=== PATIENT | male | born 1965 | race Caucasian/White ===

== ENCOUNTER 2016-12-09 14:26 | Emergency (ER) | payer BC ==
[2016-12-09 14:37] VITALS: RESP 18
[2016-12-09] MEDS ORDERED: SODIUM CHLORIDE 0.9% 500 ML IV STA (14:59)
--- NOTE | 2016-12-09 15:03 | ED ---
General Adult HPI - General Chief complaint: Abdominal Pain Stated complaint: no bowel movement/abdominal pain Time Seen by Provider: 12/09/16 14:35 Source: patient, RN notes reviewed Mode of arrival: ambulatory Limitations: no limitations - History of Present Illness Initial comments: This is a 51-year-old male who presents to the emergency department complaining of abdominal pain which started on the left side radiating to his abdomen but today he states it is diffusely tender. Patient states the pain was worse on Friday and has improved a little but it continues to bother him. Patient states since then he's been afraid to eat because he seems as though it makes the pain worse. Patient states he has not had any follow-up since Friday and is only passing some gas. Patient denies any previous surgeries. Patient denies any medical problems. Patient states he hasn't seen a physician in quite a few years. Patient denies any fever chills. Patient denies any lightheadedness dizziness or near syncopal episode. Patient denies any difficulty breathing or chest pain. Patient denies any dysuria hematuria urinary frequency. Patient denies any back pain. - Related Data Home Medications Medication Instructions Recorded Confirmed No Known Home Medications [No 12/09/16 12/09/16 Known Home Medications] Allergies Allergy/AdvReac Type Severity Reaction Status Date / Time No Known Allergies Allergy Verified 12/09/16 15:14 Review of Systems ROS Statement: Those systems with pertinent positive or pertinent negative responses have been documented in the HPI. ROS Other: All systems not noted in ROS Statement are negative. Past Medical History Past Medical History: No Reported History History of Any Multi-Drug Resistant Organisms: None Reported Past Surgical History: Tubal Ligation Past Psychological History: No Psychological Hx Reported Smoking Status: Current every day smoker Past Alcohol Use History: Rare Past Drug Use History: None Reported General Exam - General Exam Comments Initial Comments: GENERAL: Patient is well-developed and well-nourished. Patient is nontoxic and well- hydrated and is in mild distress. ENT: Neck is soft and supple. No significant lymphadenopathy is noted. Oropharynx is clear. Moist mucous membranes. Neck has full range of motion without eliciting any pain. EYES: The sclera were anicteric and conjunctiva were pink and moist. Extraocular movements were intact and pupils were equal round and reactive to light. Eyelids were unremarkable. PULMONARY: Unlabored respirations. Good breath sounds bilaterally. No audible rales rhonchi or wheezing was noted. CARDIOVASCULAR: There is a regular rate and rhythm without any murmurs gallops or rubs. ABDOMEN: Abdomen is mildly tender diffusely there is no rebound or guarding. SKIN: Skin is clear with no lesions or rashes and otherwise unremarkable. NEUROLOGIC: Patient is alert and oriented x3. Cranial nerves II through XII are grossly intact. Motor and sensory are also intact. Normal speech, volume and content. Symmetrical smile. MUSCULOSKELETAL: Normal extremities with adequate strength and full range of motion. LYMPHATICS: No significant lymphadenopathy is noted PSYCHIATRIC: Normal psychiatric evaluation. Limitations: no limitations Course Vital Signs 12/09/16 14:35 Temperature 99.2 F Pulse Rate 102 H Respiratory 18 Rate Blood Pressure 133/95 O2 Sat by Pulse 96 Oximetry Medical Decision Making - Medical Decision Making I spoke with the patient for about 5 minutes about the risks of smoking and the benefits of sensation. It lasted 3 minutes. Patient's CAT scan shows no acute normalities. I went back into reevaluate the patient he states he was feeling better and now that he knows everything is normal on the CAT scan he'll feel like he can go home and eat. Patient will follow-up with his primary medical care doctor. - Lab Data Result diagrams: 12/09/16 14:50 12/09/16 14:50 Lab Results 12/09/16 12/09/16 12/09/16 Range/Units 14:50 14:50 14:50 WBC 8.1 (3.8-10.6) k/uL RBC 6.19 H (4.30-5.90) m/uL Hgb 20.6 H (13.0-17.5) gm/dL Hct 59.6 H (39.0-53.0) % MCV 96.3 (80.0-100.0) fL MCH 33.3 (25.0-35.0) pg MCHC 34.6 (31.0-37.0) g/dL RDW 14.7 (11.5-15.5) % Plt Count 148 L (150-450) k/uL Neutrophils % 72 % Lymphocytes % 19 % Monocytes % 6 % Eosinophils % 1 % Basophils % 1 % Neutrophils # 5.8 (1.3-7.7) k/uL Lymphocytes # 1.5 (1.0-4.8) k/uL Monocytes # 0.5 (0-1.0) k/uL Eosinophils # 0.1 (0-0.7) k/uL Basophils # 0.0 (0-0.2) k/uL Sodium 139 (137-145) mmol/L Potassium 4.5 (3.5-5.1) mmol/L Chloride 106 (98-107) mmol/L Carbon Dioxide 21 L (22-30) mmol/L Anion Gap 12 mmol/L BUN 9 (9-20) mg/dL Creatinine 0.80 (0.66-1.25) mg/dL Est GFR (MDRD) Af Amer >60 (>60 ml/min/1.73 sqM) Est GFR (MDRD) Non-Af >60 (>60 ml/min/1.73 sqM) Glucose 108 H (74-99) mg/dL Calcium 9.7 (8.4-10.2) mg/dL Total Bilirubin 0.8 (0.2-1.3) mg/dL AST 24 (17-59) U/L ALT 31 (21-72) U/L Alkaline Phosphatase 119 (38-126) U/L Total Protein 7.6 (6.3-8.2) g/dL Albumin 4.5 (3.5-5.0) g/dL Amylase <30 L (30-110) U/L Lipase 72 (23-300) U/L Urine Color Light Yellow Urine Appearance Clear (Clear) Urine pH 5.5 (5.0-8.0) Ur Specific [place] 1.002 (1.001-1.035) Urine Protein Negative (Negative) Urine Glucose (UA) Negative (Negative) Urine Ketones Negative (Negative) Urine Blood Negative (Negative) Urine Nitrite Negative (Negative) Urine Bilirubin Negative (Negative) Urine Urobilinogen <2.0 (<2.0) mg/dL Ur Leukocyte Esterase Negative (Negative) Disposition Clinical Impression: Abdominal pain, Polycythemia Disposition: HOME SELF-CARE Condition: Good Instructions: Abdominal Pain (ED) Referrals: Rowan Coronel MD [Primary Care Provider] - 1-2 days Time of Disposition: 15:59
[2016-12-09 15:23] LABS: Appearance,Urine Clear (Clear); Bilirubin,Urine Negative (Negative); Glucose,Urine (UA) Negative (Negative); Ketones,Urine Negative (Negative); Leukocyte Esterase,Urine Negative (Negative); Nitrite,Urine Negative (Negative); PH, Urine 5.5 (5.0-8.0); Protein,Urine Negative (Negative); Specific Gravity,Urine 1.002 (1.001-1.035); UA Billing (MACRO vs. MICRO) CHEM; Urobilinogen,Urine <2.0 mg/dL (<2.0)
[2016-12-09 15:25] LABS: Basophils % (A) 1 %; CHCM 34.5; Eosinophils # (A) 0.1 k/uL (0-0.7); Eosinophils % (A) 1 %; HCT 59.6 % (39.0-53.0); HDW 2.65; HGB 20.6 gm/dL (13.0-17.5); Luc # (Auto) 0.16; Luc % (Auto) 2; Lymphocytes # (A) 1.5 k/uL (1.0-4.8); Lymphocytes % (A) 19 %; MCH 33.3 pg (25.0-35.0); MCHC 34.6 g/dL (31.0-37.0); MCV 96.3 fL (80.0-100.0); Mean Platelet Volume 8.6; Monocytes # (A) 0.5 k/uL (0-1.0); Monocytes % (A) 6 %; Neutrophils # (A) 5.8 k/uL (1.3-7.7); Neutrophils % (A) 72 %; RBC 6.19 m/uL (4.30-5.90); RDW 14.7 % (11.5-15.5); WBC 8.1 k/uL (3.8-10.6); WBC (Perox) 8.13
[2016-12-09 15:34] LABS: ALT 31 U/L (21-72); AST 24 U/L (17-59); Alkaline Phosphatase 119 U/L (38-126); Amylase <30 U/L (30-110); Anion Gap 12 mmol/L; Blood Urea Nitrogen 9 mg/dL (9-20); Calcium 9.7 mg/dL (8.4-10.2); Carbon Dioxide 21 mmol/L (22-30); Chloride 106 mmol/L (98-107); Glucose 108 mg/dL (74-99); Non-African American GFR(MDRD) >60 (>60 ml/min/1.73 sqM); Potassium 4.5 mmol/L (3.5-5.1); Sodium 139 mmol/L (137-145); Total Bilirubin 0.8 mg/dL (0.2-1.3); Total Protein 7.6 g/dL (6.3-8.2)
--- NOTE | 2016-12-09 15:41 | CT ---
EXAMINATION TYPE: CT abdomen pelvis wo con DATE OF EXAM: 12/09/2016 HISTORY: Pain mid to left sided abdominal pain for 3 days with constipation per patient CT DLP: 933.8 mGycm. Automated Exposure Control for Dose Reduction was Utilized. TECHNIQUE: CT scan of the abdomen and pelvis is performed without oral or IV contrast. COMPARISON: NONE FINDINGS: Within the limitations of a non-contrast study, the following observations are made. LUNG BASES: No significant abnormality is appreciated. LIVER/GB: Liver is diffusely hypodense consistent with fatty infiltration. PANCREAS: No significant abnormality is seen. SPLEEN: No significant abnormality is seen. ADRENALS: No significant abnormality is seen. KIDNEYS: No renal stones or hydronephrosis is evident bilaterally. BOWEL: The evaluation of bowel is slightly suboptimal secondary to lack of enteric contrast. There is no suspicious small or large bowel dilatation. Normal-appearing appendix is seen inferiorly from the cecum. GENITAL ORGANS: No gross abnormality seen. LYMPH NODES: No greater than 1cm abdominal or pelvic lymph nodes are appreciated. OSSEOUS STRUCTURES: Some spurring near thoracolumbar junction is present. There is multilevel facet a rthropathy. There is some spurring at greater trochanter levels bilaterally. OTHER: Calcification right pelvis on axial image 124 favors phlebolith. There is mild calcified plaqu e distal abdominal aorta with mild to moderate calcified plaque seen in pelvic iliac branch vessels. IMPRESSION: No renal stones or hydronephrosis is seen bilaterally. No bowel obstruction is present. N o suspicious acute finding is seen on noncontrast study to account for patient's symptoms.
[2016-12-09 16:11] VITALS: BP 132/79; PULSE 81; TEMP 99.3
== END 2016-12-09 16:17 | disposition home or self-care (01) ==
LOC: EC 14:26
DX: R10.84 Generalized abdominal pain (principal); D75.1 Secondary polycythemia; F17.200 Nicotine dependence, unspecified, uncomplicated
CPT/HCPCS: 36415; 74176; 80053; 81003; 82150; 83690; 85025; 96360; 99284

== ENCOUNTER 2017-03-25 13:58 | Observation (INO) | payer BC ==
--- NOTE | 2017-03-25 13:54 | US ---
EXAMINATION TYPE: US venous doppler duplex LE RT DATE OF EXAM: 03/25/2017 1:40 PM COMPARISON: NONE CLINICAL HISTORY: 52-year-old male with right Leg Pain Lower Extremity M79.604. SIDE PERFORMED: Right TECHNIQUE: The lower extremity deep venous system is examined utilizing real time linear array sonog aric with graded compression, doppler sonography and color-flow sonography. FINDINGS: VESSELS IMAGED: Common Femoral Vein Deep Femoral Vein Greater Saphenous Vein * Femoral Vein Popliteal Vein Small Saphenous Vein * Proximal Calf Veins (* superficial vessels) Right Leg: Positive for DVT at Femoral Vein, right Popliteal Vein, upper Calf Veins and one of two c chcf veins mid level. Tech findings called to Dr Coronel at exam's end. IMPRESSION: Exam positive for acute DVT involving the right femoral vein, popliteal vein, and one of two deep vei ns at the mid calf level.
[2017-03-25] MEDS ORDERED: HEPARIN SODIUM,PORCINE 5,000 UNIT/ML 1 ML VIAL IV STA ×2 (14:40→23:53)
--- NOTE | 2017-03-25 14:42 | ED ---
Extremity Problem HPI - General Chief complaint: Extremity Problem,Nontraumatic Stated complaint: Positive Rt leg DVT-from [facility] Time Seen by Provider: 03/25/17 14:00 Source: patient, family, RN notes reviewed Mode of arrival: wheelchair Limitations: no limitations - History of Present Illness Initial comments: This is a 52-year-old male with a benign history who is a smoker who states he had the onset yesterday of right lower extremity pain and swelling. He states that extends over from his thigh down to his leg. He denies any shortness of breath fevers chills nausea vomiting sweats trauma he works on his feet all day he states no recent trips. No prior history of blood clots. His other complaints at this time he was seen by his doctor today had an outpatient ultrasound that shows an extensive DVT in the right lower extremity. Complete report MD Complaint: extremity pain, extremity swelling - Related Data Home Medications Medication Instructions Recorded Confirmed Ibuprofen [Motrin] 200 - 800 mg PO Q6HR PRN 03/25/17 03/25/17 Allergies Allergy/AdvReac Type Severity Reaction Status Date / Time No Known Allergies Allergy Verified 03/25/17 14:21 Review of Systems ROS Statement: Those systems with pertinent positive or pertinent negative responses have been documented in the HPI. ROS Other: All systems not noted in ROS Statement are negative. Past Medical History Past Medical History: No Reported History History of Any Multi-Drug Resistant Organisms: None Reported Past Surgical History: Tonsillectomy Past Psychological History: No Psychological Hx Reported Smoking Status: Current every day smoker Past Alcohol Use History: Rare Past Drug Use History: None Reported General Exam - General Exam Comments Initial Comments: This is a well-developed well-nourished awake alert oriented 3 male Limitations: no limitations General appearance: alert, in no apparent distress Head exam: Present: atraumatic, normocephalic, normal inspection Eye exam: Present: normal appearance, PERRL, EOMI. Absent: scleral icterus, conjunctival injection, periorbital swelling ENT exam: Present: normal exam, mucous membranes moist Neck exam: Present: normal inspection. Absent: tenderness, meningismus, lymphadenopathy Respiratory exam: Present: normal lung sounds bilaterally. Absent: respiratory distress, wheezes, rales, rhonchi, stridor Cardiovascular Exam: Present: regular rate, normal rhythm, normal heart sounds. Absent: systolic murmur, diastolic murmur, rubs, gallop, clicks GI/Abdominal exam: Present: soft, normal bowel sounds. Absent: distended, tenderness, guarding, rebound, rigid Extremities exam: Present: full ROM, tenderness, normal capillary refill, pedal edema, calf tenderness (Positive Homans sign right lower extremity). Absent: joint swelling Back exam: Present: normal inspection Neurological exam: Present: alert, oriented X3, CN II-XII intact Psychiatric exam: Present: normal affect, normal mood Skin exam: Present: warm, dry, intact, normal color. Absent: rash Course Vital Signs 03/25/17 14:11 Temperature 99.2 F Pulse Rate 80 Respiratory 18 Rate Blood Pressure 138/84 O2 Sat by Pulse 96 Oximetry - Reevaluation(s) Reevaluation #1: 03/25/17 14:43 I did attempt discussing smoking cessation with the patient including discussing risks factors which include blood clots from smoking. The patient did not want to have anything to do with smoking cessation. The attempt lasted 3.1 minutes Medical Decision Making - Medical Decision Making I did discuss findings with the patient and his . Patient be admitted for anticoagulation and treatment/evaluation of the DVT in right lower extremity he does believe he'll require a nicotine patch. - Radiology Data Radiology results: report reviewed (I did review the outpatient imaging and reports patient does have an extensive DVT he will be admitted for inpatient coagulation.), image reviewed Disposition Clinical Impression: Deep vein thrombosis of lower extremity Disposition: ADMITTED IP TO THIS [facility] Condition: Stable Referrals: Rowan Coronel MD [Primary Care Provider] - 1-2 days
[2017-03-25] MEDS ORDERED: NALOXONE 0.4 MG/ML 1 ML VIAL IV PRN (15:03)
[2017-03-25 15:25] LABS: Basophils # (A) 0.1 k/uL (0-0.2); Basophils % (A) 1 %; CH 32.7; Eosinophils # (A) 0.2 k/uL (0-0.7); Eosinophils % (A) 3 %; HCT 58.4 % (39.0-53.0); HGB 18.8 gm/dL (13.0-17.5); Luc # (Auto) 0.13; Luc % (Auto) 2; Lymphocytes # (A) 1.4 k/uL (1.0-4.8); Lymphocytes % (A) 17 %; MCH 32.1 pg (25.0-35.0); MCHC 32.2 g/dL (31.0-37.0); MCV 99.7 fL (80.0-100.0); Macrocytosis Slight; Mean Platelet Volume 8.3; Monocytes # (A) 0.4 k/uL (0-1.0); Monocytes % (A) 5 %; Neutrophils % (A) 73 %; RBC 5.86 m/uL (4.30-5.90); RDW 15.8 % (11.5-15.5); WBC 8.2 k/uL (3.8-10.6); WBC (Perox) 8.54
[2017-03-25 15:34] LABS: ALT 31 U/L (21-72); AST 19 U/L (17-59); Alkaline Phosphatase 106 U/L (38-126); Anion Gap 9 mmol/L; Blood Urea Nitrogen 9 mg/dL (9-20); Calcium 9.5 mg/dL (8.4-10.2); Carbon Dioxide 23 mmol/L (22-30); Chloride 105 mmol/L (98-107); Glucose 103 mg/dL (74-99); Non-African American GFR(MDRD) >60 (>60 ml/min/1.73 sqM); Potassium 4.4 mmol/L (3.5-5.1); Sodium 137 mmol/L (137-145); Total Bilirubin 0.9 mg/dL (0.2-1.3); Total Protein 7.6 g/dL (6.3-8.2)
[2017-03-25 15:57] LABS: Creatine Kinase MB 0.7 ng/mL (0.0-2.4)
--- NOTE | 2017-03-25 16:03 | XR ---
EXAMINATION TYPE: XR chest 2V DATE OF EXAM: 03/25/2017 COMPARISON: None HISTORY: 52-year-old male with cough, DVT TECHNIQUE: AP and lateral views FINDINGS: Heart is upper limits of normal in size. Mild diffuse interstitial prominence and mild peribronchial cuffing. Rounded opacity right mid to lower lung suspected to represent a prominent rib end. Strandy atelectasis at the left base. No olivier consolidation or pleural effusion. IMPRESSION: 1. Peribronchial cuffing and mild interstitial changes. Correlate for possible etiologies including b ronchitis, uncontrolled asthma, or atypical pneumonias. 2. Rounded opacity right mid to lower lung suspected to represent a prominent fifth rib end. Recommen d short interval follow-up in 4-6 weeks.
[2017-03-25] MEDS: SODIUM CHLORIDE 0.9% 1,000 ML IV SCH (16:30)
[2017-03-25] MEDS: HEPARIN SODIUM,PORCINE/D5W PMX 25,000 UNIT in DEXTROSE/WATER 1 500ML.BAG IV SCH (16:35)
[2017-03-25] MEDS ORDERED: NICOTINE 21MG/24HR PATCH TRANSDERM STA (16:40)
[2017-03-25 16:54] LABS: INR 1.1 (<1.2); Partial Thromboplastin Time 26.4 sec (22.0-30.0); Prothrombin Time 10.9 sec (9.0-12.0)
[2017-03-25 17:26] VITALS: BMI 33.6
[2017-03-25] MEDS ORDERED: HYDROcodone/APAP 5-325MG 1 EACH TAB PO PRN (17:40)
--- NOTE | 2017-03-26 00:30 | P.HPIM ---
History of Present Illness H&P Date: 03/25/17 Chief Complaint: Right leg swelling Patient is a 52-year-old male with out significant past medical history except for smoking came to the hospital the complains of right lower reduction to a swelling and pain. Patient says that his pain started about the knee and started going down and worsening ankle and lower leg swelling. He denies any shortness of breath fevers chills nausea vomiting sweats trauma he works on his feet all day he states no recent trips. No prior history of blood clots. His other complaints at this time he was seen by his doctor today had an outpatient ultrasound that shows an extensive DVT in the right lower extremity. Patient denied any recent illnesses. No recent surgeries. Denied any history of cancers. No weight loss or loss of appetite. Review of Systems Constitutional: Patient denies any fever or chills . No generalized weakness or weight loss. Abdomen: Patient denied nausea vomiting and diarrhea and abdominal pain. Cardiovascular: Patient denies any chest pain or short of breath no palpitations. Respiratory: patient denied any cough is from production. No shortness of breath Neurologic: Patient denied any numbness or tingling headache. Musculoskeletal: Right leg swelling and pain. Skin: Negative Psychiatric: Negative Endocrine: No heat or cold intolerance. No recent weight gain. Genitourinary: No dysuria or hematuria. All other 14 point ROS negative except the above Past Medical History Past Medical History: No Reported History History of Any Multi-Drug Resistant Organisms: None Reported Past Surgical History: Tonsillectomy Past Anesthesia/Blood Transfusion Reactions: No Reported Reaction Additional Past Anesthesia/Blood Transfusion Reaction / Comment(s): NO BLOOD TRANSFUSIONS BEFORE Past Psychological History: No Psychological Hx Reported Smoking Status: Current every day smoker Past Alcohol Use History: Rare Past Drug Use History: None Reported - Past Family History Mother Family Medical History: CVA/TIA Additional Family Medical History / Comment(s): MOTHER HAD CANCER, UNSURE WHICH TYPE Father Family Medical History: CVA/TIA Medications and Allergies Home Medications Medication Instructions Recorded Confirmed Type Ibuprofen [Motrin] 200 - 800 mg PO Q6HR PRN 03/25/17 03/25/17 History Allergies Allergy/AdvReac Type Severity Reaction Status Date / Time bee venom protein (honey bee) Allergy Swelling Verified 03/25/17 17:30 Physical Exam Vitals: Vital Signs Temp Pulse Pulse Resp BP BP Pulse Ox 03/25/17 17:00 96.7 F L 81 18 134/88 97 03/25/17 16:52 99.2 F 78 18 135/80 98 03/25/17 14:11 99.2 F 80 18 138/84 96 Intake and Output 03/25/17 03/25/17 03/25/17 06:59 14:59 22:59 Other: Weight 106.141 kg 103.4 kg Patient Weight 03/26/17 06:59 Weight 103.4 kg PHYSICAL EXAMINATION: Patient is lying in the bed comfortably, no acute distress, awake alert and oriented.. HEENT: Normocephalic. Neck is supple. Pupils reactive. Nostrils clear. Oral cavity is moist. Ears reveal no drainage. Neck reveals no JVD, carotid bruits, or thyromegaly. CHEST EXAMINATION: Trachea is central. Symmetrical expansion. Lung givens clear to auscultation and percussion. CARDIAC: Normal S1, S2 with no gallops. No murmurs ABDOMEN: Soft. Bowel sounds normal. No organomegaly. No abdominal bruits. Extremities: Right leg swelling below the knee with redness and warm to touch. Does have calf tenderness. No clubbing or cyanosis Left lower extremity varicose veins Neurologically awake, alert, oriented x3 with well-coordinated movements. No focal deficits noted Skin: No rash or skin lesions. Psychiatric: Operative. Nonsuicidal Musculoskeletal: No joint swelling or deformity. Normal range of motion. Results CBC & Chem 7: 03/25/17 15:16 03/25/17 15:16 Labs: Abnormal Lab Results - Last 24 Hours (Table) 03/25/17 03/25/17 03/25/17 Range/Units 15:16 15:16 15:16 Hgb 18.8 H (13.0-17.5) gm/dL Hct 58.4 H (39.0-53.0) % RDW 15.8 H (11.5-15.5) % Plt Count 124 L (150-450) k/uL D-Dimer (<0.60) mg/L FEU Glucose 103 H (74-99) mg/dL Total Creatine Kinase 49 L (55-170) U/L 03/25/17 Range/Units 15:16 Hgb (13.0-17.5) gm/dL Hct (39.0-53.0) % RDW (11.5-15.5) % Plt Count (150-450) k/uL D-Dimer 6.91 H (<0.60) mg/L FEU Glucose (74-99) mg/dL Total Creatine Kinase (55-170) U/L Thrombosis Risk Factor Assmnt - Choose All That Apply Each Factor Represents 1 point: Age 41-60 years, Obesity (BMI >25) Each Risk Factor Represents 3 Points: Family history of DVT/PE Thrombosis Risk Factor Assessment Total Risk Factor Score: 5 Thrombosis Risk Factor Assessment Level: High Risk Assessment and Plan Assessment: #1 acute right lower activity DVT. Unknown precipitant factor. Possible varicose veins #2 right mid to lower rounded Opacity on chest x-ray possibly prominent fifth rib end. Follow-up recommended #3 cigarette smoking. Counseled for cessation #4 obesity with BMI 33.7 #5 elevated d-dimer 6.9 Plan: Patient will be continued on heparin IV and continue to follow. Possible change to oral antibiotics tomorrow. Patient will need repeat chest x-ray as an outpatient and possibly pulmonary follow-up. Smoking cessation was counseled. We will continue the current management and further recommendations based on the clinical course.
[2017-03-26] MEDS: HEPARIN SODIUM,PORCINE/D5W PMX 25,000 UNIT in DEXTROSE/WATER 1 500ML.BAG IV SCH ×2 (05:11→18:01)
[2017-03-26 06:04] LABS: CH 32.2; CHCM 32.7; HCT 57.1 % (39.0-53.0); HGB 18.6 gm/dL (13.0-17.5); MCH 32.1 pg (25.0-35.0); MCHC 32.5 g/dL (31.0-37.0); MCV 98.9 fL (80.0-100.0); Macrocytosis Slight; Mean Platelet Volume 8.4; RBC 5.78 m/uL (4.30-5.90); RDW 15.7 % (11.5-15.5); WBC 7.5 k/uL (3.8-10.6)
[2017-03-26] MEDS: NICOTINE 21MG/24HR PATCH TRANSDERM SCH (08:20)
--- NOTE | 2017-03-26 16:40 | P.PN ---
Subjective Progress Note Date: 03/26/17 Progress note being dictated for Dr. Roca Interval history:Patient is a 52-year-old male with out significant past medical history except for smoking came to the hospital the complains of right lower reduction to a swelling and pain. Patient says that his pain started about the knee and started going down and worsening ankle and lower leg swelling. He denies any shortness of breath fevers chills nausea vomiting sweats trauma he works on his feet all day he states no recent trips. No prior history of blood clots. His other complaints at this time he was seen by his doctor today had an outpatient ultrasound that shows an extensive DVT in the right lower extremity. Patient denied any recent illnesses. No recent surgeries. Denied any history of cancers. No weight loss or loss of appetite. 03/26/2017. Maintained on heparin drip, Edema,erythema, discomfort improving. Anxious, on nicotine patch. Denies chest pain, palpitations or increasing shortness of breath. Good diet appetite with no nausea or vomiting. Maintaining O2 sats in the 90s on room air. Afebrile. Objective - Vital Signs Vital signs: Vital Signs Temp 98.4 F 03/26/17 15:00 Pulse 83 03/26/17 15:00 Resp 16 03/26/17 15:00 BP 116/71 03/26/17 15:00 Pulse Ox 93 L 03/26/17 15:00 Intake & Output 03/25/17 03/26/17 03/26/17 18:59 06:59 18:59 Intake Total 717.633 6182 Output Total 400 Balance 554.477 800 Weight 103.4 kg Intake: Intake, IV Titration 554.477 Amount Heparin Sodium,Porcine/ 554.477 D5w Pmx 25,000 unit In Dextrose/Water 1 500ml. bag @ 18 UNITS/KG/HR 38. 21 mls/hr IV .Q13H6M ARASH Rx#:[id number] Oral 1200 Output: Urine 400 Other: Voiding Method Toilet Urinal # Voids 1 6 - Exam Patient is lying in the bed comfortably, no acute distress, awake alert and oriented. HEENT: Normocephalic. Neck is supple. Pupils reactive. Nostrils clear. Oral cavity is moist. Ears reveal no drainage. Neck reveals no JVD, carotid bruits, or thyromegaly. CHEST EXAMINATION: Trachea is central. Symmetrical expansion. Lung givens clear to auscultation and percussion. CARDIAC: Normal S1, S2 with no gallops. No murmurs ABDOMEN: Soft. Bowel sounds normal. No organomegaly. No abdominal bruits. Extremities: Improving Right leg swelling below the knee with decreased redness ,warmth. Less calf tenderness. No clubbing or cyanosis Left lower extremity varicose veins Neurologically awake, alert, oriented x3 with well-coordinated movements. No focal deficits noted. Skin: No rash or skin lesions. Psychiatric: Operative. Nonsuicidal Musculoskeletal: No joint swelling or deformity. Normal range of motion. - Labs CBC & Chem 7: 03/26/17 05:43 03/25/17 15:16 Labs: Abnormal Lab Results - Last 24 Hours (Table) 03/25/17 03/26/17 03/26/17 Range/Units 22:25 05:43 05:43 Hgb 18.6 H (13.0-17.5) gm/dL Hct 57.1 H (39.0-53.0) % RDW 15.7 H (11.5-15.5) % Plt Count 120 L (150-450) k/uL APTT 45.6 H 54.2 H (22.0-30.0) sec Assessment and Plan Assessment: #1 acute right lower activity DVT. Unknown precipitant factor. Possible varicose veins #2 right mid to lower rounded Opacity on chest x-ray possibly prominent fifth rib end. Follow-up recommended #3 cigarette smoking. Counseled for cessation #4 obesity with BMI 33.7 #5 elevated d-dimer 6.9 Plan: Continue on heparin drip, Xarelto coverage verification pending , switch over tomorrow. Nicotine cessation readdressed. Discharge planning in progress. Outpatient follow-up with pulmonary including repeat chest x-ray. The impression and plan of care has been dictated as directed. : I performed a history and examination of this patient, discussed the same with the dictator. I agree with the dictator's note ,documented as a scribe. Any additional findings or plans will be noted.
[2017-03-26] MEDS: SODIUM CHLORIDE 0.9% 1,000 ML IV SCH (18:03)
[2017-03-27] MEDS: HEPARIN SODIUM,PORCINE/D5W PMX 25,000 UNIT in DEXTROSE/WATER 1 500ML.BAG IV SCH (05:27)
[2017-03-27 07:47] LABS: CH 32.8; CHCM 33.2; HCT 58.5 % (39.0-53.0); HDW 2.72; HGB 18.6 gm/dL (13.0-17.5); MCH 31.7 pg (25.0-35.0); MCHC 31.8 g/dL (31.0-37.0); MCV 99.6 fL (80.0-100.0); Mean Platelet Volume 7.5; RBC 5.87 m/uL (4.30-5.90); RDW 13.9 % (11.5-15.5); WBC 7.6 k/uL (3.8-10.6)
[2017-03-27 07:53] VITALS: RESP 16
[2017-03-27] MEDS ORDERED: HEPARIN SODIUM,PORCINE 5,000 UNIT/ML 1 ML VIAL IV STA (08:02)
[2017-03-27] MEDS ORDERED: HEPARIN SODIUM,PORCINE 5,000 UNIT/ML 1 ML VIAL IV PRN (08:09)
[2017-03-27] MEDS: NICOTINE 21MG/24HR PATCH TRANSDERM SCH (08:16)
[2017-03-27] MEDS ORDERED: RX INFO: IV CONTRAST WAS GIVEN 1 EACH MISC MISCELLANE PRN (12:03)
[2017-03-27] MEDS ORDERED: RIVAROXABAN 15 MG TAB PO SCH (12:30)
[2017-03-27] MEDS ORDERED: NICOTINE 21MG/24HR PATCH TRANSDERM STA (14:20)
[2017-03-27 14:48] VITALS: BP 113/67; PULSE 72; TEMP 97.2
--- NOTE | 2017-03-27 15:24 | CT ---
EXAMINATION TYPE: CT chest angio for PE DATE OF EXAM: 03/27/2017 COMPARISON: NONE HISTORY: Right leg swelling and deep venous thrombosis CT DLP: 511.4 mGycm Automated exposure control for dose reduction was used. CONTRAST: CT Chest for pulmonary embolism performed with with IV Contrast, patient injected with 100 mL of Omni paque 350. FINDINGS: LUNGS: The lungs are remarkable for some minimal basilar increased density at the right posterior cos tophrenic angle likely representing atelectasis. There is no pleural effusion or pneumothorax seen. The tracheobronchial tree is patent. MEDIASTINUM: There is satisfactory enhancement of the pulmonary artery and its branches, there is no CT evidence for pulmonary embolism. Borderline enlargement superior mediastinal nodes, hilar nodes.. Small prevascular node is present. No pericardial effusion is seen. Pulmonary artery is enlarged. AORTA: Borderline dilation, aortic root is 4.1 cm.. OTHER: Spleen is enlarged. IMPRESSION: No evident pulmonary embolism. Probable atelectasis right lower lobe,, borderline enlarged mediastina l nodes, aortic root follow-up suggested. Correlate for pulmonary artery hypertension. Splenomegaly.
[2017-03-27] MEDS: SODIUM CHLORIDE 0.9% 1,000 ML IV SCH (16:24)
== END 2017-03-27 17:20 | disposition home or self-care (01) ==
LOC: EC 13:58 → INTOOBSV 15:03 → 4MS4W 15:03
PROVIDERS: ADMIT Internal Medicine; ATTEND Internal Medicine
DX: I82.411 Acute embolism and thrombosis of right femoral vein (principal); I82.431 Acute embolism and thrombosis of right popliteal vein; I82.491 Acute embolism and thrombosis of other specified deep vein of right lower extremity; R79.89 Other specified abnormal findings of blood chemistry; I83.92 Asymptomatic varicose veins of left lower extremity; F17.210 Nicotine dependence, cigarettes, uncomplicated; E66.9 Obesity, unspecified; Z68.25 Body mass index [BMI] 25.0-25.9, adult; Z91.030 Bee allergy status
CPT/HCPCS: 71020; 71275; 80053; 82550; 82553; 83735; 85025; 85027; 85379; 85610; 85730; 93005; 96365; 96366; 96376; 99285

== ENCOUNTER → 2017-10-02 | Outpatient (CLI) | payer BC ==
--- NOTE | 2017-10-02 15:18 | US ---
EXAMINATION TYPE: US venous doppler duplex LE DATE OF EXAM: 10/02/2017 3:00 PM COMPARISON: US right lower extremity 03/25/2017 CLINICAL HISTORY: I82.411 Acute embolism and thrombosis of right fem. Patient on zeralto. Known DVT SIDE PERFORMED: Bilateral TECHNIQUE: The lower extremity deep venous system is examined utilizing real time linear array sonog aric with graded compression, doppler sonography and color-flow sonography. VESSELS IMAGED: External Iliac Vein (EIV) Common Femoral Vein Deep Femoral Vein Greater Saphenous Vein * Femoral Vein Popliteal Vein Small Saphenous Vein * Proximal Calf Veins (* superficial vessels) Right Leg: Negative for DVT Left Leg: Negative for DVT Grayscale, color doppler, spectral doppler imaging performed of the deep veins of the bilateral lowe r extremities. There is normal flow, compressibility, vascular waveforms. IMPRESSION: No ultrasound evidence for new or residual DVT in either lower extremity on today's study .
== END ==
LOC: RADUSWWP 14:04
PROVIDERS: ATTEND Internal Medicine Hematology & Oncology
DX: Z09 Encounter for follow-up examination after completed treatment for conditions other than malignant neoplasm (principal); Z86.718 Personal history of other venous thrombosis and embolism
CPT/HCPCS: 93970

== ENCOUNTER 2018-01-16 14:41 | Emergency (ER) | payer BC, OTHER ==
[2018-01-16 15:17] VITALS: RESP 18
[2018-01-16 16:29] LABS: Basophils % (A) 1 %; Eosinophils # (A) 0.2 k/uL (0-0.7); Eosinophils % (A) 4 %; HCT 55.6 % (39.0-53.0); HGB 18.4 gm/dL (13.0-17.5); Lymphocytes % (A) 20 %; MCH 31.3 pg (25.0-35.0); MCHC 33.2 g/dL (31.0-37.0); MCV 94.2 fL (80.0-100.0); Mean Platelet Volume 8.3; Monocytes # (A) 0.2 k/uL (0-1.0); Monocytes % (A) 4 %; Neutrophils # (A) 3.5 k/uL (1.3-7.7); Neutrophils % (A) 69 %; Platelet Count 96 k/uL (150-450); RDW 13.4 % (11.5-15.5); WBC 5.1 k/uL (3.8-10.6)
[2018-01-16] MEDS ORDERED: LIDOCAINE 1% INJ 10MG/ML (20 ML MDV) SQ STA (16:36)
[2018-01-16 16:44] LABS: ALT 32 U/L (21-72); AST 23 U/L (17-59); Albumin 4.2 g/dL (3.5-5.0); Alkaline Phosphatase 98 U/L (38-126); Anion Gap 10 mmol/L; Blood Urea Nitrogen 19 mg/dL (9-20); Calcium 8.9 mg/dL (8.4-10.2); Carbon Dioxide 23 mmol/L (22-30); Chloride 103 mmol/L (98-107); Glucose 163 mg/dL (74-99); Potassium 4.9 mmol/L (3.5-5.1); Sodium 136 mmol/L (137-145); Total Bilirubin 0.7 mg/dL (0.2-1.3); Total Protein 7.1 g/dL (6.3-8.2)
--- NOTE | 2018-01-16 17:32 | ED ---
General Adult HPI - General Chief complaint: Skin/Abscess/Foreign Body Stated complaint: Leg Pain Time Seen by Provider: 01/16/18 16:14 Source: patient, RN notes reviewed Mode of arrival: ambulatory Limitations: no limitations - History of Present Illness Initial comments: Patient's a 52-year-old male presents emergency room today with chief complaint of an abscess to the left thigh. He does admit that is been a cyst since she was a child. He states it got infected a couple weeks ago and went to the family doctor had a course of antibiotics of Bactrim for 10 days. Patient states that he finished antibiotics 2 days ago. Patient states that . Has not improved. States the swelling has decreased but is still having drainage. Patient denies any fevers. Denies any other complaints or symptoms. - Related Data Home Medications Medication Instructions Recorded Confirmed Aspirin [Adult Low Dose Aspirin EC] 81 mg PO DAILY 01/16/18 01/16/18 Atorvastatin Calcium [Lipitor] 40 mg PO DAILY 01/16/18 01/16/18 Ibuprofen [Motrin Ib] 600 mg PO Q8H PRN 01/16/18 01/16/18 Lisinopril [Zestril] 20 mg PO DAILY 01/16/18 01/16/18 Tamsulosin HCl [Flomax] 0.4 mg PO DAILY 01/16/18 01/16/18 metFORMIN HCL [Glucophage] 500 mg PO BID 01/16/18 01/16/18 Previous Rx's Medication Instructions Recorded Clindamycin HCl 300 mg PO Q6H #40 cap 01/16/18 Allergies Allergy/AdvReac Type Severity Reaction Status Date / Time bee venom protein (honey bee) Allergy Swelling Verified 01/16/18 16:53 Review of Systems ROS Statement: Those systems with pertinent positive or pertinent negative responses have been documented in the HPI. ROS Other: All systems not noted in ROS Statement are negative. Past Medical History Past Medical History: Diabetes Mellitus, Hyperlipidemia, Hypertension, Prostate Disorder History of Any Multi-Drug Resistant Organisms: None Reported Past Surgical History: Tonsillectomy Past Anesthesia/Blood Transfusion Reactions: No Reported Reaction Additional Past Anesthesia/Blood Transfusion Reaction / Comment(s): NO BLOOD TRANSFUSIONS BEFORE Past Psychological History: No Psychological Hx Reported Smoking Status: Current every day smoker Past Alcohol Use History: Rare Past Drug Use History: None Reported - Past Family History Mother Family Medical History: CVA/TIA Additional Family Medical History / Comment(s): MOTHER HAD CANCER, UNSURE WHICH TYPE Father Family Medical History: CVA/TIA General Exam - General Exam Comments Initial Comments: General: The patient is awake and alert, in no distress, and does not appear acutely ill. Eye: Pupils are equal, round and reactive to light, extra-ocular movements are intact. No nystagmus. There is normal conjunctiva bilaterally. No signs of icterus. Ears, nose, mouth and throat: There are moist mucous membranes and no oral lesions. Neck: The neck is supple, there is no tenderness or JVD. Musculoskeletal: Normal ROM, no tenderness. Strength 5/5. Sensation intact. Pulses equal bilaterally 2+. Neurological: A&O x 3. CN II-XII intact, There are no obvious motor or sensory deficits. Coordination appears grossly intact. Speech is normal. Skin: Abscess located to the anterior left thigh measuring approximately 2 cm across. Fluctuant area centrally. Psychiatric: Cooperative, appropriate mood & affect, normal judgment. Limitations: no limitations Course Vital Signs 01/16/18 01/16/18 15:13 16:27 Temperature 98.1 F Pulse Rate 91 91 Respiratory 18 18 Rate Blood Pressure 112/72 128/80 O2 Sat by Pulse 98 98 Oximetry Procedures - Procedures Initial comment: Procedure: Incision and drainage The skin overlying the abscess was prepped with Betadine, and anesthetized with 1% lidocaine without epinephrine. A #11 scalpel was then used to incise the abscess. Some purulent material was then extracted from the lesion. Iodoform packing gauze was placed. Gauze dressing placed on top, The patient tolerated the procedure well. Medical Decision Making - Medical Decision Making Abscess drained here in emergency room. Patient will be started on clindamycin. He is advised warm compresses. Advised follow-up surgeon over the next 2 days if symptoms are not improved. - Lab Data Result diagrams: 01/16/18 16:18 01/16/18 16:18 Lab Results 01/16/18 01/16/18 Range/Units 16:18 16:18 WBC 5.1 (3.8-10.6) k/uL RBC 5.90 (4.30-5.90) m/uL Hgb 18.4 H (13.0-17.5) gm/dL Hct 55.6 H (39.0-53.0) % MCV 94.2 (80.0-100.0) fL MCH 31.3 (25.0-35.0) pg MCHC 33.2 (31.0-37.0) g/dL RDW 13.4 (11.5-15.5) % Plt Count 96 L (150-450) k/uL Neutrophils % 69 % Lymphocytes % 20 % Monocytes % 4 % Eosinophils % 4 % Basophils % 1 % Neutrophils # 3.5 (1.3-7.7) k/uL Lymphocytes # 1.0 (1.0-4.8) k/uL Monocytes # 0.2 (0-1.0) k/uL Eosinophils # 0.2 (0-0.7) k/uL Basophils # 0.0 (0-0.2) k/uL Sodium 136 L (137-145) mmol/L Potassium 4.9 (3.5-5.1) mmol/L Chloride 103 (98-107) mmol/L Carbon Dioxide 23 (22-30) mmol/L Anion Gap 10 mmol/L BUN 19 (9-20) mg/dL Creatinine 0.70 (0.66-1.25) mg/dL Est GFR (CKD-EPI)AfAm >90 (>60 ml/min/1.73 sqM) Est GFR (CKD-EPI)NonAf >90 (>60 ml/min/1.73 sqM) Glucose 163 H (74-99) mg/dL Calcium 8.9 (8.4-10.2) mg/dL Total Bilirubin 0.7 (0.2-1.3) mg/dL AST 23 (17-59) U/L ALT 32 (21-72) U/L Alkaline Phosphatase 98 (38-126) U/L Total Protein 7.1 (6.3-8.2) g/dL Albumin 4.2 (3.5-5.0) g/dL Disposition Clinical Impression: Leg abscess Disposition: HOME SELF-CARE Condition: Good Instructions: Abscess (ED) Additional Instructions: Please use medication as discussed. Please follow-up with family doctor in the next 2 days of symptoms have not improved. Please return to emergency room if the symptoms increase or worsen or for any other concerns. Prescriptions: Clindamycin HCl 300 mg PO Q6H #40 cap Is patient prescribed a controlled substance at d/c from ED?: No Referrals: Rowan Coronel MD [Primary Care Provider] - 1-2 days Maci Francisco DO [Doctor of Osteopathic Medicine] - 1-2 days Time of Disposition: 17:30
[2018-01-16 17:47] VITALS: BP 121/57; PULSE 86; TEMP 97.6
== END 2018-01-16 17:47 | disposition home or self-care (01) ==
LOC: EC 14:41
DX: L02.416 Cutaneous abscess of left lower limb (principal); E11.9 Type 2 diabetes mellitus without complications; E78.5 Hyperlipidemia, unspecified; I10 Essential (primary) hypertension; F17.200 Nicotine dependence, unspecified, uncomplicated; Z79.84 Long term (current) use of oral hypoglycemic drugs; Z79.82 Long term (current) use of aspirin; Z79.899 Other long term (current) drug therapy; Z91.030 Bee allergy status
CPT/HCPCS: 36415; 80053; 85025; 99283; 10060; J2001

== ENCOUNTER 2018-04-21 18:45 | Emergency (ER) | payer OTHER ==
[2018-04-21 19:05] VITALS: RESP 18
[2018-04-21] MEDS ORDERED: HYDROmorphone 1 MG/ML 1 ML SYRINGE IVP STA (19:11)
[2018-04-21] MEDS ORDERED: ceFAZolin 2,000 MG in DEXTROSE/WATER 1 50ML.BAG IVPB STA (19:12)
[2018-04-21] MEDS ORDERED: DIPH,PERTUS(ACELL)TETVAC-LF 0.5 ML VIAL IM ONE (19:12)
[2018-04-21] MEDS ORDERED: ceFAZolin IN SWFI 2 GM/20 ML SYRINGE IVP STA (19:13)
--- NOTE | 2018-04-21 19:35 | XR ---
EXAMINATION TYPE: XR hand complete LT DATE OF EXAM: 04/21/2018 COMPARISON: NONE HISTORY: Pain and limited range of motion TECHNIQUE: 4 views. FINDINGS: There is flexion deformity of the third and fourth digits. There is a comminuted fracture of the prox imal shaft of the middle phalanx of the fourth digit. Third digit appears to be intact. Exam is limit ed by the positioning. IMPRESSION: Fracture of the middle phalanx of the ring finger. Limited exam. There is probably lacera tion of the middle finger at the PIP joint.
--- NOTE | 2018-04-21 19:48 | ED ---
Upper Extremity HPI - General Chief Complaint: Extremity Injury, Upper Stated Complaint: [facility] - lt hand crushing injury Time Seen by Provider: 04/21/18 19:10 Source: patient, RN notes reviewed, old records reviewed Mode of arrival: ambulatory Limitations: no limitations - History of Present Illness Initial Comments: 33-year-old male presents emergency department today with traumatic injury to the left hand. Patient reports that his third fourth and second finger crushed in a drill press at work. Patient reports his tetanus is up-to-date. He is a smoker. She reports that he had tissue coming through his glove. He reports he is unable to move the third and fourth digit. Patient states he has a small laceration of her second digit. Patient reports loss of sensation over the third and fourth digit.Patient is a smoker. He has a history of diabetes, and hypertension. - Related Data Home Medications Medication Instructions Recorded Confirmed Aspirin [Adult Low Dose Aspirin EC] 81 mg PO DAILY 01/16/18 01/16/18 Atorvastatin Calcium [Lipitor] 40 mg PO DAILY 01/16/18 01/16/18 Ibuprofen [Motrin Ib] 600 mg PO Q8H PRN 01/16/18 01/16/18 Lisinopril [Zestril] 20 mg PO DAILY 01/16/18 01/16/18 Tamsulosin HCl [Flomax] 0.4 mg PO DAILY 01/16/18 01/16/18 metFORMIN HCL [Glucophage] 500 mg PO BID 01/16/18 01/16/18 Previous Rx's Medication Instructions Recorded Clindamycin HCl 300 mg PO Q6H #40 cap 01/16/18 Allergies Allergy/AdvReac Type Severity Reaction Status Date / Time bee venom protein (honey bee) Allergy Swelling Verified 01/16/18 16:53 Review of Systems ROS Statement: Those systems with pertinent positive or pertinent negative responses have been documented in the HPI. ROS Other: All systems not noted in ROS Statement are negative. Past Medical History Past Medical History: Diabetes Mellitus, Hyperlipidemia, Hypertension, Prostate Disorder History of Any Multi-Drug Resistant Organisms: None Reported Past Surgical History: Tonsillectomy Past Anesthesia/Blood Transfusion Reactions: No Reported Reaction Additional Past Anesthesia/Blood Transfusion Reaction / Comment(s): NO BLOOD TRANSFUSIONS BEFORE Past Psychological History: No Psychological Hx Reported Smoking Status: Current every day smoker Past Alcohol Use History: Rare Past Drug Use History: None Reported - Past Family History Mother Family Medical History: CVA/TIA Additional Family Medical History / Comment(s): MOTHER HAD CANCER, UNSURE WHICH TYPE Father Family Medical History: CVA/TIA General Exam - General Exam Comments Initial Comments: [id number] male. Limitations: no limitations General appearance: alert, in no apparent distress Head exam: Present: atraumatic, normocephalic, normal inspection Eye exam: Present: normal appearance, PERRL, EOMI. Absent: scleral icterus, conjunctival injection, periorbital swelling ENT exam: Present: normal exam, mucous membranes moist Neck exam: Present: normal inspection. Absent: tenderness, meningismus, lymphadenopathy Respiratory exam: Present: normal lung sounds bilaterally. Absent: respiratory distress, wheezes, rales, rhonchi, stridor Cardiovascular Exam: Present: regular rate, normal rhythm, normal heart sounds. Absent: systolic murmur, diastolic murmur, rubs, gallop, clicks GI/Abdominal exam: Present: soft, normal bowel sounds. Absent: distended, tenderness, guarding, rebound, rigid Left Upper Arm exam: Present: normal inspection Elbow exam: Present: normal inspection, full ROM. Absent: abrasion Forearm Wrist exam: Present: normal inspection, full ROM Hand Wrist exam: Present: swelling, laceration (multiple laceration over 3rd 4th , and 2nd digit. Diminished sensation and cap refill in 3 and 4th digit. ). Absent: normal inspection, full ROM Hand L/R Front: 1 - laceration (decreased cap refill in flexed position) 2 - laceration (5cm laceration. No sensation. Decreased sensation) Neuro motor exam: Present: wrist extension intact, thumb opposition intact, thumb IP flexion intact Vascular: Absent: normal capillary refill Back exam: Present: normal inspection Neurological exam: Present: alert, oriented X3, CN II-XII intact Psychiatric exam: Present: normal affect, normal mood Skin exam: Present: warm, dry, intact, normal color. Absent: rash Course Vital Signs 04/21/18 19:02 Temperature 98.3 F Pulse Rate 89 Respiratory 18 Rate Blood Pressure 186/97 O2 Sat by Pulse 95 Oximetry Medical Decision Making - Medical Decision Making 53-year-old male presents emergency department today with extensive injury over the left hand after an accident at work. His fingers were crushed in a press. Patient has extensive lacerations over the dorsum and anterior aspect of the third fourth digit. He has diminished capillary refill and sensation. There is significant and tendon involvement and the fingers are retracted and curled. He has extensive laceration over the second digit. He does have full range of motion of the second digit in the fifth finger. He was updated on tetanus. He was given 2 g of Kefzol IV and 1 mg of Dilaudid for pain. Wound was irrigated, and dressed and a wet-to-dry dressing. Patient's case discussed with Sanchez, who will accept the Patient for microvascular hand surgery. - Radiology Data Radiology results: report reviewed Fracture of the middle phalanx of the ring finger. Limited exam. Probably laceration over the middle finger at the DIP joint joint. Disposition Clinical Impression: Laceration of finger of left hand, Open finger fracture, Tendon laceration Disposition: DC/TRNS INTERMEDIATE CARE FAC Condition: Stable Is patient prescribed a controlled substance at d/c from ED?: No Referrals: Rowan Coronel MD [Primary Care Provider] - 1-2 days Time of Disposition: 19:54 - Out of Hospital Transfer - Req. Specs Out of Hospital Transfer - Requested Specifics: Other Emergency Center ([facility])
[2018-04-21 20:19] VITALS: BP 178/79; PULSE 81; TEMP 99
== END 2018-04-21 20:45 ==
LOC: EC 18:45
DX: S62.623B Displaced fracture of middle phalanx of left middle finger, initial encounter for open fracture (principal); S61.211A Laceration without foreign body of left index finger without damage to nail, initial encounter; S61.215A Laceration without foreign body of left ring finger without damage to nail, initial encounter; E11.9 Type 2 diabetes mellitus without complications; E78.5 Hyperlipidemia, unspecified; I10 Essential (primary) hypertension; N42.9 Disorder of prostate, unspecified; F17.200 Nicotine dependence, unspecified, uncomplicated; Z79.82 Long term (current) use of aspirin; Z79.84 Long term (current) use of oral hypoglycemic drugs; Z79.899 Other long term (current) drug therapy; Z91.030 Bee allergy status; Z53.8 Procedure and treatment not carried out for other reasons; Z23 Encounter for immunization; W31.0XXA Contact with mining and earth-drilling machinery, initial encounter; Y92.69 Other specified industrial and construction area as the place of occurrence of the external cause; Y99.0 Civilian activity done for income or pay
CPT/HCPCS: 73130; 90715; 99285; 96374; 96375; 90471; J1170; J0690

== ENCOUNTER 2018-08-21 21:46 | Emergency (ER) | payer OTHER ==
[2018-08-21 22:36] VITALS: BP 140/80; PULSE 88; RESP 18; TEMP 99.2
[2018-08-21] MEDS ORDERED: DIPH,PERTUS(ACELL)TETVAC-LF 0.5 ML VIAL IM ONE (22:55)
[2018-08-21] MEDS ORDERED: KETOROLAC 30 MG/ML 1 ML VIAL IM STA (23:06)
[2018-08-21] MEDS ORDERED: HYDROcodone/APAP 5-325MG 1 EACH TAB PO STA (23:06)
[2018-08-21] MEDS ORDERED: LIDOCAINE 1% INJ 10MG/ML (20 ML MDV) SQ ONE (23:15)
--- NOTE | 2018-08-21 23:18 | ED ---
Wound/Laceration HPI - General Chief Complaint: Wound/Laceration Stated Complaint: Finger laceration [facility] Time Seen by Provider: 08/21/18 22:40 Source: patient Mode of arrival: ambulatory Limitations: no limitations - History of Present Illness Initial Comments: 53-year-old male patient presents the emergency department today for evaluation of laceration to the left thumb. 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 Patient states injury occurred approximately an hour and a half ago. He denies any numbness or tingling to the finger. States he is having pain. Denies any previous injury to the finger. Denies any other injuries. He is unsure when his last tetanus vaccine was administered. He denies any use of anticoagulant or antiplatelet medications. Patient denies any headache, neck pain, back pain, chest pain, shortness of breath, dizziness, weakness, abdominal pain, nausea, vomiting, or difficulties with bowel movements or urination. - Related Data Home Medications Medication Instructions Recorded Confirmed Aspirin [Adult Low Dose Aspirin EC] 81 mg PO DAILY 01/16/18 01/16/18 Atorvastatin Calcium [Lipitor] 40 mg PO DAILY 01/16/18 01/16/18 Ibuprofen [Motrin Ib] 600 mg PO Q8H PRN 01/16/18 01/16/18 Lisinopril [Zestril] 20 mg PO DAILY 01/16/18 01/16/18 Tamsulosin HCl [Flomax] 0.4 mg PO DAILY 01/16/18 01/16/18 metFORMIN HCL [Glucophage] 500 mg PO BID 01/16/18 01/16/18 Previous Rx's Medication Instructions Recorded Clindamycin HCl 300 mg PO Q6H #40 cap 01/16/18 Cephalexin [Keflex] 500 mg PO Q6H #28 cap 08/22/18 Ibuprofen [Motrin] 600 mg PO Q8HR PRN #30 tab 08/22/18 Allergies Allergy/AdvReac Type Severity Reaction Status Date / Time bee venom protein (honey bee) Allergy Swelling Verified 01/16/18 16:53 Review of Systems ROS Statement: Those systems with pertinent positive or pertinent negative responses have been documented in the HPI. ROS Other: All systems not noted in ROS Statement are negative. Past Medical History Past Medical History: Diabetes Mellitus, Hyperlipidemia, Hypertension, Prostate Disorder History of Any Multi-Drug Resistant Organisms: None Reported Past Surgical History: Tonsillectomy Past Anesthesia/Blood Transfusion Reactions: No Reported Reaction Additional Past Anesthesia/Blood Transfusion Reaction / Comment(s): NO BLOOD TRANSFUSIONS BEFORE Past Psychological History: No Psychological Hx Reported Smoking Status: Current every day smoker Past Alcohol Use History: Rare Past Drug Use History: None Reported - Past Family History Mother Family Medical History: CVA/TIA Additional Family Medical History / Comment(s): MOTHER HAD CANCER, UNSURE WHICH TYPE Father Family Medical History: CVA/TIA General Exam Limitations: no limitations General appearance: alert, in no apparent distress, other (Physical well- developed, well-nourished adult male patient in no acute distress. Vital signs upon presentation are temperature 99.2F, pulse 88, respirations 18, blood pressure 140/80, pulse ox 95% on room air.) Respiratory exam: Present: normal lung sounds bilaterally. Absent: respiratory distress, wheezes, rales, rhonchi, stridor Cardiovascular Exam: Present: regular rate, normal rhythm, normal heart sounds. Absent: systolic murmur, diastolic murmur, rubs, gallop, clicks Extremities exam: Present: full ROM, normal capillary refill, other (4cm laceration noted to the palmar surface of the left thumb. There is active bleeding. Skin is pink, warm, dry. Cap refill less than 3 seconds. Radial pulses 2+ and equal bilaterally.). Absent: normal inspection, tenderness, pedal edema, joint swelling, calf tenderness Neurological exam: Present: alert, oriented X3, CN II-XII intact Psychiatric exam: Present: normal affect, normal mood Skin exam: Present: warm, dry, intact, normal color. Absent: rash Course Vital Signs 08/21/18 22:29 Temperature 99.2 F Pulse Rate 88 Respiratory 18 Rate Blood Pressure 140/80 O2 Sat by Pulse 95 Oximetry Procedures - Laceration Laceration #1 Consent Obtained: verbal consent Indication: laceration Site: other (Left thumb) Size (cm): 4 Description: irregular Depth: involves tendon Anesthetic Used: lidocaine 1% Anesthesia Technique: nerve block Amount (mls): 5 Pre-repair: wound explored, irrigated extensively Type of Sutures: nylon Size of Sutures: 4-0 Number of Sutures: 8 Technique: simple, interrupted Patient Tolerated Procedure: well, no complications Medical Decision Making - Medical Decision Making 53-year-old male patient presented to the emergency department today for evaluation of laceration to the left thumb. Physical examination did reveal a 4 cm irregular laceration to the palmar surface of the left thumb over the proximal phalanx. Patient was unable to flex the thumb raising concern for injury to the flexor tendon. X-ray was obtained and showed no acute bony abnormalities. Patient was updated on his tetanus vaccine. The case was discussed with the orthopedic on-call physician assistant professor of communication Jessica Olsen, she recommends closing the wound and having the patient follow-up with the hand surgeon Friday. Did repair the wound as documented. Patient was started on Keflex. He is given medication for pain control. Patient was placed in a finger splint. He is instructed to follow-up on Friday with Dr. Bah. He is put on work restriction to not use the left hand until cleared by orthopedics. Return parameters were discussed in detail. He verbalizes understanding and agrees with this plan. - Radiology Data Radiology results: report reviewed, image reviewed 3 views of the left thumb were obtained. Report was reviewed in its entirety. Impression by Dr. Jones shows no acute findings. Disposition Clinical Impression: Laceration of left thumb, Injury of flexor tendon of left hand Disposition: HOME SELF-CARE Condition: Good Instructions (If sedation given, give patient instructions): Care For Your Stitches (ED), Laceration (ED) Additional Instructions: Follow-up with orthopedic hand specialist Friday at [facility]. Avoid use of left hand until cleared by technology sales specialist. Take medications as directed. Complete antibiotic prescription and full. Return to the emergency department immediately for any new, worsening, or concerning symptoms. Prescriptions: Cephalexin [Keflex] 500 mg PO Q6H #28 cap Ibuprofen [Motrin] 600 mg PO Q8HR PRN #30 tab PRN Reason: Pain Is patient prescribed a controlled substance at d/c from ED?: No Referrals: Rowan Coronel MD [Primary Care Provider] - 1-2 days Christian Bah DO [Medical Doctor] - 1-2 days Time of Disposition: 00:40
--- NOTE | 2018-08-21 23:57 | XR ---
EXAM: XR Left Hand Complete, 3 or More Views CLINICAL HISTORY: ITS.REASON XR Reason: Left thumb lac TECHNIQUE: Frontal, lateral and oblique views of the left hand. COMPARISON: No relevant prior studies available. FINDINGS: Bones/joints: No acute fracture. No dislocation. Soft tissues: Unremarkable. No radiopaque foreign body. IMPRESSION: No acute findings.
[2018-08-22] MEDS ORDERED: ACET/COD 300 MG/30 MG STARTER PACK 6 TAB BTL PO STA (00:40)
[2018-08-22] MEDS ORDERED: CEPHALEXIN 500MG STARTER PACK 4 CAP BTL PO STA (00:40)
== END 2018-08-22 00:58 | disposition home or self-care (01) ==
LOC: EC 21:46
DX: S66.022A Laceration of long flexor muscle, fascia and tendon of left thumb at wrist and hand level, initial encounter (principal); E11.9 Type 2 diabetes mellitus without complications; E78.5 Hyperlipidemia, unspecified; I10 Essential (primary) hypertension; N42.9 Disorder of prostate, unspecified; F17.200 Nicotine dependence, unspecified, uncomplicated; Z79.82 Long term (current) use of aspirin; Z79.84 Long term (current) use of oral hypoglycemic drugs; Z79.899 Other long term (current) drug therapy; Z91.030 Bee allergy status; Z23 Encounter for immunization; W26.0XXA Contact with knife, initial encounter; Y93.89 Activity, other specified; Y92.69 Other specified industrial and construction area as the place of occurrence of the external cause; Y99.0 Civilian activity done for income or pay
CPT/HCPCS: 73140; 90715; 99283; 12002; 96372; 90471; J2001; J1885

== ENCOUNTER → 2019-01-28 | Outpatient (CLI) | payer OTHER ==
--- NOTE | 2019-01-28 14:04 | US ---
EXAMINATION TYPE: US venous doppler duplex LE RT DATE OF EXAM: 01/28/2019 12:18 PM COMPARISON: 2018 bilateral CLINICAL HISTORY: Rt Lower Ext Pain Swelling M79.604. prior clots , 2017, resolved in 2018 SIDE PERFORMED: rt TECHNIQUE: The lower extremity deep venous system is examined utilizing real time linear array sonog aric with graded compression, doppler sonography and color-flow sonography. VESSELS IMAGED: External Iliac Vein (EIV) Common Femoral Vein Deep Femoral Vein Greater Saphenous Vein * Femoral Vein Popliteal Vein Small Saphenous Vein * Proximal Calf Veins (* superficial vessels) Right Leg: Negative for DVT Grayscale, color doppler, spectral doppler imaging performed of the deep veins of the right lower ext remity. There is normal flow, compressibility, vascular waveforms. IMPRESSION: No ultrasound evidence for acute DVT in the right lower extremity.
== END | disposition home or self-care (01) ==
LOC: RADUSWWP 11:51
PROVIDERS: ATTEND Internal Medicine
DX: M79.604 Pain in right leg (principal)

== ENCOUNTER → 2019-02-04 | Outpatient (CLI) | payer OTHER ==
--- NOTE | 2019-02-04 13:12 | XR ---
EXAMINATION TYPE: XR lumbosacral spine min 4V DATE OF EXAM: 02/04/2019 CLINICAL HISTORY: pain COMPARISON: NONE TECHNIQUE: Frontal, lateral, and oblique images of the lumbar spine are obtained. FINDINGS: There are 5 lumbar type vertebral bodies identified. The lumbar spine shows satisfactory alignment without evidence of acute fracture or dislocation. Vertebral body heights are within normal limits. Moderate degenerative disc space narrowing identified. The overlying soft tissue appears u nremarkable. IMPRESSION: No acute fracture or dislocation is seen in the lumbar spine. ICD 10 NO FRACTURE, INITIAL EVALUATION
== END | disposition home or self-care (01) ==
LOC: RADXRYALE 12:55
PROVIDERS: ATTEND Internal Medicine
DX: M54.41 Lumbago with sciatica, right side (principal)
CPT/HCPCS: 72110

== ENCOUNTER 2019-03-24 19:56 | Emergency (ER) | payer OTHER ==
[2019-03-24 20:47] LABS: Basophils # (A) 0.1 k/uL (0-0.2); Basophils % (A) 1 %; Eosinophils # (A) 0.3 k/uL (0-0.7); Eosinophils % (A) 4 %; HCT 54.1 % (39.0-53.0); HGB 18.4 gm/dL (13.0-17.5); Lymphocytes # (A) 1.9 k/uL (1.0-4.8); Lymphocytes % (A) 25 %; MCH 33.2 pg (25.0-35.0); MCHC 33.9 g/dL (31.0-37.0); MCV 97.8 fL (80.0-100.0); Mean Platelet Volume 6.5; Monocytes # (A) 0.3 k/uL (0-1.0); Monocytes % (A) 4 %; Neutrophils # (A) 4.7 k/uL (1.3-7.7); Neutrophils % (A) 63 %; Platelet Count 181 k/uL (150-450); RBC 5.53 m/uL (4.30-5.90); RDW 13.1 % (11.5-15.5); WBC 7.5 k/uL (3.8-10.6)
[2019-03-24 20:56] LABS: ALT 55 U/L (21-72); AST 33 U/L (17-59); African American GFR (CKD) >90 (>60 ml/min/1.73 sqM); Albumin 4.6 g/dL (3.5-5.0); Alkaline Phosphatase 80 U/L (38-126); Amylase 49 U/L (30-110); Anion Gap 10 mmol/L; Blood Urea Nitrogen 11 mg/dL (9-20); Calcium 9.9 mg/dL (8.4-10.2); Carbon Dioxide 27 mmol/L (22-30); Chloride 102 mmol/L (98-107); Glucose 114 mg/dL (74-99); Potassium 4.1 mmol/L (3.5-5.1); Sodium 139 mmol/L (137-145); Total Bilirubin 0.4 mg/dL (0.2-1.3); Total Protein 7.6 g/dL (6.3-8.2)
[2019-03-24] MEDS ORDERED: SODIUM CHLORIDE 0.9% 1,000 ML IV STA (21:23)
--- NOTE | 2019-03-24 21:51 | CT ---
EXAMINATION TYPE: CT abdomen pelvis w con DATE OF EXAM: 03/24/2019 COMPARISON: 12/09/2016 INDICATION: Hernia, mass upper abdomen DLP: 1525.6 mGycm, Automated exposure control for dose reduction was used. CONTRAST: 100 mL of Isovue 300. Study performed without Oral Contrast TECHNIQUE: Axial images were obtained from above the diaphragm to the pubic rami in the axial plane a t 5 mm thick sections. Reconstructed images are reviewed on the computer in the coronal plane. FINDINGS: Limited CT sections are obtained the lung bases. The lung bases are clear. CT ABDOMEN: Liver: Normal Spleen: Normal. Small splenule is near the tail of the pancreas Pancreas: Normal Adrenal glands: The adrenal glands are normal. Gallbladder: Normal Kidneys: No masses are evident. No hydronephrosis is present. No cysts are present. Delayed images were obtained through the kidneys, which remain unremarkable. Aorta: Vascular calcification is within the aorta. Below the level the renal arteries contrast appea rs to narrow into a small caliber to the bifurcation. The bifurcation does not have significant contr ast and iliac vessels are not well visualized. However, the common femoral arteries appear widely pat ent. Evaluation of the lower aorta and proximal iliac vessels is recommended. Significant narrowing a nd/or stenosis may be present. Inferior vena cava: Normal. CT PELVIS: Loops of bowel within the abdomen and pelvis are normal. Study is performed without contrast limi ting bowel evaluation. There are scattered diverticuli present without evidence of acute diverticulit is. Appendix: Normal as visualized. Urinary bladder: Normal. Genitourinary structures: Prostate is normal Osseous structures: No suspicious lytic or sclerotic lesions. IMPRESSIONS: 1. No upper abdominal hernia identified. 2. Appears to be stenosis through the aorta below the renal arteries into the iliac vessels with rick llateralization of the common femoral arteries. Additional evaluation of the distal aorta and proxima l iliac arterial system is recommended.
[2019-03-24 22:14] VITALS: BP 147/84; PULSE 72; RESP 18; TEMP 97.4
--- NOTE | 2019-03-24 22:34 | ED ---
General Adult HPI - General Chief complaint: Abdominal Pain Stated complaint: abdominal mass Time Seen by Provider: 03/24/19 20:08 Source: patient, RN notes reviewed Mode of arrival: ambulatory Limitations: no limitations - History of Present Illness Initial comments: 54-year-old male with a past medical history of hyperlipidemia, hypertension, diabetes mellitus presents to the emergency department for possible hernia. Patient states that he saw his primary care provider earlier today and she noticed a ventral hernia. States that he is not sure how long he has had this because he did not even realize it was there. Denies pain. However patient was sent to the emergency department for a CAT scan.Patient has no other complaints at this time including shortness of breath, chest pain, nausea or vomiting, headache, or visual changes. - Related Data Home Medications Medication Instructions Recorded Confirmed Aspirin [Adult Low Dose Aspirin EC] 81 mg PO DAILY 01/16/18 01/16/18 Atorvastatin Calcium [Lipitor] 40 mg PO DAILY 01/16/18 01/16/18 Ibuprofen [Motrin Ib] 600 mg PO Q8H PRN 01/16/18 01/16/18 Lisinopril [Zestril] 20 mg PO DAILY 01/16/18 01/16/18 Tamsulosin HCl [Flomax] 0.4 mg PO DAILY 01/16/18 01/16/18 metFORMIN HCL [Glucophage] 500 mg PO BID 01/16/18 01/16/18 Previous Rx's Medication Instructions Recorded Clindamycin HCl 300 mg PO Q6H #40 cap 01/16/18 Cephalexin [Keflex] 500 mg PO Q6H #28 cap 08/22/18 Ibuprofen [Motrin] 600 mg PO Q8HR PRN #30 tab 08/22/18 Allergies Allergy/AdvReac Type Severity Reaction Status Date / Time bee venom protein (honey bee) Allergy Swelling Verified 03/24/19 20:00 Review of Systems ROS Statement: Those systems with pertinent positive or pertinent negative responses have been documented in the HPI. ROS Other: All systems not noted in ROS Statement are negative. Past Medical History Past Medical History: Diabetes Mellitus, Hyperlipidemia, Hypertension, Prostate Disorder History of Any Multi-Drug Resistant Organisms: None Reported Past Surgical History: Tonsillectomy Past Anesthesia/Blood Transfusion Reactions: No Reported Reaction Additional Past Anesthesia/Blood Transfusion Reaction / Comment(s): NO BLOOD TRANSFUSIONS BEFORE Past Psychological History: No Psychological Hx Reported Smoking Status: Current every day smoker Past Alcohol Use History: Rare Past Drug Use History: None Reported - Past Family History Mother Family Medical History: CVA/TIA Additional Family Medical History / Comment(s): MOTHER HAD CANCER, UNSURE WHICH TYPE Father Family Medical History: CVA/TIA General Exam Limitations: no limitations General appearance: alert, in no apparent distress Head exam: Present: atraumatic, normocephalic, normal inspection Eye exam: Present: normal appearance, PERRL, EOMI. Absent: scleral icterus, conjunctival injection, periorbital swelling ENT exam: Present: normal exam, mucous membranes moist Neck exam: Present: normal inspection, full ROM. Absent: tenderness, m eningismus, lymphadenopathy Respiratory exam: Present: normal lung sounds bilaterally. Absent: respiratory distress, wheezes, rales, rhonchi, stridor Cardiovascular Exam: Present: regular rate, normal rhythm, normal heart sounds. Absent: systolic murmur, diastolic murmur, rubs, gallop, clicks GI/Abdominal exam: Present: soft, normal bowel sounds, other (Ventral hernia noted when patient reclines. This is not incarcerated.). Absent: distended, tenderness (No tenderness.), guarding, rebound, rigid Course Vital Signs 03/24/19 03/24/19 19:57 22:10 Temperature 97.9 F 97.4 F L Pulse Rate 75 72 Respiratory 20 18 Rate Blood Pressure 148/81 147/84 O2 Sat by Pulse 98 98 Oximetry Medical Decision Making - Medical Decision Making CBC CMP unremarkable. Possible hemoconcentration, patient was given some fluids. CT abdomen and pelvis with contrast did not identify upper abdominal hernia. However it Does show stenosis through the aorta below the renal arteries into the iliac vessels with recollateralization of the common femoral arteries. Additional evaluation recommended. Patient does have intact PT pulses with good capillary refill. This is likely chronic given recollateraliz ation. Patient will be given both neurosurgery a vascular surgery follow-up. He will return if he has any worsening symptoms.I discussed this case with attending Dr. Patino who agrees with this assessment and treatment plan. - Lab Data Result diagrams: 03/24/19 20:35 03/24/19 20:35 Lab Results 03/24/19 03/24/19 03/24/19 Range/Units 20:35 20:35 20:35 WBC 7.5 (3.8-10.6) k/uL RBC 5.53 (4.30-5.90) m/uL Hgb 18.4 H (13.0-17.5) gm/dL Hct 54.1 H (39.0-53.0) % MCV 97.8 (80.0-100.0) fL MCH 33.2 (25.0-35.0) pg MCHC 33.9 (31.0-37.0) g/dL RDW 13.1 (11.5-15.5) % Plt Count 181 (150-450) k/uL Neutrophils % 63 % Lymphocytes % 25 % Monocytes % 4 % Eosinophils % 4 % Basophils % 1 % Neutrophils # 4.7 (1.3-7.7) k/uL Lymphocytes # 1.9 (1.0-4.8) k/uL Monocytes # 0.3 (0-1.0) k/uL Eosinophils # 0.3 (0-0.7) k/uL Basophils # 0.1 (0-0.2) k/uL Sodium 139 (137-145) mmol/L Potassium 4.1 (3.5-5.1) mmol/L Chloride 102 (98-107) mmol/L Carbon Dioxide 27 (22-30) mmol/L Anion Gap 10 mmol/L BUN 11 (9-20) mg/dL Creatinine 0.79 (0.66-1.25) mg/dL Est GFR (CKD-EPI)AfAm >90 (>60 ml/min/1.73 sqM) Est GFR (CKD-EPI)NonAf >90 (>60 ml/min/1.73 sqM) Glucose 114 H (74-99) mg/dL Plasma Lactic Acid Ashkan 1.0 (0.7-2.0) mmol/L Calcium 9.9 (8.4-10.2) mg/dL Total Bilirubin 0.4 (0.2-1.3) mg/dL AST 33 (17-59) U/L ALT 55 (21-72) U/L Alkaline Phosphatase 80 (38-126) U/L Total Protein 7.6 (6.3-8.2) g/dL Albumin 4.6 (3.5-5.0) g/dL Amylase 49 (30-110) U/L Lipase 72 (23-300) U/L Disposition Clinical Impression: Stenosis of abdominal aorta Disposition: HOME SELF-CARE Condition: Good Instructions (If sedation given, give patient instructions): Ventral Hernia (ED) Additional Instructions: Please follow up with general surgery Dr. Kaye for possible hernia. Follow-up with Dr. Perez for stenosis of abdominal aorta. Return to the emerg ency department if you develop any worsening symptoms. Is patient prescribed a controlled substance at d/c from ED?: No Referrals: Rowan Coronel MD [Primary Care Provider] - 1-2 days Foster Perez MD [STAFF PHYSICIAN] - 1-2 days Linda Kaye MD [STAFF PHYSICIAN] - 1-2 days Time of Disposition: 22:33
== END 2019-03-24 22:44 | disposition home or self-care (01) ==
LOC: EC 19:56
DX: I71.3 Abdominal aortic aneurysm, ruptured (principal); K43.9 Ventral hernia without obstruction or gangrene; I10 Essential (primary) hypertension; E78.5 Hyperlipidemia, unspecified; E11.9 Type 2 diabetes mellitus without complications; N42.9 Disorder of prostate, unspecified; F17.200 Nicotine dependence, unspecified, uncomplicated; Z79.82 Long term (current) use of aspirin; Z79.84 Long term (current) use of oral hypoglycemic drugs; Z79.899 Other long term (current) drug therapy; Z91.030 Bee allergy status
CPT/HCPCS: 36415; 80053; 82150; 83605; 83690; 85025; 74177; 99284; 96360; Q9967

== ENCOUNTER 2019-11-25 13:17 | Emergency (ER) | payer OTHER ==
[2019-11-25] MEDS ORDERED: SODIUM CHLORIDE 0.9% 1,000 ML IV ONE (13:57)
--- NOTE | 2019-11-25 13:57 | ED ---
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 Patient states he drinks fluid with any sweats out immediately and he felt a little lightheaded today so he called his primary medical care doctor and they told to come the emergency department. Patient denies any vomiting occasionally he's been nauseated but has not vomited. Patient denies any diarrhea today but he states occasionally over the last week he's had no episode or 2. Patient denies any fever or chills. Patient denies any chest pain or palpitations. Patient denies any abdominal pain. - Related Data Home Medications Medication Instructions Recorded Confirmed Aspirin [Adult Low Dose Aspirin EC] 81 mg PO DAILY 01/16/18 11/25/19 Atorvastatin Calcium [Lipitor] 40 mg PO HS 01/16/18 11/25/19 Ibuprofen [Motrin Ib] 400 mg PO Q8H PRN 01/16/18 11/25/19 Lisinopril [Zestril] 20 mg PO DAILY 01/16/18 11/25/19 Tamsulosin HCl [Flomax] 0.4 mg PO DAILY 01/16/18 11/25/19 metFORMIN HCL [Glucophage] 500 mg PO BID 01/16/18 11/25/19 Allergies Allergy/AdvReac Type Severity Reaction Status Date / Time bee venom protein (honey bee) Allergy Swelling Verified 03/24/19 20:00 Review of Systems ROS Statement: Those systems with pertinent positive or pertinent negative responses have been documented in the HPI. ROS Other: All systems not noted in ROS Statement are negative. Past Medical History Past Medical History: Diabetes Mellitus, Hyperlipidemia, Hypertension, Prostate Disorder History of Any Multi-Drug Resistant Organisms: None Reported Past Surgical History: Tonsillectomy Past Anesthesia/Blood Transfusion Reactions: No Reported Reaction Additional Past Anesthesia/Blood Transfusion Reaction / Comment(s): NO BLOOD TRANSFUSIONS BEFORE Past Psychological History: No Psychological Hx Reported Smoking Status: Current every day smoker Past Alcohol Use History: Rare Past Drug Use History: None Reported - Past Family History Mother Family Medical History: CVA/TIA Additional Family Medical History / Comment(s): MOTHER HAD CANCER, UNSURE WHICH TYPE Father Family Medical History: CVA/TIA General Exam - General Exam Comments Initial Comments: GENERAL: Patient is well-developed and well-nourished. Patient is nontoxic and well- hydrated and is in no acute distress. ENT: Neck is soft and supple. No significant lymphadenopathy is noted. Oropharynx is clear. Moist mucous membranes. Neck has full range of motion without eliciting any pain. EYES: The sclera were anicteric and conjunctiva were pink and moist. Extraocular movements were intact and pupils were equal round and reactive to light. Ey elids were unremarkable. PULMONARY: Unlabored respirations. Good breath sounds bilaterally. No audible rales rhonchi or wheezing was noted. CARDIOVASCULAR: There is a regular rate and rhythm without any murmurs gallops or rubs. ABDOMEN: Soft and nontender with normal bowel sounds. SKIN: Skin is clear with no lesions or rashes and otherwise unremarkable. NEUROLOGIC: Patient is alert and oriented x3. Cranial nerves II through XII are grossly intact. Motor and sensory are also intact. Normal speech, volume and content. Symmetrical smile. MUSCULOSKELETAL: Normal extremities with adequate strength and full range of motion. LYMPHATICS: No significant lymphadenopathy is noted PSYCHIATRIC: Normal psychiatric evaluation. Limitations: no limitations Course Vital Signs 11/25/19 13:23 Temperature 98.4 F Pulse Rate 89 Respiratory 18 Rate Blood Pressure 114/77 O2 Sat by Pulse 98 Oximetry Medical Decision Making - Medical Decision Making Patient received a liter of fluid while in the emergency department - Lab Data Result diagrams: 11/25/19 13:50 11/25/19 13:50 Lab Results 11/25/19 11/25/19 Range/Units 13:50 13:50 WBC 6.8 (3.8-10.6) k/uL RBC 5.49 (4.30-5.90) m/uL Hgb 17.8 H (13.0-17.5) gm/dL Hct 54.1 H (39.0-53.0) % MCV 98.6 (80.0-100.0) fL MCH 32.5 (25.0-35.0) pg MCHC 33.0 (31.0-37.0) g/dL RDW 13.8 (11.5-15.5) % Plt Count 173 (150-450) k/uL Neutrophils % 66 % Lymphocytes % 23 % Monocytes % 5 % Eosinophils % 3 % Basophils % 1 % Neutrophils # 4.4 (1.3-7.7) k/uL Lymphocytes # 1.6 (1.0-4.8) k/uL Monocytes # 0.4 (0-1.0) k/uL Eosinophils # 0.2 (0-0.7) k/uL Basophils # 0.0 (0-0.2) k/uL Sodium 134 L (137-145) mmol/L Potassium 5.0 (3.5-5.1) mmol/L Chloride 103 (98-107) mmol/L Carbon Dioxide 25 (22-30) mmol/L Anion Gap 6 mmol/L BUN 21 H (9-20) mg/dL Creatinine 0.92 (0.66-1.25) mg/dL Est GFR (CKD-EPI)AfAm >90 (>60 ml/min/1.73 sqM) Est GFR (CKD-EPI)NonAf >90 (>60 ml/min/1.73 sqM) Glucose 102 H (74-99) mg/dL Calcium 9.6 (8.4-10.2) mg/dL Total Bilirubin 0.6 (0.2-1.3) mg/dL AST 43 (17-59) U/L ALT 81 H (4-49) U/L Alkaline Phosphatase 100 (38-126) U/L Total Protein 7.1 (6.3-8.2) g/dL Albumin 4.3 (3.5-5.0) g/dL Disposition Clinical Impression: Dehydration Disposition: HOME SELF-CARE Instructions (If sedation given, give patient instructions): Dehydration (ED) Is patient prescribed a controlled substance at d/c from ED?: No Referrals: Rowan Coronel MD [Primary Care Provider] - 1-2 days Time of Disposition: 14:43
[2019-11-25 14:11] LABS: Basophils % (A) 1 %; Eosinophils # (A) 0.2 k/uL (0-0.7); Eosinophils % (A) 3 %; HCT 54.1 % (39.0-53.0); HGB 17.8 gm/dL (13.0-17.5); Lymphocytes # (A) 1.6 k/uL (1.0-4.8); Lymphocytes % (A) 23 %; MCH 32.5 pg (25.0-35.0); MCV 98.6 fL (80.0-100.0); Mean Platelet Volume 8.2; Monocytes # (A) 0.4 k/uL (0-1.0); Monocytes % (A) 5 %; Neutrophils # (A) 4.4 k/uL (1.3-7.7); Neutrophils % (A) 66 %; Platelet Count 173 k/uL (150-450); RBC 5.49 m/uL (4.30-5.90); RDW 13.8 % (11.5-15.5); WBC 6.8 k/uL (3.8-10.6)
[2019-11-25 14:29] LABS: ALT 81 U/L (4-49); AST 43 U/L (17-59); African American GFR (CKD) >90 (>60 ml/min/1.73 sqM); Albumin 4.3 g/dL (3.5-5.0); Alkaline Phosphatase 100 U/L (38-126); Anion Gap 6 mmol/L; Blood Urea Nitrogen 21 mg/dL (9-20); Calcium 9.6 mg/dL (8.4-10.2); Carbon Dioxide 25 mmol/L (22-30); Chloride 103 mmol/L (98-107); Glucose 102 mg/dL (74-99); Non-African American GFR(CKD) >90 (>60 ml/min/1.73 sqM); Sodium 134 mmol/L (137-145); Total Bilirubin 0.6 mg/dL (0.2-1.3); Total Protein 7.1 g/dL (6.3-8.2)
[2019-11-26 10:12] VITALS: BP 120/73; PULSE 60; RESP 18; TEMP 98.2
== END 2019-11-25 15:31 | disposition home or self-care (01) ==
LOC: EC 13:17
DX: E86.0 Dehydration (principal); R11.0 Nausea; R42 Dizziness and giddiness; E11.9 Type 2 diabetes mellitus without complications; E78.5 Hyperlipidemia, unspecified; I10 Essential (primary) hypertension; N42.9 Disorder of prostate, unspecified; F17.200 Nicotine dependence, unspecified, uncomplicated; Z79.82 Long term (current) use of aspirin; Z79.84 Long term (current) use of oral hypoglycemic drugs; Z79.899 Other long term (current) drug therapy; Z91.030 Bee allergy status
CPT/HCPCS: 36415; 80053; 85025; 96360; 99284

== ENCOUNTER → 2021-07-31 | Outpatient (CLI) | payer OTHER ==
--- NOTE | 2021-07-31 14:05 | XR ---
EXAMINATION TYPE: XR shoulder complete BILAT DATE OF EXAM: 07/31/2021 COMPARISON: NONE HISTORY: 56-year-old male with bilateral shoulder pain, [id number] TECHNIQUE: 3 views each side FINDINGS: Moderate degenerative change right AC joint with joint space narrowing, marginal spurring, capsular h ypertrophy. Greater degree of moderate degenerative change at the left AC joint with more bulky degen erative spurring. On both sides, there is mild sclerosis of the greater tuberosity. No tendinous or bursal calcificatio ns. Subacromial space is preserved. No acute fracture, subluxation, dislocation. IMPRESSION: 1. Moderate bilateral AC joint OA, left greater than right. 2. Some sclerosis of the greater tuberosity may reflect underlying chronic rotator cuff tendinopathy. 3. No acute osseous abnormality seen.
== END | disposition home or self-care (01) ==
LOC: RADXRYALE 10:33
PROVIDERS: ATTEND Internal Medicine
DX: M19.012 Primary osteoarthritis, left shoulder (principal); M19.011 Primary osteoarthritis, right shoulder

== ENCOUNTER 2022-04-29 19:23 | Emergency (ER) | payer OTHER ==
[2022-04-29 20:00] VITALS: TEMP 98
--- NOTE | 2022-04-29 21:10 | ED ---
General Adult HPI - General Chief complaint: Extremity Problem,Nontraumatic Stated complaint: lt calf pain Time Seen by Provider: 04/29/22 20:52 Source: patient, RN notes reviewed Mode of arrival: ambulatory Limitations: no limitations - History of Present Illness Initial comments: 57-year-old male presents to the emergency Department with complaints of left lower extremity pain 1 week. Patient states pain is worsened with weightbearing activity. States he had throbbing discomfort in the left calf tonight while at work therefore came to the emergency department. States he is concerned about a possible torn muscle. Also reports previous history of DVT in the right lower extremity and is no longer taking oral anticoagulant. States right leg is more swollen than the left at baseline. Patient denies any injury or trauma. No chest pain, shortness of breath, or difficulty breathing. - Related Data Home Medications Medication Instructions Recorded Confirmed Aspirin [Adult Low Dose Aspirin EC] 81 mg PO DAILY 01/16/18 11/25/19 Atorvastatin Calcium [Lipitor] 40 mg PO HS 01/16/18 11/25/19 Ibuprofen [Motrin Ib] 400 mg PO Q8H PRN 01/16/18 11/25/19 Tamsulosin HCl [Flomax] 0.4 mg PO DAILY 01/16/18 11/25/19 lisinopriL [Zestril] 20 mg PO DAILY 01/16/18 11/25/19 metFORMIN HCL [Glucophage] 500 mg PO BID 01/16/18 11/25/19 Previous Rx's Medication Instructions Recorded Ibuprofen [Motrin] 600 mg PO Q8HR PRN #30 tab 04/29/22 Allergies Allergy/AdvReac Type Severity Reaction Status Date / Time bee venom protein (honey bee) Allergy Swelling Verified 04/29/22 20:00 Review of Systems ROS Statement: Those systems with pertinent positive or pertinent negative responses have been documented in the HPI. ROS Other: All systems not noted in ROS Statement are negative. Past Medical History Past Medical History: Diabetes Mellitus, Hyperlipidemia, Hypertension, Prostate Disorder History of Any Multi-Drug Resistant Organisms: None Reported Past Surgical History: Tonsillectomy Past Anesthesia/Blood Transfusion Reactions: No Reported Reaction Additional Past Anesthesia/Blood Transfusion Reaction / Comment(s): NO BLOOD TRANSFUSIONS BEFORE Past Psychological History: No Psychological Hx Reported Smoking Status: Current every day smoker Past Alcohol Use History: Rare Past Drug Use History: None Reported - Past Family History Mother Family Medical History: CVA/TIA Additional Family Medical History / Comment(s): MOTHER HAD CANCER, UNSURE WHICH TYPE Father Family Medical History: CVA/TIA General Exam Limitations: no limitations General appearance: alert, in no apparent distress Respiratory exam: Present: normal lung sounds bilaterally. Absent: respiratory distress, wheezes, rales, rhonchi, stridor Cardiovascular Exam: Present: regular rate, normal rhythm, normal heart sounds. Absent: systolic murmur, diastolic murmur, rubs, gallop, clicks Left Upper Leg exam: Present: normal inspection, full ROM. Absent: tenderness, swelling Knee exam: Present: normal inspection. Absent: full ROM, swelling Lower Leg exam: Present: normal inspection, full ROM, tenderness (Tenderness upon palpation of the lateral aspect of the left lower leg along soleus muscle. No erythema, swelling, or deformity noted.). Absent: swelling, ecchymosis, deformity, erythema, palpable cord, Homans' sign Ankle exam: Present: normal inspection, full ROM Foot/Toe exam: Present: normal inspection, full ROM. Absent: tenderness, swelling Neurovascular tendon exam: Present: no vascular compromise Gait: observed and normal Neurological exam: Present: alert, oriented X3, CN II-XII intact Psychiatric exam: Present: normal affect, normal mood Course Vital Signs 04/29/22 19:59 Temperature 98 F Pulse Rate 92 Respiratory 18 Rate Blood Pressure 138/86 O2 Sat by Pulse 97 Oximetry - Reevaluation(s) Reevaluation #1: 04/29/22 21:10 Declines anything for pain at this time. POC discussed; patient agreeable. 04/29/22 23:00 Patient updated on results. Verbalizes readiness for discharge. Medical Decision Making - Medical Decision Making This is a 57-year-old male with a past medical history of DVT in the right lower extremity presents to the emergency Department with complaints of left calf pain 1-2 weeks. Upon exam, patient is well-appearing and in no acute distress. Range of motion is intact; neurovascular status intact. He does not have any chest pain or shortness of breath. No recent long car rides, prolonged immobilization, or surgery. Doppler study of the left lower extremity was negative for DVT. Tib-fib x-ray was also negative. Patient is able to ambulate without difficulty. This is likely muscle strain of the left soleus as patient has tenderness upon palpation of the lateral aspect of the left leg. He is provided with a note for work and instructed on symptomatic management. Motrin prescribed. Return parameters discussed in detail. Patient verbalizes understanding and agrees with this plan. Attending: Veena. - Radiology Data Radiology results: report reviewed, image reviewed Interpreted by me: X-ray of the left tibia and fibula was visualized. There is no evidence of bony deformity or soft tissue swelling. Venous Doppler study of the left lower extremity was obtained. Report was reviewed in its entirety. Impression per Dr. Crane is no evidence of deep vein thrombosis in the left leg. X-ray of the left tibia and fibula was obtained. Report was reviewed in its entirety. Impression per Dr. Gabriel is no evidence of acute fracture. Disposition Clinical Impression: Strain of left soleus muscle Disposition: HOME SELF-CARE Condition: Stable Instructions (If sedation given, give patient instructions): Muscle Strain (ED) Additional Instructions: Rest. Apply ice to sore muscle. Gentle stretching. Take Motrin if needed for discomfort. Follow-up with your PCP for a recheck in 48 hours. Return to the emergency department with any new, worsening or concerning symptoms. Prescriptions: Ibuprofen [Motrin] 600 mg PO Q8HR PRN #30 tab PRN Reason: Pain Is patient prescribed a controlled substance at d/c from ED?: No Referrals: Rowan Coronel MD [Primary Care Provider] - 1-2 days Time of Disposition: 22:56
--- NOTE | 2022-04-29 21:34 | XR ---
EXAMINATION TYPE: XR tibia fibula LT DATE OF EXAM: 04/29/2022 9:14 PM INDICATION: Patient age:Male; 57 years old; Reason for study: Left lower leg pain; . COMPARISON: None TECHNIQUE: The left tibia/fibula was examined in AP and lateral projections. FINDINGS: No evidence of any acute osseous pathology, joint dislocation, or soft tissue swelling is n oted. Remote injury to the distal posterior tibia with well corticated body present. IMPRESSION: No evidence of acute fracture.
--- NOTE | 2022-04-29 22:10 | US ---
EXAMINATION TYPE: US venous doppler duplex LE LT DATE OF EXAM: 04/29/2022 9:04 PM COMPARISON: NONE CLINICAL HISTORY: left calf pain. left calf pain x 2 weeks. Hx of DVT in right leg. Not on blood thin ners SIDE PERFORMED: Left TECHNIQUE: The lower extremity deep venous system is examined utilizing real time linear array sonog aric with graded compression, doppler sonography and color-flow sonography. VESSELS IMAGED: Common Femoral Vein Deep Femoral Vein Greater Saphenous Vein * Femoral Vein Popliteal Vein Small Saphenous Vein * Proximal Calf Veins (* superficial vessels) Left Leg: Negative for DVT IMPRESSION: No evidence of deep vein thrombosis in the left leg.
[2022-04-29 23:12] VITALS: BP 134/74; PULSE 74; RESP 15
== END 2022-04-29 23:15 | disposition home or self-care (01) ==
LOC: EC 19:23
DX: S86.812A Strain of other muscle(s) and tendon(s) at lower leg level, left leg, initial encounter (principal); I10 Essential (primary) hypertension; F17.200 Nicotine dependence, unspecified, uncomplicated; E11.9 Type 2 diabetes mellitus without complications; E78.5 Hyperlipidemia, unspecified; Z91.030 Bee allergy status; Z79.899 Other long term (current) drug therapy; Z79.84 Long term (current) use of oral hypoglycemic drugs; Z79.01 Long term (current) use of anticoagulants; Z79.82 Long term (current) use of aspirin; Z86.718 Personal history of other venous thrombosis and embolism; X50.9XXA Other and unspecified overexertion or strenuous movements or postures, initial encounter
CPT/HCPCS: 99283

== ENCOUNTER → 2022-12-17 | Outpatient (CLI) | payer OTHER ==
--- NOTE | 2022-12-17 18:13 | XR ---
EXAMINATION TYPE: XR chest 2V DATE OF EXAM: 12/17/2022 COMPARISON: None HISTORY: 57-year-old male with hemoptysis TECHNIQUE: Frontal and lateral views FINDINGS: Heart normal size. Aorta and pulmonary vasculature within normal limits. There seems to be some incre ased interstitial density throughout the right mid and lower lung and also at the left base. IMPRESSION: Possible subtle underlying interstitial changes right mid and lower lung and left base. Consider CT f or more detailed parenchymal assessment.
--- NOTE | 2022-12-17 19:45 | XR ---
EXAMINATION TYPE: XR Hip Complete 2 views RT DATE OF EXAM: 12/17/2022 Comparison: None Clinical History: 57-year-old male [id number], [id number] RT HIP PAIN, HEMOPTYSIS Findings: There is mild degenerative spurring at the right hip with relative preservation of hip joint space. N o acute fracture, subluxation, dislocation. Probable 1.2 cm phlebolith in the right side of the pelvi s. Impression: Mild right hip OA. No acute osseous abnormality seen.
== END | disposition home or self-care (01) ==
LOC: RADXRYALE 11:32
PROVIDERS: ATTEND Internal Medicine
DX: M16.11 Unilateral primary osteoarthritis, right hip (principal); R04.2 Hemoptysis
CPT/HCPCS: 71046; 73502

== ENCOUNTER 2022-12-30 17:29 | Emergency (ER) | payer OTHER ==
[2022-12-30 17:42] VITALS: RESP 18; TEMP 99
[2022-12-30] MEDS ORDERED: LIDOCAINE 1% INJ 10MG/ML (20 ML MDV) SQ STA (18:22)
--- NOTE | 2022-12-30 18:30 | ED ---
Wound/Laceration HPI - General Chief Complaint: Wound/Laceration Stated Complaint: [facility] CLAIM, R Forearm Lac Time Seen by Provider: 12/30/22 18:18 Source: patient, RN notes reviewed Mode of arrival: ambulatory Limitations: no limitations - History of Present Illness Initial Comments: This is a pleasant, [id number] 57-year-old male who inadvertently cut his arm on a metallic band that was holding the equipment together at work. Patient states he was attempting to cut it happened. Patient sustained a laceration to the medial aspect of his right forearm. No functional parent. No distal paresthesias. Distal proximal injuries. No headache, no fever or chills, no changes in vision or hearing, no sore throat or difficulty with speech, no neck pain, no chest pain or shortness of breath, no abdominal pain, no nausea or vomiting, no changes in urination or bowel movements, no numbness or tingling, no skin rashes or lesions. Past medical, surgical, social, and family history reviewed. - Related Data Home Medications Medication Instructions Recorded Confirmed Aspirin [Adult Low Dose Aspirin EC] 81 mg PO DAILY 01/16/18 11/25/19 Atorvastatin Calcium [Lipitor] 40 mg PO HS 01/16/18 11/25/19 Ibuprofen [Motrin Ib] 400 mg PO Q8H PRN 01/16/18 11/25/19 Tamsulosin HCl [Flomax] 0.4 mg PO DAILY 01/16/18 11/25/19 lisinopriL [Zestril] 20 mg PO DAILY 01/16/18 11/25/19 metFORMIN HCL [Glucophage] 500 mg PO BID 01/16/18 11/25/19 Previous Rx's Medication Instructions Recorded Ibuprofen [Motrin] 600 mg PO Q8HR PRN #30 tab 04/29/22 Allergies Allergy/AdvReac Type Severity Reaction Status Date / Time bee venom protein (honey bee) Allergy Swelling Verified 12/30/22 17:42 Review of Systems ROS Statement: Those systems with pertinent positive or pertinent negative responses have been documented in the HPI. ROS Other: All systems not noted in ROS Statement are negative. Past Medical History Past Medical History: Diabetes Mellitus, Hyperlipidemia, Hypertension, Prostate Disorder History of Any Multi-Drug Resistant Organisms: None Reported Past Surgical History: Tonsillectomy Past Anesthesia/Blood Transfusion Reactions: No Reported Reaction Additional Past Anesthesia/Blood Transfusion Reaction / Comment(s): NO BLOOD TRANSFUSIONS BEFORE Past Psychological History: No Psychological Hx Reported Smoking Status: Current every day smoker Past Alcohol Use History: Rare Past Drug Use History: None Reported - Past Family History Mother Family Medical History: CVA/TIA Additional Family Medical History / Comment(s): MOTHER HAD CANCER, UNSURE WHICH TYPE Father Family Medical History: CVA/TIA General Exam Limitations: no limitations General appearance: alert, in no apparent distress Head exam: Present: atraumatic, normocephalic, normal inspection Eye exam: Present: normal appearance, PERRL, EOMI. Absent: scleral icterus, conjunctival injection, periorbital swelling ENT exam: Present: normal exam, mucous membranes moist Neck exam: Present: normal inspection. Absent: tenderness, meningismus, lymphadenopathy Respiratory exam: Present: normal lung sounds bilaterally. Absent: respiratory distress, wheezes, rales, rhonchi, stridor Cardiovascular Exam: Present: regular rate, normal rhythm, normal heart sounds. Absent: systolic murmur, diastolic murmur, rubs, gallop, clicks GI/Abdominal exam: Absent: distended Extremities exam: Present: full ROM, normal capillary refill, other (Superficial laceration noted to the medial aspect of left forearm. Into the subcutaneous tissue. No foreign body. No active bleeding. No tendon dysfunction. No damage to underlying structures. No foreign body.). Absent: tenderness, pedal edema, joint swelling, calf tenderness Right Elbow exam: Present: normal inspection, full ROM. Absent: tenderness Forearm Wrist exam: Present: full ROM, laceration. Absent: tenderness, swelling, abrasion, ecchymosis, deformity, crepitus, dislocation, erythema, tenderness over anatomical snuff box, pain with axial thumb loading Hand Wrist exam: Present: normal inspection, full ROM. Absent: tenderness, swelling Neuro motor exam: Present: wrist extension intact, thumb opposition intact, thumb IP flexion intact, thumb adduction intact, fingers 2-5 abduction intact Neurosensory exam: Present: radial nerve intact, ulnar nerve intact, median nerve intact Vascular: Present: normal capillary refill. Absent: vascular compromise, Pallo, pulse deficit radial art, pulse deficit ulnar art, pulse deficit brachial art Back exam: Present: normal inspection Neurological exam: Present: alert, oriented X3, CN II-XII intact. Absent: motor sensory deficit Psychiatric exam: Present: normal affect, normal mood Skin exam: Present: warm, dry, normal color. Absent: rash Course Vital Signs 12/30/22 17:41 Temperature 99.0 F Pulse Rate 90 Respiratory 18 Rate Blood Pressure 116/71 O2 Sat by Pulse 100 Oximetry Procedures - Laceration Laceration #1 Consent Obtained: verbal consent Indication: laceration Site: upper extremity Size (cm): 4 Description: linear, irregular, clean Depth: simple, single layer Anesthetic Used: lidocaine 1%, without epi Anesthesia Technique: local infiltration Amount (mls): 3 Pre-repair: wound explored, irrigated extensively, deep structures intact Type of Sutures: nylon Size of Sutures: 4-0, 5-0 Number of Sutures: 5 Technique: simple, interrupted Patient Tolerated Procedure: well, no complications Medical Decision Making - Medical Decision Making Was pt. sent in by a medical professional or institution? @ -Sent in by employer, [facility] evaluation Did you speak to anyone other than the patient for history? @ -Patient Did you review nursing and triage notes? @ -Agree Were old charts reviewed? @ -no Differential Diagnosis? @ -Patient has a straightforward laceration to the forearm. No evidence of underlying structure damage. No evidence of neurovascular damage or compromise. Superficial. EKG interpreted by me (3pts min.)? @ -[none] X-rays interpreted by me (1pt min.)? @ -[none] CT interpreted by me (1pt min.)? @ -[none] U/S interpreted by me (1pt. min.)? @ -[none] What testing was considered but not performed? (CT, X-rays, U/S, labs)? Why? @Consider plain film x-rays. However patient had no evidence of underlying structure damage. No evidence of foreign body. Wound was entirely superficial and could be inspected to the base without difficulty. X-ray deferred for shared decision-making What meds were considered but not given? Why? @ -[none] Did you discuss the management of the patient with other professionals? @ -The case was discussed in detail with ED attending physician. Presentation, findings, treatment plan discussed in detail. Did you reconcile home meds? @ -[none] Was smoking cessation discussed for >3mins.? @ -[none] Was critical care preformed (if so, how long)? @ -[none] Were there social determinants of health that impacted care today? How? (Homelessness, low income, unemployed, alcoholism, drug addiction, tr ansportation, low edu. Level, literacy, decrease access to med. care, fdc, rehab)? @ -None Was there de-escalation of care discussed even if they declined? (Discuss DNR or withdrawal of care, Hospice)? @ -[Discuss DNR or withdrawal of care, Hospice?] What co-morbidities impacted this encounter? (DM, HTN, Smoking, COPD, CAD, Cancer, CVA, Hep., AIDS, mental health diagnosis, sleep apnea, morbid obesity)? @ -none Was patient admitted / discharged? @ -Discharged Undiagnosed new problem with uncertain prognosis? @ -Superficial laceration, right forearm Drug Therapy requiring intensive monitoring for toxicity (Heparin, Nitro, Insulin, Cardizem)? @ -[none] Were any procedures done? @ -[none] Diagnosis/symptom? @ -Superficial laceration without complication, right forearm Acute, or Chronic, or Acute on Chronic? @ -Acute Uncomplicated (without systemic symptoms) or Complicated (systemic symptoms)? @ -Uncomplicated Side effects of treatment? @ -[none] Exacerbation, Progression, or Severe Exacerbation] @ -[no] Poses a threat to life or bodily function? @ -[no] Patient counseling and care. Counseled on signs and symptoms of infection. Counseled on follow-up. Patient was told to return to the ER for any signs or symptoms worsen. Told to return immediately if any other problems arise. All questions answered. Treatment plan discussed. Patient in agreement Every effort has been made to ensure accuracy of this dictation. However, due to the limitations of electronic medical records and dictation devices, errors in charting still occur. Will need to follow-up with [facility]. Suture removal in 10-12 days. Disposition Clinical Impression: Laceration of right forearm, Nicotine addiction Disposition: HOME SELF-CARE Condition: Good Instructions (If sedation given, give patient instructions): Laceration (ED), How to Stop Smoking (ED) Additional Instructions: Wash the wound daily with warm soap and water. Apply thin layer of Neosporin or triple antibiotic ointment. Follow-up [facility] within the next 1-2 days for reevaluation and wound check. Keep the wound covered for the entire time the stitches are in place. Suture removal in 10-12 days. Return to the ER immediately if any symptoms worsen, new symptoms arise, or any other problems develop. [facility] [address] [id number] Get Directions Hours FRIDAY: 8 a.m. - 5 p.m. FRIDAY: 8 a.m. - 5 p.m. FRIDAY: 8 a.m. - 5 p.m. FRIDAY: 8 a.m. - 5 p.m. FRIDAY: 8 a.m. - 5 p.m. Is patient prescribed a controlled substance at d/c from ED?: No When asked, does pt state using other controlled substances?: No Referrals: Rowan Coronel MD [Primary Care Provider] - 1-2 days (Follow-up as needed.) Time of Disposition: 19:10
[2022-12-30] MEDS ORDERED: BACITRACIN OINT 1 EACH PACKET TOPICAL STA (19:08)
[2022-12-30 19:32] VITALS: BP 124/73; PULSE 74
== END 2022-12-30 19:31 | disposition home or self-care (01) ==
LOC: EC 17:29
DX: S51.811A Laceration without foreign body of right forearm, initial encounter (principal); E11.9 Type 2 diabetes mellitus without complications; I10 Essential (primary) hypertension; E78.5 Hyperlipidemia, unspecified; F17.200 Nicotine dependence, unspecified, uncomplicated; Z79.82 Long term (current) use of aspirin; Z79.84 Long term (current) use of oral hypoglycemic drugs; Z79.899 Other long term (current) drug therapy; Z91.030 Bee allergy status; W26.8XXA Contact with other sharp object(s), not elsewhere classified, initial encounter; Y99.0 Civilian activity done for income or pay
CPT/HCPCS: 99282; 12002; J2001

== ENCOUNTER 2023-01-09 15:46 | Inpatient (IN) | payer OTHER ==
--- NOTE | 2023-01-09 16:06 | ED ---
Recheck HPI - General Source: patient, RN notes reviewed Mode of arrival: ambulatory Limitations: no limitations <Dinorah Macias - Last Filed: 01/09/23 16:04> <Michael Shaikh - Last Filed: 01/09/23 18:27> - General Chief Complaint: Recheck/Abnormal Lab/Rx Stated Complaint: abn CT blood clot bilat lungs Time Seen by Provider: 01/09/23 16:00 - History of Present Illness Initial Comments: This is a 57 year old male who presents to the emergency department for an abnormal outpatient CT scan of the chest. Reports 2 episodes of hemoptysis, prompting his PCP to order a CT scan of the chest. This was positive for b ilateral PEs. Patient denies any chest pain or shortness of breath. Aside from the hemoptysis, he is asymptomatic. (Dinorah Macias) This is a 57-year-old male presents emergency department with past medical history significant for smoking and DVT. Patient states is no longer any blood thinners. Patient states the other day he was having some right-sided chest pain thought it was something he must of done at work. Patient states he then coughed up a bunch of blood she went to his primary medical care doctor primary medical care doctor sent the patient to get a CAT scan a CAT scan showed bilateral pulmonary embolisms and the patient was sent to the emergency departm ent that time. Patient denies any difficulty breathing shortness of breath. Patient states he still has a little bit of right-sided chest pain. Patient denies abdominal pain patient denies nausea vomiting diarrhea. Patient denies any other symptoms at this time. Patient denies any swelling to his legs or calf tenderness. (Michael Shaikh) - Related Data Home Medications Medication Instructions Recorded Confirmed Atorvastatin Calcium [Lipitor] 40 mg PO Q2D@2100 01/16/18 01/09/23 Tamsulosin HCl [Flomax] 0.4 mg PO DAILY 01/16/18 01/09/23 lisinopriL [Zestril] 20 mg PO DAILY 01/16/18 01/09/23 metFORMIN HCL [Glucophage] 500 mg PO W/BRKFST 01/16/18 01/09/23 Allergies Allergy/AdvReac Type Severity Reaction Status Date / Time bee venom protein (honey bee) Allergy Swelling Verified 01/09/23 17:52 Review of Systems ROS Other: All systems not noted in ROS Statement are negative. <Dinorah Macias - Last Filed: 01/09/23 16:04> ROS Other: All systems not noted in ROS Statement are negative. <Michael Shaikh - Last Filed: 01/09/23 18:27> ROS Statement: Those systems with pertinent positive or pertinent negative responses have been documented in the HPI. Past Medical History Past Medical History: Diabetes Mellitus, Hyperlipidemia, Hypertension, Prostate Disorder History of Any Multi-Drug Resistant Organisms: None Reported Past Surgical History: Tonsillectomy Past Anesthesia/Blood Transfusion Reactions: No Reported Reaction Additional Past Anesthesia/Blood Transfusion Reaction / Comment(s): NO BLOOD TRANSFUSIONS BEFORE Past Psychological History: No Psychological Hx Reported Smoking Status: Current every day smoker Past Alcohol Use History: Rare Past Drug Use History: None Reported - Past Family History Mother Family Medical History: CVA/TIA Additional Family Medical History / Comment(s): MOTHER HAD CANCER, UNSURE WHICH TYPE Father Family Medical History: CVA/TIA <Dinorah Macias - Last Filed: 01/09/23 16:04> General Exam <Dinroah Macias - Last Filed: 01/09/23 16:04> <Michael Shaikh - Last Filed: 01/09/23 18:27> - General Exam Comments Initial Comments: Visual Physical Exam Vital signs reviewed General: Well-appearing, nontoxic, no acute distress. Head: Normocephalic, atraumatic Eyes: PERRLA, EOMI ENT: Airway patent Chest: Nonlabored breathing Skin: No visual rash, normal skin tone Neuro: Alert and oriented 3 Musculoskeletal: No gross abnormalities I performed the QuickNote portion of this chart. Signed Dinorah Macias PA-C. (Dinorah Macias) GENERAL: Patient is well-developed and well-nourished. Patient is nontoxic and well- hydrated and is in mild distress. ENT: Neck is soft and supple. No significant lymphadenopathy is noted. Oropharynx is clear. Moist mucous membranes. Neck has full range of motion without eliciting any pain. EYES: The sclera were anicteric and conjunctiva were pink and moist. Extraocular movements were intact and pupils were equal round and reactive to light. Eyelids were unremarkable. PULMONARY: Unlabored respirations. Good breath sounds bilaterally. No audible rales rhonchi or wheezing was noted. CARDIOVASCULAR: There is a regular rate and rhythm without any murmurs gallops or rubs. ABDOMEN: Soft and nontender with normal bowel sounds. SKIN: Skin is clear with no lesions or rashes and otherwise unremarkable. NEUROLOGIC: Patient is alert and oriented x3. Cranial nerves II through XII are grossly intact. Motor and sensory are also intact. Normal speech, volume and content. Symmetrical smile. MUSCULOSKELETAL: Normal extremities with adequate strength and full range of motion. LYMPHATICS: No significant lymphadenopathy is noted PSYCHIATRIC: Normal psychiatric evaluation. (Michael Shaikh) Course Vital Signs 01/09/23 16:02 Temperature 98.7 F Pulse Rate 85 Respiratory 20 Rate Blood Pressure 106/66 O2 Sat by Pulse 97 Oximetry Medical Decision Making - Lab Data Result diagrams: 01/09/23 16:41 01/09/23 16:41 <Michael Shaikh - Last Filed: 01/09/23 18:27> - Medical Decision Making EKG is interpreted by myself. EKG shows a sinus rhythm at 78 bpm MO interval 250 QRS is a 70 Q-T intervals 370 QTC is 420. Patient shows no ST segment elevation or depression's EKG Was pt. sent in by a medical professional or institution (STEPHEN Lyon, VEHICLE CHECK IN CLERK, urgent ca re, hospital, or [facility]...) When possible be specific @ -Dr. Coronel sent the patient in Did you speak to anyone other than the patient for history (EMS, parent, family, police, friend...)? What history was obtained from this source @ -No Did you review nursing and triage notes (agree or disagree)? Why? @ -I reviewed and agree with nursing and triage notes Were old charts reviewed (outside hosp., previous admission, EMS record, old EKG, old radiological studies, urgent care reports/EKG's, [facility] records)? Report findings @ -Reviewed prior CAT scans on this patient Differential Diagnosis (chest pain, altered mental status, abdominal pain women, abdominal pain men, vaginal bleeding, weakness, fever, dyspnea, syncope, headache, dizziness, GI bleed, back pain, seizure, CVA, palpatations, mental health, musculoskeletal)? @ -Differential Chest Pain: Stable Angina, Unstable Angina, STEMI, NSTEMI Aortic Dissection, Pneumothorax, Musculoskeletal, Esophageal Spasm GERD, Cholecystitis, Pancreatitis, Zoster, t his is not meant to be an all-inclusive list. EKG interpreted by me (3pts min.). @ -As above X-rays interpreted by me (1pt min.). @ -None done CT interpreted by me (1pt min.). @ -None done U/S interpreted by me (1pt. min.). @ -Ultrasound showed bilateral DVTs What testing was considered but not performed or refused? (CT, X-rays, U/S, labs)? Why? @ -None What meds were considered but not given or refused? Why? @ -None Did you discuss the management of the patient with other professionals (professionals i.e. , PA, VEHICLE CHECK IN CLERK, lab, RT, psych nurse, social media designer, welding machine operator helper arc, teacher, aoc plans intelligence officer chief, geriatric case manager)? Give summary @ -I spoke to [facility] and they agreed to admit the patient admitted the patient wrote admitting orders Was smoking cessation discussed for >3mins.? @ -No Was critical care preformed (if so, how long)? @ -35 minutes Were there social determinants of health that impacted care today? How? (Homelessness, low income, unemployed, alcoholism, drug addiction, transportation, low edu. Level, literacy, decrease access to med. care, nursing home, rehab)? @ -No Was there de-escalation of care discussed even if they declined (Discuss DNR or withdrawal of care, Hospice)? DNR status @ -No What co-morbidities impacted this encounter? (DM, HTN, Smoking, COPD, CAD, Cancer, CVA, ARF, Chemo, Hep., AIDS, mental health diagnosis, sleep apnea, morbid obesity)? @ -None Was patient admitted / discharged? Hospital course, mention meds given and route, prescriptions, significant lab abnormalities, going to OR and other pertinent info. @ -Patient had a little right-sided chest pain other that he was asymptomatic patient's ultrasound showed bilateral DVTs I read the CAT scan showed bilateral PEs patient will be admitted to [facility] I will consult cardiology Undiagnosed new problem with uncertain prognosis? @ -No Drug Therapy requiring intensive monitoring for toxicity (Heparin, Nitro, Insulin, Cardizem)? @ -No Were any procedures done? @ -No Diagnosis/symptom? @ -pulmonary embolisms Acute, or Chronic, or Acute on Chronic? @ -Acute Uncomplicated (without systemic symptoms) or Complicated (systemic symptoms)? @ -Complicated Side effects of treatment? @ -No Exacerbation, Progression, or Severe Exacerbation? @ -No Poses a threat to life or bodily function? How? (Chest pain, [place], [place], pneumonia, PE, COPD, DKA, ARF, appy, cholecystitis, CVA, Diverticulitis, Homicidal, Suicidal, threat to staff... and all critical care pts) @ -Yes this could lead to severe hypoxia and Diagnosis/symptom? @ -Bilateral DVTs Acute, or Chronic, or Acute on Chronic? @ -Acute Uncomplicated (without systemic symptoms) or Complicated (systemic symptoms)? @ -Complicated Side effects of treatment? @ -none Exacerbation, Progression, or Severe Exacerbation] @ -no Poses a threat to life or bodily function? @ -Yes this could lead to massive pulmonary embolism and (Rosibel Waldemar puckettophe) - Lab Data Lab Results 01/09/23 01/09/23 01/09/23 Range/Units 16:41 16:41 16:41 WBC 7.5 (3.8-10.6) k/uL RBC 4.72 (4.30-5.90) m/uL Hgb 15.8 (13.0-17.5) gm/dL Hct 46.8 (39.0-53.0) % MCV 99.0 (80.0-100.0) fL MCH 33.4 (25.0-35.0) pg MCHC 33.8 (31.0-37.0) g/dL RDW 14.6 (11.5-15.5) % Plt Count 178 (150-450) k/uL MPV 8.4 Neutrophils % 71 % Lymphocytes % 17 % Monocytes % 5 % Eosinophils % 5 % Basophils % 1 % Neutrophils # 5.4 (1.3-7.7) k/uL Lymphocytes # 1.3 (1.0-4.8) k/uL Monocytes # 0.4 (0-1.0) k/uL Eosinophils # 0.4 (0-0.7) k/uL Basophils # 0.0 (0-0.2) k/uL Macrocytosis Slight PT 9.7 (9.0-12.0) sec INR 0.9 (<1.2) APTT 25.3 (22.0-30.0) sec Sodium 136 L (137-145) mmol/L Potassium 4.4 (3.5-5.1) mmol/L Chloride 104 (98-107) mmol/L Carbon Dioxide 24 (22-30) mmol/L Anion Gap 8 mmol/L BUN 14 (9-20) mg/dL Creatinine 0.68 (0.66-1.25) mg/dL Est GFR (CKD-EPI)AfAm >90 (>60 ml/min/1.73 sqM) Est GFR (CKD-EPI)NonAf >90 (>60 ml/min/1.73 sqM) Glucose 106 H (74-99) mg/dL Plasma Lactic Acid Ashkan (0.7-2.0) mmol/L Calcium 9.2 (8.4-10.2) mg/dL Total Bilirubin 0.5 (0.2-1.3) mg/dL AST 26 (17-59) U/L ALT 25 (4-49) U/L Alkaline Phosphatase 80 (38-126) U/L Troponin I (0.000-0.034) ng/mL Total Protein 7.2 (6.3-8.2) g/dL Albumin 4.2 (3.5-5.0) g/dL 01/09/23 01/09/23 Range/Units 16:41 16:41 WBC (3.8-10.6) k/uL RBC (4.30-5.90) m/uL Hgb (13.0-17.5) gm/dL Hct (39.0-53.0) % MCV (80.0-100.0) fL MCH (25.0-35.0) pg MCHC (31.0-37.0) g/dL RDW (11.5-15.5) % Plt Count (150-450) k/uL MPV Neutrophils % % Lymphocytes % % Monocytes % % Eosinophils % % Basophils % % Neutrophils # (1.3-7.7) k/uL Lymphocytes # (1.0-4.8) k/uL Monocytes # (0-1.0) k/uL Eosinophils # (0-0.7) k/uL Basophils # (0-0.2) k/uL Macrocytosis PT (9.0-12.0) sec INR (<1.2) APTT (22.0-30.0) sec Sodium (137-145) mmol/L Potassium (3.5-5.1) mmol/L Chloride (98-107) mmol/L Carbon Dioxide (22-30) mmol/L Anion Gap mmol/L BUN (9-20) mg/dL Creatinine (0.66-1.25) mg/dL Est GFR (CKD-EPI)AfAm (>60 ml/min/1.73 sqM) Est GFR (CKD-EPI)NonAf (>60 ml/min/1.73 sqM) Glucose (74-99) mg/dL Plasma Lactic Acid Ashkan 1.2 (0.7-2.0) mmol/L Calcium (8.4-10.2) mg/dL Total Bilirubin (0.2-1.3) mg/dL AST (17-59) U/L ALT (4-49) U/L Alkaline Phosphatase (38-126) U/L Troponin I <0.012 (0.000-0.034) ng/mL Total Protein (6.3-8.2) g/dL Albumin (3.5-5.0) g/dL Critical Care Time Critical Care Time: Yes Total Critical Care Time: 35 <Michael Shaikh - Last Filed: 01/09/23 18:27> Disposition <Dinorah Macias - Last Filed: 01/09/23 16:04> Time of Disposition: 18:27 <Michael Shaikh - Last Filed: 01/09/23 18:27> Clinical Impression: Pulmonary embolism, Bilateral deep vein thromboses Disposition: ADMITTED IP TO THIS [facility] Referrals: Rowan Coronel MD [Primary Care Provider] - 1-2 days
[2023-01-09] MEDS ORDERED: HEPARIN SODIUM 1,000 UN/ML (10ML VL) IV ONE (16:22)
[2023-01-09] MEDS: HEPARIN SOD,PORK IN 0.45% NACL 25,000 UNIT in 0.45% NACL 1 250ML.BAG IV SCH (16:39)
[2023-01-09 16:54] LABS: Basophils % (A) 1 %; Eosinophils # (A) 0.4 k/uL (0-0.7); Eosinophils % (A) 5 %; HCT 46.8 % (39.0-53.0); HGB 15.8 gm/dL (13.0-17.5); Lymphocytes # (A) 1.3 k/uL (1.0-4.8); Lymphocytes % (A) 17 %; MCH 33.4 pg (25.0-35.0); MCHC 33.8 g/dL (31.0-37.0); Macrocytosis Slight; Mean Platelet Volume 8.4; Monocytes # (A) 0.4 k/uL (0-1.0); Monocytes % (A) 5 %; Neutrophils # (A) 5.4 k/uL (1.3-7.7); Neutrophils % (A) 71 %; Platelet Count 178 k/uL (150-450); RBC 4.72 m/uL (4.30-5.90); RDW 14.6 % (11.5-15.5); WBC 7.5 k/uL (3.8-10.6)
[2023-01-09 17:05] LABS: ALT 25 U/L (4-49); AST 26 U/L (17-59); African American GFR (CKD) >90 (>60 ml/min/1.73 sqM); Albumin 4.2 g/dL (3.5-5.0); Alkaline Phosphatase 80 U/L (38-126); Anion Gap 8 mmol/L; Blood Urea Nitrogen 14 mg/dL (9-20); Calcium 9.2 mg/dL (8.4-10.2); Carbon Dioxide 24 mmol/L (22-30); Chloride 104 mmol/L (98-107); Glucose 106 mg/dL (74-99); Non-African American GFR(CKD) >90 (>60 ml/min/1.73 sqM); Potassium 4.4 mmol/L (3.5-5.1); Sodium 136 mmol/L (137-145); Total Bilirubin 0.5 mg/dL (0.2-1.3); Total Protein 7.2 g/dL (6.3-8.2)
[2023-01-09 17:07] LABS: INR 0.9 (<1.2); Partial Thromboplastin Time 25.3 sec (22.0-30.0); Prothrombin Time 9.7 sec (9.0-12.0)
--- NOTE | 2023-01-09 17:51 | US ---
EXAMINATION TYPE: US venous doppler duplex LE DATE OF EXAM: 01/09/2023 5:14 PM COMPARISON: NONE CLINICAL INDICATION: Male, 57 years old with history of PEs; Bilateral PE. ED patient. SIDE PERFORMED: Bilateral TECHNIQUE: The lower extremity deep venous system is examined utilizing real time linear array sonog aric with graded compression, doppler sonography and color-flow sonography. VESSELS IMAGED: Common Femoral Vein Deep Femoral Vein Greater Saphenous Vein * Femoral Vein Popliteal Vein Small Saphenous Vein * Proximal Calf Veins (* superficial vessels) Description: Grayscale, color doppler, spectral doppler imaging performed of the deep veins of the lo wer extremities. IMPRESSION: Right lower extremity: Positive for DVT within common femoral vein, deep femoral vein, proximal, mid, and distal femoral vein, popliteal vein, and proximal calf veins. Left lower extremity: Positive for DVT within common femoral vein, deep femoral vein, proximal, mid, and distal femoral vein, popliteal vein, and proximal calf veins.
[2023-01-09] MEDS ORDERED: NICOTINE 21MG/24HR PATCH TRANSDERM STA (18:21)
[2023-01-09] MEDS ORDERED: SODIUM CHLORIDE 0.9% 1,000 ML IV ONE (18:27)
[2023-01-10] MEDS: HEPARIN SOD,PORK IN 0.45% NACL 25,000 UNIT in 0.45% NACL 1 250ML.BAG IV SCH (05:30)
[2023-01-10 05:51] LABS: Glucose,Whole Blood 109 mg/dL (70-110)
--- NOTE | 2023-01-10 08:21 | P.CRDCN ---
History of Present Illness History of present illness: HISTORY OF PRESENT ILLNESS: This is a 57-year-old male with a past medical history significant for hypertension, hyperlipidemia, and diabetes. Patient does not follow with a core winder. We have been asked to see the patient in consultation for PE. Patient examined at the bedside. Patient states he originally saw his PCP for hemoptysis. A CT of the chest was ordered receiving bilateral PE. He was directed to come to the ER. The patient reports he has a history of a DVT proximally 5 or 6 years ago. He was previously on Xarelto but was told by his primary care physician that he no longer has to take it. he states that he underwent hypercoagulable workup in the past and workup was negative. He reports a history of smoking. He also reports a family history of CVA. He denies any previous history of CAD. * EKG reveals sinus mechanism with no signs of acute ischemia * venous Doppler: Positive for DVT bilaterally * chest CT: Bilateral pulmonary emboli with right upper lobe small peripheral pulmonary infarct. No evidence for right heart strain. * Laboratory data: WBC 7.5. Hemoglobin 15.8. Platelet count 178. Sodium 136. Potassium 4.4. BUN 14. Creatinine 0.68. Troponin negative 1 * Current home cardiac medications include atorvastatin 40 mg every 48 hours and lisinopril 20 mg daily. REVIEW OF SYSTEMS: At the time of my exam: CONSTITUTIONAL: Denies fever or chills. HEENT: Denies blurred vision, vision changes, or eye pain. Denies hemoptysis CARDIOVASCULAR: Denies chest pain. Denies orthopnea. Denies PND. Denies palpitations RESPIRATORY: Denies shortness of breath. GASTROINTESTINAL: Denies abdominal pain. Denies nausea or vomiting. HEMATOLOGIC: Denies bleeding disorders. GENITOURINARY: Denies any blood in urine. SKIN: Denies pruitis. Denies rash. PHYSICAL EXAM: VITAL SIGNS: Reviewed. GENERAL: Well-developed in no acute distress. HEENT: Head is normocephalic. Pupils are equal, round. Sclerae anicteric. Mucous membranes of the mouth are moist. Neck supple. No JVD or thyromegaly LUNGS: Respirations even and unlabored. Lungs essentially clear to auscultation bilaterally. HEART: Regular rate and rhythm. S1 and S2 heard. ABDOMEN: Soft. Nondistended. Nontender. EXTREMITIES: Normal range of motion. No clubbing or cyanosis. Peripheral pulses intact. No lower extremity edema NEUROLOGIC: Awake and alert. Oriented x 3. ASSESSMENT: Bilateral pulmonary emboli Bilateral DVT History of DVT, 5-6 years ago, previously on anticoagulation Hypertension Hyperlipidemia Diabetes Nicotine dependence PLAN: Obtain 2-D echo to assess cardiac medications Discontinue IV heparin Begin Xarelto 15 mg twice a day for 21 days then decrease to 20 mg daily Patient may be discharged home this evening pending echo results Patient to follow-up post discharge with Dr. Zhao Nurse practitioner note has been reviewed by physician. Signing provider agrees with the documented findings, assessment, and plan of care. Past Medical History Past Medical History: Diabetes Mellitus, Hyperlipidemia, Hypertension, Prostate Disorder History of Any Multi-Drug Resistant Organisms: None Reported Past Surgical History: Tonsillectomy Past Anesthesia/Blood Transfusion Reactions: No Reported Reaction Additional Past Anesthesia/Blood Transfusion Reaction / Comment(s): NO BLOOD TRANSFUSIONS BEFORE Past Psychological History: No Psychological Hx Reported Smoking Status: Current every day smoker Past Alcohol Use History: Rare Past Drug Use History: None Reported - Past Family History Mother Family Medical History: CVA/TIA Additional Family Medical History / Comment(s): MOTHER HAD CANCER, UNSURE WHICH TYPE Father Family Medical History: CVA/TIA Medications and Allergies Home Medications Medication Instructions Recorded Confirmed Type Atorvastatin Calcium [Lipitor] 40 mg PO Q2D@2100 01/16/18 01/09/23 History Tamsulosin HCl [Flomax] 0.4 mg PO DAILY 01/16/18 01/09/23 History lisinopriL [Zestril] 20 mg PO DAILY 01/16/18 01/09/23 History metFORMIN HCL [Glucophage] 500 mg PO W/BRKFST 01/16/18 01/09/23 History Allergies Allergy/AdvReac Type Severity Reaction Status Date / Time bee venom protein (honey bee) Allergy Swelling Verified 01/09/23 17:52 Physical Exam Vitals: Vital Signs Temp Pulse Pulse Resp BP BP Pulse Ox 01/10/23 04:00 98.2 F 70 16 129/80 96 01/09/23 23:00 98.3 F 68 16 111/67 99 01/09/23 21:51 69 16 132/69 98 01/09/23 18:38 72 16 122/69 98 01/09/23 16:02 98.7 F 85 20 106/66 97 Intake and Output 01/09/23 01/09/23 01/10/23 14:59 22:59 06:59 Intake Total 226.066 Balance 226.066 Intake: Intake, IV Titration 226.066 Amount Heparin Sod,Pork in 0.45% 226.066 NaCl 25,000 unit In 0.45 % NaCl 1 250ml.bag @ 18 UNITS/KG/HR 17.064 mls/hr IV .[id number] [facility] Rx#: [id number] Other: Voiding Method Toilet # Voids 1 Weight 94.801 kg Results 01/09/23 16:41 01/09/23 16:41 Cardiac Enzymes 01/09/23 01/09/23 Range/Units 16:41 16:41 AST 26 (17-59) U/L Troponin I <0.012 (0.000-0.034) ng/mL Coagulation 01/09/23 01/10/23 Range/Units 16:41 00:17 PT 9.7 (9.0-12.0) sec APTT 25.3 41.7 H (22.0-30.0) sec CBC 01/09/23 Range/Units 16:41 WBC 7.5 (3.8-10.6) k/uL RBC 4.72 (4.30-5.90) m/uL Hgb 15.8 (13.0-17.5) gm/dL Hct 46.8 (39.0-53.0) % Plt Count 178 (150-450) k/uL Comprehensive Metabolic Panel 01/09/23 Range/Units 16:41 Sodium 136 L (137-145) mmol/L Potassium 4.4 (3.5-5.1) mmol/L Chloride 104 (98-107) mmol/L Carbon Dioxide 24 (22-30) mmol/L BUN 14 (9-20) mg/dL Creatinine 0.68 (0.66-1.25) mg/dL Glucose 106 H (74-99) mg/dL Calcium 9.2 (8.4-10.2) mg/dL AST 26 (17-59) U/L ALT 25 (4-49) U/L Alkaline Phosphatase 80 (38-126) U/L Total Protein 7.2 (6.3-8.2) g/dL Albumin 4.2 (3.5-5.0) g/dL Current Medications Generic Name Dose Route Start Last Admin Trade Name Madeline PRN Reason Stop Dose Admin Heparin Sodium/Sodium Chloride 250 mls @ 17.064 mls/hr 01/09/23 16:30 01/10/23 05:30 25,000 unit/ Sodium Chloride IV 20 units/kg/hr .[id number] ARASH 18.96 mls/hr Administration Protocol 18 UNITS/KG/HR Sodium Chloride 1,000 mls @ 75 mls/hr 01/09/23 18:27 01/09/23 21:52 Saline 0.9% IV 01/10/23 07:46 75 mls/hr .[id number] ONE Administration Intake and Output 01/09/23 01/09/23 01/10/23 14:59 22:59 06:59 Intake Total 226.066 Balance 226.066 Intake: Intake, IV Titration 226.066 Amount Heparin Sod,Pork in 0.45% 226.066 NaCl 25,000 unit In 0.45 % NaCl 1 250ml.bag @ 18 UNITS/KG/HR 17.064 mls/hr IV .[id number] [facility] Rx#: [id number] Other: Voiding Method Toilet # Voids 1 Weight 94.801 kg Patient Weight 01/10/23 06:59 Weight 94.801 kg 01/09/23 16:41 01/09/23 16:41
[2023-01-10] MEDS ORDERED: Rivaroxaban Initiation Dose--VTE 15 MG TAB PO SCH (09:00)
[2023-01-10] MEDS: lisinopriL 20 MG TAB PO SCH (09:06)
[2023-01-10] MEDS: RIVAROXABAN 15 MG TAB PO SCH ×2 (09:09→20:52)
--- NOTE | 2023-01-10 10:48 | P.HPIM ---
History of Present Illness Physical malignancies old male with past medical history of diabetes mellitus, hypertension, hyperlipidemia, benign prostatic hypertrophy Presents because of hemoptysis once or twice over a period of 4 weeks He went to see his PCP Dr. Coronel referred him for CT of the chest as there was suspicion of cancer as patient has cancer in both sides of his family, yesterday he received a call from Dr. Coronel office to complete our for clots and both lungs. Patient denies chest pain or dyspnea. No dizziness. Patient denies any other new symptoms. He looks comfortable He denies alcohol or drugs but he smokes 1 pack per day and he was counseled to quit and he agrees but he declines nicotine patch. he used to smoke 2.5 packs per day He is 97% on room air, afebrile and vital signs stable Labs are unremarkable including CBC, BMP, LFTs, INR. Venous Doppler showing bilateral DVT Review of Systems Review of systems CONSTITUTIONAL: No fever, no malaise, no fatigue. HEENT: No recent visual problems or hearing problems. Denied any sore throat. CARDIOVASCULAR: No orthopnea, PND, no palpitations, no syncope. PULMONARY: No shortness of breath, no cough, no hemoptysis. GASTROINTESTINAL: No diarrhea, no nausea, no vomiting, no abdominal pain. Normoactive bowel sounds. NEUROLOGICAL: No headaches, no weakness, no numbness. HEMATOLOGICAL: Denies any bleeding or petechiae. GENITOURINARY: Denies any burning micturition, frequency, or urgency. MUSCULOSKELETAL/RHEUMATOLOGICAL: Denies any joint pain, swelling, or any muscle pain. ENDOCRINE: Denies any polyuria or polydipsia. Past Medical History Past Medical History: Diabetes Mellitus, Hyperlipidemia, Hypertension, Prostate Disorder History of Any Multi-Drug Resistant Organisms: None Reported Past Surgical History: Tonsillectomy Past Anesthesia/Blood Transfusion Reactions: No Reported Reaction Additional Past Anesthesia/Blood Transfusion Reaction / Comment(s): NO BLOOD TR ANSFUSIONS BEFORE Past Psychological History: No Psychological Hx Reported Smoking Status: Current every day smoker Past Alcohol Use History: Rare Past Drug Use History: None Reported - Past Family History Mother Family Medical History: CVA/TIA Additional Family Medical History / Comment(s): MOTHER HAD CANCER, UNSURE WHICH TYPE Father Family Medical History: CVA/TIA Medications and Allergies Home Medications Medication Instructions Recorded Confirmed Type Atorvastatin Calcium [Lipitor] 40 mg PO Q2D@2100 01/16/18 01/09/23 History Tamsulosin HCl [Flomax] 0.4 mg PO DAILY 01/16/18 01/09/23 History lisinopriL [Zestril] 20 mg PO DAILY 01/16/18 01/09/23 History metFORMIN HCL [Glucophage] 500 mg PO W/BRKFST 01/16/18 01/09/23 History Allergies Allergy/AdvReac Type Severity Reaction Status Date / Time bee venom protein (honey bee) Allergy Swelling Verified 01/09/23 17:52 Physical Exam Vitals: Vital Signs Temp Pulse Pulse Resp BP BP Pulse Ox 01/10/23 08:36 98.1 F 69 18 124/58 97 01/10/23 04:00 98.2 F 70 16 129/80 96 01/09/23 23:00 98.3 F 68 16 111/67 99 01/09/23 21:51 69 16 132/69 98 01/09/23 18:38 72 16 122/69 98 01/09/23 16:02 98.7 F 85 20 106/66 97 Intake and Output 01/09/23 01/10/23 01/10/23 22:59 06:59 14:59 Intake Total 226.066 660 Balance 226.066 660 Intake: Intake, IV Titration 226.066 Amount Heparin Sod,Pork in 0.45% 226.066 NaCl 25,000 unit In 0.45 % NaCl 1 250ml.bag @ 18 UNITS/KG/HR 17.064 mls/hr IV .[id number] [facility] Rx#: [id number] Oral 660 Other: Voiding Method Toilet # Voids 1 Weight 94.801 kg GENERAL: The patient is alert and oriented x3, not in any acute distress. Well developed, well nourished. HEENT: Pupils are round and equally reacting to light. EOMI. No scleral icterus. No conjunctival pallor. Normocephalic, atraumatic. No pharyngeal erythema. No thyromegaly. CARDIOVASCULAR: S1 and S2 present. No murmurs, rubs, or gallops. PULMONARY: Chest is clear to auscultation, no wheezing , no crackles. ABDOMEN: Soft, nontender, nondistended, normoactive bowel sounds. No palpable organomegaly. MUSCULOSKELETAL: No joint swelling or deformity. EXTREMITIES: No cyanosis, clubbing, or pedal edema. NEUROLOGICAL: Gross neurological examination did not reveal any focal deficits. SKIN: No rashes. no petechiae. Results CBC & Chem 7: 01/09/23 16:41 01/09/23 16:41 Labs: Abnormal Lab Results - Last 24 Hours (Table) 01/09/23 01/10/23 Range/Units 16:41 00:17 APTT 41.7 H (22.0-30.0) sec Sodium 136 L (137-145) mmol/L Glucose 106 H (74-99) mg/dL Thrombosis Risk Factor Assmnt - Choose All That Apply Any of the Below Risk Factors Present?: Yes Each Factor Represents 1 point: Age 41-60 years, Obesity (BMI >25) Other Risk Factors: Yes Each Risk Factor Represents 3 Points: History of DVT/PE Other congenital or acquired thrombophilia - If yes, enter type in comment: No Thrombosis Risk Factor Assessment Total Risk Factor Score: 5 Thrombosis Risk Factor Assessment Level: High Risk Assessment and Plan Assessment: Acute bilateral pulmonary embolism with hematemesis Acute bilateral deep venous thrombosis of the lower extremities Nicotine dependence Diabetes mellitus Hypertension Hyperlipidemia History of osteoarthritis Hypothyroidism Plan: Continue with heparin drip Check echocardiogram pulmonary consult Patient will benefit from hematology referral as an outpatient Labs and medication were reviewed.. Continue same treatment. Continue with symptomatic treatment. Resume home medication. Monitor lytes and vitals. DVT and GI prophylaxis. Further recommendations depends on the clinical course of the patient DVT prophylaxis: heparin GI Prophylaxis: Pepcid PT/OT: Pending Prognosis is guarded
[2023-01-10 11:39] LABS: Glucose,Whole Blood 116 mg/dL (70-110)
[2023-01-10 12:22] VITALS: RESP 16
--- NOTE | 2023-01-10 12:35 | CA ---
Transthoracic Echo Report Name: Igor Almanza Age: 57 Gender: M : 1965 Exam Date: 01/10/2023 10:24 Exam Location: [place] [facility] Ht (in): 69 Wt (lb): 209 Ordering Physician: Michael Shaikh MD Attending/Referring Phys: Imaging Tech Samantha Aguilar RDCS Procedure CPT: Indications: Pulmonary embolisms Cardiac Hx: Technical Quality: Good Contrast 1: Total Dose (mL): Contrast 2: Total Dose (mL): MEASUREMENTS (Male / Female) Normal Values 2D ECHO LV Diastolic Diameter PLAX 4.9 cm 4.2 - 5.9 / 3.9 - 5.3 cm LV Systolic Diameter PLAX 2.8 cm IVS Diastolic Thickness 1.0 cm 0.6 - 1.0 / 0.6 - 0.9 cm LVPW Diastolic Thickness 1.2 cm 0.6 - 1.0 / 0.6 - 0.9 cm LV Relative Wall Thickness 0.5 RV Internal Dim ED PLAX 3.1 cm LA Systolic Diameter LX 3.4 cm 3.0 - 4.0 / 2.7 - 3.8 cm LV Diastolic Volume MOD 4C 128.5 cm??? LV Systolic Volume MOD 4C 56.8 cm??? LV Ejection Fraction MOD 4C 55.8 % LV Cardiac Index MOD 4C 2143.5 cm???/min???m??? LV Diastolic Length 4C 8.6 cm LV Systolic Length 4C 6.7 cm LV Diastolic Volume MOD 2C 152.3 cm??? LV Systolic Volume MOD 2C 62.3 cm??? LV Ejection Fraction MOD 2C 59.1 % LV Cardiac Index MOD 2C 2690.4 cm???/min???m??? LV Diastolic Length 2C 9.3 cm LV Systolic Length 2C 7.2 cm LA Volume 59.1 cm??? 18 - 58 / 22 - 52 cm??? M-MODE Aortic Root Diameter MM 3.6 cm MV E Point Septal Separation 0.7 cm AV Cusp Separation MM 2.5 cm DOPPLER AV Peak Velocity 174.9 cm/s AV Peak Gradient 12.2 mmHg AI Peak Velocity 412.5 cm/s AI Peak Gradient 68.1 mmHg AI Pressure Half Time 461.0 ms MV Area PHT 2.9 cm??? Mitral E Point Velocity 82.0 cm/s Mitral A Point Velocity 106.8 cm/s Mitral E to A Ratio 0.8 MV Deceleration Time 258.7 ms MV E' Velocity 6.4 cm/s Mitral E to MV E' Ratio 12.9 TR Peak Velocity 15.2 cm/s TR Peak Gradient 0.1 mmHg FINDINGS Left Ventricle Left ventricular ejection fraction is estimated at 60-65 %. Left ventricular cavity size normal. Left ventricular wall thickness normal. Right Ventricle Normal right ventricular size. Unable to estimate the right ventricular systolic pressure. Normal RV systolic function Right Atrium Normal right atrial size. Left Atrium Mildly increased left atrial volume. Mildly increased left atrial area. Mitral Valve Structurally normal mitral valve. No mitral stenosis, regurgitation or prolapse. Aortic Valve Trileaflet aortic valve. Mild aortic regurgitation. Tricuspid Valve Structurally normal tricuspid valve. No tricuspid regurgitation. Pulmonic Valve Pulmonic valve not well visualized. No pulmonic regurgitation. Pericardium No pericardial effusion. Aorta Normal size aortic root and proximal ascending aorta. CONCLUSIONS normal lv Previewed by: Dr. Bam Hsieh MD (Electronically Signed) Final Date: 10 January 2023 12:34
[2023-01-10 16:32] LABS: Glucose,Whole Blood 106 mg/dL (70-110)
[2023-01-10 19:57] LABS: Glucose,Whole Blood 131 mg/dL (70-110)
[2023-01-10] MEDS ORDERED: ATORVASTATIN 40 MG TAB PO SCH (21:00)
[2023-01-11 05:56] LABS: Glucose,Whole Blood 105 mg/dL (70-110)
[2023-01-11 07:42] VITALS: TEMP 97.8
[2023-01-11] MEDS: lisinopriL 20 MG TAB PO SCH (07:45)
[2023-01-11] MEDS: RIVAROXABAN 15 MG TAB PO SCH (09:00)
[2023-01-11] MEDS ORDERED: APIXABAN 5 MG TAB PO SCH (09:15)
[2023-01-11 11:03] VITALS: BP 118/69; PULSE 69
[2023-01-11 11:48] LABS: Glucose,Whole Blood 87 mg/dL (70-110)
[2023-01-11] MEDS ORDERED: NICOTINE 21MG/24HR PATCH TRANSDERM SCH (12:30)
--- NOTE | 2023-01-11 13:42 | P.CNPUL ---
History of Present Illness Consult date: 01/11/23 Chief complaint: Hemoptysis History of present illness: I was asked to evaluate this is a 7-year-old mentation for pulmonary embolism. The patient is known to have diabetes, hypertension, hyperlipidemia and BPH. He presented to the hospital because of hemoptysis episodically over the past 4 weeks. He was referred for a computed tomography scan of the chest and this was completed on 01/09/2023. The patient was found to have bilateral pulmonary emboli with right upper lobe small peripheral infarcts. There was a small wedge-shaped consolidation opacity in the posterior aspect of the right upper lobe. Emboli were also identified in the right upper lobe, right lower lobe segmental branches with extension to the right lower lobe and emboli were also demonstrated in the left lingular and lower lobe branches. Mild prominence of the pulmonary artery measuring 3.3 cm in size. Doppler of the lower extremity showed bilateral DVT involving the common femoral, deep femoral, proximal mid and distal femoral vein popliteal vein and proximal calf pain. The patient is currently on room air oxygen. No sinus tachycardia. His heart rate is 69. BP is 118/69. He is currently on anti-cognition with Eliquis 10 mg by mouth twice a day. Echocardiogram was also done that showed preserved LV function with an ejection fraction of 6065%. RV size was normal. Unable to obtain RV pressure. The patient had a normal RV function. Lab work was essentially within normal limits. Troponins are negative. Note that the patient has a previous history of a right lower extremity DVT. This was diagnosed more than 3 years ago. The patient has been treated with anticoagulation back then he was taken is Xarelto. He has undergone a full hypercoagulable workup and the workup was negative and subsequently the patient was seen by hematology and was taken off the anticoagulants.. The patient doesn't have any positive family history. No surgeries recently. He is active. He is on room air oxygen. Review of Systems CONSTITUTIONAL: No fever, no malaise, no fatigue. HEENT: No recent visual problems or hearing problems. Denied any sore throat. CARDIOVASCULAR: No orthopnea, PND, no palpitations, no syncope. PULMONARY: No shortness of breath, no cough, hemoptysis GASTROINTESTINAL: No diarrhea, no nausea, no vomiting, no abdominal pain. Normoactive bowel sounds. NEUROLOGICAL: No headaches, no weakness, no numbness. HEMATOLOGICAL: Denies any bleeding or petechiae. GENITOURINARY: Denies any burning micturition, frequency, or urgency. MUSCULOSKELETAL/RHEUMATOLOGICAL: Denies any joint pain, swelling, or any muscle pain. ENDOCRINE: Denies any polyuria or polydipsia. Past Medical History Past Medical History: Diabetes Mellitus, Hyperlipidemia, Hypertension, Prostate Disorder History of Any Multi-Drug Resistant Organisms: None Reported Past Surgical History: Tonsillectomy Past Anesthesia/Blood Transfusion Reactions: No Reported Reaction Additional Past Anesthesia/Blood Transfusion Reaction / Comment(s): NO BLOOD TRANSFUSIONS BEFORE Past Psychological History: No Psychological Hx Reported Smoking Status: Current every day smoker Past Alcohol Use History: Rare Past Drug Use History: None Reported - Past Family History Mother Family Medical History: CVA/TIA Additional Family Medical History / Comment(s): MOTHER HAD CANCER, UNSURE WHICH TYPE Father Family Medical History: CVA/TIA Medications and Allergies Home Medications Medication Instructions Recorded Confirmed Type Atorvastatin Calcium [Lipitor] 40 mg PO Q2D@2100 01/16/18 01/09/23 History Tamsulosin HCl [Flomax] 0.4 mg PO DAILY 01/16/18 01/09/23 History lisinopriL [Zestril] 20 mg PO DAILY 01/16/18 01/09/23 History Apixaban [Eliquis Starter Pack 5 - 10 mg PO DIRECTED 30 Days 01/11/23 Rx (for VTE)] #1 each Allergies Allergy/AdvReac Type Severity Reaction Status Date / Time bee venom protein (honey bee) Allergy Swelling Verified 01/09/23 17:52 Physical Exam Vitals: Vital Signs Temp Pulse Resp BP BP Pulse Ox 01/11/23 11:02 97.8 F 69 16 118/69 97 01/11/23 07:42 97.8 F 73 16 133/68 96 01/11/23 04:07 97.4 F L 74 16 125/65 95 01/10/23 23:48 72 16 128/73 99 01/10/23 20:51 98.8 F 61 16 126/77 96 01/10/23 15:33 97.3 F L 73 16 132/76 96 Intake and Output 01/10/23 01/11/23 01/11/23 22:59 06:59 14:59 Intake Total 180 430 Output Total 950 Balance 180 -950 430 Intake: IV 10 Invasive Line 1 10 Oral 180 420 Output: Urine 950 Other: Voiding Method Toilet Toilet Toilet # Voids 4 # Bowel Movements 1 GENERAL: The patient is alert and oriented x3, not in any acute distress. Well developed, well nourished. The patient is currently on room air oxygen HEENT: Pupils are round and equally reacting to light. EOMI. No scleral icterus. No conjunctival pallor. Normocephalic, atraumatic. No pharyngeal erythema. No thyromegaly. CARDIOVASCULAR: S1 and S2 present. No murmurs, rubs, or gallops. PULMONARY: Chest is clear to auscultation, no wheezing , no crackles. ABDOMEN: Soft, nontender, nondistended, normoactive bowel sounds. No palpable organomegaly. MUSCULOSKELETAL: No joint swelling or deformity. EXTREMITIES: No cyanosis, clubbing, or pedal edema. NEUROLOGICAL: Gross neurological examination did not reveal any focal deficits. SKIN: No rashes. no petechiae. Results - Laboratory Findings CBC and BMP: 01/09/23 16:41 01/09/23 16:41 PT/INR, D-dimer PT 9.7 sec (9.0-12.0) 01/09/23 16:41 INR 0.9 (<1.2) 01/09/23 16:41 Abnormal lab findings: Abnormal Labs 01/09/23 01/10/23 01/10/23 16:41 00:17 09:35 APTT 41.7 H 41.7 H Sodium 136 L Glucose 106 H POC Glucose (mg/dL) 01/10/23 01/10/23 11:37 19:57 APTT Sodium Glucose POC Glucose (mg/dL) 116 H 131 H - Diagnostic Findings Chest x-ray: image reviewed CT scan - chest: image reviewed Assessment and Plan Plan: Acute/subacute bilateral pulmonary emboli with secondary hemoptysis. The patient left the pulmonary emboli with bilateral lower extremity DVTs, unprovoked and the patient is currently on anti-cognition with Eliquis. Hemodynamically stable. No sinus tachycardia. No RV strain pattern based on CAT scan findings or echocardiogram. Troponins are within normal limits. This is a recurrent event. The patient's hypercoagulable workup according to him was negative and the patient was taken off anticoagulation postoperatively previous DVT that occurred approximately 3-4 years ago. Suspect right upper lobe pulmonary infarct, causing hemoptysis Bilateral lower extremity DVT Diabetes mellitus type 2 Hypertension Hyperlipidemia Hypothyroidism Osteoarthritis Plan Continue anti-coagulation with Eliquis, this will be lifelong anticoagulation Echo was noted CAT scan of chest was reviewed Hemodynamically stable We'll continue to follow, Possible discharge today
--- NOTE | 2023-01-12 06:03 | P.DS ---
Providers Date of admission: 01/09/23 18:29 Attending physician: Ester Rivera Consults: 01/09/23 18:27 Consult Physician Urgent Consulting Provider: [facility] Consult Reason/Comments: Pulmonary embolisms Do you want consulting provider notified?: Yes 01/10/23 15:09 Consult Physician Routine Consulting Provider: Maureen Collins Consult Reason/Comments: hemoptysis with acute pe Do you want consulting provider notified?: Yes Primary care physician: Rowan Coronel Hospital Course: Diagnoses: Acute bilateral pulmonary embolism with hematemesis Acute bilateral deep venous thrombosis of the lower extremities Nicotine dependence Diabetes mellitus Hypertension Hyperlipidemia History of osteoarthritis Hypothyroidism Hospital course: This is a pleasant 57 years old with past medical history of diabetes mellitus, hypertension, hyperlipidemia, benign prostatic hypertrophy Presents because of hemoptysis once or twice over a period of 4 weeks He went to see his PCP Dr. Coronel referred him for CT of the chest: Showing bilateral pulmonary emboli He is 97% on room air, afebrile and vital signs stable Labs are unremarkable including CBC, BMP, LFTs, INR. Venous Doppler showing bilateral DVT patient able to get by cardiology and pulmonary service and cleared for discharge Today patient since morning was ready to go home and he wanted to be discharged as he currently feels fine and asymptomatic. Patient was started on anticoagulation with eliquis and his co-pay is $40 a month. Patient agreeable but also he was provided with a 1-month free Eiquis copoun (Xarelto would require prior authorization ) risks and benefits of anticoagulation explained for him and he is agreeable. Problems and management plan were discussed with the patient and he verbalized understanding and acceptance Patient was found stable and can be discharged home in guarded prognosis however he needs follow-up as an outpatient. Patient was instructed to follow up with PCP Dr. Coronel within one week and patient agrees Patient was instructed to follow up with hematology service Dr. Alicea in 7-10 days and he is agreeable Also he was instructed to follow up with skein dyer Dr. Mann and combatant diver officer Dr. Collins in 1-2 weeks and he is agreeable (Note: I discussed with the bedside nurse kris to provide Eliquis at bedside prior to discharge and she agreed) Physical exam Gen: patient is a AAOx3, no distress CVS: S1-S2, RRR, no murmur Lungs: B/L CTA, no wheezing Abdomen: soft, no distention, no tenderness, positive bowel sounds Extremity: no leg edema or induration Time spent more than 35 minutes Plan - Discharge Summary Discharge Rx Participant: No New Discharge Prescriptions: New Apixaban [Eliquis Starter Pack (for VTE)] 5 - 10 mg PO DIRECTED 30 Days #1 each Continue Atorvastatin Calcium [Lipitor] 40 mg PO Q2D@2100 lisinopriL [Zestril] 20 mg PO DAILY Tamsulosin HCl [Flomax] 0.4 mg PO DAILY Discontinued metFORMIN HCL [Glucophage] 500 mg PO W/[id number] Discharge Medication List Atorvastatin Calcium [Lipitor] 40 mg PO Q2D@2100 01/16/18 [History] Tamsulosin HCl [Flomax] 0.4 mg PO DAILY 01/16/18 [History] lisinopriL [Zestril] 20 mg PO DAILY 01/16/18 [History] Apixaban [Eliquis Starter Pack (for VTE)] 5 - 10 mg PO DIRECTED 30 Days #1 each 01/11/23 [Rx] Follow up Appointment(s)/Referral(s): Bolivar Zhao MD [Medical Doctor] - 2 Weeks (HEART DOCTOR. Please call and make appointment, office is closed ) Declan Chase [STAFF PHYSICIAN] - 10 Days (blood disease doctor. Please call and make appointment, office is closed ) Rowan Coronel MD [Primary Care Provider] - 1-2 days (office closed, please call and mkae appointment ) Maureen Collins MD [STAFF PHYSICIAN] - 1 Week (LUNG DOCTOR. Office closed please call and make appointment ) Patient Instructions/Handouts: Pulmonary Embolism (DC), How to Stop Smoking (DC), Deep Vein Thrombosis (DC) Activity/Diet/Wound Care/Special Instructions: heart healthy diet activity is restricted till you see your doctor you copay for eliquis is $40.00 , we will provide you with a coupon for 1-month free eliquis , please follow up with your doctor for further recommendations regarding anti-coagulation management hold your metformin till you check your kidney function blood test with your doctor Discharge Disposition: HOME SELF-CARE
== END 2023-01-11 14:20 | disposition home or self-care (01) | DRG 176 ==
LOC: EC 15:46 → 3SCARD 18:29
PROVIDERS: ADMIT Hospitalist; ATTEND Hospitalist
DX: I26.99 Other pulmonary embolism without acute cor pulmonale (principal); K92.0 Hematemesis; I82.413 Acute embolism and thrombosis of femoral vein, bilateral; I82.433 Acute embolism and thrombosis of popliteal vein, bilateral; I82.4Y3 Acute embolism and thrombosis of unspecified deep veins of proximal lower extremity, bilateral; R04.2 Hemoptysis; I10 Essential (primary) hypertension; E03.9 Hypothyroidism, unspecified; E11.9 Type 2 diabetes mellitus without complications; F17.210 Nicotine dependence, cigarettes, uncomplicated; E78.5 Hyperlipidemia, unspecified; N40.0 Benign prostatic hyperplasia without lower urinary tract symptoms; M19.90 Unspecified osteoarthritis, unspecified site; Z86.718 Personal history of other venous thrombosis and embolism; Z82.3 Family history of stroke; Z79.899 Other long term (current) drug therapy; Z79.84 Long term (current) use of oral hypoglycemic drugs; Z91.030 Bee allergy status
CPT/HCPCS: 36415; 80053; 83605; 84484; 85025; 85610; 85730; 93005; 93306; 93970; 96365; 96366; 99291

== ENCOUNTER → 2023-01-09 | Outpatient (CLI) | payer OTHER ==
[2023-01-09 12:39] LABS: African American GFR (CKD) >90 (>60 ml/min/1.73 sqM); Blood Urea Nitrogen 16 mg/dL (9-20); Non-African American GFR(CKD) >90 (>60 ml/min/1.73 sqM)
--- NOTE | 2023-01-09 14:39 | CT ---
EXAMINATION TYPE: CT chest w con CT DLP: 453.4 mGycm, Automated exposure control for dose reduction was used. DATE OF EXAM: 01/09/2023 1:06 PM COMPARISON: Chest radiograph from 12/17/2022 CLINICAL INDICATION:Male, 57 years old with history of R04.2 HEMOPTYSIS; [facility], HEMOPTYSIS TECHNIQUE: Multiple axial images were obtained through the chest following the administration of 100 cc of Isovue 300. . Coronal and sagittal reformats reviewed. FINDINGS: LUNGS/ PLEURA: No pleural effusion or pneumothorax. Small wedge shaped consolidative opacity within t he posterior right upper lobe. No suspicious pulmonary nodules. AIRWAY: Patent and unremarkable.. HEART: Size within normal limits. No pericardial effusion. No intraventricular septal bowing. MEDIASTINUM: Few mildly prominent mediastinal and right hilar lymph nodes with largest in the right h ilum measuring 1.3 cm short axis. VASCULATURE: No aortic aneurysm. There is pulmonary emboli identified within the right upper lobe an d right lower lobe segmental branches with extension into the right lower lobe subsegmental branch. A dditional emboli demonstrated within the left lingular and lower lobe assessment of branches Mildly p rominent main pulmonary artery measuring up to 3.3 cm. MUSCULOSKELETAL: Mild disc degeneration changes are present throughout the thoracolumbar spine. No ac anton osseous abnormality. Multilevel anterior lateral osteophytosis. SOFT TISSUES/LYMPH NODES: Bilateral gynecomastia. LOWER NECK: No significant findings. UPPER ABDOMEN: No significant findings. IMPRESSION: Bilateral pulmonary emboli with right upper lobe small peripheral pulmonary infarcts. No evidence for right heart strain at this time. Findings called to Dr. Coronel at 2:34 PM on 01/09/2023.
== END | disposition home or self-care (01) ==
LOC: RADCTMAIN 11:53
PROVIDERS: ATTEND Internal Medicine
DX: R04.2 Hemoptysis (principal); I26.99 Other pulmonary embolism without acute cor pulmonale
CPT/HCPCS: 82565; 84520; 71260; 36415; Q9967

== ENCOUNTER 2023-03-07 08:31 | Emergency (ER) | payer OTHER ==
--- NOTE | 2023-03-07 09:41 | US ---
EXAMINATION TYPE: US venous doppler duplex LE LT DATE OF EXAM: 03/07/2023 9:32 AM COMPARISON: NONE CLINICAL INDICATION: Male, 58 years old with history of swelling; Pt states left leg swelling, has kn own DVT, currently on blood thinners SIDE PERFORMED: Left TECHNIQUE: The lower extremity deep venous system is examined utilizing real time linear array sonog aric with graded compression, doppler sonography and color-flow sonography. VESSELS IMAGED: Common Femoral Vein Deep Femoral Vein Greater Saphenous Vein * Femoral Vein Popliteal Vein Small Saphenous Vein * Proximal Calf Veins (* superficial vessels) Left Leg: Positive for DVT, proximal femoral vein to proximal calf veins IMPRESSION: DVT as noted above.
--- NOTE | 2023-03-07 10:31 | ED ---
General Adult HPI - General Chief complaint: Extremity Injury, Lower Stated complaint: L leg swelling Time Seen by Provider: 03/07/23 08:54 Source: patient Mode of arrival: ambulatory Limitations: no limitations - History of Present Illness Initial comments: Patient is a 58 -year-old male who presents to the emergency department for left leg swelling. Patient has known bilateral DVTs and PEs he is on Eliquis. He has not missed any doses. Patient states his left lower leg looked more swollen today. No injury. He denies any leg pain, chest pain, shortness of breath. Denies fever, nausea, vomiting. - Related Data Home Medications Medication Instructions Recorded Confirmed Atorvastatin Calcium [Lipitor] 40 mg PO Q2D@2100 01/16/18 01/09/23 Tamsulosin HCl [Flomax] 0.4 mg PO DAILY 01/16/18 01/09/23 lisinopriL [Zestril] 20 mg PO DAILY 01/16/18 01/09/23 Previous Rx's Medication Instructions Recorded Apixaban [Eliquis Starter Pack 5 - 10 mg PO DIRECTED 30 Days 01/11/23 (for VTE)] #1 each Allergies Allergy/AdvReac Type Severity Reaction Status Date / Time bee venom protein (honey bee) Allergy Swelling Verified 03/07/23 08:37 Review of Systems ROS Statement: Those systems with pertinent positive or pertinent negative responses have been documented in the HPI. ROS Other: All systems not noted in ROS Statement are negative. Past Medical History Past Medical History: Diabetes Mellitus, Hyperlipidemia, Hypertension, Prostate Disorder Additional Past Medical History / Comment(s): DVT History of Any Multi-Drug Resistant Organisms: None Reported Past Surgical History: Tonsillectomy Past Anesthesia/Blood Transfusion Reactions: No Reported Reaction Additional Past Anesthesia/Blood Transfusion Reaction / Comment(s): NO BLOOD TRANSFUSIONS BEFORE Past Psychological History: No Psychological Hx Reported Smoking Status: Current every day smoker Past Alcohol Use History: Rare Past Drug Use History: None Reported - Past Family History Mother Family Medical History: CVA/TIA Additional Family Medical History / Comment(s): MOTHER HAD CANCER, UNSURE WHICH TYPE Father Family Medical History: CVA/TIA General Exam Limitations: no limitations General appearance: alert Eye exam: Present: normal appearance, PERRL, EOMI. Absent: scleral icterus, conjunctival injection, periorbital swelling Respiratory exam: Present: normal lung sounds bilaterally. Absent: respiratory distress, wheezes, rales, rhonchi, stridor Cardiovascular Exam: Present: regular rate, normal rhythm, normal heart sounds. Absent: systolic murmur, diastolic murmur, rubs, gallop, clicks Extremities exam: Present: full ROM, normal capillary refill. Absent: normal inspection (minimal swelling right calf when compared to left ), calf tenderness Neurological exam: Present: alert Psychiatric exam: Present: normal affect, normal mood Skin exam: Present: warm, dry, intact, normal color. Absent: rash Course Vital Signs 03/07/23 03/07/23 08:35 10:58 Temperature 98.1 F 98.2 F Pulse Rate 68 67 Respiratory 18 16 Rate Blood Pressure 153/82 136/80 O2 Sat by Pulse 98 97 Oximetry Medical Decision Making - Medical Decision Making Was pt. sent in by a medical professional or institution ([facility], TRACK REPAIR PERSON, urgent care, hospital, or usp...) When possible be specific @ -No Did you speak to anyone other than the patient for history (EMS, parent, family, police, friend...)? What history was obtained from this source @ -No Did you review nursing and triage notes (agree or disagree)? Why? @ -I reviewed and agree with nursing and triage notes Were old charts reviewed (outside hosp., previous admission, EMS record, old EKG, old radiological studies, urgent care reports/EKG's, usp records)? Report findings @ -reviewed previous US Differential Diagnosis (chest pain, altered mental status, abdominal pain women, abdominal pain men, vaginal bleeding, weakness, fever, dyspnea, syncope, headache, dizziness, GI bleed, back pain, seizure, CVA, palpatations, mental health)? @ -DVT, cellulitis, abscess EKG interpreted by me (3pts min.). @ -As above X-rays interpreted by me (1pt min.). @ -None done CT interpreted by me (1pt min.). @ -None done U/S interpreted by me (1pt. min.). @ -DVT proximal femoral vein and proximal calf veins, similar to previous in december What testing was considered but not performed or refused? (CT, X-rays, U/S, labs)? Why? @ -None What meds were considered but not given or refused? Why? @ -None Did you discuss the management of the patient with other professionals (professionals i.e. , PA, TRACK REPAIR PERSON, lab, RT, psych nurse, social service technician, tankerman, teacher, chief media officer, corrections caseworker)? Give summary @ -No Was smoking cessation discussed for >3mins.? @ -No Was critical care preformed (if so, how long)? @ -No Were there social determinants of health that impacted care today? How? (Homelessness, low income, unemployed, alcoholism, drug addiction, transportation, low edu. Level, literacy, decrease access to med. care, [facility], rehab)? @ -No Was there de-escalation of care discussed even if they declined (Discuss DNR or withdrawal of care, Hospice)? DNR status @ -No What co-morbidities impacted this encounter? (DM, HTN, Smoking, COPD, CAD, Cancer, CVA, ARF, Chemo, Hep., AIDS, mental health diagnosis, sleep apnea, morbid obesity)? @ -None Was patient admitted / discharged? Hospital course, mention meds given and route, prescriptions, significant lab abnormalities, going to OR and other pertinent info. @ -58-year-old presenting for left calf swelling. There is minimal swelling no erythema no calf tenderness. Neurovascularly intact. Ultrasound interpreted by myself showing DVT from femoral to proximal calf veins similar to previous US in december. Patient is already on thinners no chest pain or SOB he will be discharged with vascular referral Undiagnosed new problem with uncertain prognosis? @ -No Drug Therapy requiring intensive monitoring for toxicity (Heparin, Nitro, Insulin, Cardizem)? @ -No Were any procedures done? @ -No Diagnosis/symptom? @ -DVT left leg Acute, or Chronic, or Acute on Chronic? @ -chronic Uncomplicated (without systemic symptoms) or Complicated (systemic symptoms)? @ uncomplicated Side effects of treatment? @ -No Exacerbation, Progression, or Severe Exacerbation? @ -No Poses a threat to life or bodily function? How? (Chest pain, [place], [place], pneumonia, PE, COPD, DKA, ARF, appy, cholecystitis, CVA, Diverticulitis, Homicidal, Suicidal, threat to staff... and all critical care pts) @ -No Dr. Shaikh is my attending Disposition Clinical Impression: Left leg DVT Disposition: HOME SELF-CARE Condition: Good Instructions (If sedation given, give patient instructions): Deep Vein Thrombosis (ED) Additional Instructions: Continue Eliquis. Follow up with vascular surgery in 1-2 days. Return to the emergency department if you experience new, concerning, or worsening symptoms. Is patient prescribed a controlled substance at d/c from ED?: No Referrals: Rowan Coronel MD [Primary Care Provider] - 1-2 days Leah Castillo DO [STAFF PHYSICIAN] - 1-2 days
[2023-03-07 11:05] VITALS: BP 136/80; PULSE 67; RESP 16; TEMP 98.2
== END 2023-03-07 10:59 | disposition home or self-care (01) ==
LOC: EC 08:31
DX: I82.412 Acute embolism and thrombosis of left femoral vein (principal); I82.4Y2 Acute embolism and thrombosis of unspecified deep veins of left proximal lower extremity; E11.9 Type 2 diabetes mellitus without complications; I10 Essential (primary) hypertension; E78.5 Hyperlipidemia, unspecified; Z79.899 Other long term (current) drug therapy; Z91.030 Bee allergy status
CPT/HCPCS: 99284

== ENCOUNTER 2023-11-04 09:03 | Emergency (ER) | payer BC, OTHER ==
[2023-11-04 10:25] LABS: Basophils # (A) 0.1 k/uL (0-0.2); Basophils % (A) 1 %; Eosinophils # (A) 0.2 k/uL (0-0.7); Eosinophils % (A) 3 %; Lymphocytes # (A) 1.1 k/uL (1.0-4.8); Lymphocytes % (A) 15 %; MCH 31.9 pg (25.0-35.0); MCHC 32.9 g/dL (31.0-37.0); Mean Platelet Volume 8.8; Monocytes # (A) 0.5 k/uL (0-1.0); Monocytes % (A) 6 %; Neutrophils # (A) 5.2 k/uL (1.3-7.7); Neutrophils % (A) 73 %; Platelet Count 182 k/uL (150-450); RBC 6.21 m/uL (4.30-5.90); RDW 13.7 % (11.5-15.5); WBC 7.2 k/uL (3.8-10.6)
[2023-11-04 10:29] LABS: HGB 19.8 gm/dL (13.0-17.5)
[2023-11-04 10:30] LABS: HCT 60.2 % (39.0-53.0)
[2023-11-04 10:40] LABS: ALT 21 U/L (4-49); AST 23 U/L (17-59); African American GFR (CKD) >90 (>60 ml/min/1.73 sqM); Albumin 4.4 g/dL (3.5-5.0); Alkaline Phosphatase 97 U/L (38-126); Anion Gap 7 mmol/L; Blood Urea Nitrogen 14 mg/dL (9-20); Carbon Dioxide 25 mmol/L (22-30); Chloride 107 mmol/L (98-107); Glucose 104 mg/dL (74-99); Non-African American GFR(CKD) >90 (>60 ml/min/1.73 sqM); Potassium 4.5 mmol/L (3.5-5.1); Sodium 139 mmol/L (137-145); Total Bilirubin 0.5 mg/dL (0.2-1.3); Total Protein 7.2 g/dL (6.3-8.2)
[2023-11-04 11:04] LABS: INR 1.1 (<1.2); Prothrombin Time 12.2 sec (10.0-12.5)
[2023-11-04] MEDS: SODIUM CHLORIDE 0.9% 1,000 ML IV ONE (11:04)
[2023-11-04 11:09] LABS: Partial Thromboplastin Time 29.2 sec (22.0-30.0)
[2023-11-04 11:11] LABS: C Reactive Protein 1.6 mg/dL (<1.0)
--- NOTE | 2023-11-04 11:26 | XR ---
EXAMINATION TYPE: XR tibia fibula RT DATE OF EXAM: 11/04/2023 COMPARISON: None HISTORY: Infection TECHNIQUE: 2 view right tibia and fibula FINDINGS: There is some lucency along the lateral distal tibia. Cortical erosion however is not ident ified. The ankle mortise is intact. Diffuse soft tissue swelling is over the ankle. Knee joint space appears intact. No acute fractures or dislocations are evident. IMPRESSION: 1. Diffuse soft tissue swelling at the ankle. 2. There is a sclerotic border adjacent to lucency of the distal lateral tibia. Consider 3 phase bone scan for additional workup
--- NOTE | 2023-11-04 11:43 | ED ---
Skin/Abscess/FB HPI - General Chief complaint: Skin/Abscess/Foreign Body Stated complaint: foot/leg swelling Time Seen by Provider: 11/04/23 09:46 Source: patient, RN notes reviewed Mode of arrival: ambulatory Limitations: no limitations - History of Present Illness Initial comments: 58-year-old male presents emergency department with chief complaint of leg infection. Patient states he had this issue on and off he states he is on blood thinners as he had a clot in the past but no recurrent clots. Denies any chest pain or shortness of breath states there is an open wound. There is some drainage noted. - Related Data Home Medications Medication Instructions Recorded Confirmed Atorvastatin Calcium [Lipitor] 40 mg PO HS 01/16/18 11/04/23 Tamsulosin HCl [Flomax] 0.4 mg PO DAILY 01/16/18 11/04/23 lisinopriL [Zestril] 20 mg PO DAILY 01/16/18 11/04/23 Aspirin EC [Ecotrin Low Dose] 81 mg PO DAILY 11/04/23 11/04/23 Ibuprofen [Motrin Ib] 400 mg PO TID 11/04/23 11/04/23 Warfarin [Coumadin] 10 mg PO DAILY 11/04/23 11/04/23 metFORMIN HCL 500 mg PO DAILY 11/04/23 11/04/23 tiZANidine [Zanaflex] 4 mg PO Q8HR PRN 11/04/23 11/04/23 Previous Rx's Medication Instructions Recorded Cephalexin [Keflex] 500 mg PO Q6HR #40 cap 11/04/23 Sulfamethox-Tmp 800-160Mg [Bactrim 1 each PO Q12HR #20 tab 11/04/23 Ds] Allergies Allergy/AdvReac Type Severity Reaction Status Date / Time bee venom protein (honey bee) Allergy Swelling Verified 11/04/23 10:34 Review of Systems ROS Statement: Those systems with pertinent positive or pertinent negative responses have been documented in the HPI. ROS Other: All systems not noted in ROS Statement are negative. Past Medical History Past Medical History: Diabetes Mellitus, Hyperlipidemia, Hypertension, Prostate Disorder Additional Past Medical History / Comment(s): DVT History of Any Multi-Drug Resistant Organisms: None Reported Past Surgical History: Tonsillectomy Past Anesthesia/Blood Transfusion Reactions: No Reported Reaction Additional Past Anesthesia/Blood Transfusion Reaction / Comment(s): NO BLOOD TRANSFUSIONS BEFORE Past Psychological History: No Psychological Hx Reported Smoking Status: Current every day smoker Past Alcohol Use History: Rare Past Drug Use History: None Reported - Past Family History Mother Family Medical History: CVA/TIA Additional Family Medical History / Comment(s): MOTHER HAD CANCER, UNSURE WHICH TYPE Father Family Medical History: CVA/TIA General Exam Limitations: no limitations General appearance: alert, in no apparent distress Head exam: Present: atraumatic, normocephalic, normal inspection Neck exam: Present: normal inspection. Absent: tenderness, meningismus, lymphadenopathy Respiratory exam: Present: normal lung sounds bilaterally. Absent: respiratory distress, wheezes, rales, rhonchi, stridor Cardiovascular Exam: Present: regular rate, normal rhythm, normal heart sounds. Absent: systolic murmur, diastolic murmur, rubs, gallop, clicks Extremities exam: Present: other (Right lower extremity there is erythematous changes there is an partial-thickness open wound) Neurological exam: Present: alert Skin exam: Present: warm, dry, intact, normal color. Absent: rash Course Vital Signs 11/04/23 11/04/23 11/04/23 09:30 12:21 12:34 Temperature 98.6 F 97.8 F Pulse Rate 57 L 63 68 Respiratory 18 16 16 Rate Blood Pressure 129/69 146/81 148/86 O2 Sat by Pulse 98 97 98 Oximetry Procedures - [place] Protocol (Time Out) Nurse: Delores Soto Medical Decision Making - Medical Decision Making Was pt. sent in by a medical professional or institution (, [facility], BUCKET CHUCKER, urgent care, hospital, or assisted...) When possible be specific @ -No Did you speak to anyone other than the patient for history (EMS, parent, family, police, friend...)? What history was obtained from this source @ -No Did you review nursing and triage notes (agree or disagree)? Why? @ -I reviewed and agree with nursing and triage notes Were old charts reviewed (outside hosp., previous admission, EMS record, old EKG, old radiological studies, urgent care reports/EKG's, assisted records)? Report findings @ -No old charts were reviewed Differential Diagnosis (chest pain, altered mental status, abdominal pain women, abdominal pain men, vaginal bleeding, weakness, fever, dyspnea, syncope, headache, dizziness, GI bleed, back pain, seizure, CVA, palpatations, mental health, musculoskeletal)? @ -Cellulitis, vasculitis, ulceration osteomyelitis EKG interpreted by me (3pts min.). @ -None X-rays interpreted by me (1pt min.). @ -@Soft tissue swelling, no evidence of osteomyelitis, there is a lucency noted no cortical disruption CT interpreted by me (1pt min.). @ -None done U/S interpreted by me (1pt. min.). @ -None done What testing was considered but not performed or refused? (CT, X-rays, U/S, labs)? Why? @ -None What meds were considered but not given or refused? Why? @ -None Did you discuss the management of the patient with other professionals (professionals i.e. , PA, BUCKET CHUCKER, lab, RT, psych nurse, social director, filter press operator, teacher, mail officer, rn field case manager)? Give summary @ -No Was smoking cessation discussed for >3mins.? @ -No Was critical care preformed (if so, how long)? @ -No Were there social determinants of health that impacted care today? How? (Homelessness, low income, unemployed, alcoholism, drug addiction, transportation, low edu. Level, literacy, decrease access to med. care, [facility], rehab)? @ -No Was there de-escalation of care discussed even if they declined (Discuss DNR or withdrawal of care, Hospice)? DNR status @ -No What co-morbidities impacted this encounter? (DM, HTN, Smoking, COPD, CAD, Cancer, CVA, ARF, Chemo, Hep., AIDS, mental health diagnosis, sleep apnea, morbid obesity)? @ -None Was patient admitted / discharged? Hospital course, mention meds given and route, prescriptions, significant lab abnormalities, going to OR and other pert inent info. @ -Patient has recurrent infections, sores patient has evidence of acute cellulitis patient was given IV antibiotics, started oral antibiotics. Patient does have elevated hemoglobin and hematocrit which is chronic for patient. Undiagnosed new problem with uncertain prognosis? @ -No Drug Therapy requiring intensive monitoring for toxicity (Heparin, Nitro, Insulin, Cardizem)? @ -No Were any procedures done? @ -No Diagnosis/symptom? @ -Leg cellulitis, ulceration Acute, or Chronic, or Acute on Chronic? @ -acute Uncomplicated (without systemic symptoms) or Complicated (systemic symptoms)? @ -uncomplicated Side effects of treatment? @ -No Exacerbation, Progression, or Severe Exacerbation? @ -No Poses a threat to life or bodily function? How? (Chest pain, [place], [place], pneumonia, PE, COPD, DKA, ARF, appy, cholecystitis, CVA, Diverticulitis, Homicidal, Suicidal, threat to staff... and all critical care pts) @ -No - Lab Data Result diagrams: 11/04/23 09:47 11/04/23 09:47 Lab Results 11/04/23 11/04/23 11/04/23 Range/Units 09:47 09:47 10:40 WBC 7.2 (3.8-10.6) k/uL RBC 6.21 H (4.30-5.90) m/uL Hgb 19.8 H* (13.0-17.5) gm/dL Hct 60.2 H* (39.0-53.0) % MCV 97.0 (80.0-100.0) fL MCH 31.9 (25.0-35.0) pg MCHC 32.9 (31.0-37.0) g/dL RDW 13.7 (11.5-15.5) % Plt Count 182 (150-450) k/uL MPV 8.8 Neutrophils % 73 % Lymphocytes % 15 % Monocytes % 6 % Eosinophils % 3 % Basophils % 1 % Neutrophils # 5.2 (1.3-7.7) k/uL Lymphocytes # 1.1 (1.0-4.8) k/uL Monocytes # 0.5 (0-1.0) k/uL Eosinophils # 0.2 (0-0.7) k/uL Basophils # 0.1 (0-0.2) k/uL PT 12.2 (10.0-12.5) sec INR 1.1 (<1.2) APTT 29.2 (22.0-30.0) sec Sodium 139 (137-145) mmol/L Potassium 4.5 (3.5-5.1) mmol/L Chloride 107 (98-107) mmol/L Carbon Dioxide 25 (22-30) mmol/L Anion Gap 7 mmol/L BUN 14 (9-20) mg/dL Creatinine 0.77 (0.66-1.25) mg/dL Est GFR (CKD-EPI)AfAm >90 (>60 ml/min/1.73 sqM) Est GFR (CKD-EPI)NonAf >90 (>60 ml/min/1.73 sqM) Glucose 104 H (74-99) mg/dL Calcium 10.0 (8.4-10.2) mg/dL Total Bilirubin 0.5 (0.2-1.3) mg/dL AST 23 (17-59) U/L ALT 21 (4-49) U/L Alkaline Phosphatase 97 (38-126) U/L C-Reactive Protein 1.6 H (<1.0) mg/dL Total Protein 7.2 (6.3-8.2) g/dL Albumin 4.4 (3.5-5.0) g/dL Disposition Clinical Impression: Cellulitis of right leg, Leg ulcer Disposition: HOME SELF-CARE Condition: Stable Instructions (If sedation given, give patient instructions): Cellulitis (ED) Additional Instructions: Please return to the Emergency Department if symptoms worsen or any other concerns. Prescriptions: Sulfamethox-Tmp 800-160Mg [Bactrim Ds] 1 each PO Q12HR #20 tab Cephalexin [Keflex] 500 mg PO Q6HR #40 cap Is patient prescribed a controlled substance at d/c from ED?: No Referrals: Rowan Coronel MD [Primary Care Provider] - 1-2 days Time of Disposition: 11:39
[2023-11-04 12:24] VITALS: RESP 16; TEMP 97.8
[2023-11-04 12:35] VITALS: BP 148/86; PULSE 68
== END 2023-11-04 12:34 | disposition home or self-care (01) ==
LOC: EC 09:03
DX: L03.115 Cellulitis of right lower limb (principal); F17.200 Nicotine dependence, unspecified, uncomplicated; Z91.030 Bee allergy status
CPT/HCPCS: 36415; 80053; 85025; 85610; 85730; 86140; 73590; 99283; 96374; 96361; J0690

== ENCOUNTER 2023-11-21 09:10 | Emergency (ER) | payer BC ==
[2023-11-21 09:15] VITALS: RESP 18
[2023-11-21] MEDS: NYSTATIN 100,000 UNIT/ML SUSP 500,000 UNIT/5 ML CUP PO STA (10:04)
--- NOTE | 2023-11-21 10:20 | ED ---
ENT HPI - General Chief complaint: ENT Stated complaint: Throat Pain Time Seen by Provider: 11/21/23 09:16 Source: patient, RN notes reviewed Mode of arrival: ambulatory Limitations: no limitations - History of Present Illness Initial comments: This is a 58-year-old male who presents to the emergency department for a sore throat. States that it started about 6 days ago. It is becoming painful to swallow. Denies any difficulty speaking. Patient is diabetic and has been taking antibiotics for an abscess on his leg for the last couple of weeks. Den ies any fevers or chills. complaint: sore throat - Related Data Home Medications Medication Instructions Recorded Confirmed Atorvastatin Calcium [Lipitor] 40 mg PO HS 01/16/18 11/04/23 Tamsulosin HCl [Flomax] 0.4 mg PO DAILY 01/16/18 11/04/23 lisinopriL [Zestril] 20 mg PO DAILY 01/16/18 11/04/23 Aspirin EC [Ecotrin Low Dose] 81 mg PO DAILY 11/04/23 11/04/23 Ibuprofen [Motrin Ib] 400 mg PO TID 11/04/23 11/04/23 Warfarin [Coumadin] 10 mg PO DAILY 11/04/23 11/04/23 metFORMIN HCL 500 mg PO DAILY 11/04/23 11/04/23 tiZANidine [Zanaflex] 4 mg PO Q8HR PRN 11/04/23 11/04/23 Previous Rx's Medication Instructions Recorded Cephalexin [Keflex] 500 mg PO Q6HR #40 cap 11/04/23 Sulfamethox-Tmp 800-160Mg [Bactrim 1 each PO Q12HR #20 tab 11/04/23 Ds] Acet/Diph/Lido/Vexn-Gtq-Orp-Si 5 ml PO Q4-6H PRN #240 ml 11/21/23 [Tyl/Benadryl/Lido/Maalox] Nystatin 100,000 Unit/ml Susp 5 ml PO QID #473 ml 11/21/23 [Mycostatin Oral Susp] Allergies Allergy/AdvReac Type Severity Reaction Status Date / Time bee venom protein (honey bee) Allergy Swelling Verified 11/21/23 09:15 Review of Systems ROS Statement: Those systems with pertinent positive or pertinent negative responses have been documented in the HPI. ROS Other: All systems not noted in ROS Statement are negative. Past Medical History Past Medical History: Diabetes Mellitus, Hyperlipidemia, Hypertension, Prostate Disorder Additional Past Medical History / Comment(s): DVT History of Any Multi-Drug Resistant Organisms: None Reported Past Surgical History: Tonsillectomy Past Anesthesia/Blood Transfusion Reactions: No Reported Reaction Additional Past Anesthesia/Blood Transfusion Reaction / Comment(s): NO BLOOD TRANSFUSIONS BEFORE Past Psychological History: No Psychological Hx Reported Smoking Status: Current every day smoker Past Alcohol Use History: Rare Past Drug Use History: None Reported - Past Family History Mother Family Medical History: CVA/TIA Additional Family Medical History / Comment(s): MOTHER HAD CANCER, UNSURE WHICH TYPE Father Family Medical History: CVA/TIA General Exam Limitations: no limitations General appearance: alert, in no apparent distress Head exam: Present: atraumatic, normocephalic, normal inspection ENT exam: Present: other (White curd-like plaques on the tongue and throat) Respiratory exam: Present: normal lung sounds bilaterally. Absent: respiratory distress, wheezes, rales, rhonchi, stridor Cardiovascular Exam: Present: regular rate, normal rhythm, normal heart sounds. Absent: systolic murmur, diastolic murmur, rubs, gallop, clicks Neurological exam: Present: alert, oriented X3, CN II-XII intact Psychiatric exam: Present: normal affect, normal mood Course Vital Signs 11/21/23 11/21/23 09:14 10:43 Temperature 97.9 F 98.1 F Pulse Rate 81 92 Respiratory 18 18 Rate Blood Pressure 101/65 91/64 O2 Sat by Pulse 98 97 Oximetry Medical Decision Making - Medical Decision Making This is a 58-year-old male who presents to the emergency department for a sore throat. Was pt. sent in by a medical professional or institution? @ -No Did you speak to anyone other than the patient for history? @ -No Did you review nursing and triage notes? @ -Yes, and I agree, it is accurate with regards to the patient's symptoms. Were old charts reviewed? @ -No Differential Diagnosis? @ -Differential Sore Throat: Strep pharyngitis, herpes zoster, COVID, influenza, GERD, allergic rhinitis, mononucleosis, this is not meant to be an all-inclusive list. EKG interpreted by me (3pts min.)? @ -Not obtained X-rays interpreted by me (1pt min.)? @ -Not obtained CT interpreted by me (1pt min.)? @ -Not obtained U/S interpreted by me (1pt. min.)? @ -Not obtained What testing was considered but not performed? (CT, X-rays, U/S, labs)? Why? @ -None What meds were considered but not given? Why? @ -None Did you discuss the management of the patient with other professionals? @ -No Did you reconcile home meds? @ -No Was smoking cessation discussed for >3mins.? @ -I discussed smoking cessation for greater than 3 minutes. The risk of smoking were discussed with the patient including but not limited to risks of cancer, stroke, coronary artery disease and COPD. Also discussed with patient were multiple methods of quitting smoking. Lastly we discussed the financial cost of smoking. Was critical care preformed (if so, how long)? @ -No Were there social determinants of health that impacted care today? How? (Homelessness, low income, unemployed, alcoholism, drug addiction, transportation, low edu. Level, literacy, decrease access to med. care, shelter, rehab)? @ -No Was there de-escalation of care discussed even if they declined? (Discuss DNR or withdrawal of care, Hospice)? @ -No What co-morbidities impacted this encounter? (DM, HTN, Smoking, COPD, CAD, Cancer, CVA, Hep., AIDS, mental health diagnosis, sleep apnea, morbid obesity)? @ -DM, smoking Was patient admitted / discharged? @ -Discharged. Physical examination consistent with oral thrush. Patient is diabetic and on antibiotics making this more likely. Rapid strep test negative. COVID, influenza, and RSV testing negative. Diflucan and Nystatin administered in the emergency department. Rx for nystatin and magic mouthwash provided for further management. Patient discharged home in stable condition and advised to have close follow-up with his primary care provider. Undiagnosed new problem with uncertain prognosis? @ -None Drug Therapy requiring intensive monitoring for toxicity (Heparin, Nitro, Insulin, Cardizem)? @ -None Were any procedures done? @ -None Diagnosis/symptom? @ -Oral thrush Acute, or Chronic, or Acute on Chronic? @ -Acute Uncomplicated (without systemic symptoms) or Complicated (systemic symptoms)? @ -Uncomplicated Side effects of treatment? @ -None Exacerbation, Progression, or Severe Exacerbation] @ -Not applicable Poses a threat to life or bodily function? @ -No Return precautions reviewed in depth, the patient is instructed to return to the emergency department with any new, worsening, or concerning symptoms. Patient verbalized understanding. This case was discussed in detail with the attending ED physician, Dr. Shaikh. Presentation, findings, and treatment plan discussed in detail as well. - Lab Data Lab Results 11/21/23 11/21/23 Range/Units 09:20 09:20 Influenza Type A (PCR) Not Detected (Not Detectd) Influenza Type B (PCR) Not Detected (Not Detectd) RSV (PCR) Not Detected (Not Detectd) SARS-CoV-2 (PCR) Not Detected (Not Detectd) Group A Strep (PCR) NOT DETECTED (Not Detectd) Disposition Clinical Impression: Thrush, oral, Nicotine dependence Disposition: HOME SELF-CARE Instructions (If sedation given, give patient instructions): Oral Candidiasis (ED) Additional Instructions: Return to the emergency department with any new, worsening, or concerning symptoms. Use the nystatin every 6 hours until 48 hours after symptoms resolve. You can use the other medication every 4-6 hours to help with discomfort. Continue to alternate with ibuprofen and Tylenol as needed as well. Follow up with your primary care provider in 1-2 days. Prescriptions: Nystatin 100,000 Unit/ml Susp [Mycostatin Oral Susp] 5 ml PO QID #473 ml Acet/Diph/Lido/Wdkt-Cjr-Bir-Si [Tyl/Benadryl/Lido/Maalox] 5 ml PO Q4-6H PRN #240 ml PRN Reason: Sore Throat Is patient prescribed a controlled substance at d/c from ED?: No Referrals: Rowan Coronel MD [Primary Care Provider] - 1-2 days Time of Disposition: 10:19
[2023-11-21] MEDS: FLUCONAZOLE 150 MG TAB PO STA (10:41)
[2023-11-21] MEDS: ACET/COD 300 MG/30 MG STARTER PACK 6 TAB BTL PO STA (10:41)
[2023-11-21] MEDS: MORPHINE SULFATE 2 MG/ML SYRINGE IM STA (10:42)
[2023-11-21 10:45] VITALS: BP 91/64; PULSE 92; TEMP 98.1
== END 2023-11-21 10:44 | disposition home or self-care (01) ==
LOC: EC 09:10
DX: B37.9 Candidiasis, unspecified (principal); E11.9 Type 2 diabetes mellitus without complications; F17.200 Nicotine dependence, unspecified, uncomplicated; Z91.030 Bee allergy status; Z79.84 Long term (current) use of oral hypoglycemic drugs
CPT/HCPCS: 87636; 87651; 99283; 99285; 99406

== ENCOUNTER 2024-02-25 08:45 | Emergency (ER) | payer BC, OTHER ==
[2024-02-25 10:02] LABS: Basophils % (A) 0 %; Eosinophils # (A) 0.2 k/uL (0-0.7); Eosinophils % (A) 2 %; HCT 53.8 % (39.0-53.0); HGB 18.6 gm/dL (13.0-17.5); Lymphocytes % (A) 11 %; MCHC 34.6 g/dL (31.0-37.0); MCV 98.3 fL (80.0-100.0); Mean Platelet Volume 10.1; Monocytes # (A) 0.3 k/uL (0-1.0); Monocytes % (A) 4 %; Neutrophils # (A) 7.2 k/uL (1.3-7.7); Neutrophils % (A) 82 %; Platelet Count 243 k/uL (150-450); RBC 5.48 m/uL (4.30-5.90); RDW 13.6 % (11.5-15.5); WBC 8.8 k/uL (3.8-10.6)
--- NOTE | 2024-02-25 10:06 | ED ---
Lower Extremity Injury HPI - General Chief Complaint: Extremity Injury, Lower Stated Complaint: R leg pain/swelling/draining Time Seen by Provider: 02/25/24 08:56 Source: patient, RN notes reviewed Mode of arrival: ambulatory Limitations: no limitations - History of Present Illness Initial Comments: This is a 59-year-old male presenting for right calf injury with redness and discharge x 5 days. Patient endorses striking the back of his right calf on an unknown object this weekend with subsequent clear discharge and blackened appearance of wound since that time. Patient states current pain is 8 out of 10. Patient endorses chronic history of swelling of affected lower extremity. Also endorses wound to right medial ankle that has been healing slowly for the past 6 months, patient states he has been performing his own dressing changes during that time. States erythema of leg has been worsening for the past 1 to 2 weeks with associated weeping for the past week as well. 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 Patient endorses use of warfarin but has not been monitoring PT/INR, stating he ran out of his warfarin yesterday. Patient endorses use of ibuprofen and Neosporin for current symptoms with minimal relief. Patient denies purulent discharge, sensory changes, motor changes, pallor. Patient endorses other prior injury to right ventral ankle that is continuing to heal slowly. MD Complaint: leg injury - Related Data Home Medications Medication Instructions Recorded Confirmed Atorvastatin Calcium [Lipitor] 40 mg PO HS 01/16/18 02/25/24 Tamsulosin HCl [Flomax] 0.4 mg PO DAILY 01/16/18 02/25/24 lisinopriL [Zestril] 20 mg PO DAILY 01/16/18 02/25/24 Aspirin EC [Ecotrin Low Dose] 81 mg PO DAILY 11/04/23 02/25/24 Ibuprofen [Motrin Ib] 400 mg PO Q6H 11/04/23 02/25/24 Warfarin [Coumadin] 5 mg PO BID 11/04/23 02/25/24 metFORMIN HCL 500 mg PO W/BRKFST 11/04/23 02/25/24 Previous Rx's Medication Instructions Recorded Levofloxacin [Levaquin] 750 mg PO DAILY 7 Days #7 tab 02/25/24 Allergies Allergy/AdvReac Type Severity Reaction Status Date / Time bee venom protein (honey bee) Allergy Swelling Verified 02/25/24 12:05 Penicillins Allergy Unknown Verified 02/25/24 12:05 Review of Systems ROS Statement: Those systems with pertinent positive or pertinent negative responses have been documented in the HPI. ROS Other: All systems not noted in ROS Statement are negative. Past Medical History Past Medical History: Diabetes Mellitus, Deep Vein Thrombosis (DVT), Hyperlipidemia, Hypertension, Prostate Disorder, Pulmonary Embolus (PE) Additional Past Medical History / Comment(s): DVT History of Any Multi-Drug Resistant Organisms: None Reported Past Surgical History: Tonsillectomy Past Anesthesia/Blood Transfusion Reactions: No Reported Reaction Additional Past Anesthesia/Blood Transfusion Reaction / Comment(s): NO BLOOD TRANSFUSIONS BEFORE Past Psychological History: No Psychological Hx Reported Smoking Status: Current every day smoker Past Alcohol Use History: Rare Past Drug Use History: None Reported - Past Family History Mother Family Medical History: CVA/TIA Additional Family Medical History / Comment(s): MOTHER HAD CANCER, UNSURE WHICH TYPE Father Family Medical History: CVA/TIA General Exam Limitations: no limitations General appearance: alert, in no apparent distress Head exam: Present: atraumatic, normocephalic, normal inspection Eye exam: Present: normal appearance, PERRL, EOMI. Absent: scleral icterus, conjunctival injection, periorbital swelling ENT exam: Present: normal exam, mucous membranes moist Neck exam: Present: normal inspection. Absent: tenderness, meningismus, lymphadenopathy Respiratory exam: Present: normal lung sounds bilaterally. Absent: respiratory distress, wheezes, rales, rhonchi, stridor Cardiovascular Exam: Present: regular rate, normal rhythm, normal heart sounds. Absent: systolic murmur, diastolic murmur, rubs, gallop, clicks GI/Abdominal exam: Present: soft, normal bowel sounds. Absent: distended, ten derness, guarding, rebound, rigid Extremities exam: Present: tenderness, pedal edema (Positive weeping of right calf. Left calf size and color appear normal in comparison.), joint swelling, other (Positive right lower extremity pitting edema extending to knee. Positive erythema/stasis dermatitis. +20 x 20 cm diabetic ulceration and is poorly healing noted on right medial ankle. Positive asymmetric ecchymotic/darkened contusion noted on right dorsal mid calf. Positive Homans' sign). Absent: calf tenderness Back exam: Present: normal inspection Neurological exam: Present: alert, oriented X3, CN II-XII intact Psychiatric exam: Present: normal affect, normal mood Skin exam: Present: warm, intact, normal color. Absent: rash Course Vital Signs 02/25/24 02/25/24 02/25/24 08:49 10:53 14:35 Temperature 97.8 F 97.7 F 97.6 F Pulse Rate 90 89 83 Respiratory 18 19 19 Rate Blood Pressure 120/65 118/67 104/66 O2 Sat by Pulse 100 99 98 Oximetry Medical Decision Making - Medical Decision Making Was pt. sent in by a medical professional or institution (STEPHEN Lyon, ROOFING TECHNICIAN, urgent care, hospital, or long-term...) When possible be specific @ -No Did you speak to anyone other than the patient for history (EMS, parent, family, police, friend...)? What history was obtained from this source @ -No Did you review nursing and triage notes (agree or disagree)? Why? @ -I reviewed and agree with nursing and triage notes Were old charts reviewed (outside hosp., previous admission, EMS record, old EKG, old radiological studies, urgent care reports/EKG's, long-term records)? Report findings @ -No old charts were reviewed Differential Diagnosis (chest pain, altered mental status, abdominal pain women, abdominal pain men, vaginal bleeding, weakness, fever, dyspnea, syncope, headache, dizziness, GI bleed, back pain, seizure, CVA, palpatations, mental health, musculoskeletal)? @ -Diabetic ulceration, DVT, compression syndrome, peripheral arterial disease, PVD, stasis dermatitis, lymphedema, PE EKG interpreted by me (3pts min.). @ -None done X-rays interpreted by me (1pt min.). @ -None done CT interpreted by me (1pt min.). @ -Chest CT reveals no PE. U/S interpreted by me (1pt. min.). @ -None done What testing was considered but not performed or refused? (CT, X-rays, U/S, labs)? Why? @ -None What meds were considered but not given or refused? Why? @ -None Did you discuss the management of the patient with other professionals (professionals i.e. STEPHEN Lyon, ROOFING TECHNICIAN, lab, RT, psych nurse, child welfare social worker, criminal justice lawyer, teacher, chief supply chain officer, caseworker protective services)? Give summary @ -No Was smoking cessation discussed for >3mins.? @ -No Was critical care preformed (if so, how long)? @ -No Were there social determinants of health that impacted care today? How? (Homelessness, low income, unemployed, alcoholism, drug addiction, transportation, low edu. Level, literacy, decrease access to med. care, group home, rehab)? @ -No Was there de-escalation of care discussed even if they declined (Discuss DNR or withdrawal of care, Hospice)? DNR status @ -No What co-morbidities impacted this encounter? (DM, HTN, Smoking, COPD, CAD, Cancer, CVA, ARF, Chemo, Hep., AIDS, mental health diagnosis, sleep apnea, morbid obesity)? @ -None Was patient admitted / discharged? Hospital course, mention meds given and route, prescriptions, significant lab abnormalities, going to OR and other pertinent info. @ -Discharged. Patient wounds were cleaned and attempted culture obtained. Blood work shows elevated D-dimer chest CT performed to rule out asymptomatic PE with no findings. Right lower extremity ultrasound revealed chronic DVTs with no acute changes seen. Patient is questing antibiotics for suspected right lower extremity infection. Patient advised to seek outpatient wound care for daily management of right lower extremity wounds. Undiagnosed new problem with uncertain prognosis? @ -No Drug Therapy requiring intensive monitoring for toxicity (Heparin, Nitro, I nsulin, Cardizem)? @ -No Were any procedures done? @ -No Diagnosis/symptom? @ -Chronic DVT, diabetic ulcerations, cellulitis Acute, or Chronic, or Acute on Chronic? @ -Acute on chronic Uncomplicated (without systemic symptoms) or Complicated (systemic symptoms)? @ -Complicated Side effects of treatment? @ -No Exacerbation, Progression, or Severe Exacerbation? @ -No Poses a threat to life or bodily function? How? (Chest pain, [place], CA, pneumonia, PE, COPD, DKA, ARF, appy, cholecystitis, CVA, Diverticulitis, Homicidal, Suicidal, threat to staff... and all critical care pts) @ -Yes. Diabetic ulcerations may not heal properly or improperly increasing risk of necrosis and gangrene, possibly threatening loss of limb and/or induction of sepsis causing loss of life. - Lab Data Result diagrams: 02/25/24 09:37 02/25/24 10:35 Lab Results 02/25/24 02/25/24 02/25/24 Range/Units 09:37 10:10 10:35 WBC 8.8 (3.8-10.6) k/uL RBC 5.48 (4.30-5.90) m/uL Hgb 18.6 H (13.0-17.5) gm/dL Hct 53.8 H (39.0-53.0) % MCV 98.3 (80.0-100.0) fL MCH 34.0 (25.0-35.0) pg MCHC 34.6 (31.0-37.0) g/dL RDW 13.6 (11.5-15.5) % Plt Count 243 (150-450) k/uL MPV 10.1 Neutrophils % 82 % Lymphocytes % 11 % Monocytes % 4 % Eosinophils % 2 % Basophils % 0 % Neutrophils # 7.2 (1.3-7.7) k/uL Lymphocytes # 1.0 (1.0-4.8) k/uL Monocytes # 0.3 (0-1.0) k/uL Eosinophils # 0.2 (0-0.7) k/uL Basophils # 0.0 (0-0.2) k/uL PT 10.4 (10.0-12.5) sec INR 0.9 (<1.2) APTT 27.4 (22.0-30.0) sec D-Dimer 0.79 H (<0.60) mg/L FEU Sodium 135 L (137-145) mmol/L Potassium 5.0 (3.5-5.1) mmol/L Chloride 104 (98-107) mmol/L Carbon Dioxide 26 (22-30) mmol/L Anion Gap 5 mmol/L BUN 14 (9-20) mg/dL Creatinine 0.73 (0.66-1.25) mg/dL Est GFR (CKD-EPI)AfAm >90 (>60 ml/min/1.73 sqM) Est GFR (CKD-EPI)NonAf >90 (>60 ml/min/1.73 sqM) Glucose 102 H (74-99) mg/dL Calcium 10.6 H (8.4-10.2) mg/dL Total Bilirubin 0.9 (0.2-1.3) mg/dL AST 25 (17-59) U/L ALT 25 (4-49) U/L Alkaline Phosphatase 90 (38-126) U/L Total Protein 8.0 (6.3-8.2) g/dL Albumin 4.7 (3.5-5.0) g/dL Disposition Clinical Impression: Diabetic ulcer of ankle, Chronic deep vein thrombosis (DVT) Disposition: HOME SELF-CARE Condition: Fair Instructions (If sedation given, give patient instructions): Foot Care for Peop le with Diabetes (ED), Leg Edema (ED) Prescriptions: Levofloxacin [Levaquin] 750 mg PO DAILY 7 Days #7 tab Is patient prescribed a controlled substance at d/c from ED?: No Referrals: Rowan Coronel MD [Primary Care Provider] - 1-2 days Time of Disposition: 13:19
[2024-02-25 10:47] LABS: INR 0.9 (<1.2); Partial Thromboplastin Time 27.4 sec (22.0-30.0); Prothrombin Time 10.4 sec (10.0-12.5)
[2024-02-25 10:58] VITALS: RESP 19
[2024-02-25] MEDS: KETOROLAC 15 MG/ML 1 ML VIAL IVP STA ×2 (10:59→12:21)
[2024-02-25 11:01] LABS: ALT 25 U/L (4-49); AST 25 U/L (17-59); African American GFR (CKD) >90 (>60 ml/min/1.73 sqM); Albumin 4.7 g/dL (3.5-5.0); Alkaline Phosphatase 90 U/L (38-126); Anion Gap 5 mmol/L; Blood Urea Nitrogen 14 mg/dL (9-20); Calcium 10.6 mg/dL (8.4-10.2); Carbon Dioxide 26 mmol/L (22-30); Chloride 104 mmol/L (98-107); Glucose 102 mg/dL (74-99); Non-African American GFR(CKD) >90 (>60 ml/min/1.73 sqM); Sodium 135 mmol/L (137-145); Total Bilirubin 0.9 mg/dL (0.2-1.3)
--- NOTE | 2024-02-25 11:27 | US ---
EXAMINATION TYPE: US venous doppler duplex LE RT DATE OF EXAM: 02/25/2024 10:58 AM COMPARISON: NONE CLINICAL INDICATION: Male, 59 years old with history of pain; Hx of DVT and PE on blood thinners. Jeremias leone TECHNIQUE: The lower extremity deep venous system is examined utilizing real time linear array sonog aric with graded compression, color doppler sonography, and spectral doppler. SIDE PERFORMED: Right FINDINGS: VESSELS IMAGED: Common Femoral Vein Deep Femoral Vein Greater Saphenous Vein * Femoral Vein Popliteal Vein Small Saphenous Vein * Proximal Calf Veins (* superficial vessels) Right Leg: Chronic DVT still visualized distal Femoral Vein and Popliteal Vein. Grayscale, color doppler, spectral doppler imaging performed of the deep veins of the lower extremiti es. IMPRESSION: No evidence for acute DVT at this time. Chronic changes as noted. [facility], , 02/25/2024 11:24 AM
--- NOTE | 2024-02-25 11:31 | XR ---
EXAMINATION TYPE: XR ankle complete RT DATE OF EXAM: 02/25/2024 COMPARISON: NONE HISTORY: Pain TECHNIQUE: Frontal, lateral and oblique images of the right ankle are obtained. COMPARISON: None. FINDINGS: There is no acute fracture/dislocation evident. The joint spaces appear within normal cunningham its. The overlying soft tissue appears unremarkable. IMPRESSION: There is no acute fracture or dislocation seen. [facility], , 02/25/2024 11:29 AM
--- NOTE | 2024-02-25 11:32 | XR ---
EXAMINATION TYPE: XR tibia fibula RT DATE OF EXAM: 02/25/2024 CLINICAL HISTORY: pain TECHNIQUE: AP and lateral images of the right tibia and fibula are obtained. COMPARISON: None. FINDINGS: There is no acute fracture/dislocation evident. The joint spaces appear within normal cunningham its. The overlying soft tissue appears unremarkable. IMPRESSION: There is no acute fracture or dislocation seen. ICD 10 NO FRACTURE, INITIAL EVALUATION [facility], , 02/25/2024 11:30 AM
--- NOTE | 2024-02-25 13:36 | CT ---
EXAMINATION TYPE: CT chest angio for PE CT DLP: 427.3 mGycm, Automated exposure control for dose reduction was used. DATE OF EXAM: 02/25/2024 1:23 PM COMPARISON: CT chest 01/09/2023, CTA chest 03/27/2017 CLINICAL INDICATION:Male, 59 years old with history of Elevated D-dimer, history of asymptomatic PE; Hypoxia TECHNIQUE/CONTRAST: CTA scan of the thorax is performed with IV Contrast, patient injected with 100 mL of Isovue 370, pul monary embolism protocol. MIP images are created and reviewed. FINDINGS: Pulmonary Artery: There is no evidence for a filling defect within the pulmonary vasculature to sugge st acute pulmonary embolism. Resolution of previously seen pulmonary emboli. The pulmonary artery is of normal size. Lungs/Pleura: No evidence of focal consolidation, pleural effusion or pneumothorax. Peripheral right upper lobe subpleural linear scarring. Posterior right upper lobe spiculated 1.5 cm nodule abutting t he major fissure (series 406, image 105). Previously 8 mm. Right apical 5 mm pulmonary nodular densit y (series 406, image 45). Minimal centrilobular emphysematous changes. Airway: Large airways are patent. Heart: Heart is within normal limits for size. No pericardial effusion. Vasculature: No evidence of aortic aneurysm. Mediastinum: Enlarged mediastinal lymph nodes with example including a subcarinal lymph node measurin g 1 cm short axis. Enlarged bilateral hilar lymph nodes example including a left hilar lymph node waldemar suring 1.2 cm short axis and a right hilar lymph nodes measuring 1.4 cm short axis. Overall similar t o prior exam. Musculoskeletal: No acute osseous abnormalities. DISH of the mid and lower thoracic spine. No aggress emmanuelle osseous lesion. Soft Tissues: Bilateral gynecomastia. Lower neck: No significant findings. Upper Abdomen: No significant findings. IMPRESSION: 1. No evidence of pulmonary embolism. Resolution of previously seen pulmonary emboli. 2. Right upper lobe 1.5 cm spiculated nodule. Concerning for primary lung neoplasm. Further evaluatio n with PET CT recommended. 3. Nonspecific mediastinal and hilar adenopathy is similar and may be related #2. 4. Minimal COPD changes. [facility], , 02/25/2024 1:34 PM
[2024-02-25 14:35] VITALS: BP 104/66; PULSE 83; TEMP 97.6
== END 2024-02-25 14:35 | disposition home or self-care (01) ==
LOC: EC 08:45
CPT/HCPCS: 36415; 71275; 80053; 85025; 85379; 85610; 85730; 87070; 87077; 87186; 87205; 96374; 96376; 99284

== ENCOUNTER 2024-06-05 11:03 | Inpatient (IN) | payer OTHER ==
[2024-06-05] MEDS ORDERED: DEXTROSE 50% SYRINGE 50 ML IVP PRN ×2 (15:18)
[2024-06-05] MEDS ORDERED: ALBUTEROL NEBULIZED 2.5 MG/3 ML INHALATION PRN (15:20)
[2024-06-05] MEDS ORDERED: BENZOCAINE/MENTHOL LOZENG 1 EACH LOZENGE MUCOUS MEM PRN (15:24)
[2024-06-05] MEDS: IPRATROPIUM-ALBUTEROL 3 ML NEB INHALATION SCH (15:45)
--- NOTE | 2024-06-05 16:02 | P.HPIM ---
History of Present Illness H&P Date: 06/05/24 This is a 59 [place] old male medical history of hypertension, hyperlipidemia, DVT, peripheral vascular disease, type 2 diabetes mellitus, complex large right sided pleural effusion possible malignant. Patient is current smoker, reports marijuana use. Patient initially presents to [facility] on 06/03/2024 with shortness of breath after being discharged back on 05/24/24. Patient had chest CT done prior admission that revealed a complex right sided pleural effusion concern for malignancy and it was recommended at that time to transfer to [facility] for CT surgery consultation and possible VATs procedure. He had an initial thoracentesis about 1 week ago with 1.8 L of blood fluid removed. Patient was ultimately discharged home and given information to follow up with CT surgery in the office however had not followed up on discharge. The cytology from his first thoracentesis did not reveal malignancy. He came back in for increasing shortness of breath with repeat chest xray showing cardiomegaly with pulmonary vascular congestion worsening and with complete opacification of the right hemithorax with leftward mediastinal shift likely related to the enlarging pleural effusion and compressive atelectasis. Patient underwent right sided thoracentesis with pulmonary services on 06/03/2024 had 7L of bloody fluid removed. Cytology is currently pending from the second thoracentesis. His repeat chest xray from 06/04/2024 reveals vascular congestion in the right upper lobe moderate to large layering pleural effusion. He has required increased oxygen demands requiring high flow cannula. Patient has not been febrile since admission to [facility]. He does take warfarin outpatient for the history of DVT and most recent blood work reveals an INR of 1.38. Viral panel negative. Recommended for transfer to [facility] from [facility] for CT surgery consultation and possible VATS procedure. Patient was evaluated in person only at [facility] today 06/05/2024. He is now admitted to the cardic unit at [facility] and pending follow up evaluations. REVIEW OF SYSTEMS: CONSTITUTIONAL: No fever, no malaise, no fatigue. HEENT: No recent visual problems or hearing problems. Denied any sore throat. CARDIOVASCULAR: No chest pain, orthopnea, PND, no palpitations, no syncope. PULMONARY: Reports shortness of breath, no cough, no hemoptysis. Diminished lung sounds on the right. GASTROINTESTINAL: No diarrhea, no nausea, no vomiting, no abdominal pain. NEUROLOGICAL: No headaches, no weakness, no numbness. HEMATOLOGICAL: Denies any bleeding or petechiae. GENITOURINARY: Denies any burning micturition, frequency, or urgency. MUSCULOSKELETAL/RHEUMATOLOGICAL: Denies any joint pain, swelling, or any muscle pain. ENDOCRINE: Denies any polyuria or polydipsia. The rest of the 14-point review of systems is negative. PHYSICAL EXAMINATION: GENERAL: The patient is alert and oriented x3, not in any acute distress. Well developed, well nourished. HEENT: Pupils are round and equally reacting to light. EOMI. No scleral icterus. No conjunctival pallor. Normocephalic, atraumatic. No pharyngeal erythema. No thyromegaly. CARDIOVASCULAR: S1 and S2 present. No murmurs, rubs, or gallops. PULMONARY: Chest is clear to auscultation, no wheezing or crackles. ABDOMEN: Soft, nontender, nondistended, normoactive bowel sounds. No palpable organomegaly. MUSCULOSKELETAL: No joint swelling or deformity. EXTREMITIES: No cyanosis, clubbing, or pedal edema. NEUROLOGICAL: Gross neurological examination did not reveal any focal deficits. SKIN: No rashes. Assessment Recurrent Right pleural effusion with mediastinal shift status post thoracentesis with 7L of blood fluid removed at [facility], cytology pending Acute hypoxemic respiratory failure secondary to above Right ankle diabetic ulcer under the care of Dr Perez, present on admission Hypertension Hyperlipidemia Diabetes Mellitus type 2 Hx of DVT on warfarin on outpatient basis Subtherapeutic INR Chronic nicotine use Marijuana use Hx of aortobifem bypass with Dr Perez in the past GI prophylaxis: Pepcid DVT prophylaxis: Subcutaneous heparin Plan Consult CT surgery Repeat chest xray Cytology pending from most recent thoracentesis on 06/03/2024 Continue [facility] Hold warfarin at this time Consult pulmonology Wound care with medihoney gel and gauze to the right ankle and change daily per Dr Barlow orders from [facility] follow up wound care on discharge Repeat BMP, CBC in the AM The impression and plan of care has been dictated acting only as scribe by Alexus Knutson, Nurse Practitioner as directed. Dr. Marsha MD I have performed a history and physical examination and medical decision making of this patient, discussed the same with the dictator, and agree with the dictators assessment and plan as written, documented as a scribe. Based on total visit time, I have performed more than 50% of this visit. Past Medical History Past Medical History: Diabetes Mellitus, Deep Vein Thrombosis (DVT), Hyperlipidemia, Hypertension, Prostate Disorder, Pulmonary Embolus (PE) Additional Past Medical History / Comment(s): DVT History of Any Multi-Drug Resistant Organisms: None Reported Past Surgical History: Tonsillectomy Additional Past Surgical History / Comment(s): vascular Bx 2023 Past Anesthesia/Blood Transfusion Reactions: No Reported Reaction Additional Past Anesthesia/Blood Transfusion Reaction / Comment(s): NO BLOOD TRANSFUSIONS BEFORE Past Psychological History: No Psychological Hx Reported Smoking Status: Former smoker Past Alcohol Use History: Rare Past Drug Use History: None Reported - Past Family History Mother Family Medical History: CVA/TIA Additional Family Medical History / Comment(s): MOTHER HAD CANCER, UNSURE WHICH TYPE Father Family Medical History: CVA/TIA Medications and Allergies Home Medications Medication Instructions Recorded Confirmed Type Acetaminophen Tab [Tylenol Tab] 500 mg PO Q6H PRN 06/05/24 06/05/24 History Atorvastatin [Lipitor] 40 mg PO Q48H 06/05/24 06/05/24 History Ergocalciferol (Vitamin D2) 1,250 mcg PO QMONTHLY 06/05/24 06/05/24 History [Drisdol (50,000 Iu)] Tamsulosin HCl [Flomax] 0.4 mg PO DAILY 06/05/24 06/05/24 History Warfarin [Coumadin] 5 mg PO BID 06/05/24 06/05/24 History lisinopriL [Prinivil] 20 mg PO DAILY 06/05/24 06/05/24 History metFORMIN HCL [Glucophage] 500 mg PO W/BRKFST 06/05/24 06/05/24 History tiZANidine HCL 4 mg PO TID PRN 06/05/24 06/05/24 History Allergies Allergy/AdvReac Type Severity Reaction Status Date / Time bee venom protein (honey bee) Allergy Swelling Verified 06/05/24 14:34 Penicillins Allergy Unknown Verified 06/05/24 14:34 Physical Exam Vitals: Vital Signs Temp Pulse Resp BP Pulse Ox 06/05/24 14:43 97.4 F L 88 16 118/66 96 Intake and Output 06/05/24 06/05/24 06/05/24 06:59 14:59 22:59 Other: Weight 78.7 kg Thrombosis Risk Factor Assmnt - Choose All That Apply Each Factor Represents 1 point: Age 41-60 years Thrombosis Risk Factor Assessment Total Risk Factor Score: 1 Thrombosis Risk Factor Assessment Level: Low Risk Assessment and Plan Time with Patient: Less than 30
--- NOTE | 2024-06-05 16:13 | XR ---
EXAMINATION TYPE: XR chest 2V DATE OF EXAM: 06/05/2024 3:52 PM COMPARISON: Chest radiographs from 12/17/2022 CLINICAL INDICATION: Male, 59 years old with history of pleural effusion; [facility] TECHNIQUE: XR chest 2V Frontal and lateral views of the chest. FINDINGS: Lungs/Pleura: Moderate pleural effusion with airspace opacities in the left lung base and the right u pper lung. No left-sided pneumothorax or pleural effusion. Pulmonary vascularity: Unremarkable. Heart/mediastinum: Cardiomediastinal silhouette is unremarkable. Musculoskeletal: No acute osseous pathology. Other findings: None Lines/Tubes: IMPRESSION: Moderate right pleural effusion with associated atelectasis. There remains airspace opacities in the left lung base and right upper lung [facility] Everton Aleman, , 06/05/2024 4:10 PM
[2024-06-05 16:23] LABS: Glucose,Whole Blood 75 mg/dL (70-110)
[2024-06-05] MEDS: INSULIN ASPART (NovoLOG) 100 UNIT/ML VIAL SQ SCH (16:32)
[2024-06-05] MEDS: BUDESONIDE 0.5 MG/2 ML NEBU INHALATION SCH (19:50)
[2024-06-05 20:26] LABS: Glucose,Whole Blood 120 mg/dL (70-110)
[2024-06-05] MEDS: HEPARIN SODIUM,PORCINE 5,000 UNIT/ML 1 ML VIAL SQ SCH (20:39)
[2024-06-05] MEDS: ACETAMINOPHEN TAB 325 MG TAB PO PRN (20:42)
[2024-06-06 05:59] LABS: Glucose,Whole Blood 129 mg/dL (70-110)
[2024-06-06 07:53] LABS: Basophils % (A) 0 %; Eosinophils # (A) 0.2 k/uL (0-0.7); Eosinophils % (A) 3 %; HCT 45.4 % (39.0-53.0); HGB 14.5 gm/dL (13.0-17.5); Lymphocytes % (A) 13 %; MCH 29.5 pg (25.0-35.0); MCHC 31.9 g/dL (31.0-37.0); MCV 92.5 fL (80.0-100.0); Mean Platelet Volume 8.3; Monocytes # (A) 0.5 k/uL (0-1.0); Monocytes % (A) 6 %; Neutrophils # (A) 5.9 k/uL (1.3-7.7); Neutrophils % (A) 77 %; Platelet Count 308 k/uL (150-450); RBC 4.92 m/uL (4.30-5.90); RDW 14.3 % (11.5-15.5); WBC 7.6 k/uL (3.8-10.6)
[2024-06-06 08:02] LABS: Prothrombin Time 11.5 sec (10.0-12.5)
[2024-06-06 08:13] LABS: African American GFR (CKD) >90 (>60 ml/min/1.73 sqM); Anion Gap 4 mmol/L; Blood Urea Nitrogen 18 mg/dL (9-20); Calcium 9.2 mg/dL (8.4-10.2); Carbon Dioxide 28 mmol/L (22-30); Chloride 96 mmol/L (98-107); Glucose 103 mg/dL (74-99); Non-African American GFR(CKD) >90 (>60 ml/min/1.73 sqM); Potassium 5.2 mmol/L (3.5-5.1); Sodium 128 mmol/L (137-145)
[2024-06-06] MEDS: TAMSULOSIN 0.4 MG CAP.ER.24H PO SCH (08:43)
[2024-06-06] MEDS: lisinopriL 20 MG TAB PO SCH (08:43)
[2024-06-06] MEDS: NICOTINE 14MG/24HR PATCH TRANSDERM SCH (08:44)
[2024-06-06] MEDS: ATORVASTATIN 40 MG TAB PO SCH (08:44)
[2024-06-06] MEDS: FAMOTIDINE 20 MG TAB PO SCH (08:44)
--- NOTE | 2024-06-06 09:22 | P.CNPUL ---
History of Present Illness Reason for consult: dyspnea, hypoxemia, pleural effusion Chief complaint: Shortness of breath History of present illness: 59-year-old male seen evaluate examined patient transferred from [facility] for more definitive intervention for right pleural effusion. Patient has a longstanding history of smoking and nicotine use as well as COPD. Patient was hospitalized on June 03 and May 24 for shortness of breath and massive large size of pleural effusion. Patient has right-sided thoracentesis and 1.8 L of pleural fluid removed cytology and cultures were negative biochemistry consistent with exudative effusion. Patient was discharged with recommended to follow-up with thoracic surgery. Patient came back again on June 03 with increasing shortness of breath at this time he had about 7 L removed with similar finding a result has still have residual pleural effusion on the right side. Patient transferred from [facility] to [facility] for advanced level of care with consultation with thoracic surgery for possible right VATS and diagnostic pleural biopsy. Patient takes Coumadin for deep venous thrombosis history and peripheral arterial disease. Patient has extensive history of smoking and nicotine use, smoked about [id number]. Patient has been on 15 L high flow oxygen at [facility] now has been tapered down to 8 L now subsequently 6 L saturation 97%. Labs include white cell count 7.6, hemoglobin hematocrit is 14/45 platelet count of 308 sodium 128 potassium 5.2 BUN/creatinine is 18/0.65. Chest x-ray moderate right-sided left lobe pleural effusion with basilar atelectasis Past medical history significant for hypertension hypertensive cardiovascular disease dyslipidemia, distal deep venous thrombosis, peripheral vascular disease, type 2 diabetes mellitus hyperglycemia recurrent right-sided pleural effusion exudative with negative cytology and culture, recent femoropopliteal bilateral bypass surgery at [facility] Review of Systems All systems: negative Past Medical History Past Medical History: Diabetes Mellitus, Deep Vein Thrombosis (DVT), Hyperlipidemia, Hypertension, Prostate Disorder, Pulmonary Embolus (PE) Additional Past Medical History / Comment(s): DVT History of Any Multi-Drug Resistant Organisms: None Reported Past Surgical History: Tonsillectomy Additional Past Surgical History / Comment(s): vascular Bx 2023 Past Anesthesia/Blood Transfusion Reactions: No Reported Reaction Additional Past Anesthesia/Blood Transfusion Reaction / Comment(s): NO BLOOD TRANSFUSIONS BEFORE Past Psychological History: No Psychological Hx Reported Smoking Status: Former smoker Past Alcohol Use History: Rare Past Drug Use History: None Reported - Past Family History Mother Family Medical History: CVA/TIA Additional Family Medical History / Comment(s): MOTHER HAD CANCER, UNSURE WHICH TYPE Father Family Medical History: CVA/TIA Medications and Allergies Home Medications Medication Instructions Recorded Confirmed Type Acetaminophen Tab [Tylenol Tab] 500 mg PO Q6H PRN 06/05/24 06/05/24 History Atorvastatin [Lipitor] 40 mg PO Q48H 06/05/24 06/05/24 History Ergocalciferol (Vitamin D2) 1,250 mcg PO QMONTHLY 06/05/24 06/05/24 History [Drisdol (50,000 Iu)] Tamsulosin HCl [Flomax] 0.4 mg PO DAILY 06/05/24 06/05/24 History Warfarin [Coumadin] 5 mg PO BID 06/05/24 06/05/24 History lisinopriL [Prinivil] 20 mg PO DAILY 06/05/24 06/05/24 History metFORMIN HCL [Glucophage] 500 mg PO W/BRKFST 06/05/24 06/05/24 History tiZANidine HCL 4 mg PO TID PRN 06/05/24 06/05/24 History Allergies Allergy/AdvReac Type Severity Reaction Status Date / Time bee venom protein (honey bee) Allergy Swelling Verified 06/05/24 14:34 Penicillins Allergy Unknown Verified 06/05/24 14:34 Physical Exam Vitals: Vital Signs Temp Pulse Pulse Resp BP Pulse Ox 06/06/24 08:00 82 16 122/78 97 06/06/24 07:49 92 L 06/06/24 04:00 87 16 104/67 94 L 06/05/24 23:56 86 16 96/55 94 L 06/05/24 20:00 98.3 F 79 16 112/72 90 L 06/05/24 19:59 89 20 91 L 06/05/24 19:51 88 20 06/05/24 16:00 71 16 112/76 92 L 06/05/24 14:43 97.4 F L 88 16 118/66 96 Intake and Output 06/05/24 06/06/24 06/06/24 22:59 06:59 14:59 Intake Total 540 Balance 540 Intake: Oral 540 Other: Voiding Method Toilet Toilet # Voids 1 1 Weight 79 kg - Constitutional General appearance: average body habitus, cooperative, disheveled, mild distress, thin - EENT Eyes: EOMI, PERRLA ENT: normal oropharynx Ears: bilateral: normal - Neck Neck: normal ROM Carotids: bilateral: upstroke normal Thyroid: bilateral: normal size - Respiratory Respiratory: right: diminished, left: CTA - Cardiovascular Rhythm: regular Heart sounds: normal: S1, S2 - Gastrointestinal General gastrointestinal: normal bowel sounds, soft - Integumentary Integumentary: normal turgor - Neurologic Neurologic: CNII-XII intact - Musculoskeletal Musculoskeletal: gait normal, generalized weakness, strength equal bilaterally, left sided weakness Results - Laboratory Findings CBC and BMP: 06/06/24 07:14 06/06/24 07:14 PT/INR, D-dimer PT 11.5 sec (10.0-12.5) 06/06/24 07:14 INR 1.0 (<1.2) 06/06/24 07:14 Abnormal lab findings: Abnormal Labs 06/05/24 06/06/24 06/06/24 20:23 05:56 07:14 Sodium 128 L Potassium 5.2 H Chloride 96 L Creatinine 0.65 L Glucose 103 H POC Glucose (mg/dL) 120 H 129 H Assessment and Plan Assessment: Large right-sided pleural effusion recurrent of unknown etiology Acute hypoxic respiratory failure Peripheral arterial disease Advanced COPD and emphysema Extensive history of smoking and nicotine use Severe degree of peripheral arterial disease History of deep venous thrombosis Plan: Consult cardiothoracic surgery for right-sided VATS procedure pleural biopsy
--- NOTE | 2024-06-06 10:55 | P.GSCN ---
History of Present Illness Consult date: 06/06/24 Reason for Consult: Recurrent right pleural effusion Requesting physician: Alexus Knutson History of present illness: This is a 59-year-old gentleman who follows on an outpatient basis with Dr. Rowan Coronel for his primary care, and follows with Dr. DARNELL Bird for his pulmonary care. He has a past medical history significant for pulmonary embolus in December 2022, currently on Coumadin for anticoagulation, a recent right pleural effusion on May 20, 2024 status post thoracentesis with 1.8 L of fluid drained, cytology from the first thoracentesis was negative for malignancy, chronic obstructive pulmonary disease, hypertension, hyperlipidemia, benign prostatic hypertrophy, history of hemoptysis in December 2022, deep vein thrombosis, diabetes mellitus type 2, peripheral vascular disease with history of aortobifem bypass in March 2024 at [facility], chronic nonhealing wound to his right lower leg, chronic tobacco dependence, quit smoking in March 2024, and history of marijuana use. The patient also has a history of undergoing a CTA of the chest in December 2022 which did reveal peripheral right upper lobe subpleural linear scarring, posterior right upper lobe spiculated 1.5 cm nodule abutting the major fissure, right apical 5 mm pulmonary nodular density, nonspecific mediastinal and hilar adenopathy and minimal COPD changes. The patient reports that he was recently at [facility] admitted on May 20, 2024 with complaints of pain and shortness of breath with activity. The patient subsequently underwent a right thoracentesis during that stay and was subsequently discharged home with recommendations to follow-up with thoracic surgery as an outpatient, according to the patient's records. The patient reports on June 02, 2024 he developed progressive shortness of breath and pain to his right chest and presented to the emergency department via EMS at [facility] on June 02, 2024. The patient denies any recent fever, chills, nausea, vomiting, diarrhea, constipation, hematemesis, palpitations, visual disturbances, presyncope or syncope. The patient was found to have a large right pleural effusion and subsequently underwent a CT-guided thoracentesis on June 03, 2024 with 7 L of bloody pleural fluid drained. Cytology for the fluid remains pending. Subsequently, due to the patient's recurrent right pleural effusion the patient was transferred to [facility] for further evaluation and treatment recommendations by car diothoracic surgery. The patient is currently on 6 L nasal cannula oxygen with oxygen saturations 97% and he is achieving 1000 mL on his incentive spirometry with encouragement. The patient reports he has not smoked since his aortobifem surgery in March 2024. Laboratory results today show a WBC count of 7.6, hemoglobin 14.5, hematocrit 45.4, platelets 308, sodium 128, potassium 5.2, chloride 96, BUN 18, creatinine 0.65, glucose 103, PT 11.5 and INR 1.0. Chest x-ray from yesterday impression shows moderate right pleural effusion with associated atelectasis, remains airspace opacities in the left lung base and right upper lung. Review of Systems A review of systems was completed and was negative except as mentioned in the HPI. Past Medical History Past Medical History: COPD, Diabetes Mellitus, Deep Vein Thrombosis (DVT), GERD/Reflux, Hyperlipidemia, Hypertension, Prostate Disorder, Pulmonary Embolus (PE) (December 2022), Vascular Disorder Additional Past Medical History / Comment(s): DVT December 2022, on Coumadin as an outpatient for anticoagulation, 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 History of Any Multi-Drug Resistant Organisms: None Reported Past Surgical History: Tonsillectomy Additional Past Surgical History / Comment(s): vascular Bx 2023 Past Anesthesia/Blood Transfusion Reactions: No Reported Reaction Additional Past Anesthesia/Blood Transfusion Reaction / Comm: NO BLOOD TRANSFUSIONS BEFORE Past Psychological History: No Psychological Hx Reported Smoking Status: Former smoker (Quit smoking in March 2024) Past Alcohol Use History: Rare Past Drug Use History: Marijuana (Quit smoking in March 2024) - Past Family History Mother Family Medical History: Cancer Additional Family Medical History / Comment(s): MOTHER HAD CANCER, uterine cancer Father Family Medical History: COPD, CVA/TIA Medications and Allergies Home Medications Medication Instructions Recorded Confirmed Type Acetaminophen Tab [Tylenol Tab] 500 mg PO Q6H PRN 06/05/24 06/05/24 History Atorvastatin [Lipitor] 40 mg PO Q48H 06/05/24 06/05/24 History Ergocalciferol (Vitamin D2) 1,250 mcg PO QMONTHLY 06/05/24 06/05/24 History [Drisdol (50,000 Iu)] Tamsulosin HCl [Flomax] 0.4 mg PO DAILY 06/05/24 06/05/24 History Warfarin [Coumadin] 5 mg PO BID 06/05/24 06/05/24 History lisinopriL [Prinivil] 20 mg PO DAILY 06/05/24 06/05/24 History metFORMIN HCL [Glucophage] 500 mg PO W/BRKFST 06/05/24 06/05/24 History tiZANidine HCL 4 mg PO TID PRN 06/05/24 06/05/24 History Allergies Allergy/AdvReac Type Severity Reaction Status Date / Time bee venom protein (honey bee) Allergy Swelling Verified 06/05/24 14:34 Penicillins Allergy Unknown Verified 06/05/24 14:34 Surgical - Exam Vital Signs Temp Pulse Resp BP Pulse Ox 97.4 F L 88 16 118/66 96 06/05/24 14:43 06/05/24 14:43 06/05/24 14:43 06/05/24 14:43 06/05/24 14:43 - General well developed, well nourished, no distress, no pain, chronically ill - Eyes PERRL, normal ocular movement, no pale, no icteric - ENT normal pinna, normal nares, normal mucosa, no hearing loss, no congestion, dentures (Upper plate only) - Neck Neck is supple, no lymphadenopathy. no masses, no bruits, trachea midline, no venous distension - Respiratory Lungs essentially clear to his left lobes, diminished to his right lobes. No wheezes, rhonchi or crackles. Respirations are symmetrical and nonlabored. Oxygen saturations 97% on 6 L nasal cannula. - Cardiovascular Regular rhythm and rate. S1 and S2 present, negative for S3, gallop or murmur. - Abdomen Abdomen is soft, nontender nondistended. Active bowel sounds present all 4 abdominal quadrants. No guarding rigidity. No organomegaly appreciated. - Genitourinary Deferred - Rectum Deferred - Integumentary Skin is warm and dry. No clubbing or cyanosis is present. Dressing in place to his right lower extremity and foot no rash, no growths, no abnormal pigmentation - Neurologic No focal deficits. - Musculoskeletal Moves all 4 extremities with equal strength bilateral. - Psychiatric oriented to time, oriented to person, oriented to place, speech is normal, memory intact Results - Labs 06/06/24 07:14 06/06/24 07:14 Abnormal Lab Results - Last 24 Hours (Table) 06/05/24 06/06/24 06/06/24 Range/Units 20:23 05:56 07:14 Sodium 128 L (137-145) mmol/L Potassium 5.2 H (3.5-5.1) mmol/L Chloride 96 L (98-107) mmol/L Creatinine 0.65 L (0.66-1.25) mg/dL Glucose 103 H (74-99) mg/dL POC Glucose (mg/dL) 120 H 129 H (70-110) mg/dL Diabetes panel 06/06/24 Range/Units 07:14 Sodium 128 L (137-145) mmol/L Potassium 5.2 H (3.5-5.1) mmol/L Chloride 96 L (98-107) mmol/L Carbon Dioxide 28 (22-30) mmol/L BUN 18 (9-20) mg/dL Creatinine 0.65 L (0.66-1.25) mg/dL Glucose 103 H (74-99) mg/dL Calcium 9.2 (8.4-10.2) mg/dL Calcium panel 06/06/24 Range/Units 07:14 Calcium 9.2 (8.4-10.2) mg/dL Pituitary panel 06/06/24 Range/Units 07:14 Sodium 128 L (137-145) mmol/L Potassium 5.2 H (3.5-5.1) mmol/L Chloride 96 L (98-107) mmol/L Carbon Dioxide 28 (22-30) mmol/L BUN 18 (9-20) mg/dL Creatinine 0.65 L (0.66-1.25) mg/dL Glucose 103 H (74-99) mg/dL Calcium 9.2 (8.4-10.2) mg/dL Adrenal panel 06/06/24 Range/Units 07:14 Sodium 128 L (137-145) mmol/L Potassium 5.2 H (3.5-5.1) mmol/L Chloride 96 L (98-107) mmol/L Carbon Dioxide 28 (22-30) mmol/L BUN 18 (9-20) mg/dL Creatinine 0.65 L (0.66-1.25) mg/dL Glucose 103 H (74-99) mg/dL Calcium 9.2 (8.4-10.2) mg/dL - Imaging Chest x-ray: report reviewed, image reviewed Assessment and Plan Assessment: Recurrent right pleural effusion, status post 2 recent thoracentesis Acute hypoxic respiratory failure, likely secondary to above History of peripheral vascular disease, recent aortobifemoral bypass Chronic obstructive pulmonary disease History of pulmonary embolus in December 2022, on Coumadin as an outpatient for anticoagulation, subtherapeutic INR History of posterior right lung upper lobe spiculated 1.[address] scan in December 2022 History of nicotine dependence, quit smoking in March 2024 Nonhealing wound to his right lower extremity managed by Dr. Perez History of marijuana use History of deep vein thrombosis in December 2022 Diabetes mellitus type 2 Hypertension Hyperlipidemia Plan: The patient was seen and examined at his bedside on the third floor cardiac stepdown unit. His chart and diagnostics were reviewed. His case was discussed in detail with Dr. Karl Portillo from cardiothoracic surgery. We will order a CT scan of the chest without contrast, once the CT has been completed and the results reviewed more recommendations to follow. Continue to encourage and rein force the importance of smoking cessation. Follow cytology results of pleural fluid from thoracentesis completed at [facility] on June 03, 2024. Encourage use of incentive spirometry 10 times every hour while awake. Increase activity as tolerated. Medical management of other comorbidities per internal medicine service and pulmonary medicine service. More recommendations to follow based on patient's clinical course. Thank you Alexus for this consult and we look forward to working with you in the care of this patient. I have personally seen and examined the patient, performed the documentation and the assessment and plan as written. Number of minutes spent on the visit: 30. Jl Abrams, CADEN
--- NOTE | 2024-06-06 11:30 | CT ---
EXAMINATION TYPE: CT chest wo con DATE OF EXAM: 06/06/2024 11:07 AM COMPARISON: Chest radiograph from same day. CT 02/25/2024 CLINICAL INDICATION: Male, 59 years old with history of Recurrent right pleural effusion; PHH, Recurr ent right pleural effusion. TECHNIQUE: Multiple axial images were obtained through the chest. Sagittal and coronal reformats were created for review. MIP was performed on a separate workstation. Contrast used: mL of (None if empty) Oral contrast used: (None if empty) CT DLP: 500.7 mGycm, Automated exposure control for dose reduction was used. FINDINGS: LUNGS/ PLEURA: Large right pleural effusion with associated atelectasis. Right-sided airspace opaciti es are also present. No left focal consolidation pneumothorax or pleural effusion. There is hypodensi ty pleura noted AIRWAY: Patent and unremarkable. HEART: Size within normal limits MEDIASTINUM: Leftward shift of the mediastinum likely due to large right pleural effusion. VASCULATURE: No aortic aneurysm. MUSCULOSKELETAL: No acute osseous abnormalities SOFT TISSUES/LYMPH NODES: Unremarkable. LOWER NECK: No significant findings. UPPER ABDOMEN: No significant findings. IMPRESSION: 1. Large right pleural effusion with associated atelectasis and superimposed airspace opacities conc erning for pneumonia. 2. Split pleural pleural sign suggesting right empyema correlate with fluid sample. 3. Leftward shift of the mediastinum suggesting some degree of mass effect from the large right pleu ral effusion. [facility], , 06/06/2024 11:27 AM
[2024-06-06 11:41] LABS: Glucose,Whole Blood 98 mg/dL (70-110)
[2024-06-06 16:24] LABS: Glucose,Whole Blood 207 mg/dL (70-110)
[2024-06-06 20:27] LABS: Glucose,Whole Blood 159 mg/dL (70-110)
[2024-06-07] MEDS: tiZANidine 4 MG TAB PO PRN (01:28)
--- NOTE | 2024-06-07 02:58 | P.PN ---
Subjective Progress Note Date: 06/06/24 This is a 59 [place] old male medical history of hypertension, hyperlipidemia, DVT, peripheral vascular disease, type 2 diabetes mellitus, complex large right sided pleural effusion possible malignant. Patient is current smoker, reports marijuana use. Patient initially presents to [facility] on 06/03/2024 with shortness of breath after being discharged back on 05/24/24. Patient had chest CT done prior admission that revealed a complex right sided pleural effusion concern for malignancy and it was recommended at that time to transfer to [facility] for CT surgery consultation and possible VATs procedure. He had an initial thoracentesis about 1 week ago with 1.8 L of blood fluid removed. Patient was ultimately discharged home and given information to follow up with CT surgery in the office however had not followed up on discharge. The cytology from his first thoracentesis did not reveal malignancy. He came back in for increasing shortness of breath with repeat chest xray showing cardiomegaly with pulmonary vascular congestion worsening and with complete opacification of the right hemithorax with leftward mediastinal shift likely related to the enlarging pleural effusion and compressive atelectasis. Patient underwent right sided thoracentesis with pulmonary services on 06/03/2024 had 7L of bloody fluid removed. Cytology is currently pending from the second thoracentesis. His repeat chest xray from 06/04/2024 reveals vascular congestion in the right upper lobe moderate to large layering pleural effusion. He has required increased oxygen demands requiring high flow cannula. Patient has not been febrile since admission to [facility]. He does take warfarin outpatient for the history of DVT and most recent blood work reveals an INR of 1.38. Viral panel negative. Recommended for transfer to [facility] from [facility] for CT surgery consultation and possible VATS procedure. Patient was evaluated in person only at [facility] today 06/05/2024. He is now admitted to the cardic unit at [facility] and pending follow up evaluations. 06/06/2024 Patient is seen in follow-up today awaiting to be evaluated by CT surgery surgeon for possible VATS procedure. Pulmonary following as well regarding pleural effusion. Cytology pending from previous thoracentesis. Patient continues on 5 L via nasal cannula and reports does not wear oxygen outpatient. Patient reports this has been ongoing since recent cardiac intervention in March. Patient reports the surgery was done in [facility] in [place] and is refusing to go back. Patient lives out in [place] and follows with Dr. Coronel in the outpatient setting. Patient is afebrile with no reports of chest pain or palpitations. Will await CT surgery report and input and recommendations. Review of systems: Constitutional: No reports of fatigue, fever, or chills Cardiovascular: No reports of chest pain or palpitations Respiratory: reports of shortness of breath with minimal exertion GI: No reports of nausea, vomiting, or diarrhea : No reports of dysuria or retention Neurovascular:reports of generalized weakness PHYSICAL EXAMINATION: GENERAL: The patient is alert and oriented x3, not in any acute distress. Well developed, unkempt, appears older than stated age HEENT: Pupils are round and equally reacting to light. EOMI. No scleral icterus. No conjunctival pallor. Normocephalic, atraumatic. No pharyngeal erythema. No thyromegaly. CARDIOVASCULAR: S1 and S2 muffled PULMONARY: Diminished breath sounds bilaterally with some scattered rhonchi not ed. No accessory muscle use noted. ABDOMEN: Soft, nontender, nondistended, normoactive bowel sounds. No palpable organomegaly. MUSCULOSKELETAL: No joint swelling or deformity. EXTREMITIES: No cyanosis, clubbing, or pedal edema. NEUROLOGICAL: Gross neurological examination did not reveal any focal deficits. Diffusely weak SKIN: No rashes. Assessment: Recurrent Right pleural effusion with mediastinal shift status post thoracentesis with 7L of blood fluid removed at [facility], cytology pending Acute hypoxemic respiratory failure secondary to above Right ankle diabetic ulcer under the care of Dr Perez, present on admission Hypertension Hyperlipidemia Diabetes Mellitus type 2 Hx of DVT on warfarin on outpatient basis Subtherapeutic INR Chronic nicotine use Marijuana use Hx of aortobifem bypass with Dr Perez in the past GI prophylaxis: Pepcid DVT prophylaxis: Subcutaneous heparin Plan: Consult CT surgery and evaluated by [facility] awaiting to speak with surgery Repeat chest xray in a.m. Cytology pending from most recent thoracentesis on 06/03/2024 [facility] Hold warfarin at this time Pulmonary following as well Wound care with medihoney gel and gauze to the right ankle and change daily per Dr Barlow orders from [facility] follow up wound care on discharge Repeat BMP, CBC in the AM The impression and plan of care has been dictated by Anastasia Szymanski, Nurse Practitioner as directed. Dr. Marsha MD I have performed a history and physical examination and medical decision making of this patient, discussed the same with the dictator, and agree with the d ictators assessment and plan as written, documented as a scribe. Based on total visit time, I have performed more than 50% of this visit. Objective - Vital Signs Vital signs: Vital Signs Temp 97.4 F L 06/06/24 20:00 Pulse 62 06/07/24 00:00 Resp 16 06/07/24 00:00 BP 94/61 06/07/24 00:00 Pulse Ox 93 L 06/07/24 00:00 FiO2 Intake & Output 06/06/24 06/06/24 06/07/24 06:59 18:59 06:59 Intake Total 540 240 Balance 540 240 Weight 79 kg Intake: Oral 540 240 Other: Voiding Method Toilet Toilet Toilet # Voids 1 1 - Labs CBC & Chem 7: 06/06/24 07:14 06/06/24 07:14 Labs: Abnormal Lab Results - Last 24 Hours (Table) 06/06/24 06/06/24 06/06/24 Range/Units 05:56 07:14 16:23 Sodium 128 L (137-145) mmol/L Potassium 5.2 H (3.5-5.1) mmol/L Chloride 96 L (98-107) mmol/L Creatinine 0.65 L (0.66-1.25) mg/dL Glucose 103 H (74-99) mg/dL POC Glucose (mg/dL) 129 H 207 H (70-110) mg/dL 06/06/24 Range/Units 20:25 Sodium (137-145) mmol/L Potassium (3.5-5.1) mmol/L Chloride (98-107) mmol/L Creatinine (0.66-1.25) mg/dL Glucose (74-99) mg/dL POC Glucose (mg/dL) 159 H (70-110) mg/dL
[2024-06-07 06:17] LABS: Glucose,Whole Blood 95 mg/dL (70-110)
[2024-06-07 06:55] LABS: African American GFR (CKD) >90 (>60 ml/min/1.73 sqM); Anion Gap 4 mmol/L; Blood Urea Nitrogen 20 mg/dL (9-20); Calcium 9.3 mg/dL (8.4-10.2); Carbon Dioxide 31 mmol/L (22-30); Chloride 93 mmol/L (98-107); Glucose 94 mg/dL (74-99); Non-African American GFR(CKD) >90 (>60 ml/min/1.73 sqM); Potassium 4.8 mmol/L (3.5-5.1); Sodium 128 mmol/L (137-145)
--- NOTE | 2024-06-07 09:30 | XR ---
EXAMINATION TYPE: XR chest 1V portable DATE OF EXAM: 06/07/2024 CLINICAL HISTORY: Difficulty breathing progress study. Right-sided pleural effusion TECHNIQUE: Single AP portable upright view of the chest is obtained. COMPARISON: Chest CT from one day earlier FINDINGS: Moderate to large sized right-sided pleural fluid collection remains present. Associated r ight basilar opacity favors compressive atelectasis. Patchy left basilar opacity favors atelectasis. Cardiac silhouette size stable and within normal limits. Osseous structures are intact. Overlying EKG leads are redemonstrated. IMPRESSION: Persistent moderate to large sized right-sided pleural fluid collection. No significant c hange from one day earlier. [facility], , 06/07/2024 9:28 AM
--- NOTE | 2024-06-07 10:35 | P.PN ---
Subjective Progress Note Date: 06/07/24 Principal diagnosis: Large right-sided pleural effusion recurrent of unknown etiology Acute hypoxic respiratory failure Peripheral arterial disease Advanced COPD and emphysema Extensive history of smoking and nicotine use Severe degree of peripheral arterial disease History of deep venous thrombosis June 07, 2024, patient seen eval examined during rounds labs reviewed medication care plan discussed, respiratory status still marginal ongoing shortness of breath present but severity has improved oxygen is being titrated tapered down progressively 59-year-old male seen evaluate examined patient transferred from [facility] for more definitive intervention for right pleural effusion. For after 6 L cannot be weaned down further saturation 96% hemodynamic status stable Lab data sodium is 128 potassium 4.8, CO2 is 91, BUN/creatinine 20/0.73 Patient has a longstanding history of smoking and nicotine use as well as COPD. Patient was hospitalized on June 03 and May 24 for shortness of breath and massive large size of pleural effusion. Patient has right-sided thoracentesis and 1.8 L of pleural fluid removed cytology and cultures were negative biochemistry consistent with exudative effusion. Patient was discharged with recommended to follow-up with thoracic surgery. Patient came back again on June 03 with increasing shortness of breath at this time he had about 7 L removed with similar finding a result has still have residual pleural effusion on the right side. Patient transferred from [facility] to [facility] for advanced level of care with consultation with thoracic surgery for possible right VATS and diagnostic pleural biopsy. Patient takes Coumadin for deep venous thrombosis history and peripheral arterial disease. Patient has extensive history of smoking and nicotine use, smoked about [id number]. Patient has been on 15 L high flow oxygen at [facility] now has been tapered down to 8 L now subsequently 6 L saturation 97%. Labs include white cell count 7.6, hemoglobin hematocrit is 14/45 platelet count of 308 sodium 128 potassium 5.2 BUN/creatinine is 18/0.65. Chest x-ray moderate right-sided left lobe pleural effusion with basilar atelectasis Past medical history significant for hypertension hypertensive cardiovascular disease dyslipidemia, distal deep venous thrombosis, peripheral vascular disease, type 2 diabetes mellitus hyperglycemia recurrent right-sided pleural effusion exudative with negative cytology and culture, recent femoropopliteal bilateral bypass surgery at [facility] Objective - Vital Signs Vital signs: Vital Signs Temp 98.1 F 06/07/24 08:12 Pulse 100 06/07/24 09:21 Resp 18 01/20/25 09:21 BP 106/66 06/07/24 08:12 Pulse Ox 96 06/07/24 08:12 FiO2 Intake & Output 06/06/24 06/07/24 06/07/24 18:59 06:59 18:59 Intake Total 240 240 Balance 240 240 Weight 80.1 kg Intake: Oral 240 240 Other: Voiding Method Toilet Toilet Toilet # Voids 1 3 - Exam - Constitutional General appearance: average body habitus, cooperative, disheveled, mild distress, thin - EENT Eyes: EOMI, PERRLA ENT: normal oropharynx Ears: bilateral: normal - Neck Neck: normal ROM Carotids: bilateral: upstroke normal Thyroid: bilateral: normal size - Respiratory Respiratory: right: diminished, left: CTA - Cardiovascular Rhythm: regular Heart sounds: normal: S1, S2 - Gastrointestinal General gastrointestinal: normal bowel sounds, soft - Integumentary Integumentary: normal turgor - Neurologic Neurologic: CNII-XII intact - Musculoskeletal Musculoskeletal: gait normal, generalized weakness, strength equal bilaterally, left sided weakness - Labs CBC & Chem 7: 06/06/24 07:14 06/07/24 06:13 Labs: Abnormal Lab Results - Last 24 Hours (Table) 06/06/24 06/06/24 06/07/24 Range/Units 16:23 20:25 06:13 Sodium 128 L (137-145) mmol/L Chloride 93 L (98-107) mmol/L Carbon Dioxide 31 H (22-30) mmol/L POC Glucose (mg/dL) 207 H 159 H (70-110) mg/dL Assessment and Plan Assessment: Large right-sided pleural effusion recurrent of unknown etiology Acute hypoxic respiratory failure Peripheral arterial disease Advanced COPD and emphysema Extensive history of smoking and nicotine use Severe degree of peripheral arterial disease History of deep venous thrombosis Plan: Consult cardiothoracic surgery for right-sided VATS procedure pleural biopsy, patient has been evaluated by nurse practitioner awaiting further recommendation from cardiothoracic surgery continue to hold Coumadin
[2024-06-07 11:17] LABS: Glucose,Whole Blood 142 mg/dL (70-110)
--- NOTE | 2024-06-07 14:54 | P.CONS ---
History of Present Illness - Reason for Consult Consult date: 06/07/24 rehab recommendations - Chief Complaint debility, SOB, pleural effusion - History of Present Illness Mr Almanza is a 59 y/o right handed male who lives with his significant other in a single story home with 5 yaw with 1 HR. Prior to admission, patient was independent with mobility and ADLs. He drives. He has not worked since his vascular surgery. Has a walker at home. This is a 59 year old male with past medical history of hypertension, hyperlipidemia, DVT, peripheral vascular disease, type 2 diabetes mellitus, complex large right sided pleural effusion possible malignant. Patient is cu rrent smoker, reports marijuana use. Patient initially presents to [facility] on 06/03/2024 with shortness of breath and recent visit on 05/24/24 as well. Patient had chest CT done prior admission that revealed a complex right sided pleural effusion concern for malignancy and it was recommended at that time to transfer to [facility] for CT surgery consultation and possible VATs procedure. He had an initial thoracentesis about 1 week prior with 1.8 L of blood fluid removed. The cytology from his first thoracentesis did not reveal malignancy. He came back in for increasing shortness of breath with repeat chest xray showing cardiomegaly with pulmonary vascular congestion worsening and with complete opac ification of the right hemithorax with leftward mediastinal shift likely related to the enlarging pleural effusion and compressive atelectasis. Patient underwent right sided thoracentesis with pulmonary services on 06/03/2024 had 7L of bloody fluid removed. Cytology is currently pending from the second thoracentesis. His repeat chest xray from 06/04/2024 reveals vascular congestion in the right upper lobe moderate to large layering pleural effusion. He has required increased oxygen demands requiring high flow cannula. He does take warfarin outpatient for the history of DVT and most recent blood work reveals an INR of 1.38. Viral panel negative. Pulmonary following as well regarding pleural effusion. Cytology pending from previous thoracentesis. Patient continues on 5 L via nasal cannula and reports does not wear oxygen outpatient. Patient reports this has been ongoing since recent cardiac intervention in March. Patient reports the surgery was done in [facility] in [place] and is refusing to go back. Awaiting CT surgery report and input. PM&R consulted for rehab recommendations. Patient is pending therapy evaluations. 06/07/24: Patient states he is not interested in any therapy except for homecare. He denies CP, admits to chest pressure on the right side. " They just need to figure out what they are doing with my lung, I never had this problem until i had the vascular surgery". He is currently on 6 L o2 does not wear O2 at home. Review of Systems reviewed, as above in subjective Past Medical History Past Medical History: COPD, Diabetes Mellitus, Deep Vein Thrombosis (DVT), GERD/Reflux, Hyperlipidemia, Hypertension, Prostate Disorder, Pulmonary Embolus (PE) (December 2022), Vascular Disorder Additional Past Medical History / Comment(s): DVT December 2022, on Coumadin as an outpatient for anticoagulation, 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 History of Any Multi-Drug Resistant Organisms: None Reported Past Surgical History: Tonsillectomy Additional Past Surgical History / Comment(s): vascular Bx 2023 Past Anesthesia/Blood Transfusion Reactions: No Reported Reaction Additional Past Anesthesia/Blood Transfusion Reaction / Comm: NO BLOOD TRANSFUSIONS BEFORE Past Psychological History: No Psychological Hx Reported Smoking Status: Former smoker (Quit smoking in March 2024) Past Alcohol Use History: Rare Past Drug Use History: Marijuana (Quit smoking in March 2024) - Past Family History Mother Family Medical History: Cancer Additional Family Medical History / Comment(s): MOTHER HAD CANCER, uterine cancer Father Family Medical History: COPD, CVA/TIA Medications and Allergies Home Medications Medication Instructions Recorded Confirmed Type Acetaminophen Tab [Tylenol Tab] 500 mg PO Q6H PRN 06/05/24 06/05/24 History Atorvastatin [Lipitor] 40 mg PO Q48H 06/05/24 06/05/24 History Ergocalciferol (Vitamin D2) 1,250 mcg PO QMONTHLY 06/05/24 06/05/24 History [Drisdol (50,000 Iu)] Tamsulosin HCl [Flomax] 0.4 mg PO DAILY 06/05/24 06/05/24 History Warfarin [Coumadin] 5 mg PO BID 06/05/24 06/05/24 History lisinopriL [Prinivil] 20 mg PO DAILY 06/05/24 06/05/24 History metFORMIN HCL [Glucophage] 500 mg PO [id number] 06/05/24 06/05/24 History tiZANidine HCL 4 mg PO TID PRN 06/05/24 06/05/24 History Allergies Allergy/AdvReac Type Severity Reaction Status Date / Time bee venom protein (honey bee) Allergy Swelling Verified 06/05/24 14:34 Penicillins Allergy Unknown Verified 06/05/24 14:34 Physical Exam Vitals: Vital Signs Temp Pulse Pulse Resp BP Pulse Ox 06/07/24 11:06 98.1 F 92 18 95/65 92 L 06/07/24 09:21 100 18 06/07/24 09:03 100 18 06/07/24 08:12 98.1 F 72 17 106/66 96 06/07/24 04:00 97.6 F 66 18 86/58 98 06/07/24 00:00 62 16 94/61 93 L 06/06/24 20:00 97.4 F L 88 16 106/64 95 06/06/24 16:00 90 16 89/56 92 L 06/06/24 15:35 87 06/06/24 15:25 85 06/06/24 12:00 94 16 89/64 98 Intake and Output 06/06/24 06/07/24 06/07/24 22:59 06:59 14:59 Intake Total 240 Balance 240 Intake: Oral 240 Other: Voiding Method Toilet Toilet Toilet # Voids 3 Weight 80.1 kg GENERAL: The patient is alert and oriented x3, not in any acute distress. Well developed, unkempt, appears older than stated age, laying in bed, poor dentition HEENT: Pupils are round and equal, EOMI. No scleral icterus. Normocephalic, atraumatic. CARDIOVASCULAR:no acute cardiac distress PULMONARY: Even, non labored respirations on 6L O2 NC ABDOMEN: not assessed MUSCULOSKELETAL: functional ROM of UE and LE EXTREMITIES: + LE edema NEUROLOGICAL: Patient declined to participate with exam, functional ROM of extremities SKIN: right leg wrapped Results CBC & Chem 7: 06/06/24 07:14 06/07/24 06:13 Labs: Abnormal Lab Results - Last 24 Hours (Table) 06/06/24 06/06/24 06/07/24 Range/Units 16:23 20:25 06:13 Sodium 128 L (137-145) mmol/L Chloride 93 L (98-107) mmol/L Carbon Dioxide 31 H (22-30) mmol/L POC Glucose (mg/dL) 207 H 159 H (70-110) mg/dL Assessment and Plan Assessment: # Pulmonary Debility secondary to Recurrent Right pleural effusion with m ediastinal shift status post thoracentesis with 7L of blood fluid removed at [facility] -on 6L O2 NC #Acute hypoxemic respiratory failure secondary to above #Right ankle diabetic ulcer under the care of Dr Perez, present on admission #Comorbidities: Hypertension, Hyperlipidemia, Diabetes Mellitus type 2 , Hx of DVT on warfarin on outpatient basis, Chronic nicotine use, Marijuana use #Hx of aortobifem bypass with Dr Perez in the past #DVT prophylaxis: Subcutaneous heparin # Pain Management -Tylenol prn, [place] prn, Zanaflex prn # Your medical dx and management Dispo: Patient pending recommendations for possible VATS and pending therapy evaluations. Patient declines to participate in exam, is not interested in IPR or VIRAL. wants home with [facility] once medically stabilized. Discussed with Case Management Patient seen and examined in coordination with Dr Marquez Thank you for consultation.
[2024-06-07 16:18] LABS: Glucose,Whole Blood 122 mg/dL (70-110)
[2024-06-07 19:56] LABS: Glucose,Whole Blood 133 mg/dL (70-110)
--- NOTE | 2024-06-08 02:38 | P.PN ---
Subjective Progress Note Date: 06/07/24 This is a 59 [place] old male medical history of hypertension, hyperlipidemia, DVT, peripheral vascular disease, type 2 diabetes mellitus, complex large right sided pleural effusion possible malignant. Patient is current smoker, reports marijuana use. Patient initially presents to [facility] on 06/03/2024 with shortness of breath after being discharged back on 05/24/24. Patient had chest CT done prior admission that revealed a complex right sided pleural effusion concern for malignancy and it was recommended at that time to transfer to [facility] for CT surgery consultation and possible VATs procedure. He had an initial thoracentesis about 1 week ago with 1.8 L of blood fluid removed. Patient was ultimately discharged home and given information to follow up with CT surgery in the office however had not followed up on discharge. The cytology from his first thoracentesis did not reveal malignancy. He came back in for increasing shortness of breath with repeat chest xray showing cardiomegaly with pulmonary vascular congestion worsening and with complete opacification of the right hemithorax with leftward mediastinal shift likely related to the enlarging pleural effusion and compressive atelectasis. Patient underwent right sided thoracentesis with pulmonary services on 06/03/2024 had 7L of bloody fluid removed. Cytology is currently pending from the second thoracentesis. His repeat chest xray from 06/04/2024 reveals vascular congestion in the right upper lobe moderate to large layering pleural effusion. He has required increased oxygen demands requiring high flow cannula. Patient has not been febrile since admission to [facility]. He does take warfarin outpatient for the history of DVT and most recent blood work reveals an INR of 1.38. Viral panel negative. Recommended for transfer to [facility] from [facility] for CT surgery consultation and possible VATS procedure. Patient was evaluated in person only at [facility] today 06/05/2024. He is now admitted to the cardic unit at [facility] and pending follow up evaluations. 06/06/2024 Patient is seen in follow-up today awaiting to be evaluated by CT surgery surgeon for possible VATS procedure. Pulmonary following as well regarding pleural effusion. Cytology pending from previous thoracentesis. Patient continues on 5 L via nasal cannula and reports does not wear oxygen outpatient. Patient reports this has been ongoing since recent cardiac intervention in March. Patient reports the surgery was done in [facility] in [place] and is refusing to go back. Patient lives out in [place] and follows with Dr. Coronel in the outpatient setting. Patient is afebrile with no reports of chest pain or palpitations. Will await CT surgery report and input and recommendations. 06/07/2024 Patient is seen in follow-up today has been evaluated by CT surgery awaiting further recommendations from the surgeon with pulmonary following. Patient continues with right side pleural effusion and discussing possible VATS procedure. Patient is maintained on 5 to 6 L and reports shortness of breath with minimal exertion. Patient reports he has no weakness and plans on returning home once discharged. Patient to continue weaning FiO2 as tolerated as patient does not wear any oxygen outpatient. Sodium 128 and recommend fluid restrictions. Will follow-up on repeat labs. Encouraged increase activity as tolerated. Review of systems: Constitutional: No reports of fatigue, fever, or chills Cardiovascular: No reports of chest pain or palpitations Respiratory: reports of shortness of breath with minimal exertion GI: No reports of nausea, vomiting, or diarrhea : No reports of dysuria or retention Neurovascular:reports of generalized weakness PHYSICAL EXAMINATION: GENERAL: The patient is alert and oriented x3, not in any acute distress. Well d eveloped, unkempt, appears older than stated age HEENT: Pupils are round and equally reacting to light. EOMI. No scleral icterus. No conjunctival pallor. Normocephalic, atraumatic. No pharyngeal erythema. No thyromegaly. CARDIOVASCULAR: S1 and S2 muffled PULMONARY: Diminished breath sounds bilaterally with some scattered rhonchi noted. No accessory muscle use noted. ABDOMEN: Soft, nontender, nondistended, normoactive bowel sounds. No palpable organomegaly. MUSCULOSKELETAL: No joint swelling or deformity. EXTREMITIES: No cyanosis, clubbing, or pedal edema. NEUROLOGICAL: Gross neurological examination did not reveal any focal deficits. Diffusely weak SKIN: No rashes. Assessment: Recurrent Right pleural effusion with mediastinal shift status post thoracentesis with 7L of blood fluid removed at [facility], cytology pending Acute hypoxemic respiratory failure secondary to above Right ankle diabetic ulcer under the care of Dr Perez, present on admission Hypertension Hyperlipidemia Diabetes Mellitus type 2 Hx of DVT on warfarin on outpatient basis Subtherapeutic INR Chronic nicotine use Marijuana use Hx of aortobifem bypass with Dr Perez in the past GI prophylaxis: Pepcid DVT prophylaxis: Subcutaneous heparin Plan: CT surgery to evaluate for possible VATS procedure, currently awaiting surgeon recommendations Pulmonary Dr. Garcia following and will follow-up on repeat chest x-ray. Patient continues on 6 L and does not wear any oxygen outpatient. Wean FiO2 as tolerated Cytology pending from most recent thor[facility] on 06[facility]03/20[facility] warfarin at this time, patient continued on subcutaneous heparin Wound care with medihoney gel and gauze to the right ankle and change daily per Dr Barlow orders from [facility] follow up wound care on discharge Repeat BMP, CBC in the AM Due to multiple complex medical issues, overall prognosis is guarded The impression and plan of care has been dictated by Anastasia Szymanski, Nurse Practitioner as directed. Dr. Miguel MD I have performed a history and physical examination and medical decision making of this patient, discussed the same with the dictator, and agree with the dictators assessment and plan as written, documented as a scribe. Based on total visit time, I have performed more than 50% of this visit. Objective - Vital Signs Vital signs: Vital Signs Temp 97.6 F 06/08/24 00:00 Pulse 73 06/08/24 00:00 Resp 15 06/08/24 00:00 BP 114/75 06/08/24 00:00 Pulse Ox 90 L 06/08/24 00:00 FiO2 Intake & Output 06/07/24 06/07/24 06/08/24 06:59 18:59 06:59 Intake Total 702 540 Balance 702 540 Weight 80.1 kg Intake: Oral 702 540 Other: Voiding Method Toilet Toilet Toilet # Voids 3 2 - Labs CBC & Chem 7: 06/06/24 07:14 06/07/24 06:13 Labs: Abnormal Lab Results - Last 24 Hours (Table) 06/07/24 06/07/24 06/07/24 Range/Units 06:13 11:15 16:17 Sodium 128 L (137-145) mmol/L Chloride 93 L (98-107) mmol/L Carbon Dioxide 31 H (22-30) mmol/L POC Glucose (mg/dL) 142 H 122 H (70-110) mg/dL 06/07/24 Range/Units 19:55 Sodium (137-145) mmol/L Chloride (98-107) mmol/L Carbon Dioxide (22-30) mmol/L POC Glucose (mg/dL) 133 H (70-110) mg/dL
[2024-06-08 06:12] LABS: Glucose,Whole Blood 98 mg/dL (70-110)
--- NOTE | 2024-06-08 07:04 | P.PN ---
Subjective Progress Note Date: 06/07/24 Principal diagnosis: Recurrent right pleural effusion, status post 2 thoracentesis. Past medical history significant for pulmonary embolus in December 2022, currently on Coumadin for anticoagulation, a recent right pleural effusion on May 20, 2024 status post thoracentesis with 1.8 L of fluid drained, cytology from the first thoracentesis was negative for malignancy, chronic obstructive pulmonary disease, hypertension, hyperlipidemia, benign prostatic hypertrophy, history of hemoptysis in December 2022, deep vein thrombosis, diabetes mellitus type 2, peripheral vascular disease with history of aortobifem bypass in March 2024 at [facility], chronic nonhealing wound to his right lower leg, chronic tobacco dependence, quit smoking in March 2024, and history of marijuana use. The patient was seen and examined in follow-up today June 07, 2024 at his [facility] on the third floor cardiac stepdown unit. He is currently sitting up to the bedside edge, is awake, alert, oriented x 3 and is in no acute apparent distress. Denies any complaints of pain at this time, although reports he does get some episodes of shortness of breath especially with activity. Oxygen saturations are 96% on 6 L nasal cannula and he is achieving 500 to 750 mL on his incentive spirometry with encouragement. Remote telemetry is showing normal sinus rhythm heart rate 84 bpm. The patient underwent a CT scan of his chest without contrast yesterday with the report impression showing a large right pleural effusion with associated atelectasis and superimposed airspace opacities concerning for pneumonia, split pleural pleural signs suggesting right empyema correlate with fluid sample, and leftward shift of the mediastinum suggesting some degree of mass effect from the large right pleural effusion. The patient has been afebrile in the last 24 hours. Dressing is clean, dry and intact to his right lower extremity. He remains afebrile in the last 24 hours. Laboratory and chest x-ray results reviewed. Objective - Vital Signs Vital signs: Vital Signs Temp 98.1 F 06/07/24 08:12 Pulse 100 06/07/24 09:03 Resp 18 06/07/24 09:03 BP 106/66 06/07/24 08:12 Pulse Ox 96 06/07/24 08:12 FiO2 Intake & Output 06/06/24 06/07/24 06/07/24 18:59 06:59 18:59 Intake Total 240 240 Balance 240 240 Weight 80.1 kg Intake: Oral 240 240 Other: Voiding Method Toilet Toilet Toilet # Voids 1 3 - Exam CONSTITUTIONAL: Appears comfortable, cooperative, no acute distress RESPIRATORY: Lungs sounds diminished bilaterally. Respirations symmetrical, nonlabored. Currently on 6 L nasal cannula with oxygen saturation 96%. Able to achieve 500-750 mL on his incentive spirometry. Strong cough. CARDIOVASCULAR: S1, S2 present. Regular rate and rhythm, sinus rhythm on telemetry. Palpable peripheral pulses bilaterally. No edema present. No calf pain or tenderness noted. GASTROINTESTINAL: Abdomen soft, nontender, nondistended. Active bowel sounds present 4 quadrants. Tolerating diet. GENITOURINARY: Continues to void. INTEGUMENTARY: Skin is warm and dry with no clubbing or cyanosis. Dressing clean, dry and intact to his right lower extremity. NEUROLOGIC: Cranial nerves II through XII intact. No focal deficits. MUSKULOSKELETAL: Able to move all extremities, strength equal bilaterally. PSYCHIATRIC: Alert and oriented to person place and time, appropriate affect, intact judgment and insight - Allied health notes Allied health notes reviewed: nursing - Labs CBC & Chem 7: 06/06/24 07:14 06/07/24 06:13 Labs: Abnormal Lab Results - Last 24 Hours (Table) 06/06/24 06/06/24 06/07/24 Range/Units 16:23 20:25 06:13 Sodium 128 L (137-145) mmol/L Chloride 93 L (98-107) mmol/L Carbon Dioxide 31 H (22-30) mmol/L POC Glucose (mg/dL) 207 H 159 H (70-110) mg/dL - Imaging and Cardiology Chest x-ray: report reviewed, image reviewed Assessment and Plan Assessment: Recurrent right pleural effusion, status post 2 recent thoracentesis Acute hypoxic respiratory failure, likely secondary to above History of peripheral vascular disease, recent aortobifemoral bypass Chronic obstructive pulmonary disease History of pulmonary embolus in December 2022, on Coumadin as an outpatient for anticoagulation, subtherapeutic INR History of posterior right lung upper lobe spiculated 1.[address] scan in December 2022 History of nicotine dependence, quit smoking in March 2024 Nonhealing wound to his right lower extremity managed by Dr. Perez History of marijuana use History of deep vein thrombosis in December 2022 Diabetes mellitus type 2 Hypertension Hyperlipidemia Plan: Continue to encourage use of incentive spirometry 10 times every hour while awake. Wean oxygen as tolerated. Oxygen management per pulmonary medicine recommendations. Continue to follow cytology results from thoracentesis completed on June 03, 2024. Reinforced the importance of continued smoking cessation with the patient. The patient reports that he has not smoked since his surgery in March 2024. CT scan of the chest reviewed by Dr. Mcgregor. Dr. Mcgregor discussed the findings on the CT scan of the chest, is recommending to the patient placement of right pigtail catheter placement with alteplase/dornase instillation. If the alteplase/dornase does not clear the right pleural effusion, other treatment options were discussed with the patient including right video-assisted thoracoscopic surgery with decortication. The patient is willing to proceed with the pigtail catheter placement and if needed right video-assisted thoracoscopic surgery. Medical management of other comorbidities per primary care and pulmonary medicine services. More recommendations to follow based on patient clinical course. Time with Patient: Greater than 30
--- NOTE | 2024-06-08 09:02 | P.PN ---
Subjective Progress Note Date: 06/08/24 Principal diagnosis: Recurrent right pleural effusion, status post 2 thoracentesis. Past medical history significant for pulmonary embolus in December 2022, currently on Coumadin for anticoagulation, a recent right pleural effusion on May 20, 2024 status post thoracentesis with 1.8 L of fluid drained, cytology from the first thoracentesis was negative for malignancy, chronic obstructive pulmonary disease, hypertension, hyperlipidemia, benign prostatic hypertrophy, history of hemoptysis in December 2022, deep vein thrombosis, diabetes mellitus type 2, peripheral vascular disease with history of aortobifem bypass in March 2024 at [facility], chronic nonhealing wound to his right lower leg, chronic tobacco dependence, quit smoking in March 2024, and history of marijuana use. The patient was seen and examined at his bedside on the third floor cardiac yaw pdown unit. He is currently laying in bed with his head elevated, is awake, alert, oriented x 3 and is in no acute apparent distress. Denies any complaints of pain at this time, although complains of some episodes of shortness of breath with activity. Dr. Mcgregor met with the patient yesterday, discussed treatment options with the patient including placement of right pigtail catheter by interventional radiology. The patient would like to proceed with pigtail catheter placement with subsequent alteplase/dornase pleural instillation treatment. Oxygen saturations are 99% on 6 L nasal cannula and he is achieving 500 to 750 mL on his incentive spirometry with encouragement. Remote telemetry is showing normal sinus rhythm heart rate 88 bpm. He has been afebrile in the last 24 hours. No new laboratory results today. The patient reports he has been up ambulating in his room and tolerating well. Dressing is clean, dry and in place to his right lower extremity. The patient reports that he has not had any lung problems prior to this until he had his aortobifemoral surgery in March 2024. Objective - Vital Signs Vital signs: Vital Signs Temp 97.8 F 06/08/24 08:50 Pulse 81 06/08/24 08:50 Resp 17 06/08/24 08:50 BP 117/75 06/08/24 08:50 Pulse Ox 92 L 06/08/24 08:50 FiO2 Intake & Output 06/07/24 06/08/24 06/08/24 18:59 06:59 18:59 Intake Total 702 540 200 Output Total 200 Balance 702 340 200 Weight 80.3 kg Intake: Oral 702 540 200 Output: Urine 200 Other: Voiding Method Toilet Toilet # Voids 2 - Exam CONSTITUTIONAL: Appears comfortable, cooperative, no acute distress RESPIRATORY: Lungs sounds diminished bilaterally. Respirations symmetrical, nonlabored. Currently on 6 L nasal cannula with oxygen saturation 99%. Able to achieve 500-750 mL on his incentive spirometry. Strong productive cough with [place] tenacious sputum. CARDIOVASCULAR: S1, S2 present. Regular rate and rhythm, sinus rhythm on telemetry. Palpable peripheral pulses bilaterally. No edema present. No calf pain or tenderness noted. GASTROINTESTINAL: Abdomen soft, nontender, nondistended. Active bowel sounds present 4 quadrants. Tolerating diet. GENITOURINARY: Continues to void. INTEGUMENTARY: Skin is warm and dry with no clubbing or cyanosis. Dressing clean, dry and intact to his right lower extremity. NEUROLOGIC: Cranial nerves II through XII intact. No focal deficits. MUSKULOSKELETAL: Able to move all extremities, strength equal bilaterally. PSYCHIATRIC: Alert and oriented to person place and time, appropriate affect, intact judgment and insight - Allied health notes Allied health notes reviewed: nursing - Labs CBC & Chem 7: 06/06/24 07:14 06/07/24 06:13 Labs: Abnormal Lab Results - Last 24 Hours (Table) 06/07/24 06/07/24 06/07/24 Range/Units 11:15 16:17 19:55 POC Glucose (mg/dL) 142 H 122 H 133 H (70-110) mg/dL Assessment and Plan Assessment: Recurrent right pleural effusion, status post 2 recent thoracentesis Acute hypoxic respiratory failure, likely secondary to above History of peripheral vascular disease, recent aortobifemoral bypass Chronic obstructive pulmonary disease History of pulmonary embolus in December 2022, on Coumadin as an outpatient for anticoagulation, subtherapeutic INR History of posterior right lung upper lobe spiculated 1.[address] scan in December 2022 History of nicotine dependence, quit smoking in March 2024 Nonhealing wound to his right lower extremity managed by Dr. Perez History of marijuana use History of deep vein thrombosis in December 2022 Diabetes mellitus type 2 Hypertension Hyperlipidemia Plan: Continue to encourage use of incentive spirometry 10 times every hour while awake. Wean oxygen as tolerated. Oxygen management per pulmonary medicine recommendations. Continue to follow cytology results from thoracentesis completed on June 03, 2024. Reinforced the importance of continued smoking cessation with the patient. The patient reports that he has not smoked since his surgery in March 2024. CT scan of the chest reviewed by Dr. Mcgregor. Dr. Mcgregor discussed the findings on the CT scan of the chest, is recommending placement of right pigtail catheter placement with alteplase/dornase instillation. If the alteplase/dornase does not clear the right pleural effusion, then other treatment options have been discussed with the patient including right video-assisted thoracoscopic surgery with decortication. The patient is willing to proceed with the pigtail catheter placement and if needed right video-assisted thoracoscopic surgery. Send for sputum culture. Interventional radiology has been consulted for placement of right pigtail catheter. Once pigtail catheter has been placed we will initiate alteplase/dornase pleural instillation. Medical management of other comorbidities per primary care and pulmonary medici ne services. More recommendations to follow based on patient clinical course. Time with Patient: Greater than 30
--- NOTE | 2024-06-08 09:05 | P.PN ---
Subjective Progress Note Date: 06/08/24 Principal diagnosis: Large right-sided pleural effusion recurrent of unknown etiology Acute hypoxic respiratory failure Peripheral arterial disease Advanced COPD and emphysema Extensive history of smoking and nicotine use Severe degree of peripheral arterial disease History of deep venous thrombosis June 08, 2024, patient continued to be short of breath on minimal activity and exertion, however denies any chest pain some heaviness on the right side is present, patient is afebrile oxygen saturation 92% 6 L unable to wean oxygen less than 6 L nasal cannula last chest x-ray done yesterday continue to show moderate to large size right-sided pleural effusion with basilar atelectasis left-sided basilar atelectatic change also seen patient to continue on deep breathing exercise incentive spirometry cardiothoracic surgery is evaluating for consideration of VATS, labs not done today yesterday sodium was 128 potassium 4.8 renal functions within normal limit sugar is mid 100 range incision that she had for vascular bypass surgery for the lower extremity remains stable June 07, 2024, patient seen eval examined during rounds labs reviewed medication care plan discussed, respiratory status still marginal ongoing shortness of breath present but severity has improved oxygen is being titrated tapered down progressively 59-year-old male seen evaluate examined patient transferred from [facility] for more definitive intervention for right pleural effusion. For after 6 L cannot be weaned down further saturation 96% hemodynamic status stable Lab data sodium is 128 potassium 4.8, CO2 is 91, BUN/creatinine 20/0.73 Patient has a longstanding history of smoking and nicotine use as well as COPD. Patient was hospitalized on June 03 and May 24 for shortness of breath and massive large size of pleural effusion. Patient has right-sided thoracentesis and 1.8 L of pleural fluid removed cytology and cultures were negative biochemistry consistent with exudative effusion. Patient was discharged with recommended to follow-up with thoracic surgery. Patient came back again on June 03 with increasing shortness of breath at this time he had about 7 L removed with similar finding a result has still have residual pleural effusion on the right side. Patient transferred from [facility] to [facility] for advanced level of care with consultation with thoracic surgery for possible right VATS and diagnostic pleural biopsy. Patient takes Coumadin for deep venous thrombosis history and peripheral arterial disease. Patient has extensive history of smoking and nicotine use, smoked about [id number]. Patient has been on 15 L high flow oxygen at [facility] now has been tapered down to 8 L now subsequently 6 L saturation 97%. Labs include white cell count 7.6, hemoglobin hematocrit is 14/45 platelet count of 308 sodium 128 potassium 5.2 BUN/creatinine is 18/0.65. Chest x-ray moderate right-sided left lobe pleural effusion with basilar atelectasis Past medical history significant for hypertension hypertensive cardiovascular disease dyslipidemia, distal deep venous thrombosis, peripheral vascular disease, type 2 diabetes mellitus hyperglycemia recurrent right-sided pleural effusion exudative with negative cytology and culture, recent femoropopliteal bilateral bypass surgery at [facility] June 08, 2024 Objective - Vital Signs Vital signs: Vital Signs Temp 97.8 F 06/08/24 08:50 Pulse 81 06/08/24 08:50 Resp 17 06/08/24 08:50 BP 117/75 06/08/24 08:50 Pulse Ox 92 L 06/08/24 08:50 FiO2 Intake & Output 06/07/24 06/08/24 06/08/24 18:59 06:59 18:59 Intake Total 702 540 200 Output Total 200 Balance 702 340 200 Weight 80.3 kg Intake: Oral 702 540 200 Output: Urine 200 Other: Voiding Method Toilet Toilet # Voids 2 - Exam - Constitutional General appearance: average body habitus, cooperative, disheveled, mild distress, thin - EENT Eyes: EOMI, PERRLA ENT: normal oropharynx Ears: bilateral: normal - Neck Neck: normal ROM Carotids: bilateral: upstroke normal Thyroid: bilateral: normal size - Respiratory Respiratory: right: diminished, left: CTA - Cardiovascular Rhythm: regular Heart sounds: normal: S1, S2 - Gastrointestinal General gastrointestinal: normal bowel sounds, soft - Integumentary Integumentary: normal turgor - Neurologic Neurologic: CNII-XII intact - Musculoskeletal Musculoskeletal: gait normal, generalized weakness, strength equal bilaterally, left sided weakness - Labs CBC & Chem 7: 06/06/24 07:14 06/07/24 06:13 Labs: Abnormal Lab Results - Last 24 Hours (Table) 06/07/24 06/07/24 06/07/24 Range/Units 11:15 16:17 19:55 POC Glucose (mg/dL) 142 H 122 H 133 H (70-110) mg/dL Assessment and Plan Assessment: Large right-sided pleural effusion recurrent of unknown etiology Acute hypoxic respiratory failure Peripheral arterial disease Chronic hyponatremia Advanced COPD and emphysema Extensive history of smoking and nicotine use Severe degree of peripheral arterial disease History of deep venous thrombosis Plan: Consult cardiothoracic surgery for right-sided VATS procedure pleural biopsy, patient has been evaluated by nurse practitioner awaiting further recommendation from cardiothoracic surgery continue to hold Coumadin, continue taper down oxygen as tolerated continue deep breathing exercises incentive spirometry Time with Patient: Greater than 30
[2024-06-08 09:49] LABS: Basophils % (A) 0 %; Eosinophils # (A) 0.2 k/uL (0-0.7); Eosinophils % (A) 2 %; HCT 45.8 % (39.0-53.0); HGB 14.5 gm/dL (13.0-17.5); Hypochromasia Slight; Lymphocytes # (A) 0.9 k/uL (1.0-4.8); Lymphocytes % (A) 11 %; MCH 29.5 pg (25.0-35.0); MCHC 31.8 g/dL (31.0-37.0); MCV 92.9 fL (80.0-100.0); Monocytes # (A) 0.4 k/uL (0-1.0); Monocytes % (A) 5 %; Neutrophils # (A) 6.6 k/uL (1.3-7.7); Neutrophils % (A) 82 %; Platelet Count 277 k/uL (150-450); RBC 4.93 m/uL (4.30-5.90); RDW 14.3 % (11.5-15.5); WBC 8.1 k/uL (3.8-10.6)
[2024-06-08 10:23] LABS: ALT 33 U/L (4-49); AST 34 U/L (17-59); African American GFR (CKD) >90 (>60 ml/min/1.73 sqM); Albumin 3.1 g/dL (3.5-5.0); Alkaline Phosphatase 169 U/L (38-126); Anion Gap 5 mmol/L; Blood Urea Nitrogen 14 mg/dL (9-20); Calcium 9.4 mg/dL (8.4-10.2); Carbon Dioxide 34 mmol/L (22-30); Chloride 90 mmol/L (98-107); Glucose 116 mg/dL (74-99); Magnesium 1.8 mg/dL (1.6-2.3); Non-African American GFR(CKD) >90 (>60 ml/min/1.73 sqM); Potassium 4.9 mmol/L (3.5-5.1); Sodium 129 mmol/L (137-145); Total Bilirubin 0.6 mg/dL (0.2-1.3)
[2024-06-08 11:32] LABS: Glucose,Whole Blood 121 mg/dL (70-110)
--- NOTE | 2024-06-08 15:16 | US ---
EXAMINATION TYPE: US guided chest tube insertion DATE OF EXAM: 06/08/2024 2:41 PM COMPARISON: CT 06/06/2024 CLINICAL INDICATION: Male, 59 years old with history of recurrent Pleural Effusion requiring multiple thoracenteses. Referred for right chest pigtail catheter, , RADIOLOGIST: Dr. Danial Jarrell PROCEDURE: Ultrasound along the right lower posterior chest wall was used identify the large right pleural effus ion. This is targeted for chest tube placement. The procedure, along with risks and complications were discussed with the patient. A consent was signed. Maximum sterile technique was utilized. The site was marked. Timeout was performed by myself. The right posterior lower chest wall was sterilely prepped and draped in the usual fashion. 10 mL of 1% Lidocaine was utilized to anesthetize the superficial and deep soft tissues. Following that, a skin daphnie was and through that skin daphnie, an 8.5 [place]ar[place]uan catheter system was advance d into the fluid collection. The pigtail loop was formed and secured as the stylette/introducer was r emoved. Initial aspiration of 20 mL of dark serosanguineous fluid which was sent for laboratory clara sis. The catheter was subsequently connected to a drainage bag and secured with a StayFix device. Patient tolerated the procedure well and was sent back to inpatient room. IMPRESSION: Satisfactory placement of an 8.5 [place]ar[place]uan pigtail drainage catheter into the large right pleural effusi on via ultrasound guidance. Fluid analysis pending. [facility], , 06/08/2024 3:14 PM
[2024-06-08] MEDS: ALTEPLASE 10 MG in SODIUM CHLORIDE 0.9% 50 ML IRRIGATION ONE (15:50)
[2024-06-08] MEDS: DORNASE ALFA 5 MG in SODIUM CHLORIDE 0.9% 50 ML IRRIGATION ONE (15:50)
[2024-06-08 16:36] LABS: Glucose,Whole Blood 125 mg/dL (70-110)
[2024-06-08 20:05] LABS: Glucose,Whole Blood 103 mg/dL (70-110)
--- NOTE | 2024-06-09 05:04 | P.PN ---
Subjective Progress Note Date: 06/08/24 This is a 59 [place] old male medical history of hypertension, hyperlipidemia, DVT, peripheral vascular disease, type 2 diabetes mellitus, complex large right sided pleural effusion possible malignant. Patient is current smoker, reports marijuana use. Patient initially presents to [facility] on 06/03/2024 with shortness of breath after being discharged back on 05/24/24. Patient had chest CT done prior admission that revealed a complex right sided pleural effusion concern for malignancy and it was recommended at that time to transfer to [facility] for CT surgery consultation and possible VATs procedure. He had an initial thoracentesis about 1 week ago with 1.8 L of blood fluid removed. Patient was ultimately discharged home and given information to follow up with CT surgery in the office however had not followed up on discharge. The cytology from his first thoracentesis did not reveal malignancy. He came back in for increasing shortness of breath with repeat chest xray showing cardiomegaly with pulmonary vascular congestion worsening and with complete opacification of the right hemithorax with leftward mediastinal shift likely related to the enlarging pleural effusion and compressive atelectasis. Patient underwent right sided thoracentesis with pulmonary services on 06/03/2024 had 7L of bloody fluid removed. Cytology is currently pending from the second thoracentesis. His repeat chest xray from 06/04/2024 reveals vascular congestion in the right upper lobe moderate to large layering pleural effusion. He has required increased oxygen demands requiring high flow cannula. Patient has not been febrile since admission to [facility]. He does take warfarin outpatient for the history of DVT and most recent blood work reveals an INR of 1.38. Viral panel negative. Recommended for transfer to [facility] from [facility] for CT surgery consultation and possible VATS procedure. Patient was evaluated in person only at [facility] today 06/05/2024. He is now admitted to the cardic unit at [facility] and pending follow up evaluations. 06/06/2024 Patient is seen in follow-up today awaiting to be evaluated by CT surgery surgeon for possible VATS procedure. Pulmonary following as well regarding pleural effusion. Cytology pending from previous thoracentesis. Patient continues on 5 L via nasal cannula and reports does not wear oxygen outpatient. Patient reports this has been ongoing since recent cardiac intervention in March. Patient reports the surgery was done in [facility] in [place] and is refusing to go back. Patient lives out in [place] and follows with Dr. Coronel in the outpatient setting. Patient is afebrile with no reports of chest pain or palpitations. Will await CT surgery report and input and recommendations. 06/07/2024 Patient is seen in follow-up today has been evaluated by CT surgery awaiting further recommendations from the surgeon with pulmonary following. Patient continues with right side pleural effusion and discussing possible VATS procedure. Patient is maintained on 5 to 6 L and reports shortness of breath with minimal exertion. Patient reports he has no weakness and plans on returning home once discharged. Patient to continue weaning FiO2 as tolerated as patient does not wear any oxygen outpatient. Sodium 128 and recommend fluid restrictions. Will follow-up on repeat labs. Encouraged increase activity as tolerated. 06/08/2024 Patient is seen in follow-up with pulmonary and CT surgery following. Patient is scheduled to undergo pigtail catheter of the right pleural effusion today and is currently NPO. Pulmonary Dr. Garcia plans on thorascopic evaluation and biopsy tentatively scheduled for , 06/10/2024. Patient is continued on 4 to 5 L via nasal cannula reports shortness of breath but no worsening. Patient denies chest pain or palpitations at this time. Review of systems: Constitutional: No reports of fatigue, fever, or chills Cardiovascular: No reports of chest pain or palpitations Respiratory: reports of shortness of breath with minimal exertion GI: No reports of nausea, vomiting, or diarrhea : No reports of dysuria or retention Neurovascular:reports of generalized weakness PHYSICAL EXAMINATION: GENERAL: The patient is alert and oriented x3, not in any acute distress. Well developed, unkempt, appears older than stated age HEENT: Pupils are round and equally reacting to light. EOMI. No scleral icterus. No conjunctival pallor. Normocephalic, atraumatic. No pharyngeal erythema. No thyromegaly. CARDIOVASCULAR: S1 and S2 muffled PULMONARY: Diminished breath sounds bilaterally with some scattered rhonchi noted. No accessory muscle use noted. ABDOMEN: Soft, nontender, nondistended, normoactive bowel sounds. No palpable organomegaly. MUSCULOSKELETAL: No joint swelling or deformity. EXTREMITIES: No cyanosis, clubbing, or pedal edema. NEUROLOGICAL: Gross neurological examination did not reveal any focal deficits. Diffusely weak SKIN: No rashes. Assessment: Recurrent Right pleural effusion with mediastinal shift status post thoracentesis with 7L of blood fluid removed at [facility], cytology pending, scheduled to undergo Pleurx catheter today 06/08/2024 Acute hypoxemic respiratory failure secondary to above Right ankle diabetic ulcer under the care of Dr ePrez, present on admission Hypertension Hyperlipidemia Diabetes Mellitus type 2 Hx of DVT on warfarin on outpatient basis Subtherapeutic INR Chronic nicotine use Marijuana use Hx of aortobifem bypass with Dr Perez in the past GI prophylaxis: Pepcid DVT prophylaxis: Subcutaneous heparin Plan: CT surgery to evaluate for possible VATS procedure, currently awaiting to undergo Pleurx catheter placement today of the right pleural effusion Pulmonary Dr. Garcia following and recommending thorascopic intervention with biopsy. Patient continues on 6 L and does not wear any oxygen outpatient. Wean FiO2 as tolerated Cytology pending from most recent thoracentesis on 06/03/2024 Continue updrafts Hold warfarin at this time, patient continued on subcutaneous heparin Wound care with medihoney gel and gauze to the right ankle and change daily per Dr Barlow orders from [facility] follow up wound care on discharge Repeat BMP, CBC in the AM Due to multiple complex medical issues, overall prognosis is guarded The impression and plan of care has been dictated by Anastasia Szymanski, Nurse Practitioner as directed. Dr. Miguel MD I have performed a history and physical examination and medical decision making of this patient, discussed the same with the dictator, and agree with the dictators assessment and plan as written, documented as a scribe. Based on total visit time, I have performed more than 50% of this visit. Objective - Vital Signs Vital signs: Vital Signs Temp 97.7 F 06/09/24 03:57 Pulse 85 06/09/24 03:57 Resp 17 06/09/24 03:57 BP 108/70 06/09/24 03:57 Pulse Ox 94 L 06/09/24 03:57 FiO2 Intake & Output 06/08/24 06/08/24 06/09/24 06:59 18:59 06:59 Intake Total 540 710 477 Output Total 200 4390 725 Balance 340 -3680 -248 Weight 80.3 kg Intake: Oral 540 710 477 Output: Chest Tube Drainage 4090 0 Chest Tube Right 4090 0 Posterior Chest Urine 200 300 725 Other: Voiding Method Toilet Toilet Toilet # Voids 1 - Labs CBC & Chem 7: 06/08/24 08:56 06/08/24 08:56 Labs: Abnormal Lab Results - Last 24 Hours (Table) 06/08/24 06/08/24 06/08/24 Range/Units 08:56 08:56 11:30 Lymphocytes # 0.9 L (1.0-4.8) k/uL Sodium 129 L (137-145) mmol/L Chloride 90 L (98-107) mmol/L Carbon Dioxide 34 H (22-30) mmol/L Creatinine 0.64 L (0.66-1.25) mg/dL Glucose 116 H (74-99) mg/dL POC Glucose (mg/dL) 121 H (70-110) mg/dL Alkaline Phosphatase 169 H (38-126) U/L Total Protein 6.0 L (6.3-8.2) g/dL Albumin 3.1 L (3.5-5.0) g/dL 06/08/24 Range/Units 16:34 Lymphocytes # (1.0-4.8) k/uL Sodium (137-145) mmol/L Chloride (98-107) mmol/L Carbon Dioxide (22-30) mmol/L Creatinine (0.66-1.25) mg/dL Glucose (74-99) mg/dL POC Glucose (mg/dL) 125 H (70-110) mg/dL Alkaline Phosphatase (38-126) U/L Total Protein (6.3-8.2) g/dL Albumin (3.5-5.0) g/dL
[2024-06-09 05:56] LABS: Glucose,Whole Blood 118 mg/dL (70-110)
[2024-06-09 06:55] LABS: Basophils % (A) 0 %; Eosinophils # (A) 0.2 k/uL (0-0.7); Eosinophils % (A) 2 %; HCT 45.9 % (39.0-53.0); HGB 14.8 gm/dL (13.0-17.5); Lymphocytes # (A) 0.8 k/uL (1.0-4.8); Lymphocytes % (A) 10 %; MCH 29.9 pg (25.0-35.0); MCHC 32.3 g/dL (31.0-37.0); MCV 92.5 fL (80.0-100.0); Mean Platelet Volume 7.9; Monocytes # (A) 0.4 k/uL (0-1.0); Monocytes % (A) 5 %; Neutrophils # (A) 6.6 k/uL (1.3-7.7); Neutrophils % (A) 82 %; Platelet Count 299 k/uL (150-450); RBC 4.96 m/uL (4.30-5.90); RDW 14.2 % (11.5-15.5); WBC 8.1 k/uL (3.8-10.6)
[2024-06-09 07:20] LABS: African American GFR (CKD) >90 (>60 ml/min/1.73 sqM); Anion Gap 4 mmol/L; Blood Urea Nitrogen 11 mg/dL (9-20); Calcium 9.2 mg/dL (8.4-10.2); Carbon Dioxide 31 mmol/L (22-30); Chloride 92 mmol/L (98-107); Glucose 116 mg/dL (74-99); Non-African American GFR(CKD) >90 (>60 ml/min/1.73 sqM); Sodium 127 mmol/L (137-145)
--- NOTE | 2024-06-09 07:28 | XR ---
EXAMINATION TYPE: XR chest 1V portable DATE OF EXAM: 06/09/2024 7:12 AM COMPARISON: Chest radiograph. CLINICAL INDICATION: Male, 59 years old with history of post pigtail placement; [facility] TECHNIQUE: XR chest 1V portable Frontal view of the chest. FINDINGS: Lungs/Pleura: Small amount pleural effusion with airspace opacities in the left lung base and the rig ht upper lung. Small right pneumothorax No left-sided pneumothorax or pleural effusion. Pulmonary vascularity: Unremarkable. Heart/mediastinum: Cardiomediastinal silhouette is unremarkable. Musculoskeletal: No acute osseous pathology. Other findings: None Lines/Tubes: Right thoracotomy tube is present with small right pneumothorax. IMPRESSION: Small moderate pleural effusion with associated pneumothorax. [facility], , 06/09/2024 7:26 AM
--- NOTE | 2024-06-09 09:32 | P.PN ---
Subjective Progress Note Date: 06/09/24 Principal diagnosis: Recurrent right pleural effusion, status post thoracentesis x 2. Previuos medical history of pulmonary embolus in December 2022 currently on Coumadin for anticoagulation, recent right pleural effusion on 05/20/24 status post thoracentesis with removal of 1.8 L of fluid cytology negative for malignancy, chronic obstructive pulmonary disease, hypertension, hyperlipidemia, benign prostatic hypertrophy, deep vein thrombosis, diabetes mellitus type 2, peripheral vascular disease with history of aortobifem bypass in March 2024 at [facility], chronic nonhealing wound to his right lower leg, chronic tobacco dependence with cessation in March 2024, and marijuana use. The patient was seen and examined sitting up in the bedside on the cardiac s tepdown unit in no acute distress. Right-sided pigtail present, alteplase/dornase were instilled yesterday for the first dose, patient reports that this is his third atrium, total 4 L fluid removal since pigtail catheter placed, current atrium has 350 mL bloody fluid present, no reported drainage s karla 7 PM yesterday. Patient remains on 2 L nasal cannula with oxygen saturation in the mid 90s, remains in sinus rhythm and hemodynamically stable. Labs, chest x-ray reviewed. Plan was reviewed yesterday with the patient, will instill second dose of lytics today. Objective - Vital Signs Vital signs: Vital Signs Temp 97.5 F L 06/09/24 08:00 Pulse 84 06/09/24 08:53 Resp 18 06/09/24 08:53 BP 103/66 06/09/24 08:00 Pulse Ox 95 06/09/24 08:00 FiO2 Intake & Output 06/08/24 06/09/24 06/09/24 18:59 06:59 18:59 Intake Total 710 717 Output Total 4390 725 225 Balance -3680 -8 -225 Weight 76.5 kg Intake: Oral 710 717 Output: Chest Tube Drainage 4090 0 Chest Tube Right 4090 0 Posterior Chest Urine 300 725 225 Other: Voiding Method Toilet Toilet # Voids 1 - Exam CONSTITUTIONAL: Appears comfortable, cooperative, no acute distress RESPIRATORY: Lungs sounds very diminished bilaterally. Respirations even, nonlabored. Currently on 2 L nasal cannula with oxygen saturation 94% CARDIOVASCULAR: S1, S2 present. Regular rate and rhythm, sinus rhythm on telemetry. Palpable peripheral pulses bilaterally. No edema present GASTROINTESTINAL: Abdomen soft, nontender, nondistended. Active bowel sounds present 4 quadrants. Tolerating diet GENITOURINARY: Continues to void INTEGUMENTARY: Skin is warm and dry NEUROLOGIC: Cranial nerves II through XII intact MUSKULOSKELETAL: Able to move all extremities, strength equal bilaterally, gait normal PSYCHIATRIC: Alert and oriented to person place and time, appropriate affect, intact judgment and insight INVASIVE LINES AND TUBES: Right pigtail catheter present to continuous wall suction, no documented drainage overnight, currently 350 mL bloody drainage in atrium, reportedly this is his third atrium with a total of 4 L removal since placement - Allied health notes Allied health notes reviewed: nursing - Labs CBC & Chem 7: 06/09/24 06:21 06/09/24 06:21 Labs: Abnormal Lab Results - Last 24 Hours (Table) 06/08/24 06/08/24 06/08/24 Range/Units 08:56 08:56 11:30 Lymphocytes # 0.9 L (1.0-4.8) k/uL Sodium 129 L (137-145) mmol/L Chloride 90 L (98-107) mmol/L Carbon Dioxide 34 H (22-30) mmol/L Creatinine 0.64 L (0.66-1.25) mg/dL Glucose 116 H (74-99) mg/dL POC Glucose (mg/dL) 121 H (70-110) mg/dL Alkaline Phosphatase 169 H (38-126) U/L Total Protein 6.0 L (6.3-8.2) g/dL Albumin 3.1 L (3.5-5.0) g/dL 06/08/24 06/09/24 06/09/24 Range/Units 16:34 05:55 06:21 Lymphocytes # 0.8 L (1.0-4.8) k/uL Sodium (137-145) mmol/L Chloride (98-107) mmol/L Carbon Dioxide (22-30) mmol/L Creatinine (0.66-1.25) mg/dL Glucose (74-99) mg/dL POC Glucose (mg/dL) 125 H 118 H (70-110) mg/dL Alkaline Phosphatase (38-126) U/L Total Protein (6.3-8.2) g/dL Albumin (3.5-5.0) g/dL 06/09/24 Range/Units 06:21 Lymphocytes # (1.0-4.8) k/uL Sodium 127 L (137-145) mmol/L Chloride 92 L (98-107) mmol/L Carbon Dioxide 31 H (22-30) mmol/L Creatinine (0.66-1.25) mg/dL Glucose 116 H (74-99) mg/dL POC Glucose (mg/dL) (70-110) mg/dL Alkaline Phosphatase (38-126) U/L Total Protein (6.3-8.2) g/dL Albumin (3.5-5.0) g/dL Microbiology - Last 24 Hours (Table) 06/08/24 18:01 Gram Stain - Preliminary Sputum - Imaging and Cardiology Chest x-ray: report reviewed, image reviewed Assessment and Plan Assessment: Recurrent right pleural effusion, status post thoracentesis x 2, status post placement of right sided pigtail catheter by interventional radiology Acute hypoxic respiratory failure, secondary to above History of pulmonary embolus in December 2022 currently on Coumadin for anticoagulation, Recent right pleural effusion on 05/20/24 status post thoracentesis with removal of 1.8 L of fluid cytology negative for malignancy Chronic tobacco dependence with cessation in March 2024 Marijuana use Chronic obstructive pulmonary disease Hypertension Hyperlipidemia Benign prostatic hypertrophy Deep vein thrombosis Diabetes mellitus type 2 Peripheral vascular disease with history of aortobifem bypass in March 2024 at [facility] Chronic nonhealing wound to his right lower leg Plan: Will instill second dose of lytics today, monitor drainage Wean oxygen as tolerated, continue to encourage use of incentive spirometry 10 times every hour while awake. Increase activity as tolerated Reinforced the importance of continued smoking cessation Medical management of other comorbidities per primary care and pulmonary medicine services. More recommendations to follow based on patient clinical course.
[2024-06-09] MEDS: DORNASE ALFA 5 MG in SODIUM CHLORIDE 0.9% 50 ML IRRIGATION ONE (10:30)
[2024-06-09] MEDS: ALTEPLASE 10 MG in SODIUM CHLORIDE 0.9% 50 ML IRRIGATION ONE (10:30)
[2024-06-09 11:26] LABS: Glucose,Whole Blood 125 mg/dL (70-110)
[2024-06-09 16:26] LABS: Glucose,Whole Blood 111 mg/dL (70-110)
[2024-06-09 20:30] LABS: Glucose,Whole Blood 152 mg/dL (70-110)
--- NOTE | 2024-06-10 05:44 | P.PN ---
Subjective Progress Note Date: 06/09/24 This is a 59 [place] old male medical history of hypertension, hyperlipidemia, DVT, peripheral vascular disease, type 2 diabetes mellitus, complex large right sided pleural effusion possible malignant. Patient is current smoker, reports marijuana use. Patient initially presents to [facility] on 06/03/2024 with shortness of breath after being discharged back on 05/24/24. Patient had chest CT done prior admission that revealed a complex right sided pleural effusion concern for malignancy and it was recommended at that time to transfer to [facility] for CT surgery consultation and possible VATs procedure. He had an initial thoracentesis about 1 week ago with 1.8 L of blood fluid removed. Patient was ultimately discharged home and given information to follow up with CT surgery in the office however had not followed up on discharge. The cytology from his first thoracentesis did not reveal malignancy. He came back in for increasing shortness of breath with repeat chest xray showing cardiomegaly with pulmonary vascular congestion worsening and with complete opacification of the right hemithorax with leftward mediastinal shift likely related to the enlarging pleural effusion and compressive atelectasis. Patient underwent right sided thoracentesis with pulmonary services on 06/03/2024 had 7L of bloody fluid removed. Cytology is currently pending from the second thoracentesis. His repeat chest xray from 06/04/2024 reveals vascular congestion in the right upper lobe moderate to large layering pleural effusion. He has required increased oxygen demands requiring high flow cannula. Patient has not been febrile since admission to [facility]. He does take warfarin outpatient for the history of DVT and most recent blood work reveals an INR of 1.38. Viral panel negative. Recommended for transfer to [facility] from [facility] for CT surgery consultation and possible VATS procedure. Patient was evaluated in person only at [facility] today 06/05/2024. He is now admitted to the cardic unit at [facility] and pending follow up evaluations. 06/06/2024 Patient is seen in follow-up today awaiting to be evaluated by CT surgery surgeon for possible VATS procedure. Pulmonary following as well regarding pleural effusion. Cytology pending from previous thoracentesis. Patient continues on 5 L via nasal cannula and reports does not wear oxygen outpatient. Patient reports this has been ongoing since recent cardiac intervention in March. Patient reports the surgery was done in [facility] in [place] and is refusing to go back. Patient lives out in [place] and follows with Dr. Coronel in the outpatient setting. Patient is afebrile with no reports of chest pain or palpitations. Will await CT surgery report and input and recommendations. 06/07/2024 Patient is seen in follow-up today has been evaluated by CT surgery awaiting further recommendations from the surgeon with pulmonary following. Patient continues with right side pleural effusion and discussing possible VATS procedure. Patient is maintained on 5 to 6 L and reports shortness of breath with minimal exertion. Patient reports he has no weakness and plans on returning home once discharged. Patient to continue weaning FiO2 as tolerated as patient does not wear any oxygen outpatient. Sodium 128 and recommend fluid restrictions. Will follow-up on repeat labs. Encouraged increase activity as tolerated. 06/08/2024 Patient is seen in follow-up with pulmonary and CT surgery following. Patient is scheduled to undergo pigtail catheter of the right pleural effusion today and is currently NPO. Pulmonary Dr. Garcia plans on thorascopic evaluation and biopsy tentatively scheduled for , 06/10/2024. Patient is continued on 4 to 5 L via nasal cannula reports shortness of breath but no worsening. Patient denies chest pain or palpitations at this time. 06/09/2024 Patient is seen in follow-up today with no acute overnight issues noted. Esperanza tobin has received a pigtail catheter on the right and will undergo VATS procedure tentatively on . Patient is afebrile continued on O2 and weaning as tolerated with no reports of chest pain or palpitations. Patient tolerating diet with no reported nausea or vomiting. Sodium on the lower side at 127 and will continue fluid restrictions and follow-up on repeat labs. Recommend incentive spirometer use and education on proper use at least 10 times every hour while awake. Review of systems: Constitutional: No reports of fatigue, fever, or chills Cardiovascular: No reports of chest pain or palpitations Respiratory: reports of shortness of breath with minimal exertion, feels slightly improved GI: No reports of nausea, vomiting, or diarrhea : No reports of dysuria or retention Neurovascular: No reports of generalized weakness PHYSICAL EXAMINATION: GENERAL: The patient is alert and oriented x3, not in any acute distress. Well developed, unkempt, appears older than stated age HEENT: Pupils are round and equally reacting to light. EOMI. No scleral icterus. No conjunctival pallor. Normocephalic, atraumatic. No pharyngeal erythema. No thyromegaly. CARDIOVASCULAR: S1 and S2 muffled PULMONARY: Diminished breath sounds bilaterally with some scattered rhonchi noted. No accessory muscle use noted. ABDOMEN: Soft, nontender, nondistended, normoactive bowel sounds. No palpable organomegaly. MUSCULOSKELETAL: No joint swelling or deformity. EXTREMITIES: No cyanosis, clubbing, or pedal edema. NEUROLOGICAL: Gross neurological examination did not reveal any focal deficits. Diffusely weak SKIN: No rashes. Assessment: Recurrent Right pleural effusion with mediastinal shift status post thoracentesis with 7L of blood fluid removed at [facility], cytology pending, status post right side Pleurx catheter placement, 06/08/2024 Acute hypoxemic respiratory failure secondary to above Right ankle diabetic ulcer under the care of Dr Perez, present on admission Hypertension Hyperlipidemia Diabetes Mellitus type 2 Hx of DVT on warfarin on outpatient basis Subtherapeutic INR Chronic nicotine use Marijuana use Hx of aortobifem bypass with Dr Perez in the past GI prophylaxis: Pepcid DVT prophylaxis: Subcutaneous heparin Plan: CT surgery to evaluate for possible VATS procedure, had Pleurx catheter placement of the right pleural effusion 06/08/[address] Garcia following and recommending thorascopic intervention with biopsy. Patient continues on 4-5 L and does not wear any oxygen outpatient. Wean FiO2 as tolerated Recommend incentive spirometer use at least 10 times every hour while awake Cytology pending from most recent thoracentesis on 06/03/2024 Continue [facility] Hold warfarin at this time, patient continued on subcutaneous heparin Wound care with medihoney gel and gauze to the right ankle and change daily per Dr Barlow orders from [facility] follow up wound care on discharge Repeat BMP in the AM Due to multiple complex medical issues, overall prognosis is guarded The impression and plan of care has been dictated by Anastasia Szymanski, Nurse Practitioner as directed. Dr. Miguel MD I have performed a history and physical examination and medical decision making of this patient, discussed the same with the dictator, and agree with the dictators assessment and plan as written, documented as a scribe. Based on total visit time, I have performed more than 50% of this visit. Objective - Vital Signs Vital signs: Vital Signs Temp 97.7 F 06/09/24 11:24 Pulse 93 06/09/24 11:24 Resp 17 06/09/24 11:24 BP 93/56 06/09/24 11:24 Pulse Ox 100 06/09/24 11:24 FiO2 Intake & Output 06/08/24 06/09/24 06/09/24 18:59 06:59 18:59 Intake Total 710 717 Output Total 4390 725 225 Balance -3680 -8 -225 Weight 76.5 kg Intake: Oral 710 717 Output: Chest Tube Drainage 4090 0 0 Chest Tube Right 4090 0 0 Posterior Chest Urine 300 725 225 Other: Voiding Method Toilet Toilet # Voids 1 - Labs CBC & Chem 7: 06/09/24 06:21 06/09/24 06:21 Labs: Abnormal Lab Results - Last 24 Hours (Table) 06/08/24 06/08/24 06/09/24 Range/Units 11:30 16:34 05:55 Lymphocytes # (1.0-4.8) k/uL Sodium (137-145) mmol/L Chloride (98-107) mmol/L Carbon Dioxide (22-30) mmol/L Glucose (74-99) mg/dL POC Glucose (mg/dL) 121 H 125 H 118 H (70-110) mg/dL 06/09/24 06/09/24 06/09/24 Range/Units 06:21 06:21 11:25 Lymphocytes # 0.8 L (1.0-4.8) k/uL Sodium 127 L (137-145) mmol/L Chloride 92 L (98-107) mmol/L Carbon Dioxide 31 H (22-30) mmol/L Glucose 116 H (74-99) mg/dL POC Glucose (mg/dL) 125 H (70-110) mg/dL Microbiology - Last 24 Hours (Table) 06/08/24 18:01 Gram Stain - Preliminary Sputum
[2024-06-10 06:00] LABS: Glucose,Whole Blood 106 mg/dL (70-110)
[2024-06-10 06:39] LABS: African American GFR (CKD) >90 (>60 ml/min/1.73 sqM); Anion Gap 3 mmol/L; Blood Urea Nitrogen 13 mg/dL (9-20); Calcium 9.2 mg/dL (8.4-10.2); Carbon Dioxide 32 mmol/L (22-30); Chloride 94 mmol/L (98-107); Glucose 105 mg/dL (74-99); Non-African American GFR(CKD) >90 (>60 ml/min/1.73 sqM); Potassium 4.6 mmol/L (3.5-5.1); Sodium 129 mmol/L (137-145)
[2024-06-10] MEDS: HYDROcodone/APAP 5-325MG 1 EACH TAB PO PRN (08:17)
--- NOTE | 2024-06-10 08:38 | P.PN ---
Subjective Progress Note Date: 06/10/24 Principal diagnosis: Recurrent right pleural effusion, status post thoracentesis x 2. Previuos medical history of pulmonary embolus in December 2022 currently on Coumadin for anticoagulation, recent right pleural effusion on 05/20/24 status post thoracentesis with removal of 1.8 L of fluid cytology negative for malignancy, chronic obstructive pulmonary disease, hypertension, hyperlipidemia, benign prostatic hypertrophy, deep vein thrombosis, diabetes mellitus type 2, peripheral vascular disease with history of aortobifem bypass in March 2024 at [facility], chronic nonhealing wound to his right lower leg, chronic tobacco dependence with cessation in March 2024, and marijuana use. The patient was seen and examined with Dr. Mcgregor sitting up in the bedside on the cardiac stepdown unit in no acute distress. Right-sided pigtail present, alteplase/dornase were instilled yesterday for the second dose with no output, suspect pigtail catheter is outside the chest cavity. Will obtain lateral chest x-ray. If pigtail catheter is not the right place we will remove the pigtail catheter. Dr. Mcgregor discussed with the patient options for treatment including surgery with pleurodesis versus watch and wait. Patient is refusing surgery at this time as he has social issues, just found out he is being evicted from his house and does not want surgery as he needs to leave and take care of his housing situation. Dr. Mcgregor did let patient know that he can follow-up with us in a couple of weeks, if fluid has returned can discuss surgery at that time, if lung has expanded and no fluid is returned continue to watch and wait. This is acceptable to the patient. Objective - Vital Signs Vital signs: Vital Signs Temp 97.0 F L 06/10/24 08:00 Pulse 101 H 06/10/24 08:00 Resp 16 06/10/24 08:00 BP 110/73 06/10/24 08:00 Pulse Ox 93 L 06/10/24 08:00 FiO2 Intake & Output 06/09/24 06/10/24 06/10/24 18:59 06:59 18:59 Intake Total 480 240 Output Total 530 Balance -50 240 Weight 76.2 kg Intake: Oral 480 240 Output: Chest Tube Drainage 30 Chest Tube Right 30 Posterior Chest Urine 500 Other: Voiding Method Toilet Toilet Urinal Urinal # Voids 2 - Exam CONSTITUTIONAL: Appears comfortable, cooperative, no acute distress RESPIRATORY: Lungs sounds very diminished bilaterally. Respirations even, nonlabored. Currently on 2 L nasal cannula with oxygen saturation 93% CARDIOVASCULAR: S1, S2 present. Regular rate and rhythm, sinus rhythm on telemetry. Palpable peripheral pulses bilaterally. No edema present GASTROINTESTINAL: Abdomen soft, nontender, nondistended. Active bowel sounds present 4 quadrants. Tolerating diet GENITOURINARY: Continues to void INTEGUMENTARY: Skin is warm and dry NEUROLOGIC: Cranial nerves II through XII intact MUSKULOSKELETAL: Able to move all extremities, strength equal bilaterally, gait normal PSYCHIATRIC: Alert and oriented to person place and time, appropriate affect, intact judgment and insight INVASIVE LINES AND TUBES: Right pigtail catheter present to continuous wall suction, no further drainage, no airleak present - Allied health notes Allied health notes reviewed: nursing - Labs CBC & Chem 7: 06/09/24 06:21 06/10/24 05:52 Labs: Abnormal Lab Results - Last 24 Hours (Table) 06/09/24 06/09/24 06/09/24 Range/Units 11:25 16:24 20:28 Sodium (137-145) mmol/L Chloride (98-107) mmol/L Carbon Dioxide (22-30) mmol/L Glucose (74-99) mg/dL POC Glucose (mg/dL) 125 H 111 H 152 H (70-110) mg/dL 06/10/24 Range/Units 05:52 Sodium 129 L (137-145) mmol/L Chloride 94 L (98-107) mmol/L Carbon Dioxide 32 H (22-30) mmol/L Glucose 105 H (74-99) mg/dL POC Glucose (mg/dL) (70-110) mg/dL Microbiology - Last 24 Hours (Table) 06/08/24 18:01 Gram Stain - Preliminary Sputum - Imaging and Cardiology Chest x-ray: report reviewed, image reviewed Assessment and Plan Assessment: Recurrent right pleural effusion, status post thoracentesis x 2, status post placement of right sided pigtail catheter by interventional radiology Acute hypoxic respiratory failure, secondary to above History of pulmonary embolus in December 2022 currently on Coumadin for anticoagulation, Recent right pleural effusion on 05/20/24 status post thoracentesis with removal of 1.8 L of fluid cytology negative for malignancy Chronic tobacco dependence with cessation in March 2024 Marijuana use Chronic obstructive pulmonary disease Hypertension Hyperlipidemia Benign prostatic hypertrophy Deep vein thrombosis Diabetes mellitus type 2 Peripheral vascular disease with history of aortobifem bypass in March 2024 at [facility] Chronic nonhealing wound to his right lower leg Plan: Lateral chest x-ray ordered, if pigtail catheter is outside the chest cavity as we suspect will discontinue pigtail catheter Wean oxygen as tolerated, continue to encourage use of incentive spirometry 10 times every hour while awake. Increase activity as tolerated Reinforced the importance of continued smoking cessation Medical management of other comorbidities per primary care and pulmonary medicine services As patient is refusing surgery at this time due to social issues patient may follow-up with us in the clinic in 2 weeks More recommendations to follow based on patient clinical course.
--- NOTE | 2024-06-10 08:43 | XR ---
EXAMINATION TYPE: XR chest 2V DATE OF EXAM: 06/10/2024 8:39 AM COMPARISON: Chest x-ray earlier today CLINICAL INDICATION: Male, 59 years old with history of chest tube placement, TECHNIQUE: Frontal and lateral views of the chest are obtained. FINDINGS: Persistent moderate-sized right sided hydropneumothorax with right basilar pleural pigtail drainage catheter. Persistent right lower lung increased opacity. Left lung remains clear. The cardi ac silhouette size is within normal limits. The osseous structures are intact. IMPRESSION: Stable moderate-sized right-sided hydropneumothorax with associated right lower lung opac ity favoring compressive atelectasis and right basilar pleural drainage catheter. [facility], , 06/10/2024 8:41 AM
--- NOTE | 2024-06-10 08:45 | XR ---
EXAMINATION TYPE: XR chest 1V portable DATE OF EXAM: 06/10/2024 CLINICAL HISTORY: Difficulty breathing progress study. Right-sided pleural effusion TECHNIQUE: Single AP portable upright view of the chest is obtained. COMPARISON: Chest x-ray from one day earlier FINDINGS: Moderate to large sized right-sided hydropneumothorax remains present with right basilar p leural pigtail drainage catheter. Associated right basilar opacity favors compressive atelectasis. Pa tchy left basilar opacity favors atelectasis. Cardiac silhouette size stable and within normal limits . Osseous structures are intact. Overlying EKG leads are redemonstrated. IMPRESSION: Persistent moderate to large sized right-sided hydropneumothorax. No significant change f rom one day earlier. [facility], , 06/10/2024 8:42 AM
[2024-06-10 11:53] LABS: Glucose,Whole Blood 121 mg/dL (70-110)
[2024-06-10] MEDS: KETOROLAC 15 MG/ML 1 ML VIAL IVP STA (12:56)
[2024-06-10] MEDS: LIDOCAINE 1%-EPI 1:100,000 20 ML VIAL SQ STA (13:16)
--- NOTE | 2024-06-10 13:42 | XR ---
EXAMINATION TYPE: XR chest 1V portable DATE OF EXAM: 06/10/2024 CLINICAL HISTORY: Status post chest tube placement. TECHNIQUE: Single AP portable upright view of the chest is obtained. COMPARISON: Chest x-ray from earlier today and older studies FINDINGS: Improved right sided hydropneumothorax after larger chest tube extending into the right jill ng apex. Persistent right mid to lower lung increased opacity. Left lung is clear. Mild cardiomegaly is noted. Osseous structures are intact. IMPRESSION: Improved right-sided hydropneumothorax after larger caliber apical chest tube placement. Persistent right mid to lower lung acute infiltrate and/or atelectasis noted. [facility], , 06/10/2024 1:40 PM
--- NOTE | 2024-06-10 13:51 | P.PCN ---
Date of Procedure: 06/10/24 Preoperative Diagnosis: Recurrent hydropneumothorax Postoperative Diagnosis: Same Procedure(s) Performed: Right tube thoracostomy Implants: 28 Congolese anterior lateral chest tube Anesthesia: local Surgeon: Alex Mcgregor Estimated Blood Loss (ml): 0 Pathology: none sent Condition: stable Disposition: floor Indications for Procedure: Recurrent hydropneumothorax Operative Findings: Good placement of chest tube with appropriate fluid and air return with good reexpansion coughing response. Description of Procedure: After consent was obtained, the patient was laid in bed semirecumbent and given a dose of Toradol for pain as he refused any narcotic pain medication. After a timeout was observed whereby the patient procedure and side were all confirmed, we proceeded to infiltrate the area with 1% lidocaine with epinephrine. We tested the patient to assure he had no remaining sharp sensation and then made a 1 cm incision with an 11 blade knife. We then placed a 0 Ethibond suture in a U-stitch fashion and through that U-stitch used a pair of curved scissors to make a tunnel over the seventh rib anterior laterally. We then used a 28 Congolese trocar cath with the trocar bent and used as a guide to access the chest cavity and then we fed the tube over the stylette using it as a guide. Once it was in the appropriate depth, we fixed in place with the 0 Ethibond suture previously mentioned and attach it to a Pleur-evac container. He immediately drained 750 cc of straw-colored fluid and had an appropriate reexpansion cough. We then dressed it in standard fashion. X-ray results were pending at the time of completion.
--- NOTE | 2024-06-10 14:46 | P.PN ---
Subjective Progress Note Date: 06/10/24 Principal diagnosis: Large right-sided pleural effusion recurrent of unknown etiology Acute hypoxic respiratory failure Peripheral arterial disease Advanced COPD and emphysema Extensive history of smoking and nicotine use Severe degree of peripheral arterial disease History of deep venous thrombosis June 10, 2024 patient seen eval examined during rounds labs reviewed m edications and care plan discussed, the x-ray showed large hydropneumothorax patient underwent 28 Lebanese chest tube placement patient is scheduled for VATS procedure and pleural biopsy tomorrow currently almost 2 L of came out along with airleak, sodium is 129 BUN/creatinine within normal limit, postprocedure chest x-ray reviewed well-expanded lung with minimal residual pneumothorax on the apex June 08, 2024, patient continued to be short of breath on minimal activity and exertion, however denies any chest pain some heaviness on the right side is present, patient is afebrile oxygen saturation 92% 6 L unable to wean oxygen less than 6 L nasal cannula last chest x-ray done yesterday continue to show moderate to large size right-sided pleural effusion with basilar atelectasis left-sided basilar atelectatic change also seen patient to continue on deep breathing exercise incentive spirometry cardiothoracic surgery is evaluating for consideration of VATS, labs not done today yesterday sodium was 128 potassium 4.8 renal functions within normal limit sugar is mid 100 range incision that she had for vascular bypass surgery for the lower extremity remains stable June 07, 2024, patient seen eval examined during rounds labs reviewed medication care plan discussed, respiratory status still marginal ongoing shortness of breath present but severity has improved oxygen is being titrated tapered down progressively 59-year-old male seen evaluate examined patient transferred from [facility] for more definitive intervention for right pleural effusion. For after 6 L cannot be weaned down further saturation 96% hemodynamic status stable Lab data sodium is 128 potassium 4.8, CO2 is 91, BUN/creatinine 20/0.73 Patient has a longstanding history of smoking and nicotine use as well as COPD. Patient was hospitalized on June 03 and May 24 for shortness of breath and massive large size of pleural effusion. Patient has right-sided thoracentesis and 1.8 L of pleural fluid removed cytology and cultures were negative biochemistry consistent with exudative effusion. Patient was discharged with recommended to follow-up with thoracic surgery. Patient came back again on June 03 with increasing shortness of breath at this time he had about 7 L removed with similar finding a result has still have residual pleural effusion on the right side. Patient transferred from [facility] to [facility] for advanced level of care with consultation with thoracic surgery for possible right VATS and diagnostic pleural biopsy. Patient takes Coumadin for deep venous thrombosis history and peripheral arterial disease. Patient has extensive history of smoking and nicotine use, smoked about [id number]. Patient has been on 15 L high flow oxygen at [facility] now has been tapered down to 8 L now subsequently 6 L saturation 97%. Labs include white cell count 7.6, hemoglobin hematocrit is 14/45 platelet count of 308 sodium 128 potassium 5.2 BUN/creatinine is 18/0.65. Chest x-ray moderate right-sided left lobe pleural effusion with basilar atelectasis Past medical history significant for hypertension hypertensive cardiovascular disease dyslipidemia, distal deep venous thrombosis, peripheral vascular disease, type 2 diabetes mellitus hyperglycemia recurrent right-sided pleural effusion exudative with negative cytology and culture, recent femoropopliteal bilateral bypass surgery at [facility] June 08, 2024 Objective - Vital Signs Vital signs: Vital Signs Temp 98.4 F 06/10/24 11:41 Pulse 86 06/10/24 13:46 Resp 16 06/10/24 13:46 BP 95/66 06/10/24 11:41 Pulse Ox 92 L 06/10/24 11:41 FiO2 Intake & Output 06/09/24 06/10/24 06/10/24 18:59 06:59 18:59 Intake Total 480 240 Output Total 530 Balance -50 240 Weight 76.2 kg Intake: Oral 480 240 Output: Chest Tube Drainage 30 Chest Tube Right 30 Posterior Chest Urine 500 Other: Voiding Method Toilet Toilet Toilet Urinal Urinal Urinal # Voids 2 - Exam - Constitutional General appearance: average body habitus, cooperative, disheveled, mild distress, thin - EENT Eyes: EOMI, PERRLA ENT: normal oropharynx Ears: bilateral: normal - Neck Neck: normal ROM Carotids: bilateral: upstroke normal Thyroid: bilateral: normal size - Respiratory Respiratory: right: diminished, left: CTA - Cardiovascular Rhythm: regular Heart sounds: normal: S1, S2 - Gastrointestinal General gastrointestinal: normal bowel sounds, soft - Integumentary Integumentary: normal turgor - Neurologic Neurologic: CNII-XII intact - Musculoskeletal Musculoskeletal: gait normal, generalized weakness, strength equal bilaterally, left sided weakness - Labs CBC & Chem 7: 06/09/24 06:21 06/10/24 05:52 Labs: Abnormal Lab Results - Last 24 Hours (Table) 06/09/24 06/09/24 06/10/24 Range/Units 16:24 20:28 05:52 Sodium 129 L (137-145) mmol/L Chloride 94 L (98-107) mmol/L Carbon Dioxide 32 H (22-30) mmol/L Glucose 105 H (74-99) mg/dL POC Glucose (mg/dL) 111 H 152 H (70-110) mg/dL 06/10/24 Range/Units 11:52 Sodium (137-145) mmol/L Chloride (98-107) mmol/L Carbon Dioxide (22-30) mmol/L Glucose (74-99) mg/dL POC Glucose (mg/dL) 121 H (70-110) mg/dL Microbiology - Last 24 Hours (Table) 06/08/24 18:01 Gram Stain - Preliminary Sputum Sputum Culture - Preliminary Assessment and Plan Assessment: Hydropneumothorax on the right side with persistent airleak Large right-sided pleural effusion recurrent of unknown etiology Acute hypoxic respiratory failure Peripheral arterial disease Chronic hyponatremia Advanced COPD and emphysema Extensive history of smoking and nicotine use Severe degree of peripheral arterial disease History of deep venous thrombosis Plan: Patient being followed by cardiothoracic surgery for right-sided VATS procedure pleural biopsy, Time with Patient: Greater than 30
[2024-06-10 16:28] LABS: Glucose,Whole Blood 158 mg/dL (70-110)
[2024-06-10] MEDS: ACETAMINOPHEN TAB 325 MG TAB PO PRN (19:57)
[2024-06-10 20:00] LABS: Glucose,Whole Blood 100 mg/dL (70-110)
[2024-06-11] MEDS ORDERED: HYDROcodone/APAP 5-325MG 1 EACH TAB PO PRN (04:58)
--- NOTE | 2024-06-11 05:57 | P.PN ---
Subjective Progress Note Date: 06/10/24 This is a 59 evangel[place] old male medical history of hypertension, hyperlipidemia, DVT, peripheral vascular disease, type 2 diabetes mellitus, complex large right sided pleural effusion possible malignant. Patient is current smoker, reports marijuana use. Patient initially presents to [facility] on 06/03/2024 with shortness of breath after being discharged back on 05/24/24. Patient had chest CT done prior admission that revealed a complex right sided pleural effusion concern for malignancy and it was recommended at that time to transfer to [facility] for CT surgery consultation and possible VATs procedure. He had an initial thoracentesis about 1 week ago with 1.8 L of blood fluid removed. Patient was ultimately discharged home and given information to follow up with CT surgery in the office however had not followed up on discharge. The cytology from his first thoracentesis did not reveal malignancy. He came back in for increasing shortness of breath with repeat chest xray showing cardiomegaly with pulmonary vascular congestion worsening and with complete opacification of the right hemithorax with leftward mediastinal shift likely related to the enlarging pleural effusion and compressive atelectasis. Patient underwent right sided thoracentesis with pulmonary services on 06/03/2024 had 7L of bloody fluid removed. Cytology is currently pending from the second thoracentesis. His repeat chest xray from 06/04/2024 reveals vascular congestion in the right upper lobe moderate to large layering pleural effusion. He has required increased oxygen demands requiring high flow cannula. Patient has not been febrile since admission to [facility]. He does take warfarin outpatient for the history of DVT and most recent blood work reveals an INR of 1.38. Viral panel negative. Recommended for transfer to [facility] from [facility] for CT surgery consultation and possible VATS procedure. Patient was evaluated in person only at [facility] today 06/05/2024. He is now admitted to the cardic unit at [facility] and pending follow up evaluations. 06/06/2024 Patient is seen in follow-up today awaiting to be evaluated by CT surgery surgeon for possible VATS procedure. Pulmonary following as well regarding pleural effusion. Cytology pending from previous thoracentesis. Patient continues on 5 L via nasal cannula and reports does not wear oxygen outpatient. Patient reports this has been ongoing since recent cardiac intervention in March. Patient reports the surgery was done in [facility] in [place] and is refusing to go back. Patient lives out in [place] and follows with Dr. Coronel in the outpatient setting. Patient is afebrile with no reports of chest pain or palpitations. Will await CT surgery report and input and recommendations. 06/07/2024 Patient is seen in follow-up today has been evaluated by CT surgery awaiting further recommendations from the surgeon with pulmonary following. Patient continues with right side pleural effusion and discussing possible VATS procedure. Patient is maintained on 5 to 6 L and reports shortness of breath with minimal exertion. Patient reports he has no weakness and plans on returning home once discharged. Patient to continue weaning FiO2 as tolerated as patient does not wear any oxygen outpatient. Sodium 128 and recommend fluid restrictions. Will follow-up on repeat labs. Encouraged increase activity as tolerated. 06/08/2024 Patient is seen in follow-up with pulmonary and CT surgery following. Patient is scheduled to undergo pigtail catheter of the right pleural effusion today and is currently NPO. Pulmonary Dr. Garcia plans on thorascopic evaluation and biopsy tentatively scheduled for , 06/10/2024. Patient is continued on 4 to 5 L via nasal cannula reports shortness of breath but no worsening. Patient denies chest pain or palpitations at this time. 06/09/2024 Patient is seen in follow-up today with no acute overnight issues noted. Esperanza tobin has received a pigtail catheter on the right and will undergo VATS procedure tentatively on . Patient is afebrile continued on O2 and weaning as tolerated with no reports of chest pain or palpitations. Patient tolerating diet with no reported nausea or vomiting. Sodium on the lower side at 127 and will continue fluid restrictions and follow-up on repeat labs. Recommend incentive spirometer use and education on proper use at least 10 times every hour while awake. 06/10/2024 Patient is seen in follow-up today with vascular surgery and pulmonary following. Apparently patient did have a pigtail catheter which became dislodged and CT surgery to place another 1 in the right. Tentative VATS procedure on 06/11/2024. Patient continues to report shortness of breath and feels his lungs are filling right back up, maintained on oxygen with no reports of chest pain or palpitations. Patient is eliciting some pain at the site and will adjust medications accordingly. Patient is afebrile at this time. Review of systems: Constitutional: No reports of fatigue, fever, or chills Cardiovascular: No reports of chest pain or palpitations Respiratory: reports of shortness of breath with minimal exertion, feels slightly improved GI: No reports of nausea, vomiting, or diarrhea : No reports of dysuria or retention Neurovascular: No reports of generalized weakness PHYSICAL EXAMINATION: GENERAL: The patient is alert and oriented x3, not in any acute distress. Well developed, unkempt, appears older than stated age HEENT: Pupils are round and equally reacting to light. EOMI. No scleral icterus. No conjunctival pallor. Normocephalic, atraumatic. No pharyngeal erythema. No th yromegaly. CARDIOVASCULAR: S1 and S2 muffled PULMONARY: Diminished breath sounds bilaterally with some scattered rhonchi noted. No accessory muscle use noted. ABDOMEN: Soft, nontender, nondistended, normoactive bowel sounds. No palpable organomegaly. MUSCULOSKELETAL: No joint swelling or deformity. EXTREMITIES: No cyanosis, clubbing, or pedal edema. NEUROLOGICAL: Gross neurological examination did not reveal any focal deficits. Diffusely weak SKIN: No rashes. Assessment: Recurrent Right pleural effusion with mediastinal shift status post thoracentesis with 7L of blood fluid removed at [facility], cytology pending, status post right side Pleurx catheter placement, 06/08/2024, not dislodged on 06/10/2024 and scheduled to receive another [address] surgery this afternoon. Acute hypoxemic respiratory failure secondary to above Right ankle diabetic ulcer under the care of Dr Perez, present on admission Hypertension Hyperlipidemia Diabetes Mellitus type 2 Hx of DVT on warfarin on outpatient basis Subtherapeutic INR Chronic nicotine use Marijuana use Hx of aortobifem bypass with Dr Perez in the past GI prophylaxis: Pepcid DVT prophylaxis: Subcutaneous heparin Plan: CT surgery to evaluate for possible VATS procedure, had Pleurx catheter placement of the right pleural effusion 06/08/2024, per patient it fell out and is scheduled to receive another Pleurx catheter and scheduled for VATS on 06/11/[address] Garcia following and recommending thorascopic intervention with b iopsy. Patient continues on 4-5 L and does not wear any oxygen outpatient. Wean FiO2 as tolerated Recommend incentive spirometer use at least 10 times every hour while awake Cytology pending from most recent thoracentesis on 06/03/2024 Continue updrafts Hold warfarin at this time, patient continued on subcutaneous heparin Wound care with medihoney gel and gauze to the right ankle and change daily per Dr Barlow orders from [facility] follow up wound care on discharge Repeat BMP in the AM Due to multiple complex medical issues, overall prognosis is guarded The impression and plan of care has been dictated by Anastasia Szymanski, Nurse Practitioner as directed. Dr. Miguel MD I have performed a history and physical examination and medical decision making of this patient, discussed the same with the dictator, and agree with the dictators assessment and plan as written, documented as a scribe. Based on total visit time, I have performed more than 50% of this visit. Objective - Vital Signs Vital signs: Vital Signs Temp 97.3 F L 06/11/24 03:11 Pulse 107 H 06/11/24 03:11 Resp 18 06/11/24 03:11 BP 90/65 06/11/24 03:11 Pulse Ox 96 06/11/24 03:11 FiO2 Intake & Output 06/10/24 06/10/24 06/11/24 06:59 18:59 06:59 Intake Total 1560 Output Total 1050 30 Balance 510 -30 Weight 76.2 kg Intake: Oral 1560 Output: Chest Tube Drainage 1050 30 Chest Tube Right 1050 30 Posterior Chest Other: Voiding Method Toilet Toilet Toilet Urinal Urinal Urinal # Voids 2 0 # Bowel Movements 1 - Labs CBC & Chem 7: 06/09/24 06:21 06/10/24 05:52 Labs: Abnormal Lab Results - Last 24 Hours (Table) 06/10/24 06/10/24 06/10/24 Range/Units 05:52 11:52 16:26 Sodium 129 L (137-145) mmol/L Chloride 94 L (98-107) mmol/L Carbon Dioxide 32 H (22-30) mmol/L Glucose 105 H (74-99) mg/dL POC Glucose (mg/dL) 121 H 158 H (70-110) mg/dL Microbiology - Last 24 Hours (Table) 06/08/24 18:01 Gram Stain - Preliminary Sputum Sputum Culture - Preliminary
[2024-06-11 06:18] LABS: Glucose,Whole Blood 133 mg/dL (70-110)
[2024-06-11 06:29] LABS: Basophils # (A) 0.1 k/uL (0-0.2); Basophils % (A) 0 %; Eosinophils # (A) 0.1 k/uL (0-0.7); Eosinophils % (A) 1 %; HCT 44.3 % (39.0-53.0); HGB 14.4 gm/dL (13.0-17.5); Lymphocytes % (A) 10 %; MCH 29.8 pg (25.0-35.0); MCHC 32.6 g/dL (31.0-37.0); MCV 91.5 fL (80.0-100.0); Mean Platelet Volume 7.7; Monocytes # (A) 0.5 k/uL (0-1.0); Monocytes % (A) 5 %; Neutrophils # (A) 8.6 k/uL (1.3-7.7); Neutrophils % (A) 83 %; Platelet Count 300 k/uL (150-450); RBC 4.84 m/uL (4.30-5.90); RDW 14.4 % (11.5-15.5); WBC 10.4 k/uL (3.8-10.6)
[2024-06-11 07:12] LABS: African American GFR (CKD) >90 (>60 ml/min/1.73 sqM); Anion Gap 6 mmol/L; Blood Urea Nitrogen 14 mg/dL (9-20); Calcium 9.1 mg/dL (8.4-10.2); Carbon Dioxide 29 mmol/L (22-30); Chloride 94 mmol/L (98-107); Glucose 111 mg/dL (74-99); Non-African American GFR(CKD) >90 (>60 ml/min/1.73 sqM); Potassium 4.4 mmol/L (3.5-5.1); Sodium 129 mmol/L (137-145)
--- NOTE | 2024-06-11 07:52 | XR ---
EXAMINATION TYPE: XR chest 1V portable DATE OF EXAM: 06/11/2024 7:10 AM COMPARISON: 06/10/2024 CLINICAL INDICATION: Male, 59 years old with history of post chest tube insertion, TECHNIQUE: XR chest 1V portable view(s) obtained. FINDINGS: The heart size is mildly prominent. The pulmonary vasculature is normal. There is infiltrate in the right lower lung field. Correlate for atelectasis or pneumonia. Small righ t-sided pleural effusion may be present. This appears to track along the lateral chest margin. Right- sided chest tube is present. No pneumothorax is evident. IMPRESSION: 1. Right-sided chest tube. No pneumothorax evident. 2. Small right pleural effusion. 3. Worsening right lower lobe infiltrate. Correlate for atelectasis or pneumonia. [facility], , 06/11/2024 7:50 AM
--- NOTE | 2024-06-11 09:24 | P.PN ---
Subjective Progress Note Date: 06/11/24 Principal diagnosis: Recurrent right pleural effusion, status post thoracentesis x 2. Previuos medical history of pulmonary embolus in December 2022 currently on Coumadin for anticoagulation, recent right pleural effusion on 05/20/24 status post thoracentesis with removal of 1.8 L of fluid cytology negative for malignancy, chronic obstructive pulmonary disease, hypertension, hyperlipidemia, benign prostatic hypertrophy, deep vein thrombosis, diabetes mellitus type 2, peripheral vascular disease with history of aortobifem bypass in March 2024 at [facility], chronic nonhealing wound to his right lower leg, chronic tobacco dependence with cessation in March 2024, and marijuana use. POD #1 placement of right thoracostomy tube The patient was seen and examined sitting up in the bedside on the cardiac stepdown unit in no acute distress. Right-sided thoracostomy tube present to continuous wall suction with intermittent small airleak, 1500 mL total fluid pr esent in atrium. Plan is for right sided video-assisted thoracoscopic surgery with mechanical and chemical pleurodesis by Dr. Mcgregor on Friday, June 14, 2024. This was discussed by Dr. Mcgregor with the patient yesterday and so far he is agreeable. Pain is mostly controlled, patient has been ambulatory to and from the bathroom without assistance. Discussed with Dr. Mcgregor this morning. No other new concerns. Objective - Vital Signs Vital signs: Vital Signs Temp 98.0 F 06/11/24 08:00 Pulse 54 L 06/11/24 08:00 Resp 18 06/11/24 08:00 BP 111/75 06/11/24 08:00 Pulse Ox 95 06/11/24 08:00 FiO2 Intake & Output 06/10/24 06/11/24 06/11/24 18:59 06:59 18:59 Intake Total 1560 118 Output Total 1050 30 Balance 510 -30 118 Weight 73 kg Intake: Oral 1560 118 Output: Chest Tube Drainage 1050 30 Chest Tube Right 1050 30 Posterior Chest Other: Voiding Method Toilet Toilet Urinal Urinal # Voids 0 # Bowel Movements 1 - Exam CONSTITUTIONAL: Appears comfortable, cooperative, no acute distress RESPIRATORY: Lungs sounds very diminished bilaterally. Respirations even, nonlabored. Currently on room air with oxygen saturation 96%. Able to achieve 1000 mL on his incentive spirometry CARDIOVASCULAR: S1, S2 present. Regular rate and rhythm, sinus rhythm on telemetry. Palpable peripheral pulses bilaterally. No edema present GASTROINTESTINAL: Abdomen soft, nontender, nondistended. Active bowel sounds present 4 quadrants. Tolerating diet GENITOURINARY: Continues to void INTEGUMENTARY: Skin is warm and dry NEUROLOGIC: Cranial nerves II through XII intact MUSKULOSKELETAL: Able to move all extremities, strength equal bilaterally, gait normal PSYCHIATRIC: Alert and oriented to person place and time, appropriate affect, intact judgment and insight INVASIVE LINES AND TUBES: Right pleural chest tube present to continuous wall suction, small intermittent airleak present, 30 mL serosanguineous drainage overnight, 1500 mL output since placement yesterday - Allied health notes Allied health notes reviewed: nursing - Labs CBC & Chem 7: 06/11/24 05:44 06/11/24 05:44 Labs: Abnormal Lab Results - Last 24 Hours (Table) 06/10/24 06/10/24 06/11/24 Range/Units 11:52 16:26 05:44 Neutrophils # 8.6 H (1.3-7.7) k/uL Sodium (137-145) mmol/L Chloride (98-107) mmol/L Glucose (74-99) mg/dL POC Glucose (mg/dL) 121 H 158 H (70-110) mg/dL 06/11/24 06/11/24 Range/Units 05:44 06:16 Neutrophils # (1.3-7.7) k/uL Sodium 129 L (137-145) mmol/L Chloride 94 L (98-107) mmol/L Glucose 111 H (74-99) mg/dL POC Glucose (mg/dL) 133 H (70-110) mg/dL Microbiology - Last 24 Hours (Table) 06/08/24 18:01 Gram Stain - Preliminary Sputum Sputum Culture - Preliminary - Imaging and Cardiology Chest x-ray: report reviewed, image reviewed Assessment and Plan Assessment: Recurrent right pleural effusion, status post thoracentesis x 2, status post placement of right sided pigtail catheter by interventional radiology, status post placement of a right thoracostomy tube Acute hypoxic respiratory failure, secondary to above History of pulmonary embolus in December 2022 currently on Coumadin for an ticoagulation, Recent right pleural effusion on 05/20/24 status post thoracentesis with removal of 1.8 L of fluid cytology negative for malignancy Chronic tobacco dependence with cessation in March 2024 Marijuana use Chronic obstructive pulmonary disease Hypertension Hyperlipidemia Benign prostatic hypertrophy Deep vein thrombosis Diabetes mellitus type 2 Peripheral vascular disease with history of aortobifem bypass in March 2024 at [facility] Chronic nonhealing 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 Mcgregor Continue to encourage use of incentive spirometry 10 times every hour while awake. Increase activity as tolerated, extension tubing added to chest tube for patient to ambulate to and from the bathroom Reinforced the importance of continued smoking cessation Medical management of other comorbidities per primary care and pulmonary medicine services More recommendations to follow based on patient clinical course.
--- NOTE | 2024-06-11 09:40 | P.PN ---
Subjective Progress Note Date: 06/11/24 Principal diagnosis: Large right-sided pleural effusion recurrent of unknown etiology Acute hypoxic respiratory failure Peripheral arterial disease Advanced COPD and emphysema Extensive history of smoking and nicotine use Severe degree of peripheral arterial disease History of deep venous thrombosis June 11, 2024, patient seen eval examined during rounds labs reviewed medications and care plan discussed, patient has a right-sided chest tube for hydropneumothorax, still have airleak is present, 1.5 L of serosanguineous pleural fluid is present in the Pleur-evac. Labs reviewed white cell count 10.4 hemoglobin medic platelet count 300 sodium 129 potassium 4.4 BUN/creatinine 14/0.77 patient remains on home medicine along with DVT prophylaxis subcu heparin with bronchodilator. Chest x-ray reviewed right-sided apical pneumothorax unchanged stable position of right-sided chest tube June 10, 2024 patient seen eval examined during rounds labs reviewed me dications and care plan discussed, the x-ray showed large hydropneumothorax patient underwent 28 Cambodian chest tube placement patient is scheduled for VATS procedure and pleural biopsy tomorrow currently almost 2 L of came out along with airleak, sodium is 129 BUN/creatinine within normal limit, postprocedure chest x-ray reviewed well-expanded lung with minimal residual pneumothorax on the apex June 08, 2024, patient continued to be short of breath on minimal activity and exertion, however denies any chest pain some heaviness on the right side is present, patient is afebrile oxygen saturation 92% 6 L unable to wean oxygen less than 6 L nasal cannula last chest x-ray done yesterday continue to show moderate to large size right-sided pleural effusion with basilar atelectasis left-sided basilar atelectatic change also seen patient to continue on deep breathing exercise incentive spirometry cardiothoracic surgery is evaluating for consideration of VATS, labs not done today yesterday sodium was 128 potassium 4.8 renal functions within normal limit sugar is mid 100 range incision that she had for vascular bypass surgery for the lower extremity remains stable June 07, 2024, patient seen eval examined during rounds labs reviewed medication care plan discussed, respiratory status still marginal ongoing shortness of breath present but severity has improved oxygen is being titrated tapered down progressively 59-year-old male seen evaluate examined patient transferred from [facility] for more definitive intervention for right pleural effusion. For after 6 L cannot be weaned down further saturation 96% hemodynamic status stable Lab data sodium is 128 potassium 4.8, CO2 is 91, BUN/creatinine 20/0.73 Patient has a longstanding history of smoking and nicotine use as well as COPD. Patient was hospitalized on June 03 and May 24 for shortness of breath and massive large size of pleural effusion. Patient has right-sided thoracentesis and 1.8 L of pleural fluid removed cytology and cultures were negative biochemistry consistent with exudative effusion. Patient was discharged with recommended to follow-up with thoracic surgery. Patient came back again on June 03 with increasing shortness of breath at this time he had about 7 L removed with similar finding a result has still have residual pleural effusion on the right side. Patient transferred from [facility] to [facility] for advanced level of care with consultation with thoracic surgery for possible right VATS and diagnostic pleural biopsy. Patient takes Coumadin for deep venous thrombosis history and peripheral arterial disease. Patient has extensive history of smoking and nicotine use, smoked about [id number]. Patient has been on 15 L high flow oxygen at [facility] now has been tapered down to 8 L now subsequently 6 L saturation 97%. Labs include white cell count 7.6, hemoglobin hematocrit is 14/45 platelet count of 308 sodium 128 potassium 5.2 BUN/creatinine is 18/0.65. Chest x-ray moderate right-sided left lobe pleural effusion with basilar atelectasis Past medical history significant for hypertension hypertensive cardiovascular disease dyslipidemia, distal deep venous thrombosis, peripheral vascular disease, type 2 diabetes mellitus hyperglycemia recurrent right-sided pleural effusion exudative with negative cytology and culture, recent femoropopliteal bilateral bypass surgery at [facility] June 08, 2024 Objective - Vital Signs Vital signs: Vital Signs Temp 98.0 F 06/11/24 08:00 Pulse 54 L 06/11/24 08:00 Resp 18 06/11/24 08:00 BP 111/75 06/11/24 08:00 Pulse Ox 95 06/11/24 08:00 FiO2 Intake & Output 06/10/24 06/11/24 06/11/24 18:59 06:59 18:59 Intake Total 1560 118 Output Total 1050 30 Balance 510 -30 118 Weight 73 kg Intake: Oral 1560 118 Output: Chest Tube Drainage 1050 30 Chest Tube Right 1050 30 Posterior Chest Other: Voiding Method Toilet Toilet Urinal Urinal # Voids 0 # Bowel Movements 1 - Exam - Constitutional General appearance: average body habitus, cooperative, disheveled, mild distress, thin - EENT Eyes: EOMI, PERRLA ENT: normal oropharynx Ears: bilateral: normal - Neck Neck: normal ROM Carotids: bilateral: upstroke normal Thyroid: bilateral: normal size - Respiratory Respiratory: right: diminished, left: CTA - Cardiovascular Rhythm: regular Heart sounds: normal: S1, S2 - Gastrointestinal General gastrointestinal: normal bowel sounds, soft - Integumentary Integumentary: normal turgor - Neurologic Neurologic: CNII-XII intact - Musculoskeletal Musculoskeletal: gait normal, generalized weakness, strength equal bilaterally, left sided weakness - Labs CBC & Chem 7: 06/11/24 05:44 06/11/24 05:44 Labs: Abnormal Lab Results - Last 24 Hours (Table) 06/10/24 06/10/24 06/11/24 Range/Units 11:52 16:26 05:44 Neutrophils # 8.6 H (1.3-7.7) k/uL Sodium (137-145) mmol/L Chloride (98-107) mmol/L Glucose (74-99) mg/dL POC Glucose (mg/dL) 121 H 158 H (70-110) mg/dL 06/11/24 06/11/24 Range/Units 05:44 06:16 Neutrophils # (1.3-7.7) k/uL Sodium 129 L (137-145) mmol/L Chloride 94 L (98-107) mmol/L Glucose 111 H (74-99) mg/dL POC Glucose (mg/dL) 133 H (70-110) mg/dL Microbiology - Last 24 Hours (Table) 06/08/24 18:01 Gram Stain - Preliminary Sputum Sputum Culture - Preliminary Assessment and Plan Assessment: Hydropneumothorax on the right side with persistent airleak s/p 28 Cambodian chest tube on June 10 Large right-sided pleural effusion recurrent of unknown etiology Acute hypoxic respiratory failure Peripheral arterial disease Chronic hyponatremia Advanced COPD and emphysema Extensive history of smoking and nicotine use Severe degree of peripheral arterial disease History of deep venous thrombosis Plan: Continue bronchodilator Continue DVT prophylax Patient being followed by cardiothoracic surgery for right-sided VATS procedure pleural biopsy, early next week Time with Patient: Greater than 30
[2024-06-11 11:28] LABS: Glucose,Whole Blood 116 mg/dL (70-110)
[2024-06-11 11:58] VITALS: BMI 23.8
[2024-06-11 16:12] LABS: Glucose,Whole Blood 131 mg/dL (70-110)
[2024-06-11 20:14] LABS: Glucose,Whole Blood 153 mg/dL (70-110)
[2024-06-12 06:08] LABS: Glucose,Whole Blood 124 mg/dL (70-110)
[2024-06-12 06:51] LABS: African American GFR (CKD) >90 (>60 ml/min/1.73 sqM); Anion Gap 5 mmol/L; Blood Urea Nitrogen 13 mg/dL (9-20); Calcium 9.2 mg/dL (8.4-10.2); Carbon Dioxide 29 mmol/L (22-30); Chloride 94 mmol/L (98-107); Glucose 108 mg/dL (74-99); Non-African American GFR(CKD) >90 (>60 ml/min/1.73 sqM); Potassium 4.9 mmol/L (3.5-5.1); Sodium 128 mmol/L (137-145)
--- NOTE | 2024-06-12 07:17 | XR ---
EXAMINATION TYPE: XR chest 1V portable DATE OF EXAM: 06/12/2024 COMPARISON: 06/11/2024 CLINICAL INDICATION: Male, 59 years old with history of hydropneumothorax; TECHNIQUE: Single frontal view of the chest is obtained. FINDINGS: No change in the right chest tube. There is been development of a small 5-10% right apical pneumothor ax. There is increasing opacity in the right mid and lower lung zone. Left lung is essentially clear. The pulmonary vasculature is not congested. IMPRESSION: 1 right chest tube with interval development of a 5-10% right apical pneumothorax. 2. Increasing opacity in the right mid and lower lung zone. [facility], , 06/12/2024 7:15 AM
--- NOTE | 2024-06-12 08:38 | P.PN ---
Subjective Progress Note Date: 06/12/24 Principal diagnosis: Recurrent right pleural effusion, status post thoracentesis x 2. Previuos medical history of pulmonary embolus in December 2022 currently on Coumadin for anticoagulation, recent right pleural effusion on 05/20/24 status post thoracentesis with removal of 1.8 L of fluid cytology negative for malignancy, chronic obstructive pulmonary disease, hypertension, hyperlipidemia, benign prostatic hypertrophy, deep vein thrombosis, diabetes mellitus type 2, peripheral vascular disease with history of aortobifem bypass in March 2024 at [facility], chronic nonhealing wound to his right lower leg, chronic tobacco dependence with cessation in March 2024, and marijuana use. POD #2 placement of right thoracostomy tube The patient was seen and examined with Dr. Moe sitting up in bed on the cardiac stepdown unit in no acute distress. Right-sided thoracostomy tube present to continuous wall suction with intermittent small airleak, 280 mL in the last 24 hours. Plan is for right sided video-assisted thoracoscopic surgery with mechanical and chemical pleurodesis by Dr. Mcgregor on Friday, June 14, 2024. This was discussed by Dr. Mcgregor with the patient and so far he is agreeable. Pain is mostly controlled, patient has been ambulatory to and from the bathroom without assistance. No other new concerns. Objective - Vital Signs Vital signs: Vital Signs Temp 97.5 F L 06/11/24 19:52 Pulse 76 06/12/24 04:17 Resp 16 06/12/24 04:17 BP 95/64 06/12/24 04:17 Pulse Ox 100 06/12/24 04:17 FiO2 Intake & Output 06/11/24 06/12/24 06/12/24 18:59 06:59 18:59 Intake Total 318 Output Total 525 104 Balance -207 -104 Weight 73 kg 74 kg Intake: Oral 318 Output: Chest Tube Drainage 175 104 Chest Tube Right 175 104 Posterior Chest Urine 350 Other: Voiding Method Toilet Urinal # Voids 2 1 - Exam CONSTITUTIONAL: Appears comfortable, cooperative, no acute distress RESPIRATORY: Lungs sounds very diminished bilaterally. Respirations even, nonl abored. Currently on room air with oxygen saturation 100%. Able to achieve 1000 mL on his incentive spirometry CARDIOVASCULAR: S1, S2 present. Regular rate and rhythm, sinus rhythm on telemetry. Palpable peripheral pulses bilaterally. No edema present GASTROINTESTINAL: Abdomen soft, nontender, nondistended. Active bowel sounds present 4 quadrants. Tolerating diet GENITOURINARY: Continues to void INTEGUMENTARY: Skin is warm and dry NEUROLOGIC: Cranial nerves II through XII intact MUSKULOSKELETAL: Able to move all extremities, strength equal bilaterally, gait normal PSYCHIATRIC: Alert and oriented to person place and time, appropriate affect, intact judgment and insight INVASIVE LINES AND TUBES: Right pleural chest tube present to continuous wall suction, small intermittent airleak present, 105 mL serosanguineous drainage overnight, 280 mL output since placement yesterday - Allied health notes Allied health notes reviewed: nursing - Labs CBC & Chem 7: 06/11/24 05:44 06/12/24 05:51 Labs: Abnormal Lab Results - Last 24 Hours (Table) 06/11/24 06/11/24 06/11/24 Range/Units 11:26 16:10 20:12 Sodium (137-145) mmol/L Chloride (98-107) mmol/L Glucose (74-99) mg/dL POC Glucose (mg/dL) 116 H 131 H 153 H (70-110) mg/dL 06/12/24 06/12/24 Range/Units 05:51 06:07 Sodium 128 L (137-145) mmol/L Chloride 94 L (98-107) mmol/L Glucose 108 H (74-99) mg/dL POC Glucose (mg/dL) 124 H (70-110) mg/dL Microbiology - Last 24 Hours (Table) 06/08/24 18:01 Gram Stain - Final Sputum Sputum Culture - Final - Imaging and Cardiology Chest x-ray: report reviewed, image reviewed Assessment and Plan Assessment: Recurrent right pleural effusion, status post thoracentesis x 2, status post placement of right sided pigtail catheter by interventional radiology, status post placement of a right thoracostomy tube Acute hypoxic respiratory failure, secondary to above History of pulmonary embolus in December 2022 currently on Coumadin for anticoagulation, Recent right pleural effusion on 05/20/24 status post thoracentesis with removal of 1.8 L of fluid cytology negative for malignancy Chronic tobacco dependence with cessation in March 2024 Marijuana use Chronic obstructive pulmonary disease Hypertension Hyperlipidemia Benign prostatic hypertrophy Deep vein thrombosis Diabetes mellitus type 2 Peripheral vascular disease with history of aortobifem bypass in March 2024 at [facility] Chronic nonhealing 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 Mcgregor Continue to encourage use of incentive spirometry 10 times every hour while awake. Increase activity as tolerated, extension tubing added to chest tube for patient to ambulate to and from the bathroom Reinforced the importance of continued smoking cessation Medical management of other comorbidities per primary care and pulmonary medicine services More recommendations to follow based on patient clinical course.
--- NOTE | 2024-06-12 10:10 | P.PN ---
Subjective Progress Note Date: 06/11/24 This is a 59 [place] old male medical history of hypertension, hyperlipidemia, DVT, peripheral vascular disease, type 2 diabetes mellitus, complex large right sided pleural effusion possible malignant. Patient is current smoker, reports marijuana use. Patient initially presents to [facility] on 06/03/2024 with shortness of breath after being discharged back on 05/24/24. Patient had chest CT done prior admission that revealed a complex right sided pleural effusion concern for malignancy and it was recommended at that time to transfer to [facility] for CT surgery consultation and possible VATs procedure. He had an initial thoracentesis about 1 week ago with 1.8 L of blood fluid removed. Patient was ultimately discharged home and given information to follow up with CT surgery in the office however had not followed up on discharge. The cytology from his first thoracentesis did not reveal malignancy. He came back in for increasing shortness of breath with repeat chest xray showing cardiomegaly with pulmonary vascular congestion worsening and with complete opacification of the right hemithorax with leftward mediastinal shift likely related to the enlarging pleural effusion and compressive atelectasis. Patient underwent right sided thoracentesis with pulmonary services on 06/03/2024 had 7L of bloody fluid removed. Cytology is currently pending from the second thoracentesis. His repeat chest xray from 06/04/2024 reveals vascular congestion in the right upper lobe moderate to large layering pleural effusion. He has required increased oxygen demands requiring high flow cannula. Patient has not been febrile since admission to [facility]. He does take warfarin outpatient for the history of DVT and most recent blood work reveals an INR of 1.38. Viral panel negative. Recommended for transfer to [facility] from [facility] for CT surgery consultation and possible VATS procedure. Patient was evaluated in person only at [facility] today 06/05/2024. He is now admitted to the cardic unit at [facility] and pending follow up evaluations. 06/06/2024 Patient is seen in follow-up today awaiting to be evaluated by CT surgery surgeon for possible VATS procedure. Pulmonary following as well regarding pleural effusion. Cytology pending from previous thoracentesis. Patient continues on 5 L via nasal cannula and reports does not wear oxygen outpatient. Patient reports this has been ongoing since recent cardiac intervention in March. Patient reports the surgery was done in [facility] in [place] and is refusing to go back. Patient lives out in [place] and follows with Dr. Coronel in the outpatient setting. Patient is afebrile with no reports of chest pain or palpitations. Will await CT surgery report and input and recommendations. 06/07/2024 Patient is seen in follow-up today has been evaluated by CT surgery awaiting further recommendations from the surgeon with pulmonary following. Patient continues with right side pleural effusion and discussing possible VATS procedure. Patient is maintained on 5 to 6 L and reports shortness of breath with minimal exertion. Patient reports he has no weakness and plans on returning home once discharged. Patient to continue weaning FiO2 as tolerated as patient does not wear any oxygen outpatient. Sodium 128 and recommend fluid restrictions. Will follow-up on repeat labs. Encouraged increase activity as tolerated. 06/08/2024 Patient is seen in follow-up with pulmonary and CT surgery following. Patient is scheduled to undergo pigtail catheter of the right pleural effusion today and is currently NPO. Pulmonary Dr. Garcia plans on thorascopic evaluation and biopsy tentatively scheduled for , 06/10/2024. Patient is continued on 4 to 5 L via nasal cannula reports shortness of breath but no worsening. Patient denies chest pain or palpitations at this time. 06/09/2024 Patient is seen in follow-up today with no acute overnight issues noted. Esperanza tobin has received a pigtail catheter on the right and will undergo VATS procedure tentatively on . Patient is afebrile continued on O2 and weaning as tolerated with no reports of chest pain or palpitations. Patient tolerating diet with no reported nausea or vomiting. Sodium on the lower side at 127 and will continue fluid restrictions and follow-up on repeat labs. Recommend incentive spirometer use and education on proper use at least 10 times every hour while awake. 06/10/2024 Patient is seen in follow-up today with vascular surgery and pulmonary following. Apparently patient did have a pigtail catheter which became dislodged and CT surgery to place another 1 in the right. Tentative VATS procedure on 06/11/2024. Patient continues to report shortness of breath and feels his lungs are filling right back up, maintained on oxygen with no reports of chest pain or palpitations. Patient is eliciting some pain at the site and will adjust medications accordingly. Patient is afebrile at this time. 06/11/2024 Patient is seen in follow-up today with multiple consultations following. Patient continues on oxygen via nasal cannula reporting shortness of breath and feeling full on the right lung scheduled to undergo VATS procedure tentatively on 06/14/2024. Patient is afebrile with no reports of chest pain or palpitations. Patient has been tolerating diet with no reported nausea or vomiting. Will follow-up on repeat labs. Review of systems: Constitutional: No reports of fatigue, fever, or chills Cardiovascular: No reports of chest pain or palpitations Respiratory: reports of shortness of breath with minimal exertion, feels about the same as previous GI: No reports of nausea, vomiting, or diarrhea : No reports of dysuria or retention Neurovascular: No reports of generalized weakness PHYSICAL EXAMINATION: GENERAL: The patient is alert and oriented x3, not in any acute distress. Well developed, unkempt, appears older than stated age HEENT: Pupils are round and equally reacting to light. EOMI. No scleral icterus. No conjunctival pallor. Normocephalic, atraumatic. No pharyngeal erythema. No thyromegaly. CARDIOVASCULAR: S1 and S2 muffled PULMONARY: Diminished breath sounds bilaterally with some scattered rhonchi noted. No accessory muscle use noted. ABDOMEN: Soft, nontender, nondistended, normoactive bowel sounds. No palpable organomegaly. MUSCULOSKELETAL: No joint swelling or deformity. EXTREMITIES: No cyanosis, clubbing, or pedal edema. NEUROLOGICAL: Gross neurological examination did not reveal any focal deficits. Diffusely weak SKIN: No rashes. Assessment: Recurrent Right pleural effusion with mediastinal shift status post thoracentesis with 7L of blood fluid removed at [facility], cytology pending, status post right side Pleurx catheter placement, 06/08/2024, now dislodged on 06/10/2024 and removed. Scheduled to undergo VATS procedure on 06/14/2024. Acute hypoxemic respiratory failure secondary to above Right ankle diabetic ulcer under the care of Dr Perez, present on admission Hypertension Hyperlipidemia Diabetes Mellitus type 2 Hx of DVT on warfarin on outpatient basis Subtherapeutic INR Chronic nicotine use Marijuana use Hx of aortobifem bypass with Dr Perez in the past GI prophylaxis: Pepcid DVT prophylaxis: Subcutaneous heparin Plan: CT surgery following and tentatively scheduled for VATS procedure, had Pleurx catheter placement of the right pleural effusion 06/08/2024, per patient it fell out. Possible reinsertion of right Pleurx catheter being discussed Pulmonary Dr. Garcia following and recommending thorascopic intervention with biopsy. Patient continues on 4-5 L and does not wear any oxygen outpatient. Wean FiO2 as tolerated Recommend incentive spirometer use at least 10 times every hour while awake Cytology pending from most recent [facility]03[facility] war[facility] at this time, patient continued on subcutaneous heparin Wound care with medihoney gel and gauze to the right ankle and change daily per Dr Barlow orders from [facility] follow up wound care on discharge Repeat BMP in the AM Due to multiple complex medical issues, overall prognosis is guarded The impression and plan of care has been dictated by Anastasia Szymanski, Nurse Prac titioner as directed. Dr. Miguel MD I have performed a history and physical examination and medical decision making of this patient, discussed the same with the dictator, and agree with the dictators assessment and plan as written, documented as a scribe. Based on total visit time, I have performed more than 50% of this visit. Objective - Vital Signs Vital signs: Vital Signs Temp 97.5 F L 06/12/24 08:00 Pulse 95 06/12/24 08:00 Resp 20 06/12/24 08:00 BP 104/70 06/12/24 08:00 Pulse Ox 96 06/12/24 08:00 FiO2 Intake & Output 06/11/24 06/12/24 06/12/24 18:59 06:59 18:59 Intake Total 318 240 Output Total 525 104 Balance -207 -104 240 Weight 73 kg 74 kg Intake: Oral 318 240 Output: Chest Tube Drainage 175 104 Chest Tube Right 175 104 Posterior Chest Urine 350 Other: Voiding Method Toilet Urinal # Voids 2 1 - Labs CBC & Chem 7: 06/11/24 05:44 06/12/24 05:51 Labs: Abnormal Lab Results - Last 24 Hours (Table) 06/11/24 06/11/24 06/11/24 Range/Units 11:26 16:10 20:12 Sodium (137-145) mmol/L Chloride (98-107) mmol/L Glucose (74-99) mg/dL POC Glucose (mg/dL) 116 H 131 H 153 H (70-110) mg/dL 06/12/24 06/12/24 Range/Units 05:51 06:07 Sodium 128 L (137-145) mmol/L Chloride 94 L (98-107) mmol/L Glucose 108 H (74-99) mg/dL POC Glucose (mg/dL) 124 H (70-110) mg/dL Microbiology - Last 24 Hours (Table) 06/08/24 18:01 Gram Stain - Final Sputum Sputum Culture - Final
[2024-06-12 11:11] LABS: Glucose,Whole Blood 163 mg/dL (70-110)
[2024-06-12 16:28] LABS: Glucose,Whole Blood 104 mg/dL (70-110)
[2024-06-12 20:21] LABS: Glucose,Whole Blood 162 mg/dL (70-110)
[2024-06-13 06:17] LABS: Glucose,Whole Blood 108 mg/dL (70-110)
[2024-06-13 06:34] LABS: Basophils # (A) 0.1 k/uL (0-0.2); Basophils % (A) 1 %; Eosinophils # (A) 0.2 k/uL (0-0.7); Eosinophils % (A) 2 %; HCT 44.3 % (39.0-53.0); HGB 14.2 gm/dL (13.0-17.5); Lymphocytes # (A) 0.9 k/uL (1.0-4.8); Lymphocytes % (A) 11 %; MCH 29.3 pg (25.0-35.0); MCV 91.3 fL (80.0-100.0); Mean Platelet Volume 7.5; Monocytes # (A) 0.5 k/uL (0-1.0); Monocytes % (A) 6 %; Neutrophils # (A) 6.2 k/uL (1.3-7.7); Neutrophils % (A) 79 %; Platelet Count 331 k/uL (150-450); RBC 4.85 m/uL (4.30-5.90); RDW 14.6 % (11.5-15.5); WBC 7.9 k/uL (3.8-10.6)
[2024-06-13 06:53] LABS: African American GFR (CKD) >90 (>60 ml/min/1.73 sqM); Anion Gap 5 mmol/L; Blood Urea Nitrogen 15 mg/dL (9-20); Calcium 9.3 mg/dL (8.4-10.2); Carbon Dioxide 29 mmol/L (22-30); Chloride 95 mmol/L (98-107); Glucose 99 mg/dL (74-99); Non-African American GFR(CKD) >90 (>60 ml/min/1.73 sqM); Potassium 4.4 mmol/L (3.5-5.1); Sodium 129 mmol/L (137-145)
--- NOTE | 2024-06-13 07:02 | XR ---
EXAMINATION TYPE: XR chest 1V portable DATE OF EXAM: 06/13/2024 COMPARISON: 06/12/2024 CLINICAL INDICATION: Male, 59 years old with history of Pneumothorax; TECHNIQUE: Single frontal view of the chest is obtained. FINDINGS: There is been no interval change in the small right apical pneumothorax and position of the right chest tube. The partially consolidative and interstitial opacities in the right mid to lower lung zone are stable . The left lung remains clear. The pulmonary vasculature is not compared congested. The osseous structures are intact. IMPRESSION: 1. No change in the small right apical pneumothorax or position of the right chest tube. 2. Acute cardiopulmonary disease involving the right lung unchanged compared to the prior study. [facility], , 06/13/2024 6:59 AM
--- NOTE | 2024-06-13 07:57 | P.PN ---
Subjective Progress Note Date: 06/13/24 Principal diagnosis: Recurrent right pleural effusion, status post thoracentesis x 2. Previuos medical history of pulmonary embolus in December 2022 currently on Coumadin for anticoagulation, recent right pleural effusion on 05/20/24 status post thoracentesis with removal of 1.8 L of fluid cytology negative for malignancy, chronic obstructive pulmonary disease, hypertension, hyperlipidemia, benign prostatic hypertrophy, deep vein thrombosis, diabetes mellitus type 2, peripheral vascular disease with history of aortobifem bypass in March 2024 at [facility], chronic nonhealing wound to his right lower leg, chronic tobacco dependence with cessation in March 2024, and marijuana use. POD #3 placement of right thoracostomy tube The patient was seen and examined sitting up in bed on the cardiac stepdown unit in no acute distress. Right-sided thoracostomy tube present to continuous wall suction with intermittent small airleak, 420 mL in the last 24 hours. Plan is for right sided video-assisted thoracoscopic surgery with mechanical and chemical pleurodesis by Dr. Mcgregor on Friday, June 14, 2024. This was discussed by Dr. Mcgregor with the patient and he is agreeable. Pain is mostly controlled, patient has been ambulatory to and from the bathroom without assistance. No other new concerns. Objective - Vital Signs Vital signs: Vital Signs Temp 97.5 F L 06/12/24 20:00 Pulse 82 06/13/24 04:57 Resp 16 06/13/24 04:57 BP 109/69 06/13/24 04:57 Pulse Ox 96 06/13/24 04:57 FiO2 Intake & Output 06/12/24 06/13/24 06/13/24 18:59 06:59 18:59 Intake Total 600 Output Total 610 460 Balance -10 -460 Weight 75.5 kg Intake: Oral 600 Output: Chest Tube Drainage 210 210 Chest Tube Right 210 210 Posterior Chest Urine 400 250 Other: Voiding Method Toilet Urinal # Voids 1 - Exam CONSTITUTIONAL: Appears comfortable, cooperative, no acute distress RESPIRATORY: Lungs sounds very diminished bilaterally. Respirations even, nonlabored. Currently on room air with oxygen saturation 96%. Able to achieve 1000 mL on his incentive spirometry CARDIOVASCULAR: S1, S2 present. Regular rate and rhythm, sinus rhythm on telemetry. Palpable peripheral pulses bilaterally. No edema present GASTROINTESTINAL: Abdomen soft, nontender, nondistended. Active bowel sounds present 4 quadrants. Tolerating diet GENITOURINARY: Continues to void INTEGUMENTARY: Skin is warm and dry NEUROLOGIC: Cranial nerves II through XII intact MUSKULOSKELETAL: Able to move all extremities, strength equal bilaterally, gait normal PSYCHIATRIC: Alert and oriented to person place and time, appropriate affect, intact judgment and insight INVASIVE LINES AND TUBES: Right pleural chest tube present to continuous wall suction, small intermittent airleak present, 420 mL serosanguineous drainage the last 24 hours - Allied health notes Allied health notes reviewed: nursing - Labs CBC & Chem 7: 06/13/24 05:58 06/13/24 05:58 Labs: Abnormal Lab Results - Last 24 Hours (Table) 06/12/24 06/12/24 06/13/24 Range/Units 11:09 20:20 05:58 Lymphocytes # 0.9 L (1.0-4.8) k/uL Sodium (137-145) mmol/L Chloride (98-107) mmol/L POC Glucose (mg/dL) 163 H 162 H (70-110) mg/dL 06/13/24 Range/Units 05:58 Lymphocytes # (1.0-4.8) k/uL Sodium 129 L (137-145) mmol/L Chloride 95 L (98-107) mmol/L POC Glucose (mg/dL) (70-110) mg/dL - Imaging and Cardiology Chest x-ray: report reviewed, image reviewed Assessment and Plan Assessment: Recurrent right pleural effusion, status post thoracentesis x 2, status post placement of right sided pigtail catheter by interventional radiology, status post placement of a right thoracostomy tube Acute hypoxic respiratory failure, secondary to above History of pulmonary embolus in December 2022 currently on Coumadin for anticoagulation, Recent right pleural effusion on 05/20/24 status post thoracentesis with removal of 1.8 L of fluid cytology negative for malignancy Chronic tobacco dependence with cessation in March 2024 Marijuana use Chronic obstructive pulmonary disease Hypertension Hyperlipidemia Benign prostatic hypertrophy Deep vein thrombosis Diabetes mellitus type 2 Peripheral vascular disease with history of aortobifem bypass in March 2024 at [facility] Chronic nonhealing 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 Meche Continue to encourage use of incentive spirometry 10 times every hour while awake. Increase activity as tolerated, extension tubing added to chest tube for patient to ambulate to and from the bathroom Reinforced the importance of continued smoking cessation Medical management of other comorbidities per primary care and pulmonary medicin e services More recommendations to follow based on patient clinical course.
--- NOTE | 2024-06-13 09:06 | PN ---
PROGRESS NOTE DATE OF SERVICE: 06/12/2024 SUBJECTIVE: This is a 59-year-old gentleman who was admitted with right pleural effusion, had VATS procedure. No chest pain, no palpitations. PHYSICAL EXAMINATION: VITAL SIGNS: Pulse is 90, blood pressure 140/69, respirations 20. CHEST: Scattered rhonchi and crackles. ABDOMEN: Soft. NERVOUS SYSTEM: Nonfocal LABORATORY DATA: Labs are noted. ASSESSMENT: 1. Recurrent right pleural effusion, status post VATS. 2. Acute hypoxic respiratory failure. 3. Right ankle diabetic ulcer. 4. Hypertension. 5. Hyperlipidemia. 6. Hyponatremia. RECOMMENDATIONS AND DISCUSSION: I recommend to continue current management and continue with symptomatic treatment. Continue with antibiotics. Continue with monitoring. Repeat labs. Closely follow with multiple consultants. Incentive spirometry. Further recommendations to follow. MMODL / IJN: [id number] /
[2024-06-13 12:01] LABS: Glucose,Whole Blood 117 mg/dL (70-110)
[2024-06-13 16:29] LABS: Glucose,Whole Blood 107 mg/dL (70-110)
[2024-06-13 20:11] LABS: Glucose,Whole Blood 129 mg/dL (70-110)
--- NOTE | 2024-06-14 04:51 | PN ---
PROGRESS NOTE DATE OF SERVICE: 06/13/2024 SUBJECTIVE: This is a 59-year-old gentleman, who was admitted with right pleural effusion, had VATS. The chest x-ray was reviewed. No chest pain. No palpitation. PHYSICAL EXAMINATION: VITAL SIGNS: Pulse is 80 to 90, blood pressure 108/69, respirations 20. CHEST: A few scattered rhonchi and crackles. ABDOMEN: Soft. LABORATORY DATA: Noted. ASSESSMENT: 1. Recurrent right pleural effusion, for VATS. 2. Acute hypoxic respiratory failure. 3. Right ankle diabetic ulcer. 4. Hypertension. 5. Hyperlipidemia. 6. Hyponatremia. RECOMMENDATIONS: Recommend to continue current management and continue symptomatic treatment. Otherwise, at this time, continue with purulent chest tube with wall suction. Planning for VATS on Friday. Further recommendations to follow. We will continue to monitor. Guarded prognosis. Further recommendations to follow. MMODL / IJN: [id number] /
[2024-06-14] MEDS: IV FLUID CONTINUATION 1,000 ML IV ONE (06:40)
[2024-06-14] MEDS: MIDAZOLAM 2 MG/2 ML VIAL IV ONE (07:03)
[2024-06-14] MEDS: LACTATED RINGERS 1,000 ML BAG IV STA (07:10)
[2024-06-14 07:17] LABS: African American GFR (CKD) >90 (>60 ml/min/1.73 sqM); Anion Gap 5 mmol/L; Blood Urea Nitrogen 17 mg/dL (9-20); Calcium 9.5 mg/dL (8.4-10.2); Carbon Dioxide 27 mmol/L (22-30); Chloride 96 mmol/L (98-107); Glucose 107 mg/dL (74-99); Non-African American GFR(CKD) >90 (>60 ml/min/1.73 sqM); Potassium 4.4 mmol/L (3.5-5.1); Sodium 128 mmol/L (137-145)
[2024-06-14] MEDS: LIDOCAINE 1% (10MG/ML) FOR IV START INTRADERMA STA (07:19)
[2024-06-14] MEDS: ONDANSETRON 4 MG/2 ML VIAL IVP PRN (07:20)
[2024-06-14] MEDS ORDERED: LIDOCAINE 1% INJ 10MG/ML (20 ML MDV) ONE (07:27)
[2024-06-14] MEDS ORDERED: SUCCINYLCHOLINE CHLORIDE 200 MG/10 ML VIAL IV ONE (07:27)
[2024-06-14] MEDS ORDERED: GLYCOPYRROLATE 0.2 MG/ML 2 ML VIAL ONE (07:27)
[2024-06-14] MEDS ORDERED: ROCURONIUM 10 MG/ML (5 ML VIAL) IV ONE (07:27)
[2024-06-14] MEDS ORDERED: KETAMINE HCL IN 0.9 % NACL 50 MG/5 ML SYRINGE ONE (07:27)
[2024-06-14] MEDS ORDERED: NEOSTIGMINE 1 MG/ML 10 ML VIAL ONE (07:27)
[2024-06-14] MEDS ORDERED: PROPOFOL 10 MG/ML 20 ML VIAL IV ONE (07:27)
[2024-06-14] MEDS ORDERED: fentaNYL (PF) 50 MCG/ML 2 ML AMP ONE (07:27)
[2024-06-14] MEDS ORDERED: MIDAZOLAM 2 MG/2 ML VIAL ONE (07:27)
[2024-06-14] MEDS: BUPIVACAINE (PF) 0.25% 30 ML VIAL SQ ONE ×2 (08:05)
[2024-06-14] MEDS: LIDOCAINE 1%-EPI 1:100,000 20 ML VIAL SQ ONE ×2 (08:05)
[2024-06-14] MEDS: STERILE TALC 3 GM POWDER W/BLOWER KIT MISCELLANE ONE (08:25)
[2024-06-14] MEDS: LACTATED RINGERS 1,000 ML IV ONE (08:36)
[2024-06-14 09:15] LABS: Glucose,Whole Blood 141 mg/dL (70-110)
--- NOTE | 2024-06-14 09:35 | P.OP ---
Date of Procedure: 06/14/24 Preoperative Diagnosis: Recurrent right pleural effusion Postoperative Diagnosis: Likely stage IV metastatic carcinoma Procedure(s) Performed: Right thoracoscopy with pleural biopsy and mechanical and chemical pleurodesis Implants: None Anesthesia: RAKESH Surgeon: Alex Mcgregor Estimated Blood Loss (ml): 25 Pathology: other (Pleural biopsy) Condition: stable Disposition: PACU Indications for Procedure: Patient has a recurrent right pleural effusion that has been fairly high-volume and underwent chest tube placement on Friday given that he fairly rapidly reaccumulated a pleural effusion after pigtail removal on . Operative Findings: 1. Diffuse I appreciate thank you parietal and visceral pleural studding 2. Good coverage of the pleural surfaces with powdered talc Description of Procedure: After consent was obtained, the patient was brought to the operating room where he underwent general by dual-lumen endotracheal tube anesthesia. He was prepped and draped in sterile fashion in left lateral decubitus position and a timeout was observed whereby the patient, the side, the site, the procedure, antibiotic delivery and films were all verified prior to beginning the case. We then mar supriya and injected him with local anesthetic at the most posterior site. We made incision with 15 blade knife and bluntly entered the chest with a Crile clamp. We then inserted the camera and immediately noticed both adhesions and diffuse bulky studying throughout the chest cavity on both the visceral and parietal pleura. We cleared a place on the eighth intercostal space more anteriorly for placement of the second incision and once we had access under direct vision of the scope we were able to place a Melvin clamp. We then used a Shakira clamp to loosen up some of the parietal pleural adhesions and some of the tumor implants. We then took a substantial biopsy of tissue from the parietal pleural surface and passed that a specimen. We then used a Bovie scratch pad to mechanically abrade the entire surface of the inside of the chest and in doing so caused some minor petechial hemorrhage diffusely. We then suctioned any hematoma out of the chest and spread 6 g of powdered talc using a red rubber catheter and dry Asepto technique. We then proceeded to place a 19 Azeri Javi drain posteriorly under direct vision of the scope and watched the lung reinflate. We placed the drain to suction and closed the patient in 2 layers at each incision site deep with a 2-0 Vicryl suture and superficially with a 4-0 Monocryl suture buried interrupted. Patient was dressed with skin glue and sponges and tape around the chest tube exit site. Of note the chest tube was fixed into place with a 0 Ethibond suture. The patient was then rolled supine extubated and taken to PACU in good condition.
--- NOTE | 2024-06-14 09:46 | XR ---
EXAMINATION TYPE: XR chest 1V portable DATE OF EXAM: 06/14/2024 9:13 AM COMPARISON: 06/13/2024 CLINICAL INDICATION: Male, 59 years old with history of post VATS, , FINDINGS: Right-sided chest tube is in place.r right-sided pneumothorax slightly larger in the interval current ly measuring 1.1 cm at the apex and 1.3 cm medially. Lateral and inferior components are now seen as well measuring 8 mm and 4 mm, respectively. Apical component previously measured 9 mm in medial compo nent measured 1.2 cm. Patchy opacities right mid and lower lung and lesser degree of patchy opacity l eft lower lung persist with slight improvement. Heart normal size. IMPRESSION: 1. Right-sided chest tube in place. There is a small to moderate-sized right-sided pneumothorax sligh tly larger in the interval now with lateral and basilar components visualized. Measures 1.1 cm at the apex versus 9 mm, previously. 2. Prominent patchy mid and lower lobe opacities, right greater than left, shows slight improvement. [facility], , 06/14/2024 9:44 AM
[2024-06-14 11:16] LABS: Glucose,Whole Blood 130 mg/dL (70-110)
[2024-06-14 16:24] LABS: Glucose,Whole Blood 95 mg/dL (70-110)
--- NOTE | 2024-06-14 18:51 | P.PN ---
Subjective Progress Note Date: 06/14/24 Principal diagnosis: Large right-sided pleural effusion recurrent of unknown etiology Acute hypoxic respiratory failure Peripheral arterial disease Advanced COPD and emphysema Extensive history of smoking and nicotine use Severe degree of peripheral arterial disease History of deep venous thrombosis June 14, 2023, patient seen eval examined during rounds labs reviewed medication care plan discussed, patient is status post VATS procedure with right thoracoscopy and pleural biopsy and mechanical and chemical pleurodesis postop day #0 with biopsy results are pending, chest x-ray post right-sided chest tube with a right-sided pneumothorax predominantly at the apex June 11, 2024, patient seen eval examined during rounds labs reviewed medications and care plan discussed, patient has a right-sided chest tube for hydropneumothorax, still have airleak is present, 1.5 L of serosanguineous pleural fluid is present in the Pleur-evac. Labs reviewed white cell count 10.4 hemoglobin medic 14/44 platelet count 300 sodium 129 potassium 4.4 BUN/creatinine 14/0.77 patient remains on home medicine along with DVT prophylaxis subcu heparin with bronchodilator. Chest x-ray reviewed right-sided apical pneumothorax unchanged stable position of right-sided chest tube June 10, 2024 patient seen eval examined during rounds labs reviewed medications and care plan discussed, the x-ray showed large hydropneumothorax patient underwent 28 Vietnamese chest tube placement patient is scheduled for VATS procedure and pleural biopsy tomorrow currently almost 2 L of came out along with airleak, sodium is 129 BUN/creatinine within normal limit, postprocedure chest x-ray reviewed well-expanded lung with minimal residual pneumothorax on the apex June 08, 2024, patient continued to be short of breath on minimal activity and exertion, however denies any chest pain some heaviness on the right side is present, patient is afebrile oxygen saturation 92% 6 L unable to wean oxygen less than 6 L nasal cannula last chest x-ray done yesterday continue to show moderate to large size right-sided pleural effusion with basilar atelectasis left-sided basilar atelectatic change also seen patient to continue on deep breathing exercise incentive spirometry cardiothoracic surgery is evaluating for consideration of VATS, labs not done today yesterday sodium was 128 potassium 4.8 renal functions within normal limit sugar is mid 100 range incision that she had for vascular bypass surgery for the lower extremity remains stable June 07, 2024, patient seen eval examined during rounds labs reviewed medication care plan discussed, respiratory status still marginal ongoing shortn ess of breath present but severity has improved oxygen is being titrated tapered down progressively 59-year-old male seen evaluate examined patient transferred from [facility] for more definitive intervention for right pleural effusion. For after 6 L cannot be weaned down further saturation 96% hemodynamic status stable Lab data sodium is 128 potassium 4.8, CO2 is 91, BUN/creatinine 20/0.73 Patient has a longstanding history of smoking and nicotine use as well as COPD. Patient was hospitalized on June 03 and May 24 for shortness of breath and massive large size of pleural effusion. Patient has right-sided thoracentesis and 1.8 L of pleural fluid removed cytology and cultures were negative biochemistry consistent with exudative effusion. Patient was discharged with recommended to follow-up with thoracic surgery. Patient came back again on with increasing shortness of breath at this time he had about 7 L removed with similar finding a result has still have residual pleural effusion on the right side. Patient transferred from [facility] to [facility] for advanced level of care with consultation with thoracic surgery for possible right VATS and diagnostic pleural biopsy. Patient takes Coumadin for deep venous thrombosis history and peripheral arterial disease. Patient has extensive history of smoking and nicotine use, smoked about [id number]. Patient has been on 15 L high flow oxygen at [facility] now has been tapered down to 8 L now subsequently 6 L saturation 97%. Labs include white cell count 7.6, hemoglobin hematocrit is 14/45 platelet count of 308 sodium 128 potassium 5.2 BUN/creatinine is 18/0.65. Chest x-ray moderate right-sided left lobe pleural effusion with basilar atelectasis Past medical history significant for hypertension hypertensive cardiovascular disease dyslipidemia, distal deep venous thrombosis, peripheral vascular disease, type 2 diabetes mellitus hyperglycemia recurrent right-sided pleural effusion exudative with negative cytology and culture, recent femoropopliteal bilateral bypass surgery at [facility] June 08, 2024 Objective - Vital Signs Vital signs: Vital Signs Temp 98.1 F 06/14/24 09:39 Pulse 71 06/14/24 16:00 Resp 16 06/14/24 16:00 BP 98/67 06/14/24 16:00 Pulse Ox 95 06/14/24 16:00 FiO2 Intake & Output 06/13/24 06/14/24 06/14/24 18:59 06:59 18:59 Intake Total 660 880 890 Output Total 295 330 310 Balance 365 550 580 Weight 73.8 kg Intake: IV 400 650 Oral 660 480 240 Output: Chest Tube Drainage 120 330 170 Chest Tube Right 120 330 170 Posterior Chest Urine 175 Pleural Fluid 140 Other: Voiding Method Toilet Urinal # Voids 2 3 - Exam - Constitutional General appearance: average body habitus, cooperative, disheveled, mild distress, thin - EENT Eyes: EOMI, PERRLA ENT: normal oropharynx Ears: bilateral: normal - Neck Neck: normal ROM Carotids: bilateral: upstroke normal Thyroid: bilateral: normal size - Respiratory Respiratory: right: diminished, left: CTA - Cardiovascular Rhythm: regular Heart sounds: normal: S1, S2 - Gastrointestinal General gastrointestinal: normal bowel sounds, soft - Integumentary Integumentary: normal turgor - Neurologic Neurologic: CNII-XII intact - Musculoskeletal Musculoskeletal: gait normal, generalized weakness, strength equal bilaterally, left sided weakness - Labs CBC & Chem 7: 06/13/24 05:58 06/14/24 06:44 Labs: Abnormal Lab Results - Last 24 Hours (Table) 06/13/24 06/14/24 06/14/24 Range/Units 20:10 06:44 09:12 Sodium 128 L (137-145) mmol/L Chloride 96 L (98-107) mmol/L Creatinine 0.64 L (0.66-1.25) mg/dL Glucose 107 H (74-99) mg/dL POC Glucose (mg/dL) 129 H 141 H (70-110) mg/dL 06/14/24 Range/Units 11:15 Sodium (137-145) mmol/L Chloride (98-107) mmol/L Creatinine (0.66-1.25) mg/dL Glucose (74-99) mg/dL POC Glucose (mg/dL) 130 H (70-110) mg/dL Assessment and Plan Assessment: Pleural mass likely metastatic stage IV cancer seen on VATS s/p biopsy Status post thoracoscopic pleural biopsy and pleurodesis on June 14, 2024 Hydropneumothorax on the right side with persistent airleak s/p 28 Vietnamese chest tube on June 10 Large right-sided pleural effusion recurrent of unknown etiology Acute hypoxic respiratory failure Peripheral arterial disease Chronic hyponatremia Advanced COPD and emphysema Extensive history of smoking and nicotine use Severe degree of peripheral arterial disease History of deep venous thrombosis Plan: Continue bronchodilator Continue DVT prophylax Patient being followed by cardiothoracic surgery status post right-sided VATS procedure pleural biopsy, June 14, 2024 Time with Patient: Greater than 30
[2024-06-14 20:03] LABS: Glucose,Whole Blood 188 mg/dL (70-110)
--- NOTE | 2024-06-15 05:12 | P.PN ---
Subjective Progress Note Date: 06/14/24 This is a 59 [place] old male medical history of hypertension, hyperlipidemia, DVT, peripheral vascular disease, type 2 diabetes mellitus, complex large right sided pleural effusion possible malignant. Patient is current smoker, reports marijuana use. Patient initially presents to [facility] on 06/03/2024 with shortness of breath after being discharged back on 05/24/24. Patient had chest CT done prior admission that revealed a complex right sided pleural effusion concern for malignancy and it was recommended at that time to transfer to [facility] for CT surgery consultation and possible VATs procedure. He had an initial thoracentesis about 1 week ago with 1.8 L of blood fluid removed. Patient was ultimately discharged home and given information to follow up with CT surgery in the office however had not followed up on discharge. The cytology from his first thoracentesis did not reveal malignancy. He came back in for increasing shortness of breath with repeat chest xray showing cardiomegaly with pulmonary vascular congestion worsening and with complete opacification of the right hemithorax with leftward mediastinal shift likely related to the enlarging pleural effusion and compressive atelectasis. Patient underwent right sided thoracentesis with pulmonary services on 06/03/2024 had 7L of bloody fluid removed. Cytology is currently pending from the second thoracentesis. His repeat chest xray from 06/04/2024 reveals vascular congestion in the right upper lobe moderate to large layering pleural effusion. He has required increased oxygen demands requiring high flow cannula. Patient has not been febrile since admission to [facility]. He does take warfarin outpatient for the history of DVT and most recent blood work reveals an INR of 1.38. Viral panel negative. Recommended for transfer to [facility] from [facility] for CT surgery consultation and possible VATS procedure. Patient was evaluated in person only at [facility] today 06/05/2024. He is now admitted to the cardic unit at [facility] and pending follow up evaluations. 06/06/2024 Patient is seen in follow-up today awaiting to be evaluated by CT surgery surgeon for possible VATS procedure. Pulmonary following as well regarding pleural effusion. Cytology pending from previous thoracentesis. Patient continues on 5 L via nasal cannula and reports does not wear oxygen outpatient. Patient reports this has been ongoing since recent cardiac intervention in March. Patient reports the surgery was done in [facility] in [place] and is refusing to go back. Patient lives out in [place] and follows with Dr. Coronel in the outpatient setting. Patient is afebrile with no reports of chest pain or palpitations. Will await CT surgery report and input and recommendations. 06/07/2024 Patient is seen in follow-up today has been evaluated by CT surgery awaiting further recommendations from the surgeon with pulmonary following. Patient continues with right side pleural effusion and discussing possible VATS procedure. Patient is maintained on 5 to 6 L and reports shortness of breath with minimal exertion. Patient reports he has no weakness and plans on returning home once discharged. Patient to continue weaning FiO2 as tolerated as patient does not wear any oxygen outpatient. Sodium 128 and recommend fluid restrictions. Will follow-up on repeat labs. Encouraged increase activity as tolerated. 06/08/2024 Patient is seen in follow-up with pulmonary and CT surgery following. Patient is scheduled to undergo pigtail catheter of the right pleural effusion today and is currently NPO. Pulmonary Dr. Garcia plans on thorascopic evaluation and biopsy tentatively scheduled for , 06/10/2024. Patient is continued on 4 to 5 L via nasal cannula reports shortness of breath but no worsening. Patient denies chest pain or palpitations at this time. 06/09/2024 Patient is seen in follow-up today with no acute overnight issues noted. Esperanza tobin has received a pigtail catheter on the right and will undergo VATS procedure tentatively on . Patient is afebrile continued on O2 and weaning as tolerated with no reports of chest pain or palpitations. Patient tolerating diet with no reported nausea or vomiting. Sodium on the lower side at 127 and will continue fluid restrictions and follow-up on repeat labs. Recommend incentive spirometer use and education on proper use at least 10 times every hour while awake. 06/10/2024 Patient is seen in follow-up today with vascular surgery and pulmonary following. Apparently patient did have a pigtail catheter which became dislodged and CT surgery to place another 1 in the right. Tentative VATS procedure on 06/11/2024. Patient continues to report shortness of breath and feels his lungs are filling right back up, maintained on oxygen with no reports of chest pain or palpitations. Patient is eliciting some pain at the site and will adjust medications accordingly. Patient is afebrile at this time. 06/11/2024 Patient is seen in follow-up today with multiple consultations following. Patient continues on oxygen via nasal cannula reporting shortness of breath and feeling full on the right lung scheduled to undergo VATS procedure tentatively on 06/14/2024. Patient is afebrile with no reports of chest pain or palpitations. Patient has been tolerating diet with no reported nausea or vomiting. Will follow-up on repeat labs. 06/14/2024 Patient is seen in follow-up this morning currently just underwent VATS procedure with CT surgery Dr. Mcgregor. Multiple biopsies obtained and awaiting official report. Per patient it was reported as cancer and he would like to dis cuss further with CT surgery about overall prognosis. Patient reports he is having some discomfort in the chest wall and only Tylenol helps. Patient is currently sitting up in the bed on room air although does have oxygen nearby. Patient is noncompliant at times with supplemental oxygen. Encourage incentive spirometer use at least 10 times every hour while awake and increased activity as tolerated with sitting up out of the bed more often. Review of systems: Constitutional: No reports of fatigue, fever, or chills Cardiovascular: No reports of chest pain or palpitations Respiratory: reports of shortness of breath with minimal exertion, feels about the same as previous GI: No reports of nausea, vomiting, or diarrhea : No reports of dysuria or retention Neurovascular: No reports of generalized weakness PHYSICAL EXAMINATION: GENERAL: The patient is alert and oriented x3, Well developed, unkempt, appears older than stated age HEENT: Pupils are round and equally reacting to light. EOMI. No scleral icterus. No conjunctival pallor. Normocephalic, atraumatic. No pharyngeal erythema. No thyromegaly. CARDIOVASCULAR: S1 and S2 muffled PULMONARY: Diminished breath sounds bilaterally with some scattered rhonchi noted. No accessory muscle use noted. Right chest tube noted with serous drainage ABDOMEN: Soft, nontender, nondistended, normoactive bowel sounds. No palpable organomegaly. MUSCULOSKELETAL: No joint swelling or deformity. EXTREMITIES: No cyanosis, clubbing, or pedal edema. NEUROLOGICAL: Gross neurological examination did not reveal any focal deficits. Diffusely weak SKIN: No rashes. Assessment: Recurrent Right pleural effusion with mediastinal shift status post VATS procedure 06/14/2024, biopsies pending Recent right lung thoracentesis with 7L of blood fluid removed at [facility], cytology pending, status post right side Pleurx catheter placement, 06/08/2024, now dislodged on 06/10/2024 and removed. Acute hypoxemic respiratory failure secondary to above Right ankle diabetic ulcer under the care of Dr Perez, present on admission Hypertension Hyperlipidemia Diabetes Mellitus type 2 Hx of DVT on warfarin on outpatient basis Subtherapeutic INR Chronic nicotine use Marijuana use Hx of aortobifem bypass with Dr Perez in the past GI prophylaxis: Pepcid DVT prophylaxis: Subcutaneous heparin Plan: CT surgery following and patient is status post VATS procedure, 06/14/2024 with biopsies obtained that were pending. Per patient was told he was full of cancer and would like to speak further with CT surgery Pulmonary Dr. Garcia following. Patient continues on 4-5 L and does not wear any oxygen outpatient. Wean FiO2 as tolerated. Patient was noted to have oxygen off on exam Recommend incentive spirometer use at least 10 times every hour while awake, needs strong encouragement on continued use Continue updrafts Hold warfarin at this time, patient continued on subcutaneous heparin Wound care with medihoney gel and gauze to the right ankle and change daily per Dr Barolw orders from [facility] follow up wound care on discharge Repeat labs in the a.m. Due to multiple complex medical issues, overall prognosis is guarded The impression and plan of care has been dictated by Anastasia Szymanski, Nurse Practitioner as directed. Dr. Miguel MD I have performed a history and physical examination and medical decision making of this patient, discussed the same with the dictator, and agree with the dictators assessment and plan as written, documented as a scribe. Based on total visit time, I have performed more than 50% of this visit. Objective - Vital Signs Vital signs: Vital Signs Temp 98.1 F 06/14/24 09:39 Pulse 94 06/14/24 09:19 Resp 16 06/14/24 09:39 BP 99/57 06/14/24 09:39 Pulse Ox 93 L 06/14/24 11:30 FiO2 Intake & Output 06/13/24 06/14/24 06/14/24 18:59 06:59 18:59 Intake Total 660 880 650 Output Total 295 330 310 Balance 365 550 340 Weight 73.8 kg Intake: IV 400 650 Oral 660 480 Output: Chest Tube Drainage 120 330 170 Chest Tube Right 120 330 170 Posterior Chest Urine 175 Pleural Fluid 140 Other: Voiding Method Toilet Urinal # Voids 2 - Labs CBC & Chem 7: 06/13/24 05:58 06/14/24 06:44 Labs: Abnormal Lab Results - Last 24 Hours (Table) 06/13/24 06/13/24 06/14/24 Range/Units 12:00 20:10 06:44 Sodium 128 L (137-145) mmol/L Chloride 96 L (98-107) mmol/L Creatinine 0.64 L (0.66-1.25) mg/dL Glucose 107 H (74-99) mg/dL POC Glucose (mg/dL) 117 H 129 H (70-110) mg/dL 06/14/24 06/14/24 Range/Units 09:12 11:15 Sodium (137-145) mmol/L Chloride (98-107) mmol/L Creatinine (0.66-1.25) mg/dL Glucose (74-99) mg/dL POC Glucose (mg/dL) 141 H 130 H (70-110) mg/dL
[2024-06-15 06:03] LABS: Glucose,Whole Blood 142 mg/dL (70-110)
[2024-06-15 07:23] LABS: Basophils % (A) 0 %; Eosinophils % (A) 0 %; HCT 43.5 % (39.0-53.0); HGB 14.2 gm/dL (13.0-17.5); Lymphocytes # (A) 0.7 k/uL (1.0-4.8); Lymphocytes % (A) 6 %; MCH 29.9 pg (25.0-35.0); MCHC 32.6 g/dL (31.0-37.0); MCV 91.6 fL (80.0-100.0); Mean Platelet Volume 7.5; Monocytes # (A) 0.9 k/uL (0-1.0); Monocytes % (A) 7 %; Neutrophils # (A) 10.8 k/uL (1.3-7.7); Neutrophils % (A) 86 %; Platelet Count 314 k/uL (150-450); RBC 4.75 m/uL (4.30-5.90); RDW 14.5 % (11.5-15.5); WBC 12.6 k/uL (3.8-10.6)
[2024-06-15 07:47] LABS: African American GFR (CKD) >90 (>60 ml/min/1.73 sqM); Anion Gap 5 mmol/L; Blood Urea Nitrogen 21 mg/dL (9-20); Calcium 9.3 mg/dL (8.4-10.2); Carbon Dioxide 25 mmol/L (22-30); Chloride 96 mmol/L (98-107); Glucose 128 mg/dL (74-99); Magnesium 1.8 mg/dL (1.6-2.3); Non-African American GFR(CKD) >90 (>60 ml/min/1.73 sqM); Sodium 126 mmol/L (137-145)
--- NOTE | 2024-06-15 08:30 | XR ---
EXAMINATION TYPE: XR chest 1V portable DATE OF EXAM: 06/15/2024 7:10 AM COMPARISON: 06/14/2024 CLINICAL INDICATION: Male, 59 years old with history of post VATS, , FINDINGS: Right-sided pleural catheter in place. Some improvement of the patient's right-sided pneumothorax, no w trace to small in size measuring 7 mm at the apex versus 1.1 cm, previously. 1.1 cm medially versus 1.3 cm, previously. Lateral and basilar components not well seen. Heart upper limits of normal in size. Diffuse interstitial opacities persist. Patchy opacities throug hout the right lung persist. IMPRESSION: 1. Right-sided chest tube in place. Trace to small right-sided pneumothorax remains, decreased from p rior. Lateral and basilar components no longer well seen. 2. Patchy opacities throughout the right lung and bilateral interstitial densities persist. [facility], , 06/15/2024 8:28 AM
--- NOTE | 2024-06-15 08:32 | P.PN ---
Subjective Progress Note Date: 06/15/24 Principal diagnosis: Recurrent right pleural effusion, status post thoracentesis x 2. Previuos medical history of pulmonary embolus in December 2022 currently on Coumadin for anticoagulation, recent right pleural effusion on 05/20/24 status post thoracentesis with removal of 1.8 L of fluid cytology negative for malignancy, chronic obstructive pulmonary disease, hypertension, hyperlipidemia, benign prostatic hypertrophy, deep vein thrombosis, diabetes mellitus type 2, peripheral vascular disease with history of aortobifem bypass in March 2024 at [facility], chronic nonhealing wound to his right lower leg, chronic tobacco dependence with cessation in March 2024, and marijuana use. POD #1 right thoracoscopy with pleural biopsy and mechanical and chemical ple urodesis The patient was seen and examined sitting up in bed on the cardiac stepdown unit in no acute distress. Right-sided thoracostomy tube present to continuous wall suction with no airleak morning, 350 mL since surgery yesterday. Pain is mostly controlled, patient has been ambulatory to and from the bathroom without assistance. Dr. Mcgregor did discuss with the patient yesterday that surgical findings likely represent metastatic carcinoma. Since that discussion pathology has been finalized on pleural fluid that was sent June 08, 2024 1 pigtail catheter is placed, that fluid is positive for metastatic non-small cell carcinoma, the patient was informed of that this morning. He seems to be in a bit of denial stating "it's only on the 1 side, I am not worrying about that right now, I just want this chest tube out so I can get out of here as I need to find a place to stay". Patient has received eviction notice since being in the hospital and is very concerned about where he is going to live. Objective - Vital Signs Vital signs: Vital Signs Temp 98.0 F 06/15/24 04:29 Pulse 94 06/15/24 04:29 Resp 16 06/15/24 04:29 BP 86/57 06/15/24 04:29 Pulse Ox 90 L 06/15/24 04:29 FiO2 Intake & Output 06/14/24 06/15/24 06/15/24 18:59 06:59 18:59 Intake Total 890 720 Output Total 310 200 Balance 580 520 Weight 74.8 kg Intake: IV 650 Oral 240 720 Output: Chest Tube Drainage 170 200 Chest Tube Right 170 200 Posterior Chest Pleural Fluid 140 Other: Voiding Method Toilet Urinal # Voids 3 - Exam CONSTITUTIONAL: Appears comfortable, cooperative, no acute distress RESPIRATORY: Lungs sounds very diminished bilaterally. Respirations even, nonlabored. Currently on room air with oxygen saturation 90% CARDIOVASCULAR: S1, S2 present. Regular rate and rhythm, sinus rhythm on telemetry. Palpable peripheral pulses bilaterally. No edema present GASTROINTESTINAL: Abdomen soft, nontender, nondistended. Active bowel sounds present 4 quadrants. Tolerating diet GENITOURINARY: Continues to void INTEGUMENTARY: Skin is warm and dry NEUROLOGIC: Cranial nerves II through XII intact MUSKULOSKELETAL: Able to move all extremities, strength equal bilaterally, gait normal PSYCHIATRIC: Alert and oriented to person place and time, appropriate affect, intact judgment and insight INVASIVE LINES AND TUBES: Right pleural chest tube present to continuous wall suction, no airleak present, no drainage overnight, 350 mL serosanguineous drainage since surgery yesterday - Allied health notes Allied health notes reviewed: nursing - Labs CBC & Chem 7: 06/15/24 06:21 06/15/24 06:21 Labs: Abnormal Lab Results - Last 24 Hours (Table) 06/14/24 06/14/24 06/14/24 Range/Units 09:12 11:15 20:02 WBC (3.8-10.6) k/uL Neutrophils # (1.3-7.7) k/uL Lymphocytes # (1.0-4.8) k/uL Sodium (137-145) mmol/L Chloride (98-107) mmol/L BUN (9-20) mg/dL Glucose (74-99) mg/dL POC Glucose (mg/dL) 141 H 130 H 188 H (70-110) mg/dL 06/15/24 06/15/24 06/15/24 Range/Units 06:01 06:21 06:21 WBC 12.6 H (3.8-10.6) k/uL Neutrophils # 10.8 H (1.3-7.7) k/uL Lymphocytes # 0.7 L (1.0-4.8) k/uL Sodium 126 L (137-145) mmol/L Chloride 96 L (98-107) mmol/L BUN 21 H (9-20) mg/dL Glucose 128 H (74-99) mg/dL POC Glucose (mg/dL) 142 H (70-110) mg/dL - Imaging and Cardiology Chest x-ray: image reviewed Assessment and Plan Assessment: Recurrent right pleural effusion, status post thoracentesis x 2, status post placement of right sided pigtail catheter by interventional radiology, status post placement of a right thoracostomy tube, status post VATS with pleurodesis Acute hypoxic respiratory failure, secondary to above Pleural fluid removed 06/08/2024 positive for metastatic non-small cell carcinoma History of pulmonary embolus in December 2022 currently on Coumadin for anticoag ulation, Recent right pleural effusion on 05/20/24 status post thoracentesis with removal of 1.8 L of fluid cytology negative for malignancy Chronic tobacco dependence with cessation in March 2024 Marijuana use Chronic obstructive pulmonary disease Hypertension Hyperlipidemia Benign prostatic hypertrophy Deep vein thrombosis Diabetes mellitus type 2 Peripheral vascular disease with history of aortobifem bypass in March 2024 at [facility] Chronic nonhealing wound to his right lower leg Plan: Right pleural chest tube placed to waterseal Will repeat chest x-ray in the morning, if no airleak and lung stays expanded will discontinue chest tube tomorrow Await pathology from surgical biopsies taken yesterday, however patient's pleural fluid was positive for metastatic non-small cell carcinoma Continue to encourage use of incentive spirometry 10 times every hour while awake. Increase activity as tolerated Reinforced the importance of continued smoking cessation Medical management of other comorbidities per primary care and pulmonary medicine services More recommendations to follow based on patient clinical course.
--- NOTE | 2024-06-15 08:46 | P.PN ---
Subjective Progress Note Date: 06/15/24 Principal diagnosis: Large right-sided pleural effusion recurrent of unknown etiology Acute hypoxic respiratory failure Peripheral arterial disease Advanced COPD and emphysema Extensive history of smoking and nicotine use Severe degree of peripheral arterial disease History of deep venous thrombosis June 15, 2023, patient seen eval examined during rounds labs reviewed medications reviewed care plan discussed with the patient chest tube is connected to waterseal no airleak is present, labs reviewed sodium slightly up to 126 BUN/creatinine within normal limits CBC white cell count 12.6, x-ray from today reviewed small right-sided pneumothorax patchy infiltrate histopathology is pending June 14, 2023, patient seen eval examined during rounds labs reviewed medi cation care plan discussed, patient is status post VATS procedure with right thoracoscopy and pleural biopsy and mechanical and chemical pleurodesis postop day #0 with biopsy results are pending, chest x-ray post right-sided chest tube with a right-sided pneumothorax predominantly at the apex June 11, 2024, patient seen eval examined during rounds labs reviewed medications and care plan discussed, patient has a right-sided chest tube for hydropneumothorax, still have airleak is present, 1.5 L of serosanguineous pleural fluid is present in the Pleur-evac. Labs reviewed white cell count 10.4 hemoglobin medic 14/44 platelet count 300 sodium 129 potassium 4.4 BUN/creatinine 14/0.77 patient remains on home medicine along with DVT prophylaxis subcu heparin with bronchodilator. Chest x-ray reviewed right-sided apical pneumothorax unchanged stable position of right-sided chest tube June 10, 2024 patient seen eval examined during rounds labs reviewed medications and care plan discussed, the x-ray showed large hydropneumothorax patient underwent 28 [place] chest tube placement patient is scheduled for VATS procedure and pleural biopsy tomorrow currently almost 2 L of came out along with airleak, sodium is 129 BUN/creatinine within normal limit, postprocedure chest x-ray reviewed well-expanded lung with minimal residual pneumothorax on the apex June 08, 2024, patient continued to be short of breath on minimal activity and exertion, however denies any chest pain some heaviness on the right side is present, patient is afebrile oxygen saturation 92% 6 L unable to wean oxygen less than 6 L nasal cannula last chest x-ray done yesterday continue to show moderate to large size right-sided pleural effusion with basilar atelectasis left-sided basilar atelectatic change also seen patient to continue on deep breathing exercise incentive spirometry cardiothoracic surgery is evaluating for consideration of VATS, labs not done today yesterday sodium was 128 potassium 4.8 renal functions within normal limit sugar is mid 100 range incision that she had for vascular bypass surgery for the lower extremity remains stable June 07, 2024, patient seen eval examined during rounds labs reviewed medication care plan discussed, respiratory status still marginal ongoing shortness of breath present but severity has improved oxygen is being titrated tapered down progressively 59-year-old male seen evaluate examined patient transferred from [facility] for more definitive intervention for right pleural effusion. For after 6 L cannot be weaned down further saturation 96% hemodynamic status stable Lab data sodium is 128 potassium 4.8, CO2 is 91, BUN/creatinine 20/0.73 Patient has a longstanding history of smoking and nicotine use as well as COPD. Patient was hospitalized on June 03 and May 24 for shortness of breath and massive large size of pleural effusion. Patient has right-sided thoracentesis and 1.8 L of pleural fluid removed cytology and cultures were negative biochemistry consistent with exudative effusion. Patient was discharged with recommended to follow-up with thoracic surgery. Patient came back again on June 03 with increasing shortness of breath at this time he had about 7 L removed with similar finding a result has still have residual pleural effusion on the right side. Patient transferred from [facility] to [facility] for advanced level of care with consultation with thoracic surgery for possible right VATS and diagnostic pleural biopsy. Patient takes Coumadin for deep venous thrombosis history and peripheral arterial disease. Patient has extensive history of smoking and nicotine use, smoked about [id number]. Patient has been on 15 L high flow oxygen at [facility] now has been tapered down to 8 L now subsequently 6 L saturation 97%. Labs include white cell count 7.6, hemoglobin hematocrit is 14/45 platelet count of 308 sodium 128 potassium 5.2 BUN/creatinine is 18/0.65. Chest x-ray moderate right-sided left lobe pleural effusion with basilar atelectasis Past medical history significant for hypertension hypertensive cardiovascular disease dyslipidemia, distal deep venous thrombosis, peripheral vascular disease, type 2 diabetes mellitus hyperglycemia recurrent right-sided pleural effusion exudative with negative cytology and culture, recent femoropopliteal bilateral bypass surgery at [facility] June 08, 2024 Objective - Vital Signs Vital signs: Vital Signs Temp 98.0 F 06/15/24 04:29 Pulse 94 06/15/24 04:29 Resp 16 06/15/24 04:29 BP 86/57 06/15/24 04:29 Pulse Ox 90 L 06/15/24 04:29 FiO2 Intake & Output 06/14/24 06/15/24 06/15/24 18:59 06:59 18:59 Intake Total 890 720 Output Total 310 200 Balance 580 520 Weight 74.8 kg Intake: IV 650 Oral 240 720 Output: Chest Tube Drainage 170 200 Chest Tube Right 170 200 Posterior Chest Pleural Fluid 140 Other: Voiding Method Toilet Urinal # Voids 3 - Exam - Constitutional General appearance: average body habitus, cooperative, disheveled, mild distress, thin - EENT Eyes: EOMI, PERRLA ENT: normal oropharynx Ears: bilateral: normal - Neck Neck: normal ROM Carotids: bilateral: upstroke normal Thyroid: bilateral: normal size - Respiratory Respiratory: right: diminished, left: CTA - Cardiovascular Rhythm: regular Heart sounds: normal: S1, S2 - Gastrointestinal General gastrointestinal: normal bowel sounds, soft - Integumentary Integumentary: normal turgor - Neurologic Neurologic: CNII-XII intact - Musculoskeletal Musculoskeletal: gait normal, generalized weakness, strength equal bilaterally, left sided weakness - Labs CBC & Chem 7: 06/15/24 06:21 06/15/24 06:21 Labs: Abnormal Lab Results - Last 24 Hours (Table) 06/14/24 06/14/24 06/14/24 Range/Units 09:12 11:15 20:02 WBC (3.8-10.6) k/uL Neutrophils # (1.3-7.7) k/uL Lymphocytes # (1.0-4.8) k/uL Sodium (137-145) mmol/L Chloride (98-107) mmol/L BUN (9-20) mg/dL Glucose (74-99) mg/dL POC Glucose (mg/dL) 141 H 130 H 188 H (70-110) mg/dL 06/15/24 06/15/24 06/15/24 Range/Units 06:01 06:21 06:21 WBC 12.6 H (3.8-10.6) k/uL Neutrophils # 10.8 H (1.3-7.7) k/uL Lymphocytes # 0.7 L (1.0-4.8) k/uL Sodium 126 L (137-145) mmol/L Chloride 96 L (98-107) mmol/L BUN 21 H (9-20) mg/dL Glucose 128 H (74-99) mg/dL POC Glucose (mg/dL) 142 H (70-110) mg/dL Assessment and Plan Assessment: Pleural mass likely metastatic stage IV cancer seen on VATS s/p biopsy Status post thoracoscopic pleural biopsy and pleurodesis on June 14, 2024 Hydropneumothorax on the right side with status post pleurodesis with residual small pneumothorax apical Large right-sided pleural effusion recurrent of unknown etiology Acute hypoxic respiratory failure Peripheral arterial disease Chronic hyponatremia Advanced COPD and emphysema Extensive history of smoking and nicotine use Severe degree of peripheral arterial disease History of deep venous thrombosis Plan: Continue bronchodilator Continue DVT prophylax Patient being followed by cardiothoracic surgery status post right-sided VATS procedure pleural biopsy, June 14, 2024 Time with Patient: Greater than 30
[2024-06-15 10:36] LABS: Glucose,Whole Blood 136 mg/dL (70-110)
--- NOTE | 2024-06-15 10:45 | P.ANPRN ---
Procedure Note - Anesthesia - Invasive Line Right Arterial Line Time Out Performed: Yes Date of Procedure: 06/14/24 Time of Procedure: 07:17 Location of Patient: PreOp Preparation: Sterile Prep, Sterile Dressing Arterial Line Location: Briachial Ultrasound Used: No Purpose - Visualization and Identification of Vasculature: No Image Stored and Saved: No Narrative: Invasive line placement per sterile protocol utilized.
[2024-06-15 16:23] LABS: Glucose,Whole Blood 138 mg/dL (70-110)
[2024-06-15 20:28] LABS: Glucose,Whole Blood 173 mg/dL (70-110)
[2024-06-16 05:02] VITALS: TEMP 98.4
--- NOTE | 2024-06-16 05:31 | P.PN ---
Subjective Progress Note Date: 06/15/24 This is a 59 [place] old male medical history of hypertension, hyperlipidemia, DVT, peripheral vascular disease, type 2 diabetes mellitus, complex large right sided pleural effusion possible malignant. Patient is current smoker, reports marijuana use. Patient initially presents to [facility] on 06/03/2024 with shortness of breath after being discharged back on 05/24/24. Patient had chest CT done prior admission that revealed a complex right sided pleural effusion concern for malignancy and it was recommended at that time to transfer to [facility] for CT surgery consultation and possible VATs procedure. He had an initial thoracentesis about 1 week ago with 1.8 L of blood fluid removed. Patient was ultimately discharged home and given information to follow up with CT surgery in the office however had not followed up on discharge. The cytology from his first thoracentesis did not reveal malignancy. He came back in for increasing shortness of breath with repeat chest xray showing cardiomegaly with pulmonary vascular congestion worsening and with complete opacification of the right hemithorax with leftward mediastinal shift likely related to the enlarging pleural effusion and compressive atelectasis. Patient underwent right sided thoracentesis with pulmonary services on 06/03/2024 had 7L of bloody fluid removed. Cytology is currently pending from the second thoracentesis. His repeat chest xray from 06/04/2024 reveals vascular congestion in the right upper lobe moderate to large layering pleural effusion. He has required increased oxygen demands requiring high flow cannula. Patient has not been febrile since admission to [facility]. He does take warfarin outpatient for the history of DVT and most recent blood work reveals an INR of 1.38. Viral panel negative. Recommended for transfer to [facility] from [facility] for CT surgery consultation and possible VATS procedure. Patient was evaluated in person only at [facility] today 06/05/2024. He is now admitted to the cardic unit at [facility] and pending follow up evaluations. 06/06/2024 Patient is seen in follow-up today awaiting to be evaluated by CT surgery surgeon for possible VATS procedure. Pulmonary following as well regarding pleural effusion. Cytology pending from previous thoracentesis. Patient continues on 5 L via nasal cannula and reports does not wear oxygen outpatient. Patient reports this has been ongoing since recent cardiac intervention in March. Patient reports the surgery was done in [facility] in [place] and is refusing to go back. Patient lives out in [place] and follows with Dr. Coronel in the outpatient setting. Patient is afebrile with no reports of chest pain or palpitations. Will await CT surgery report and input and recommendations. 06/07/2024 Patient is seen in follow-up today has been evaluated by CT surgery awaiting further recommendations from the surgeon with pulmonary following. Patient continues with right side pleural effusion and discussing possible VATS procedure. Patient is maintained on 5 to 6 L and reports shortness of breath with minimal exertion. Patient reports he has no weakness and plans on returning home once discharged. Patient to continue weaning FiO2 as tolerated as patient does not wear any oxygen outpatient. Sodium 128 and recommend fluid restrictions. Will follow-up on repeat labs. Encouraged increase activity as tolerated. 06/08/2024 Patient is seen in follow-up with pulmonary and CT surgery following. Patient is scheduled to undergo pigtail catheter of the right pleural effusion today and is currently NPO. Pulmonary Dr. Garcia plans on thorascopic evaluation and biopsy tentatively scheduled for , 06/10/2024. Patient is continued on 4 to 5 L via nasal cannula reports shortness of breath but no worsening. Patient denies chest pain or palpitations at this time. 06/09/2024 Patient is seen in follow-up today with no acute overnight issues noted. Esperanza tobin has received a pigtail catheter on the right and will undergo VATS procedure tentatively on . Patient is afebrile continued on O2 and weaning as tolerated with no reports of chest pain or palpitations. Patient tolerating diet with no reported nausea or vomiting. Sodium on the lower side at 127 and will continue fluid restrictions and follow-up on repeat labs. Recommend incentive spirometer use and education on proper use at least 10 times every hour while awake. 06/10/2024 Patient is seen in follow-up today with vascular surgery and pulmonary following. Apparently patient did have a pigtail catheter which became dislodged and CT surgery to place another 1 in the right. Tentative VATS procedure on 06/11/2024. Patient continues to report shortness of breath and feels his lungs are filling right back up, maintained on oxygen with no reports of chest pain or palpitations. Patient is eliciting some pain at the site and will adjust medications accordingly. Patient is afebrile at this time. 06/11/2024 Patient is seen in follow-up today with multiple consultations following. Patient continues on oxygen via nasal cannula reporting shortness of breath and feeling full on the right lung scheduled to undergo VATS procedure tentatively on 06/14/2024. Patient is afebrile with no reports of chest pain or palpitations. Patient has been tolerating diet with no reported nausea or vomiting. Will follow-up on repeat labs. 06/14/2024 Patient is seen in follow-up this morning currently just underwent VATS procedure with CT surgery Dr. Mcgregor. Multiple biopsies obtained and awaiting official report. Per patient it was reported as cancer and he would like to dis cuss further with CT surgery about overall prognosis. Patient reports he is having some discomfort in the chest wall and only Tylenol helps. Patient is currently sitting up in the bed on room air although does have oxygen nearby. Patient is noncompliant at times with supplemental oxygen. Encourage incentive spirometer use at least 10 times every hour while awake and increased activity as tolerated with sitting up out of the bed more often. 06/15/2034 Patient is seen in follow-up today with CT surgery as well as pulmonary following. Patient is status post VATS procedure. Oncology has been consulted and pending at this time. Awaiting final cytology and pathology results although per CT surgery pleural fluid specimen sent on June 08 is positive for non-small cell lung carcinoma. Patient is continued with chest tube to waterseal and possibly discussing removing on 06/16/2024 if no overnight issues and repeat chest x-ray. Patient is very keen on leaving as he is concerned about an infection noticed. Patient is afebrile with no reports of chest pain other than at the site of insertion, no worsening shortness of breath. Review of systems: Constitutional: No reports of fatigue, fever, or chills Cardiovascular: No reports of chest pain or palpitations Respiratory: reports of improved shortness of breath GI: No reports of nausea, vomiting, or diarrhea : No reports of dysuria or retention Neurovascular: No reports of generalized weakness PHYSICAL EXAMINATION: GENERAL: The patient is alert and oriented x3, anxious, well developed, unkempt, appears older than stated age HEENT: Pupils are round and equally reacting to light. EOMI. No scleral icterus. No conjunctival pallor. Normocephalic, atraumatic. No pharyngeal erythema. No thyromegaly. CARDIOVASCULAR: S1 and S2 muffled PULMONARY: Diminished breath sounds bilaterally with some scattered rhonchi noted. No accessory muscle use noted. Right chest tube noted with serous drainage ABDOMEN: Soft, nontender, nondistended, normoactive bowel sounds. No palpable organomegaly. MUSCULOSKELETAL: No joint swelling or deformity. EXTREMITIES: No cyanosis, clubbing, or pedal edema. NEUROLOGICAL: Gross neurological examination did not reveal any focal deficits. Diffusely weak SKIN: No rashes. Assessment: Recurrent Right pleural effusion with mediastinal shift status post VATS procedure 06/14/2024, biopsies pending Recent right lung thoracentesis with 7L of blood fluid removed at [facility], cytology pending, status post right side Pleurx catheter placement, 06/08/2024, now dislodged on 06/10/2024 and removed. Pleural fluid positive for non-small cell lung carcinoma from 06/08/2024 Acute hypoxemic respiratory failure secondary to above Right ankle diabetic ulcer under the care of Dr Perez, present on admission Hypertension Hyperlipidemia Diabetes Mellitus type 2 Hx of DVT on warfarin on outpatient basis Subtherapeutic INR Chronic nicotine use Marijuana use Hx of aortobifem bypass with Dr Perez in the past GI prophylaxis: Pepcid DVT prophylaxis: Subcutaneous heparin Plan: CT surgery following and patient is status post VATS procedure, 06/14/2024 with biopsies obtained that were pending. The pleural fluid sent from chest tube placed on 06/08/2024 is positive for non-small cell lung carcinoma. Oncology consulted and pending at this time Pulmonary Dr. Garcia following. Wean FiO2 as tolerated. Patient was noted to have oxygen off on exam Recommend incentive spirometer use at least 10 times every hour while awake, needs strong encouragement on continued use Continue updrafts Hold warfarin at this time, patient continued on subcutaneous heparin, will discuss with CT surgery when okay to resume Coumadin Wound care with medihoney gel and gauze to the right ankle and change daily per Dr Barlow orders from [facility] follow up wound care on discharge CT surgery to follow-up on repeat chest x-ray in a.m. and possible removal of chest tube if no further issues noted. Patient is extremely anxious to discharge as he reports he received an eviction notice. Ordered CT abdomen pelvis along with brain and bone scan for further evaluation of metastasis although patient is refusing and reports he can do this outpatient as he needs to get out of the hospital to find a place to live. Will discuss with other consultations regarding discharge planning possibly in the next 24 to 48 hours Due to multiple complex medical issues, overall prognosis is guarded The impression and plan of care has been dictated by Anastasia Szymanski, Nurse Practitioner as directed. Dr. Miguel MD I have performed a history and physical examination and medical decision making of this patient, discussed the same with the dictator, and agree with the dictators assessment and plan as written, documented as a scribe. Based on total visit time, I have performed more than 50% of this visit. Objective - Vital Signs Vital signs: Vital Signs Temp 97.9 F 06/15/24 08:00 Pulse 90 06/15/24 08:00 Resp 18 06/15/24 08:00 BP 105/70 06/15/24 08:00 Pulse Ox 94 L 06/15/24 08:00 FiO2 Intake & Output 06/14/24 06/15/24 06/15/24 18:59 06:59 18:59 Intake Total 890 720 Output Total 310 200 Balance 580 520 Weight 74.8 kg Intake: IV 650 Oral 240 720 Output: Chest Tube Drainage 170 200 Chest Tube Right 170 200 Posterior Chest Pleural Fluid 140 Other: Voiding Method Toilet Toilet Urinal Urinal # Voids 3 - Labs CBC & Chem 7: 06/15/24 06:21 06/15/24 06:21 Labs: Abnormal Lab Results - Last 24 Hours (Table) 06/14/24 06/15/24 06/15/24 Range/Units 20:02 06:01 06:21 WBC 12.6 H (3.8-10.6) k/uL Neutrophils # 10.8 H (1.3-7.7) k/uL Lymphocytes # 0.7 L (1.0-4.8) k/uL Sodium (137-145) mmol/L Chloride (98-107) mmol/L BUN (9-20) mg/dL Glucose (74-99) mg/dL POC Glucose (mg/dL) 188 H 142 H (70-110) mg/dL 06/15/24 06/15/24 Range/Units 06:21 10:34 WBC (3.8-10.6) k/uL Neutrophils # (1.3-7.7) k/uL Lymphocytes # (1.0-4.8) k/uL Sodium 126 L (137-145) mmol/L Chloride 96 L (98-107) mmol/L BUN 21 H (9-20) mg/dL Glucose 128 H (74-99) mg/dL POC Glucose (mg/dL) 136 H (70-110) mg/dL
[2024-06-16 06:03] LABS: Glucose,Whole Blood 133 mg/dL (70-110)
[2024-06-16 08:25] VITALS: BP 108/71; PULSE 97; RESP 18
--- NOTE | 2024-06-16 08:26 | XR ---
EXAMINATION TYPE: XR chest 1V portable DATE OF EXAM: 06/16/2024 6:41 AM COMPARISON: 06/15/2024 CLINICAL INDICATION: Male, 59 years old with history of pneumothorax, , FINDINGS: Our elements are normal in size. Right-sided chest tube remains in place. Right-sided pneumothorax no longer well seen. Diffuse interstitial and patchy opacities throughout the right lung persists. Some patchy opacity at the left lower lung remains. Interstitial densities in the left lung have improved . IMPRESSION: 1. Postsurgical change with right chest tube in place. Pneumothorax no longer well seen. 2. Interstitial and patchy opacities persist throughout the right lung. Improvement on the left. [facility], , 06/16/2024 8:24 AM
--- NOTE | 2024-06-16 10:38 | P.PN ---
Subjective Progress Note Date: 06/16/24 Principal diagnosis: Recurrent right pleural effusion, status post thoracentesis x 2. 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 POD #2 right thoracoscopy with pleural biopsy and mechanical and chemical ple urodesis The patient was seen and examined sitting up in bed on the cardiac stepdown unit in no acute distress. Right-sided thoracostomy tube present to water seal with no airleak, no drainage in the last 24 hours. Pain is mostly controlled, patient has been ambulatory to and from the bathroom without assistance. Patient reports he was seen by oncology. Objective - Vital Signs Vital signs: Vital Signs Temp 98.4 F 06/16/24 04:50 Pulse 97 06/16/24 08:00 Resp 18 06/16/24 08:00 BP 108/71 06/16/24 08:00 Pulse Ox 94 L 06/16/24 08:00 FiO2 Intake & Output 06/15/24 06/16/24 06/16/24 18:59 06:59 18:59 Intake Total 237 200 Output Total 0 400 0 Balance 0 -163 200 Weight 74.1 kg Intake: Oral 237 200 Output: Chest Tube Drainage 0 0 0 Chest Tube Right 0 0 0 Posterior Chest Urine 400 Other: Voiding Method Toilet Toilet Urinal Urinal # Voids 3 2 # Bowel Movements 1 - Exam CONSTITUTIONAL: Appears comfortable, cooperative, no acute distress RESPIRATORY: Lungs sounds very diminished bilaterally. Respirations even, nonlabored. Currently on room air with oxygen saturation 94% CARDIOVASCULAR: S1, S2 present. Regular rate and rhythm, sinus rhythm on telemetry. Palpable peripheral pulses bilaterally. No edema present GASTROINTESTINAL: Abdomen soft, nontender, nondistended. Active bowel sounds present 4 quadrants. Tolerating diet GENITOURINARY: Continues to void INTEGUMENTARY: Skin is warm and dry NEUROLOGIC: Cranial nerves II through XII intact MUSKULOSKELETAL: Able to move all extremities, strength equal bilaterally, gait normal PSYCHIATRIC: Alert and oriented to person place and time, appropriate affect, intact judgment and insight INVASIVE LINES AND TUBES: Right pleural chest tube present to water seal, no airleak present, no drainage in the last 24 hours - Allied health notes Allied health notes reviewed: nursing - Labs CBC & Chem 7: 06/15/24 06:21 06/15/24 06:21 Labs: Abnormal Lab Results - Last 24 Hours (Table) 06/15/24 06/15/24 06/15/24 Range/Units 10:34 16:15 20:27 POC Glucose (mg/dL) 136 H 138 H 173 H (70-110) mg/dL 06/16/24 Range/Units 06:02 POC Glucose (mg/dL) 133 H (70-110) mg/dL - Imaging and Cardiology Chest x-ray: report reviewed, image reviewed Assessment and Plan Assessment: Recurrent right pleural effusion, status post thoracentesis x 2, status post placement of right sided pigtail catheter by interventional radiology, status post placement of a right thoracostomy tube, status post VATS with pleurodesis Acute hypoxic respiratory failure, secondary to above Pleural fluid removed 06/08/2024 positive for metastatic non-small cell carcinoma History of pulmonary embolus in December 2022 currently on Coumadin for anticoagulation, Recent right pleural effusion on 05/20/24 status post thoracentesis with removal of 1.8 L of fluid cytology negative for malignancy Chronic tobacco dependence with cessation in March 2024 Marijuana use Chronic obstructive pulmonary disease Hypertension Hyperlipidemia Benign prostatic hypertrophy Deep vein thrombosis Diabetes mellitus type 2 Peripheral vascular disease with history of aortobifem bypass in March 2024 at [facility] Chronic nonhealing wound to his right lower leg Plan: Right pleural chest tube discontinued without incident, patient tolerated well Will repeat chest x-ray in 2 hours, if stable patient may be discharged to home from our standpoint Chest tube site management instructions placed on discharge plan and discussed with patient He is to follow up in our office next week for incision check, again this was discussed with the patient Await pathology from surgical biopsies, however patient's pleural fluid was positive for metastatic non-small cell carcinoma Continue to encourage use of incentive spirometry 10 times every hour while awake. Increase activity as tolerated Reinforced the importance of continued smoking cessation Medical management of other comorbidities per primary care and pulmonary med icine services
[2024-06-16 11:55] LABS: Glucose,Whole Blood 114 mg/dL (70-110)
--- NOTE | 2024-06-16 13:38 | XR ---
EXAMINATION TYPE: XR chest 1V portable DATE OF EXAM: 06/16/2024 12:52 PM COMPARISON: Earlier today CLINICAL INDICATION: Male, 59 years old with history of chest tube removal, , FINDINGS: Interval removal of right-sided chest tube. Prominent interstitial and patchy opacities remain throug hout the right lung. No sizable pneumothorax is identified though there may be a pleural edge at the level of the right hilum. Some patchy density remains at the left base. Heart size. IMPRESSION: 1. Interval removal of right chest tube. Possible subtle pleural line which projecting at the right h ilum. However, no sizable pneumothorax is seen. 2. Prominent patchy opacities persist throughout the right lung. Mild patchy density left base unchan ged as well. [facility], , 06/16/2024 1:36 PM
--- NOTE | 2024-06-16 19:53 | P.CONS ---
History of Present Illness - Reason for Consult Consult date: 06/16/24 [facility] Requesting physician: Anastasia Szymanski - Chief Complaint SOB - History of Present Illness This is a 59-year-old male with a significnar history of COPD and nictoine dependance and PE, who follows with DARNELL Bird for his pulmonary care. Patient has had a recent right pleural effusion on May 20, 2024 status post thoracentesis with 1.8 L of fluid drained, cytology from the first thoracentesis was negative for malignancy. Patient presented to the emergency room for complaints of worsening shortness of breath. On admit patient underwent right thoracentesis. Cytology positive for metastatic non-small cell carcinoma. CT chest 06/06/2024 showing large right p leural effusion with associated atelectasis and superimposed airspace opacities. Split pleural effusion signs suggesting right empyema. Left sandoval shift of the mediastinum suggesting some degree of mass effect from the large right pleural effusion. Patient underwent right thoracentesis, cytology positive for metastatic non-small cell carcinoma. Patient then underwent pleural biopsy on 06/14, pathology currently pending but preliminary report suggestive of mucinous adenocarcinoma. Patient has right chest tube placed. At today's visit patient is reporting no acute complaints. He is anxious to leave as he is currently being evicted from his home and does not want to undergo any further jeanie luation/treatment at this time and wants to follow-up outpatient. Review of Systems 10 point ROS is negative except as stated in the HPI Past Medical History Past Medical History: COPD, Diabetes Mellitus, Deep Vein Thrombosis (DVT), GERD/Reflux, Hyperlipidemia, Hypertension, Prostate Disorder, Pulmonary Embolus (PE) (December 2022), Vascular Disorder Additional Past Medical History / Comment(s): DVT December 2022, on Coumadin as an outpatient for anticoagulation, 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 History of Any Multi-Drug Resistant Organisms: None Reported Past Surgical History: Tonsillectomy Additional Past Surgical History / Comment(s): vascular Bx 2023 Past Anesthesia/Blood Transfusion Reactions: No Reported Reaction Additional Past Anesthesia/Blood Transfusion Reaction / Comm: NO BLOOD TRANSFUSIONS BEFORE Past Psychological History: No Psychological Hx Reported Smoking Status: Former smoker (Quit smoking in March 2024) Past Alcohol Use History: Rare Past Drug Use History: Marijuana (Quit smoking in March 2024) - Past Family History Mother Family Medical History: Cancer Additional Family Medical History / Comment(s): MOTHER HAD CANCER, uterine cancer Father Family Medical History: COPD, CVA/TIA Medications and Allergies Home Medications Medication Instructions Recorded Confirmed Type Acetaminophen Tab [Tylenol] 500 mg PO Q6H PRN 06/05/24 06/05/24 History Atorvastatin [Lipitor] 40 mg PO Q48H 06/05/24 06/05/24 History Ergocalciferol (Vitamin D2) 1,250 mcg PO QMONTHLY 06/05/24 06/05/24 History [Drisdol (50,000 Iu)] Tamsulosin HCl [Flomax] 0.4 mg PO DAILY 06/05/24 06/05/24 History Warfarin [Coumadin] 5 mg PO BID 06/05/24 06/05/24 History metFORMIN HCL [Glucophage] 500 mg PO W/BRKFST 06/05/24 06/05/24 History tiZANidine HCL 4 mg PO TID PRN 06/05/24 06/05/24 History Nicotine 14Mg/24Hr Patch [Habitrol] 1 patch TRANSDERM DAILY #30 patch 06/16/24 Rx Allergies Allergy/AdvReac Type Severity Reaction Status Date / Time bee venom protein (honey bee) Allergy Swelling Verified 06/14/24 06:15 Penicillins Allergy Unknown Verified 06/14/24 06:15 Physical Exam Vitals: Vital Signs Temp Pulse Resp BP BP Pulse Ox 06/16/24 08:00 97 18 108/71 94 L 06/16/24 07:43 14 06/16/24 04:50 98.4 F 80 14 96/63 93 L 06/16/24 01:33 18 06/15/24 23:39 94 16 109/72 94 L 06/15/24 20:50 97.7 F 94 18 104/67 94 L 06/15/24 20:00 18 Intake and Output 06/16/24 06/16/24 06/16/24 06:59 14:59 22:59 Intake Total 440 Output Total 400 0 Balance -400 440 Intake: Oral 440 Output: Chest Tube Drainage 0 0 Chest Tube Right 0 0 Posterior Chest Urine 400 Other: Voiding Method Toilet Urinal # Voids 2 Weight 74.1 kg - Constitutional General appearance: no acute distress - EENT Eyes: anicteric sclerae, EOMI ENT: hearing grossly normal - Respiratory breathing is even and unlabored - Cardiovascular skin warm and dry - Integumentary Integumentary: no cyanotic, no jaundiced - Musculoskeletal Musculoskeletal: strength equal bilaterally - Psychiatric Psychiatric: A&O x's 3 Results CBC & Chem 7: 06/15/24 06:21 06/15/24 06:21 Labs: Abnormal Lab Results - Last 24 Hours (Table) 06/15/24 06/16/24 06/16/24 Range/Units 20:27 06:02 11:54 POC Glucose (mg/dL) 173 H 133 H 114 H (70-110) mg/dL Abdominal x-ray: report reviewed CT scan - chest: report reviewed Assessment and Plan (1) Shortness of breath Status: Acute Priority: High Code(s): R06.02 - SHORTNESS OF BREATH SNOMED Code(s): 919776465 (2) Non-small cell carcinoma of lung Status: Acute Priority: High Code(s): C34.90 - MALIGNANT NEOPLASM OF UNSP PART OF UNSP BRONCHUS OR LUNG SNOMED Code(s): 036493800 (3) Pleural effusion Status: Acute Priority: High Code(s): J90 - PLEURAL EFFUSION, NOT ELSEWHERE CLASSIFIED SNOMED Code(s): 06856964 Plan: Recurrent malignant effusion, SOB: Presented with progressing SOB. Patient had a recent right pleural effusion on May 20, 2024 status post thoracentesis with 1.8 L of fluid drained, cytology from the first thoracentesis was negative for malignancy. -Upon admit, CT chest 06/06/2024 showing large right pleural effusion with associated atelectasis and superimposed airspace opacities. Split pleural eff usion signs suggesting right empyema. Leftward shift of the mediastinum suggesting some degree of mass effect from the large right pleural effusion. -Patient underwent right thoracentesis, cytology positive for metastatic non- small cell carcinoma. Patient then underwent pleural biopsy on 06/14, pathology currently pending but preliminary report suggestive of mucinous adenocarcinoma. Case discussed with pathologist Discussed findings and results with pt today, and oncology recommendations. He does not wish to pursue further inpt testing/evaluation and wants to be discharged due to personal/social issues, and will plan to continue workup outpt -Will plan for outpt brain MRI and PET CT. Will obtain NGS/PDL-1 on path -Clinic f/u will be scheduled upon discharge Doctor attests: I performed a history and physical examination of this patient, developed impression and plan of care. Discussed with dictator. I agree with dictators note, documented as a scribe.
--- NOTE | 2024-06-18 10:37 | CDI ---
Documentation Clarification Form Date: 06/18/2024 From: Anish Capps Admit Date: 06/05/2024 11:03:00 AM Patient Name: Igor Almanza Visit Number: [id number] Discharge Date: 06/16/2024 02:43:00 PM ATTENTION: The Clinical Documentation Specialists (CDI) and [facility] Coding Staff appreciate your assistance in clarifying documentation. Please respond to the clarification below the line at the bottom and electronically sign. The CDI & [facility] Coding staff will review the response and follow-up if needed. Please note: Queries are made part of the Legal Health Record. If you have any questions, please contact the author of this message via ITS. Doctor/Provider: Alex Mcgregor Petechial hemorrhage and Hematoma are documented per the 06/14 Operative note. Additional clarification regarding the expectation of these occurrences is requested. Patients Admitting Diagnosis: Recurrent right pleural effusion Post-Operative Diagnosis: Likely stage IV metastatic carcinoma Procedure performed: Right thoracoscopy with pleural biopsy and mechanical and chemical pleurodesis History/Risk Factors: 59 year old male with medical history of hypertension, hyperlipidemia, DVT, peripheral vascular disease, type 2 diabetes mellitus, presents with a complex large right sided pleural effusion - possibly malignant. Clinical Indicators: 06/14 Operative note: We then used a Bovie scratch pad to mechanically abrade the entire surface of the inside of the chest and in doing so caused some minor petechial hemorrhage diffusely. We then suctioned any hematoma out of the chest and spread 6 g of powdered talc using a red rubber catheter and dry Asepto technique. We then proceeded to place a 19 Romansh Javi drain posteriorly under direct vision of the scope and watched the lung reinflate. We placed the drain to suction and closed the patient in 2 layers at each incision site deep with a 2-0 Vicryl suture and superficially with a 4-0 Monocryl suture buried interrupted. Treatment: Intraoperative suction and Intraoperative use of 6g powdered Talc. Please clarify if the Petechial hemorrhage and Hematoma are complications of the surgical procedure or were these occurrences expected? [ ] Yes The Petechial hemorrhage and Hematoma were complications of the procedure [X] No The Petechial hemorrhage and Hematoma were expected occurrences and not a complication of the procedure [ ] Other, please specify (Template Last Revised: July 2020) MTDD
--- NOTE | 2024-06-19 23:14 | P.DS ---
Providers Date of admission: 06/05/24 11:03 Expected date of discharge: 06/16/24 Attending physician: Evan Larson Consults: 06/05/24 15:11 Consult Physician Routine Consulting Provider: Ubaldo Chaudhari Consult Reason/Comments: Pleural effusion Do you want consulting provider notified?: Yes 06/05/24 16:03 Consult Physician Routine Consulting Provider: Juan Carlos Garcia Consult Reason/Comments: right pleural effusion Do you want consulting provider notified?: Yes 06/07/24 10:08 Consult Physician Routine Consulting Provider: Jerrell Horne Consult Reason/Comments: eval for IPR Do you want consulting provider notified?: Yes 06/15/24 11:15 Consult Physician Urgent Consulting Provider: Declan Chase Consult Reason/Comments: lung ca, recent vats Do you want consulting provider notified?: Yes Primary care physician: Rowan Coronel Hospital Course: Final diagnosis Recurrent Right pleural effusion with mediastinal shift status post VATS procedure 06/14/2024, biopsies pending Recent right lung thoracentesis with 7L of blood fluid removed at [facility], cytology pending, status post right side Pleurx catheter placement, 06/08/2024, now dislodged on 06/10/2024 and removed. Pleural fluid positive for non-small cell lung carcinoma from 06/08/2024 Acute hypoxemic respiratory failure secondary to above, improved on room air Right ankle diabetic ulcer under the care of Dr Perez, present on admission Hypertension Hyperlipidemia Diabetes Mellitus type 2 Hx of DVT on warfarin on outpatient basis Subtherapeutic INR Chronic nicotine use Marijuana use Hx of aortobifem bypass with Dr Perez in the past GI prophylaxis DVT prophylaxis Discharge disposition Patient is being discharged in a stable condition with guarded prognosis to home. Patient will follow-up with Dr. Coronel in the outpatient setting upon discharge. Patient is to continue with current medications and outpatient follow-up with CT surgery along with oncology and pulmonary as scheduled. Total time taken is greater than 35 minutes. Hospital course This is a 59-year-old male who was recently admitted with recurrent right pleural effusion status post VATS procedure and also right sided thoracentesis with cytology positive for non-small cell lung carcinoma. Patient did have chest tube removed per CT surgery and is currently on room air. Patient is extremely keen on getting home as he reports he received an eviction notice and needs to find a place to live. Patient will follow-up with oncology outpatient along with CT surgery and pulmonary. Please refer to other consultation notes for further HPI. Currently no reports of chest pain, shortness of breath, or palpitations. Patient is afebrile. No reports of nausea or vomiting and patient is tolerating diet. Patient will be discharged home today. Guarded prognosis and high risk for readmissions given significant comorbidities. Physical exam: Gen: This is a 59-year-old male who is awake, alert and oriented x 3, well- developed, elderly appearing, ill-appearing HEENT: Head is atraumatic, normocephalic. Pupils equal, round. Sclerae is anicteric. NECK: Supple. No JVD. No lymphadenopathy. No thyromegaly. LUNGS: Diminished breath sounds bilaterally otherwise clear to auscultation. No wheezes or rhonchi. No intercostal retractions. HEART: Regular rate and rhythm. No murmur. ABDOMEN: Soft. Bowel sounds are present. No masses. No tenderness. EXTREMITIES: No pedal edema. No calf tenderness. NEUROLOGICAL: Patient is awake, alert and oriented x3. Cranial nerves 2 through 12 are grossly intact. Please refer to medication reconciliation sheet for a list of medications. The impression and plan of care has been dictated by Anastasia Szymanski, Nurse Practitioner as directed. Dr. Miguel MD I have performed a history and examination and MDM of this patient, discussed the same with the dictator, and agree with the dictator's assessment and plan as written ,documented as a scribe. Based on total visit time, I have performed more than 50% of the visit. Patient Condition at Discharge: Fair Plan - Discharge Summary Discharge Rx Participant: No New Discharge Prescriptions: New Nicotine 14Mg/24Hr Patch [Habitrol] 1 patch TRANSDERM DAILY #30 patch Continue tiZANidine HCL 4 mg PO TID PRN PRN Reason: Pain metFORMIN HCL [Glucophage] 500 mg PO W/BRKFST Ergocalciferol (Vitamin D2) [Drisdol (50,000 Iu)] 1,250 mcg PO QMONTHLY Warfarin [Coumadin] 5 mg PO BID Tamsulosin HCl [Flomax] 0.4 mg PO DAILY Atorvastatin [Lipitor] 40 mg PO Q48H Acetaminophen Tab [Tylenol] 500 mg PO Q6H PRN PRN Reason: Fever And/ Or Pain Discontinued lisinopriL [Prinivil] 20 mg PO DAILY Discharge Medication List Acetaminophen Tab [Tylenol] 500 mg PO Q6H PRN 06/05/24 [History] Atorvastatin [Lipitor] 40 mg PO Q48H 06/05/24 [History] Ergocalciferol (Vitamin D2) [Drisdol (50,000 Iu)] 1,250 mcg PO QMONTHLY 06/05/24 [History] Tamsulosin HCl [Flomax] 0.4 mg PO DAILY 06/05/24 [History] Warfarin [Coumadin] 5 mg PO BID 06/05/24 [History] metFORMIN HCL [Glucophage] 500 mg PO W/BRKFST 06/05/24 [History] tiZANidine HCL 4 mg PO TID PRN 06/05/24 [History] Nicotine 14Mg/24Hr Patch [Habitrol] 1 patch TRANSDERM DAILY #30 patch 06/16/24 [Rx] Follow up Appointment(s)/Referral(s): Jennifer Chadwick NPC [Nurse Practitioner] - 06/23/24 11:00 am (You will be seen in the surgeon's office behind the hospital in [facility], [address]. Office phone number is ; appointment is for incision check) Alex Mcgregor MD [STAFF PHYSICIAN] - 1 Week Juan Carlos Garcia [STAFF PHYSICIAN] - 1 Week Patient Instructions/Handouts: Pleural Effusion (DC), Video Assisted Thoracoscopic Surgery (DC) Activity/Diet/Wound Care/Special Instructions: DISCHARGE INSTRUCTIONS: 1. No driving for 1 week, or until physician gives their ok. 2. No lifting, pushing, or pulling more than 10 pounds for 1 weeks. The physician will advise of any restriction changes. 3. Continue pain control per as needed orders. Alternate acetaminophen (Tylenol) and ibuprofen (Motrin/Advil) for pain. 4. Continue with incentive spirometry and splinting until otherwise directed by the physician. 5. Leave chest tube dressing for 48 hours (Friday). After that, remove all dressings and shower daily. 6. Routine incision care. No powders, lotions, ointments on incisions. 7. Please call surgeon/WIRE ROLLER for temp greater than 101 F or purulent drainage from incisions. 8. Smoking cessation counseling and program information provided. Quitting smoking is the most important step you can take to improve your health. For additional information and assistance to quit smoking, please call the [place] tobacco quit line (0-840-NAMY-NOW/ ) or online: [email or web address] Discharge Disposition: HOME SELF-CARE
== END 2024-06-16 14:43 | disposition home or self-care (01) | DRG 163 ==
LOC: 3SCARD 11:03
PROVIDERS: ADMIT Internal Medicine; ATTEND Internal Medicine
PROC: 0W9930Z Drainage of Right Pleural Cavity with Drainage Device, Percutaneous Approach (ICD-10-PCS; 2024-06-08)
PROC: 0W9930Z Drainage of Right Pleural Cavity with Drainage Device, Percutaneous Approach (ICD-10-PCS; 2024-06-10)
PROC: 0BBN4ZX Excision of Right Pleura, Percutaneous Endoscopic Approach, Diagnostic (ICD-10-PCS; principal; 2024-06-14 07:30)
PROC: 0B5N4ZZ Destruction of Right Pleura, Percutaneous Endoscopic Approach (ICD-10-PCS; principal; 2024-06-14 07:30)
PROC: 3E0L4GC Introduction of Other Therapeutic Substance into Pleural Cavity, Percutaneous Endoscopic Approach (ICD-10-PCS; principal; 2024-06-14 07:30)
DX: C34.90 Malignant neoplasm of unspecified part of unspecified bronchus or lung (principal); J96.01 Acute respiratory failure with hypoxia; C78.2 Secondary malignant neoplasm of pleura; E87.1 Hypo-osmolality and hyponatremia; J93.9 Pneumothorax, unspecified; J91.0 Malignant pleural effusion; J94.8 Other specified pleural conditions; E11.622 Type 2 diabetes mellitus with other skin ulcer; J43.9 Emphysema, unspecified; I10 Essential (primary) hypertension; Z95.820 Peripheral vascular angioplasty status with implants and grafts; L97.319 Non-pressure chronic ulcer of right ankle with unspecified severity; J98.11 Atelectasis; R23.3 Spontaneous ecchymoses; E11.51 Type 2 diabetes mellitus with diabetic peripheral angiopathy without gangrene; E78.5 Hyperlipidemia, unspecified; Z87.891 Personal history of nicotine dependence; N40.0 Benign prostatic hyperplasia without lower urinary tract symptoms; R79.1 Abnormal coagulation profile; Z53.20 Procedure and treatment not carried out because of patient's decision for unspecified reasons; Z79.01 Long term (current) use of anticoagulants; Z79.84 Long term (current) use of oral hypoglycemic drugs; Z79.899 Other long term (current) drug therapy; Z86.711 Personal history of pulmonary embolism; Z86.718 Personal history of other venous thrombosis and embolism; Z91.199 Patient's noncompliance with other medical treatment and regimen due to unspecified reason; Z28.21 Immunization not carried out because of patient refusal; Z71.3 Dietary counseling and surveillance; Z88.0 Allergy status to penicillin
CPT/HCPCS: 32551; 71045; 71046; 71250; 76942; 80048; 80053; 83036; 83735; 85025; 85610; 86850; 86900; 86901; 87070; 87205; 88108; 88305; 88307; 88341; 88342; 94640; 94760

== ENCOUNTER 2024-07-11 13:38 | Inpatient (IN) | payer OTHER ==
--- NOTE | 2024-07-11 14:22 | ED ---
General Adult HPI - General Chief complaint: Weakness Stated complaint: Weakness Time Seen by Provider: 07/11/24 13:46 Source: patient, EMS Mode of arrival: EMS - History of Present Illness Initial comments: Patient is a 59-year-old male past medical history of recently diagnosed non- small cell lung cancer with recurrent pleural effusion, current smoker presenting today for generalized weakness and shortness of breath. Patient states that he feels pressure on the right side of his chest that feels like his lung his hold up with fluid again. He states that he has had worsening generalized weakness over the last few days, stating he typically gets around with a walker but now he can barely stand up even with the assistance of his walker. He is currently in between homes. He endorses cough adductive sputum but denies hemoptysis. He denies additional chest pain. Denies fevers, headache, abdominal pain, nausea, vomiting, diarrhea, melena, hematochezia. He does have a chronic right lower extremity wound from PAD that is being managed by the wound clinic. He states that he is not concerned about this at this time as he did not present to the ER for evaluation of that today. - Related Data Home Medications Medication Instructions Recorded Confirmed Acetaminophen Tab [Tylenol] 500 mg PO Q6H PRN 06/05/24 07/11/24 Atorvastatin [Lipitor] 40 mg PO Q48H 06/05/24 07/11/24 Ergocalciferol (Vitamin D2) 1,250 mcg PO QMONTHLY 06/05/24 07/11/24 [Drisdol (50,000 Iu)] Tamsulosin HCl [Flomax] 0.4 mg PO DAILY 06/05/24 07/11/24 Warfarin [Coumadin] 5 mg PO BID 06/05/24 07/11/24 metFORMIN HCL [Glucophage] 500 mg PO W/BRKFST 06/05/24 07/11/24 tiZANidine HCL 4 mg PO TID PRN 06/05/24 07/11/24 Previous Rx's Medication Instructions Recorded Nicotine 14Mg/24Hr Patch [Habitrol] 1 patch TRANSDERM DAILY #30 patch 06/16/24 Allergies Allergy/AdvReac Type Severity Reaction Status Date / Time bee venom protein (honey bee) Allergy Swelling Verified 07/11/24 16:01 Penicillins Allergy Unknown Verified 07/11/24 16:01 Review of Systems ROS Statement: Those systems with pertinent positive or pertinent negative responses have been documented in the HPI. ROS Other: All systems not noted in ROS Statement are negative. Past Medical History Past Medical History: COPD, Diabetes Mellitus, Deep Vein Thrombosis (DVT), GERD/Reflux, Hyperlipidemia, Hypertension, Prostate Disorder, Pulmonary Embolus (PE), Vascular Disorder Additional Past Medical History / Comment(s): DVT December 2022, on Coumadin as an outpatient for anticoagulation, 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, femoral artery bypass Mar 2024 History of Any Multi-Drug Resistant Organisms: None Reported Past Surgical History: Tonsillectomy Additional Past Surgical History / Comment(s): vascular Bx 2023 Past Anesthesia/Blood Transfusion Reactions: No Reported Reaction Additional Past Anesthesia/Blood Transfusion Reaction / Comment(s): NO BLOOD TRANSFUSIONS BEFORE Past Psychological History: No Psychological Hx Reported Smoking Status: Former smoker Past Alcohol Use History: Rare Past Drug Use History: Marijuana - Past Family History Mother Family Medical History: Cancer Additional Family Medical History / Comment(s): MOTHER HAD CANCER, uterine cancer Father Family Medical History: COPD, CVA/TIA General Exam - General Exam Comments Initial Comments: PE: CONSTITUTIONAL: No apparent distress, chronically ill-appearing nontoxic SKIN: Warm, dry, no jaundice, hives or petechiae. 2 to large approximately 10 cm x 10 cm chronic right lower extremity wounds on the medial anterior aspect in the posterior right aspect of the distal lower extremity, these are covered in yellowish granulation tissue without surrounding erythema EYES: Pupils are equally round, extraocular movements intact without nystagmus, clear conjunctiva, non-icteric sclera HENT: Normocephalic, atraumatic, moist mucus membranes, oropharynx clear without exudates NECK: , Full range of motion, normal appearance PULMONARY: Decreased breath sounds in the right lower mid lung givens, scant crackles auscultated, left lung clear to auscultation without wheezes rhonchi or rales, normal excursion 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 No appreciated murmurs, rubs or gallops. Strong radial pulses with intact distal perfusion. No lower extremity edema GASTROINTESTINAL: Soft, active bowel sounds throughout, non-tender, non- distended, no palpable masses, no rebound or guarding. No hepatosplenomegaly MUSCULOSKELETAL: Extremities have no gross deformity NEUROLOGIC:_a/o x 3, GCS 15, normal mentation and speech. Moves all extremities x 4 without motor or sensory deficit PSYCHIATRIC:_normal mood and affect, thought process is clear and linear Course Vital Signs 07/11/24 07/11/24 07/11/24 13:45 14:41 17:10 Temperature 97.8 F Pulse Rate 89 92 96 Respiratory 18 20 18 Rate Blood Pressure 96/68 101/75 94/67 O2 Sat by Pulse 95 97 96 Oximetry 07/11/24 07/11/24 07/11/24 18:23 20:00 20:58 Temperature 98.4 F 98.5 F Pulse Rate 98 93 96 Respiratory 18 20 18 Rate Blood Pressure 92/61 97/69 90/59 O2 Sat by Pulse 95 97 96 Oximetry EKG Findings - EKG Comments: EKG Findings:: Sinus rhythm with PVCs, rate 92 bpm normal intervals, normal axis, artifact present, no ST elevations or depressions Medical Decision Making - Medical Decision Making Was pt. sent in by a medical professional or institution (, PA, GIS COORDINATOR, urgent care, hospital, or correction...) When possible be specific @ -No Did you speak to anyone other than the patient for history (EMS, parent, family, police, friend...)? What history was obtained from this source @ -No Did you review nursing and triage notes (agree or disagree)? Why? @ -I reviewed nursing and triage notes Were old charts reviewed (outside hosp., previous admission, EMS record, old EKG, old radiological studies, urgent care reports/EKG's, correction records)? Report findings @ -Medical records reviewed-reviewed discharge summary from patient's recent admission at the end of May of this year,Which she reports that patient had an VATS procedure on 06/14/2024, thoracentesis removed 7 L of bloody fluid, he had a Pleurx catheter placed at that time and that was ultimately removed, pleural fluid was positive for non-small cell lung carcinoma also notes patient has a right ankle diabetic ulcer, history DVT on warfarin as an outpatient Differential Diagnosis (chest pain, altered mental status, abdominal pain women, abdominal pain men, vaginal bleeding, weakness, fever, dyspnea, syncope, headache, dizziness, GI bleed, back pain, seizure, CVA, palpatations, mental health, musculoskeletal)? @ -Differential Dyspnea: Coronary syndrome, arrhythmia, tamponade, asthma, COPD, pulmonary embolism, pneumonia, pneumothorax, pulmonary effusion, anaphylaxis, diabetic ketoacidosis, flailed chest, pulmonary contusion, diaphragmatic rupture, anemia, neuromuscular, this is not meant to be an all-inclusive list. EKG interpreted by me (3pts min.). @ -As above X-rays interpreted by me (1pt min.). I personally reviewed chest x-ray x-ray, notes right pleural effusion, questionable right lower lobe consolidation, I agree with radiologist interpretation CT interpreted by me (1pt min.). @ -None done U/S interpreted by me (1pt. min.). @ -None done What testing was considered but not performed or refused? (CT, X-rays, U/S, labs)? Why? @ -None What meds were considered but not given or refused? Why? @ -None Did you discuss the management of the patient with other professionals (professionals i.e. , PA, GIS COORDINATOR, lab, RT, psych nurse, social media content manager, interior specialist, teacher, gunnery/ordnance officer, hospice case manager)? Give summary @ -No Was smoking cessation discussed for >3mins.? @ -No Was critical care preformed (if so, how long)? @ -No Were there social determinants of health that impacted care today? How? (Homelessness, low income, unemployed, alcoholism, drug addiction, charles sportation, low edu. Level, literacy, decrease access to med. care, snf, rehab)? Patient is currently treated homes/homeless Was there de-escalation of care discussed even if they declined (Discuss DNR or withdrawal of care, Hospice)? @ - What co-morbidities impacted this encounter? (DM, HTN, Smoking, COPD, CAD, Cancer, CVA, ARF, Chemo, Hep., AIDS, mental health diagnosis, sleep apnea, morbid obesity)? Smoking, non-small cell lung carcinoma Was patient admitted / discharged? Hospital course, mention meds given and route, prescriptions, significant lab abnormalities, going to OR and other per tinent info. Admission-pleasant 59-year-old gentleman history recently diagnosed non-small cell lung carcinoma, chronic right lower extremity ulcers, current smoker, recurrent pleural effusion presenting today for feeling like the fluid has built up in his right lung again causing mild shortness of breath and a sensation of fullness in the right side of his chest. 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 Decreased breath sounds on the right lower and midlung givens. Patient's right lower extremity wounds were visualized, appear to have well-healing granulation tissue and redressed in a clean dry dressing. Discussed with patient plan of care for x-ray, basic labs, pain control. He is agreeable plan of care. Chest x-ray read by radiologist as right lower lobe consolidation consistent with atypical pneumonia, I suspect this is more likely a pleural effusion given patient's history however antibiotics were ordered. Plan for admission given patient's worsening weakness and will likely require drainage of pleural effusion. Patient agreeable with plan of care. Case discussed with Alexus, nurse practitioner, [facility], kindly accept patient for admission. Undiagnosed new problem with uncertain prognosis? @ -No Drug Therapy requiring intensive monitoring for toxicity (Heparin, Nitro, Insulin, Cardizem)? @ -No Were any procedures done? @ -No Diagnosis/symptom? @Right lower lobe atypical pneumonia, right pleural effusion, generalized weakness Acute, or Chronic, or Acute on Chronic? @ -Acute Uncomplicated (without systemic symptoms) or Complicated (systemic symptoms)? @Complicated Side effects of treatment? @ -No Exacerbation, Progression, or Severe Exacerbation? @ -No Poses a threat to life or bodily function? How? (Chest pain, USA, NV, pneumonia, PE, COPD, DKA, ARF, appy, cholecystitis, CVA, Diverticulitis, Homicidal, Suicidal, threat to staff... and all critical care pts) @ -Potentially, if left untreated could result in hypoxemic respiratory failure or sepsis - Lab Data Result diagrams: 07/11/24 14:25 07/11/24 14:25 Lab Results 07/11/24 07/11/24 07/11/24 Range/Units 14:25 14:25 14: WBC 10.9 H (3.8-10.6) k/uL RBC 5.06 (4.30-5.90) m/uL Hgb 14.9 (13.0-17.5) gm/dL Hct 46.6 (39.0-53.0) % MCV 92.1 (80.0-100.0) fL MCH 29.5 (25.0-35.0) pg MCHC 32.1 (31.0-37.0) g/dL RDW 16.7 H (11.5-15.5) % Plt Count 455 H (150-450) k/uL MPV 8.2 Neutrophils % (Manual) 84 % Lymphocytes % (Manual) 9 % Monocytes % (Manual) 7 % Neutrophils # (Manual) 9.16 H (1.3-7.7) k/uL Lymphocytes # (Manual) 0.98 L (1.0-4.8) k/uL Monocytes # (Manual) 0.76 (0-1.0) k/uL Nucleated RBCs 0 (0-0) /100 WBC Manual Slide Review Performed Anisocytosis Slight PT 10.8 (10.0-12.5) sec INR 1.0 (<1.2) APTT 24.5 (22.0-30.0) sec Sodium 130 L (137-145) mmol/L Potassium 5.6 H (3.5-5.1) mmol/L Chloride 104 (98-107) mmol/L Carbon Dioxide 15 L (22-30) mmol/L Anion Gap 11 mmol/L BUN 53 H (9-20) mg/dL Creatinine 1.03 (0.66-1.25) mg/dL Est GFR (CKD-EPI)AfAm >90 (>60 ml/min/1.73 sqM) Est GFR (CKD-EPI)NonAf 80 (>60 ml/min/1.73 sqM) Glucose 97 (74-99) mg/dL Calcium 9.4 (8.4-10.2) mg/dL Magnesium 2.2 (1.6-2.3) mg/dL Total Bilirubin 0.9 (0.2-1.3) mg/dL AST 37 (17-59) U/L ALT 10 (4-49) U/L Alkaline Phosphatase 104 (38-126) U/L Troponin I (0.000-0.034) ng/mL NT-Pro-B Natriuret Pep 1050 pg/mL Total Protein 6.2 L (6.3-8.2) g/dL Albumin 3.0 L (3.5-5.0) g/dL 07/11/24 Range/Units 14:25 WBC (3.8-10.6) k/uL RBC (4.30-5.90) m/uL Hgb (13.0-17.5) gm/dL Hct (39.0-53.0) % MCV (80.0-100.0) fL MCH (25.0-35.0) pg MCHC (31.0-37.0) g/dL RDW (11.5-15.5) % Plt Count (150-450) k/uL MPV Neutrophils % (Manual) % Lymphocytes % (Manual) % Monocytes % (Manual) % Neutrophils # (Manual) (1.3-7.7) k/uL Lymphocytes # (Manual) (1.0-4.8) k/uL Monocytes # (Manual) (0-1.0) k/uL Nucleated RBCs (0-0) /100 WBC Manual Slide Review Anisocytosis PT (10.0-12.5) sec INR (<1.2) APTT (22.0-30.0) sec Sodium (137-145) mmol/L Potassium (3.5-5.1) mmol/L Chloride (98-107) mmol/L Carbon Dioxide (22-30) mmol/L Anion Gap mmol/L BUN (9-20) mg/dL Creatinine (0.66-1.25) mg/dL Est GFR (CKD-EPI)AfAm (>60 ml/min/1.73 sqM) Est GFR (CKD-EPI)NonAf (>60 ml/min/1.73 sqM) Glucose (74-99) mg/dL Calcium (8.4-10.2) mg/dL Magnesium (1.6-2.3) mg/dL Total Bilirubin (0.2-1.3) mg/dL AST (17-59) U/L ALT (4-49) U/L Alkaline Phosphatase (38-126) U/L Troponin I <0.012 (0.000-0.034) ng/mL NT-Pro-B Natriuret Pep pg/mL Total Protein (6.3-8.2) g/dL Albumin (3.5-5.0) g/dL Disposition Clinical Impression: Pneumonia, Generalized weakness Disposition: ADMITTED IP TO THIS [facility] Condition: Stable
[2024-07-11 14:31] LABS: Anisocytosis Slight; HCT 46.6 % (39.0-53.0); HGB 14.9 gm/dL (13.0-17.5); MCH 29.5 pg (25.0-35.0); MCHC 32.1 g/dL (31.0-37.0); MCV 92.1 fL (80.0-100.0); Mean Platelet Volume 8.2; Platelet Count 455 k/uL (150-450); RBC 5.06 m/uL (4.30-5.90); RDW 16.7 % (11.5-15.5); WBC 10.9 k/uL (3.8-10.6)
[2024-07-11] MEDS: ACETAMINOPHEN TAB 500 MG TAB PO STA (14:40)
[2024-07-11 14:43] LABS: ALT 10 U/L (4-49); African American GFR (CKD) >90 (>60 ml/min/1.73 sqM); Anion Gap 11 mmol/L; Blood Urea Nitrogen 53 mg/dL (9-20); Calcium 9.4 mg/dL (8.4-10.2); Carbon Dioxide 15 mmol/L (22-30); Chloride 104 mmol/L (98-107); Glucose 97 mg/dL (74-99); Non-African American GFR(CKD) 80 (>60 ml/min/1.73 sqM); Sodium 130 mmol/L (137-145)
[2024-07-11 14:44] LABS: Partial Thromboplastin Time 24.5 sec (22.0-30.0); Prothrombin Time 10.8 sec (10.0-12.5)
--- NOTE | 2024-07-11 14:49 | XR ---
EXAMINATION TYPE: XR chest 2V DATE OF EXAM: 07/11/2024 2:35 PM COMPARISON: Chest radiographs from 06/16/2024 CLINICAL INDICATION: Male, 59 years old with history of Weakness, R. Chest pressure, mon. pleural eff usion; [facility] TECHNIQUE: XR chest 2V Frontal and lateral views of the chest. FINDINGS: Lungs/Pleura: New right lower lobe obscuration of the right heart border. There is irregularity blunt ing of the costophrenic angle. There is no evidence of pleural effusion, focal consolidation, or pneu mothorax. Pulmonary vascularity: Unremarkable. Heart/mediastinum: Cardiomediastinal silhouette is unremarkable. Musculoskeletal: No acute osseous pathology. IMPRESSION: 1. Increased new right lower opacification correlate for atelectasis versus pneumonia. 2. Small right pleural effusion with associated atelectasis. [facility], , 07/11/2024 2:46 PM
[2024-07-11 14:51] LABS: NT-Pro-B-Type Natriuretic Pept 1050 pg/mL
[2024-07-11 14:53] LABS: AST 37 U/L (17-59); Alkaline Phosphatase 104 U/L (38-126); Magnesium 2.2 mg/dL (1.6-2.3); Potassium 5.6 mmol/L (3.5-5.1); Total Bilirubin 0.9 mg/dL (0.2-1.3); Total Protein 6.2 g/dL (6.3-8.2)
[2024-07-11 15:03] LABS: Lymphocytes # (M) 0.98 k/uL (1.0-4.8); Monocytes # (M) 0.76 k/uL (0-1.0); Neutrophils # (M) 9.16 k/uL (1.3-7.7); Neutrophils % (M) 84 %; Nucleated Red Blood Cells 0 /100 WBC (0-0); Total Cells Counted 200
[2024-07-11] MEDS: cefTRIAXone IN SWFI 1,000 MG/10 ML SYRINGE IVP STA (17:03)
[2024-07-11] MEDS: AZITHROMYCIN 500 MG in SODIUM CHLORIDE 0.9% 250 ML IVPB STA (17:08)
[2024-07-11] MEDS ORDERED: NALOXONE 0.4 MG/ML 1 ML VIAL IV PRN (17:55)
[2024-07-11] MEDS: SODIUM CHLORIDE 0.9% 1,000 ML IV SCH (18:42)
[2024-07-11] MEDS: ATORVASTATIN 40 MG TAB PO SCH (18:42)
[2024-07-11] MEDS: NICOTINE 14MG/24HR PATCH TRANSDERM SCH (18:43)
[2024-07-11] MEDS: TAMSULOSIN 0.4 MG CAP.ER.24H PO SCH (18:44)
[2024-07-11] MEDS: ACETAMINOPHEN TAB 325 MG TAB PO PRN (18:46)
[2024-07-12] MEDS: metFORMIN 500 MG TAB PO SCH (06:39)
[2024-07-12] MEDS ORDERED: DEXTROSE 50% SYRINGE 50 ML IVP PRN (09:40)
[2024-07-12 12:18] LABS: Influenza A Not Detected (Not Detectd); Influenza B Not Detected (Not Detectd); RSV Not Detected (Not Detectd)
[2024-07-12] MEDS ORDERED: WARFARIN 5 MG TAB PO SCH (12:30)
[2024-07-12 12:45] LABS: Glucose,Whole Blood 31 mg/dL (70-110)
[2024-07-12 13:01] LABS: Glucose,Whole Blood 64 mg/dL (70-110)
[2024-07-12 13:18] LABS: Glucose,Whole Blood 75 mg/dL (70-110)
[2024-07-12] MEDS: INSULIN LISPRO (HumaLOG) 100 UNIT/ML 10 mL VL SQ SCH (13:56)
[2024-07-12 14:02] LABS: Glucose,Whole Blood 67 mg/dL (70-110)
[2024-07-12] MEDS: ACETAMINOPHEN TAB 325 MG TAB PO PRN (14:08)
[2024-07-12] MEDS: DEXTROSE 50% SYRINGE 50 ML IVP PRN (14:09)
--- NOTE | 2024-07-12 14:12 | P.HPIM ---
History of Present Illness H&P Date: 07/12/24 Chief Complaint: Generalized weakness Patient is a 59 year old male with past medical history of COPD, diabetes mellitus, GERD, hyperlipidemia, hypertension, PE presents to the ED with generalized weakness. Patient complains of pressure in right lateral side of the chest at the site of previous Plerux catheter. He states that analgesics help with it temporarily. He reports a productive cough but denies shortness of breath and hemoptysis. He also endorses generalized weakness. Patient was admitted to the hospital recently and underwent VATS procedure on 06/14/2024 for recurrent right pleural effusion with mediastinal shift. At the time he also had a right-sided Pleurx catheter for 2 days. Pleural fluid was found to be positive for non-small cell lung carcinoma on 06/08/2024. Echocardiogram done in 2022 shows EF 60 to 65%, normal lv. Patient mentions not being adherent with home medications. Patient denies following up with oncology after being discharged. Today patient had an episode of hypoglycemia with blood sugar 31. He was fed and repeat blood sugar was 74. Denies fever, chills, shortness of breath, chest pain, palpitations, abdominal pain, nausea, vomiting, hematuria, dysuria, hematochezia, melena, headache, slurred speech, numbness, tingling, dizziness, lightheadedness, blurred vision, double vision. ED documentation reviewed. In the ED patient was treated with acetaminophen, atorvastatin, 0.9 normal saline, dexamethasone, azithromycin, ceftriaxone, metformin. Vitals on admission T 97.8 F, OR 89 bpm, RR 18, BP 96/68, oxygen saturation 95% on room air EKG independently interpreted as sinus rhythm, rate 92 bpm, UDC 386 ms Chest x-ray shows increased new right lower opacification correlate for atelectasis versus pneumonia, small right pleural effusion with associated atelectasis Labs on admission show WBC 10.9, hemoglobin 14.9, RDW 16.7, platelet count 455, PT 10.8, INR 1.0 sodium 130, potassium 5.6, bicarb 15, BUN 53, creatinine 1.03, magnesium 2.2, troponin I <0.012, NT proBNP 1050, D-dimer 3.76 Respiratory panel is negative Review of systems: Pertinent positives and negatives as discussed in HPI, a complete review of systems was performed and all other systems are negative. Social history: Tobacco: Current everyday smoker Alcohol: Rarely Recreational drugs: Marijuana Travel: No recent travel history Sick contacts: None Physical examination: Vital signs reviewed General: nontoxic, no distress, appears at stated age Derm: warm, dry, intact Head: atraumatic, normocephalic, symmetric Eyes: EOMI, anicteric sclera Mouth: no lip lesion, mucus membranes moist Cardiovascular: S1 S2 reg, no murmur Lungs: tender to palpation on right lateral side of the chest Abdominal: soft, non-tender to palpation Extremities: right foot is bandaged Neuro: Alert, Oriented, Gross neurological examination did not reveal any focal deficits. Psych: well appearing, appropriate affect Assessment/Plan: Patient is a 59 year old male with past medical history of COPD, diabetes mellitus, GERD, hyperlipidemia, hypertension, PE presents to the ED with generalized weakness. Active: #. Generalized weakness possibly secondary to electrolyte imbalances #. Hyponatremia #. Hyperkalemia #. Metabolic acidosis #. Mild ANDRE #. Leukocytosis #. History of DVT on warfarin on outpatient basis, subtherapeutic INR #. Recurrent pleural effusion S/p VATS on 06/14/24 #. Active history of Non small cell lung cancer Chest x-ray shows increased new right lower opacification correlate for atelectasis versus pneumonia, small right pleural effusion with associated a telectasis D-dimer elevated 3.76, WBC 10.9, NT proBNP 1050, sodium 130, potassium 5.6, bicarb 15, BUN 53 S/p Ceftriaxone 1000 mg IVP once and Azithromycin 500 mg IVPB once Sodium bicarbonate 150 meq administered Initiate Warfarin 10 mg PO daily; Patient not adherent with home medication including Warfarin. Patient counselled on being adherent with medications Obtain Chest CTA Obtain procalcitonin Monitor CBC Consult pulmonology Chronic: #. Hyperlipidemia #. Diabetes mellitus #. 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 BPH #. Tobacco dependence #. Vitamin D deficiency Continue atorvastatin 40 mg p.o. every 48 hours, insulin sliding scale and ACHS blood glucose monitoring, tamsulosin 0.4 mg p.o. daily, nicotine 14 mg/24-hour patch transdermal daily, ergocalciferol 125 0 mcg p.o. q. monthly, tizanidine 4 mg p.o. 3 times daily as needed F: 0.9 normal saline at 75 ml/hr E: Replete Na N: Regular diet DVT prophylaxis: Warfarin 10 mg PO daily and SCD GI prophylaxis: Pantoprazole 40 mg PO daily The patient is admitted with an anticipated more than 2 midnight stay for evaluation of generalized weakness CODE STATUS: FULL CODE Discussed with: Patient Anticipated discharge place: Home Past Medical History Past Medical History: COPD, Diabetes Mellitus, Deep Vein Thrombosis (DVT), GERD/Reflux, Hyperlipidemia, Hypertension, Prostate Disorder, Pulmonary Embolus (PE), Vascular Disorder Additional Past Medical History / Comment(s): DVT December 2022, on Coumadin as an outpatient for anticoagulation, 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, femoral artery bypass Mar 2024 History of Any Multi-Drug Resistant Organisms: None Reported Past Surgical History: Tonsillectomy Additional Past Surgical History / Comment(s): vascular Bx 2023 Past Anesthesia/Blood Transfusion Reactions: No Reported Reaction Additional Past Anesthesia/Blood Transfusion Reaction / Comment(s): NO BLOOD TRANSFUSIONS BEFORE Past Psychological History: No Psychological Hx Reported Smoking Status: Current every day smoker Past Alcohol Use History: None Reported, Rare Past Drug Use History: Marijuana - Past Family History Mother Family Medical History: Cancer Additional Family Medical History / Comment(s): MOTHER HAD CANCER, uterine cancer Father Family Medical History: COPD, CVA/TIA Medications and Allergies Home Medications Medication Instructions Recorded Confirmed Type Acetaminophen Tab [Tylenol] 500 mg PO Q6H PRN 06/05/24 07/11/24 History Atorvastatin [Lipitor] 40 mg PO Q48H 06/05/24 07/11/24 History Ergocalciferol (Vitamin D2) 1,250 mcg PO QMONTHLY 06/05/24 07/11/24 History [Drisdol (50,000 Iu)] Tamsulosin HCl [Flomax] 0.4 mg PO DAILY 06/05/24 07/11/24 History Warfarin [Coumadin] 5 mg PO BID 06/05/24 07/11/24 History metFORMIN HCL [Glucophage] 500 mg PO W/BRKFST 06/05/24 07/11/24 History tiZANidine HCL 4 mg PO TID PRN 06/05/24 07/11/24 History Nicotine 14Mg/24Hr Patch [Habitrol] 1 patch TRANSDERM DAILY #30 patch 06/16/24 07/11/24 Rx Allergies Allergy/AdvReac Type Severity Reaction Status Date / Time bee venom protein (honey bee) Allergy Swelling Verified 07/11/24 16:01 Penicillins Allergy Unknown Verified 07/11/24 16:01 Physical Exam Vitals: Vital Signs Temp Pulse Pulse Resp BP BP BP 07/12/24 07:00 97.9 F 85 17 102/68 07/12/24 01:54 97.5 F L 96 15 111/72 07/11/24 22:09 98.1 F 102 H 16 100/60 07/11/24 21:38 97.5 F L 99 20 101/67 07/11/24 20:58 98.5 F 96 18 90/59 07/11/24 20:00 98.4 F 93 20 97/69 07/11/24 18:23 98 18 92/61 07/11/24 17:10 96 18 94/67 07/11/24 14:41 92 20 101/75 07/11/24 13:45 97.8 F 89 18 96/68 Pulse Ox 07/12/24 07:00 93 L 07/12/24 01:54 95 07/11/24 22:09 96 07/11/24 21:38 96 07/11/24 20:58 96 07/11/24 20:00 97 07/11/24 18:23 95 07/11/24 17:10 96 07/11/24 14:41 97 07/11/24 13:45 95 Intake and Output 07/11/24 07/12/24 07/12/24 22:59 06:59 14:59 Other: Voiding Method Urinal # Voids 2 # Bowel Movements 0 Weight 79.379 kg Results CBC & Chem 7: 07/11/24 14:25 07/11/24 14:25 Labs: Abnormal Lab Results - Last 24 Hours (Table) 07/11/24 07/11/24 Range/Units 14:25 14:25 WBC 10.9 H (3.8-10.6) k/uL RDW 16.7 H (11.5-15.5) % Plt Count 455 H (150-450) k/uL Neutrophils # (Manual) 9.16 H (1.3-7.7) k/uL Lymphocytes # (Manual) 0.98 L (1.0-4.8) k/uL Sodium 130 L (137-145) mmol/L Potassium 5.6 H (3.5-5.1) mmol/L Carbon Dioxide 15 L (22-30) mmol/L BUN 53 H (9-20) mg/dL Total Protein 6.2 L (6.3-8.2) g/dL Albumin 3.0 L (3.5-5.0) g/dL
[2024-07-12] MEDS: ENOXAPARIN 80 MG/0.8 ML SYRINGE SQ SCH (14:16)
[2024-07-12] MEDS: DEXTROSE 5% IN WATER 1,000 ML with SODIUM BICARB (1 MEQ/ML) 150 ML IV SCH (14:27)
[2024-07-12] MEDS: tiZANidine 4 MG TAB PO PRN (14:27)
[2024-07-12 14:48] LABS: Glucose,Whole Blood 94 mg/dL (70-110)
[2024-07-12 16:54] LABS: Glucose,Whole Blood 107 mg/dL (70-110)
--- NOTE | 2024-07-12 17:05 | CT ---
EXAMINATION TYPE: CT chest angio for PE CT DLP: 350 mGycm, Automated exposure control for dose reduction was used. DATE OF EXAM: 07/12/2024 4:42 PM COMPARISON: Multiple chest radiographs with most recent 07/11/2024, CT chest 06/06/2024, CTA chest 02/24 CLINICAL INDICATION:Male, 59 years old with history of Dyspnea; dyspnea TECHNIQUE/CONTRAST: CTA scan of the thorax is performed with IV Contrast, patient injected with 70 mL of Isovue 370, pulm onary embolism protocol. MIP images are created and reviewed. FINDINGS: Pulmonary Artery: There is a nonocclusive filling defect identified within the left lower lobe subseg mental branch (series 4, image 96). The pulmonary artery is dilated measuring up to 3.3 cm. Lungs/Pleura: Trace right pneumothorax. Moderate-sized loculated appearing right pleural effusion Min imal dependent left lower lobe subsegmental atelectasis there is near complete atelectasis of the rig ht lower lobe with partial atelectasis of the right middle lobe. Interlobular septal thickening withi n the right lung with patchy atelectatic change. Airway: Remaining large airways are patent. There is secretions identified within the trachea with ex tension into the right mainstem bronchus and into the bronchus intermedius. Heart: Heart is within normal limits for size. Small to moderate sized pericardial effusion. No colleen ening of the interventricular septum. Vasculature: No evidence of aortic aneurysm. Mild atherosclerotic calcification of the aorta and its branches. Mediastinum: Soft tissue fullness within the right perihilar region. Couple of mildly prominent peric ardial lymph nodes. Musculoskeletal: No acute osseous abnormalities Soft Tissues: Bilateral gynecomastia. Anasarca. Lower neck: No significant findings. Upper Abdomen: At least small volume ascites within the visualized upper abdomen most prominent withi n the left upper quadrant.. IMPRESSION: 1. Left lower lobe nonocclusive subsegmental pulmonary embolism. No evidence for heart strain. 2. Trace right pneumothorax with loculated moderate sized right pleural effusion with regions of atel ectasis. Superimposed infectious process is not excluded. 3. Right hilar soft tissue fullness which may represent adenopathy. 4. Secretions identified within the carinal region extending to the right mainstem bronchus and bronc hus intermedius concerning for aspiration. 5. Small to moderate size pericardial effusion. 6. Abdominal ascites. A Red level critical message alert has been initiated for Catherine Roca via the [facility] Critical Results System on 07/12/2024 5:03 PM. This message alert has been sent to Catherine Roca v ia the preferences provided by the clinician for the receipt of Radiology Critical Findings. Message ID [id number]. [facility], , 07/12/2024 5:03 PM
[2024-07-12] MEDS ORDERED: HEPARIN SODIUM 1,000 UN/ML (10ML VL) IV PRN (17:22)
[2024-07-12] MEDS ORDERED: WARFARIN 10 MG TAB PO SCH (18:00)
[2024-07-12] MEDS: HEPARIN SODIUM 1,000 UN/ML (10ML VL) IV ONE (18:06)
[2024-07-12] MEDS: HEPARIN SOD,PORK IN 0.45% NACL 25,000 UNIT in 0.45% NACL 1 250ML.BAG IV SCH (18:10)
[2024-07-12 18:32] LABS: Appearance,Urine Clear (Clear); Bilirubin,Urine Negative (Negative); Blood,Urine Negative (Negative); Color,Urine Yellow; Glucose,Urine (UA) Trace (Negative); Ketones,Urine Negative (Negative); Leukocyte Esterase,Urine Negative (Negative); Nitrite,Urine Negative (Negative); Protein,Urine Trace (Negative); Urobilinogen,Urine <2.0 mg/dL (<2.0)
[2024-07-12 19:11] LABS: Anisocytosis Slight; Basophils # (A) 0.1 k/uL (0-0.2); Basophils % (A) 1 %; Eosinophils # (A) 0.1 k/uL (0-0.7); Eosinophils % (A) 0 %; HGB 13.9 gm/dL (13.0-17.5); Hypochromasia Moderate; Lymphocytes # (A) 0.9 k/uL (1.0-4.8); Lymphocytes % (A) 7 %; MCH 28.1 pg (25.0-35.0); MCHC 29.7 g/dL (31.0-37.0); MCV 94.7 fL (80.0-100.0); Mean Platelet Volume 8.4; Monocytes # (A) 0.4 k/uL (0-1.0); Monocytes % (A) 3 %; Neutrophils # (A) 11.5 k/uL (1.3-7.7); Neutrophils % (A) 89 %; Platelet Count 463 k/uL (150-450); RBC 4.96 m/uL (4.30-5.90); RDW 16.7 % (11.5-15.5)
[2024-07-12 19:21] LABS: INR 1.2 (<1.2); Prothrombin Time 13.1 sec (10.0-12.5)
[2024-07-12 19:43] LABS: Partial Thromboplastin Time 105.4 sec (22.0-30.0)
[2024-07-12 19:46] LABS: Specific Gravity,Urine >1.050 (1.001-1.035)
[2024-07-13] MEDS: guaiFENesin 600 MG TABLET.ER PO PRN (06:10)
[2024-07-13 06:13] LABS: Glucose,Whole Blood 117 mg/dL (70-110)
[2024-07-13] MEDS: PANTOPRAZOLE 40 MG TABLET PO SCH (06:14)
[2024-07-13 07:11] LABS: Anisocytosis Slight; HCT 46.9 % (39.0-53.0); HGB 14.5 gm/dL (13.0-17.5); Hypochromasia Marked; MCH 29.3 pg (25.0-35.0); MCHC 30.9 g/dL (31.0-37.0); MCV 94.9 fL (80.0-100.0); Mean Platelet Volume 8.7; Platelet Count 443 k/uL (150-450); RBC 4.94 m/uL (4.30-5.90); RDW 16.4 % (11.5-15.5); WBC 12.9 k/uL (3.8-10.6)
[2024-07-13 07:21] LABS: INR 0.9 (<1.2); Partial Thromboplastin Time 32.8 sec (22.0-30.0)
[2024-07-13 07:38] LABS: African American GFR (CKD) >90 (>60 ml/min/1.73 sqM); Anion Gap 9 mmol/L; Blood Urea Nitrogen 48 mg/dL (9-20); Calcium 9.5 mg/dL (8.4-10.2); Carbon Dioxide 22 mmol/L (22-30); Chloride 98 mmol/L (98-107); Glucose 102 mg/dL (74-99); Non-African American GFR(CKD) 85 (>60 ml/min/1.73 sqM); Potassium 4.7 mmol/L (3.5-5.1); Sodium 129 mmol/L (137-145)
[2024-07-13] MEDS: LEVOFLOXACIN 500MG-D5W PMX 500 MG in DEXTROSE/WATER 1 100ML.BAG IVPB SCH (07:47)
[2024-07-13 11:50] LABS: Glucose,Whole Blood 132 mg/dL (70-110)
--- NOTE | 2024-07-13 12:23 | P.PN ---
Subjective Progress Note Date: 07/13/24 Principal diagnosis: Hospital course: Patient is a 59 year old male with past medical history of COPD, diabetes mellitus, GERD, hyperlipidemia, hypertension, PE presents to the ED with generalized weakness. Patient complains of pressure in right lateral side of the chest at the site of previous Plerux catheter. He states that analgesics help with it temporarily. He reports a productive cough but denies shortness of breath and hemoptysis. He also endorses generalized weakness. Patient was admitted to the hospital recently and underwent VATS procedure on 06/14/2024 for recurrent right pleural effusion with mediastinal shift. At the time he also had a right-sided Pleurx catheter for 2 days. Pleural fluid was found to be positive for non-small cell lung carcinoma on 06/08/2024. Echocardiogram done in 2022 shows EF 60 to 65%, normal lv. Patient mentions not being adherent with home medications. Patient denies following up with oncology after being discharged. Today patient had an episode of hypoglycemia with blood sugar 31. He was fed and repeat blood sugar was 74. Denies fever, chills, shortness of breath, chest pain, palpitations, abdominal pain, nausea, vomiting, hematuria, dysuria, hematochezia, melena, headache, slurred speech, numbness, tingling, dizziness, lightheadedness, blurred vision, double vision. ED documentation reviewed. In the ED patient was treated with acetaminophen, atorvastatin, 0.9 normal saline, dexamethasone, azithromycin, ceftriaxone, metformin. Vitals on admission T 97.8 F, AL 89 bpm, RR 18, BP 96/68, oxygen saturation 95% on room air EKG independently interpreted as sinus rhythm, rate 92 bpm, UDC 386 ms Chest x-ray shows increased new right lower opacification correlate for atelectasis versus pneumonia, small right pleural effusion with associated atelectasis Labs on admission show WBC 10.9, hemoglobin 14.9, RDW 16.7, platelet count 455, PT 10.8, INR 1.0 sodium 130, potassium 5.6, bicarb 15, BUN 53, creatinine 1.03, magnesium 2.2, troponin I <0.012, NT proBNP 1050, D-dimer 3.76 Respiratory panel is negative 07/13/24: Patient seen and examined at bedside today. BP today is 97/60 and he is saturating at 95% on room air. Labs today show WBC 12.9, platelet count 16.4, APTT 32.8, sodium 129, potassium 4.7, bicarb 22, BUN 48. UA shows specific gravity>1.050, trace protein, trace glucose. Chest CT done yesterday shows left lower lobe nonconclusive subsegmental pulmonary embolism, no evidence for heart strain. Trace right pnedumothorax with loculated moderate-sized right pleural effusion with regions of atelectasis, superimposed infectious process is not excluded. Right hilar soft tissue fullness which may represent adenopathy. Secretions identified within the carinal region extending to the right mainstem bronchus and bronchus intermedius concerning for aspiration. Small to moderate size pericardial effusion. Abdominal ascites. Review of systems: Pertinent positives and negatives as discussed in HPI, a complete review of systems was performed and all other systems are negative. Vitals: Signs Reviewed Physical examination: General: nontoxic, no distress, appears at stated age Derm: warm, dry, intact Head: atraumatic, normocephalic, symmetric Eyes: EOMI, anicteric sclera Mouth: no lip lesion, mucus membranes moist Cardiovascular: S1 S2 reg, no murmur Lungs: tender to palpation on right lateral side of the chest Abdominal: soft, non-tender to palpation Extremities: right foot is bandaged Neuro: Alert, Oriented, Gross neurological examination did not reveal any focal deficits. Psych: well appearing, appropriate affect Assessment/Plan: Patient is a 59 year old male with past medical history of COPD, diabetes mellitus, GERD, hyperlipidemia, hypertension, PE presents to the ED with generalized weakness. Active: #. Pulmonary embolism #. History of DVT on warfarin on outpatient basis, subtherapeutic INR #. Recurrent pleural effusion S/p VATS on 06/14/24 #. Active history of Non small cell lung cancer Chest CT done yesterday shows left lower lobe nonconclusive subsegmental pulmonary embolism, no evidence for heart strain. Trace right pnedumothorax with loculated moderate-sized right pleural effusion with regions of atelectasis, superimposed infectious process is not excluded. Right hilar soft tissue fullness which may represent adenopathy. Secretions identified within the carinal region extending to the right mainstem bronchus and bronchus intermedius concerning for aspiration. Small to moderate size pericardial effusion. Abdominal ascites. D-dimer 3.76 Initiate Eliquis starter pack Obtain troponin and echocardiogram Consult pulmonology #. Pneumonia #. Generalized weakness possibly secondary to PE and pneumonia Chest x-ray shows increased new right lower opacification correlate for atelectasis versus pneumonia, small right pleural effusion with associated atelectasis Procalcitonin is 0.44 S/p Ceftriaxone 1000 mg IVP once and Azithromycin 500 mg IVPB once Continue Guaifenesin-DM PO Q12HR PRN, Levofloxacin 500 mg IVPB Q24HR Pulmonology consulted Continue #. Hyponatremia Sodium 130 on admission 0.9 normal saline at 75 ml/hr Monitor BMP #. Reactive Leukocytosis WBC 10.9 on admission Monitor CBC #. Hyperkalemia, resolved #. Metabolic acidosis, resolved Discontinue sodium bicarbonate Chronic: #. Hyperlipidemia #. Diabetes mellitus #. 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 BPH #. Tobacco dependence #. Vitamin D deficiency Continue atorvastatin 40 mg p.o. every 48 hours, insulin sliding scale and ACHS blood glucose monitoring, tamsulosin 0.4 mg p.o. daily, nicotine 14 mg/24-hour patch transdermal daily, ergocalciferol 125 0 mcg p.o. q. monthly, tizanidine 4 mg p.o. 3 times daily as needed F: 0.9 normal saline at 75 ml/hr E: Replete Na N: Regular diet DVT prophylaxis: Heparin drip and SCD GI prophylaxis: Pantoprazole 40 mg PO daily Objective - Vital Signs Vital signs: Vital Signs Temp 97.9 F 07/13/24 03:35 Pulse 94 07/13/24 03:35 Resp 18 07/13/24 03:35 BP 97/60 07/13/24 03:35 Pulse Ox 95 07/13/24 03:35 FiO2 Intake & Output 07/12/24 07/13/24 07/13/24 18:59 06:59 18:59 Intake Total 218 40.165 Balance 218 40.165 Weight 75 kg Intake: Intake, IV Titration 40.165 Amount Heparin Sod,Pork in 0.45% 40.165 NaCl 25,000 unit In 0.45 % NaCl 1 250ml.bag @ 12 UNITS/KG/HR 9.525 mls/hr IV .Q24H ARASH Rx#: [id number] Oral 218 Other: Voiding Method Urinal Urinal # Voids 1 1 # Bowel Movements 1 - Labs CBC & Chem 7: 07/13/24 05:58 07/13/24 05:58 Labs: Abnormal Lab Results - Last 24 Hours (Table) 07/12/24 07/12/24 07/12/24 Range/Units 09:55 12:43 12:59 WBC (3.8-10.6) k/uL MCHC (31.0-37.0) g/dL RDW (11.5-15.5) % Plt Count (150-450) k/uL Neutrophils # (1.3-7.7) k/uL Lymphocytes # (1.0-4.8) k/uL PT (10.0-12.5) sec INR (<1.2) APTT (22.0-30.0) sec D-Dimer 3.76 H (<0.60) mg/L FEU Sodium (137-145) mmol/L BUN (9-20) mg/dL Glucose (74-99) mg/dL POC Glucose (mg/dL) 31 L* 64 L (70-110) mg/dL Ur Specific Challenge (1.001-1.035) Urine Protein (Negative) Urine Glucose (UA) (Negative) 07/12/24 07/12/24 07/12/24 Range/Units 14:01 18:18 18:29 WBC 13.0 H (3.8-10.6) k/uL MCHC 29.7 L (31.0-37.0) g/dL RDW 16.7 H (11.5-15.5) % Plt Count 463 H (150-450) k/uL Neutrophils # 11.5 H (1.3-7.7) k/uL Lymphocytes # 0.9 L (1.0-4.8) k/uL PT (10.0-12.5) sec INR (<1.2) APTT (22.0-30.0) sec D-Dimer (<0.60) mg/L FEU Sodium (137-145) mmol/L BUN (9-20) mg/dL Glucose (74-99) mg/dL POC Glucose (mg/dL) 67 L (70-110) mg/dL Ur Specific Challenge >1.050 H (1.001-1.035) Urine Protein Trace H (Negative) Urine Glucose (UA) Trace H (Negative) 07/12/24 07/12/24 07/13/24 Range/Units 18:29 23:32 05:58 WBC (3.8-10.6) k/uL MCHC (31.0-37.0) g/dL RDW (11.5-15.5) % Plt Count (150-450) k/uL Neutrophils # (1.3-7.7) k/uL Lymphocytes # (1.0-4.8) k/uL PT 13.1 H (10.0-12.5) sec INR 1.2 H (<1.2) APTT 105.4 H* 30.7 H 32.8 H (22.0-30.0) sec D-Dimer (<0.60) mg/L FEU Sodium (137-145) mmol/L BUN (9-20) mg/dL Glucose (74-99) mg/dL POC Glucose (mg/dL) (70-110) mg/dL Ur Specific Challenge (1.001-1.035) Urine Protein (Negative) Urine Glucose (UA) (Negative) 07/13/24 07/13/24 07/13/24 Range/Units 05:58 05:58 06:12 WBC 12.9 H (3.8-10.6) k/uL MCHC 30.9 L (31.0-37.0) g/dL RDW 16.4 H (11.5-15.5) % Plt Count (150-450) k/uL Neutrophils # (1.3-7.7) k/uL Lymphocytes # (1.0-4.8) k/uL PT (10.0-12.5) sec INR (<1.2) APTT (22.0-30.0) sec D-Dimer (<0.60) mg/L FEU Sodium 129 L (137-145) mmol/L BUN 48 H (9-20) mg/dL Glucose 102 H (74-99) mg/dL POC Glucose (mg/dL) 117 H (70-110) mg/dL Ur Specific Challenge (1.001-1.035) Urine Protein (Negative) Urine Glucose (UA) (Negative)
[2024-07-13] MEDS: Apixaban Initiation Dose--VTE 5 MG TAB PO SCH (13:05)
--- NOTE | 2024-07-13 13:16 | CA ---
Transthoracic Echo Report Name: Igor Almanza Age: 59 Gender: M : 1965 Exam Date: 07/13/2024 12:01 Exam Location: [place] [facility] Ht (in): 69 Wt (lb): 165 Ordering Physician: Gricel Vazquez MD Attending/Referring Phys: Storage Battery Tester Coni Martinez RDCS Procedure CPT: Indications: PE Cardiac Hx: Technical Quality: Technically difficult study Contrast 1: Definity Total Dose (mL): 3 Contrast 2: Total Dose (mL): MEASUREMENTS (Male / Female) Normal Values 2D ECHO LV Diastolic Diameter PLAX 4.3 cm 4.2 - 5.9 / 3.9 - 5.3 cm LV Systolic Diameter PLAX 3.2 cm IVS Diastolic Thickness 0.8 cm 0.6 - 1.0 / 0.6 - 0.9 cm LVPW Diastolic Thickness 1.0 cm 0.6 - 1.0 / 0.6 - 0.9 cm LV Relative Wall Thickness 0.4 LVOT Diameter 2.4 cm LV Diastolic Volume MOD BP 99.3 cm??? 67 - 155 / 56 - 104 cm??? LV Systolic Volume MOD BP 52.9 cm??? 22 - 58 / 19 - 49 cm??? LV Ejection Fraction MOD BP 46.8 % >= 55 % LV Cardiac Index MOD BP 2206.9 cm???/min???m??? LV Diastolic Volume MOD 4C 102.1 cm??? LV Systolic Volume MOD 4C 49.9 cm??? LV Ejection Fraction MOD 4C 51.1 % LV Cardiac Index MOD 4C 2479.9 cm???/min???m??? LV Diastolic Length 4C 7.4 cm LV Systolic Length 4C 6.5 cm LV Diastolic Volume MOD 2C 93.8 cm??? LV Systolic Volume MOD 2C 50.3 cm??? LV Ejection Fraction MOD 2C 46.4 % LV Cardiac Index MOD 2C 2068.6 cm???/min???m??? LV Diastolic Length 2C 7.2 cm LV Systolic Length 2C 5.9 cm LA Volume 19.6 cm??? 18 - 58 / 22 - 52 cm??? LA Volume Index 10.2 cm???/m??? 16 - 28 cm???/m??? DOPPLER AV Peak Velocity 125.1 cm/s AV Peak Gradient 6.3 mmHg AV Mean Velocity 86.3 cm/s AV Mean Gradient 3.4 mmHg AV Velocity Time Integral 19.3 cm LVOT Peak Velocity 74.7 cm/s LVOT Peak Gradient 2.2 mmHg LVOT Velocity Time Integral 11.8 cm LVOT Stroke Volume 54.3 cm??? LVOT Stroke Volume Index 28.5 ml/m??? LVOT Cardiac Index 2579.1 cm???/min???m??? AV Area Cont Eq vti 2.8 cm??? AV Area Cont Eq pk 2.7 cm??? MV Area PHT 5.0 cm??? Mitral E Point Velocity 45.8 cm/s Mitral A Point Velocity 71.6 cm/s Mitral E to A Ratio 0.6 MV Deceleration Time 151.8 ms TR Peak Velocity 281.2 cm/s TR Peak Gradient 31.6 mmHg Right Atrial Pressure 5.0 mmHg Pulmonary Artery Systolic Pressu 36.6 mmHg Right Ventricular Systolic Press 36.6 mmHg PV Peak Velocity 73.2 cm/s PV Peak Gradient 2.1 mmHg FINDINGS Left Ventricle Left ventricular ejection fraction is estimated at 45-50 %. Mildly decreased left ventricular ejection fraction. Left ventricular cavity size normal. Left ventricular wall thickness normal. No obvious regional wall motion abnormalities. Right Ventricle Right ventricular dilatation. Reduced right ventricular global systolic function. Right ventricular systolic pressure within normal limits. Right Atrium Normal right atrial size. Left Atrium Normal left atrial size. Mitral Valve Structurally normal mitral valve. No mitral stenosis, regurgitation or prolapse. Aortic Valve Trileaflet aortic valve. No aortic stenosis. Mild aortic regurgitation. Tricuspid Valve Structurally normal tricuspid valve. No tricuspid stenosis. Mild tricuspid regurgitation. Pulmonic Valve Pulmonic valve not well visualized. No pulmonic stenosis. No pulmonic regurgitation. Pericardium Small pericardial effusion. Aorta Aortic annulus normal. CONCLUSIONS Left ventricular ejection fraction is estimated at 45-50 %. No obvious regional wall motion abnormalities. Mild Right ventricular dilatation. Mildly reduced right ventricular global systolic function. Mild aortic regurgitation. Mild tricuspid regurgitation. Previewed by: Dr Bolivar Zhao (Electronically Signed) Final Date: 13 July 2024 13:15
[2024-07-13 16:46] LABS: Glucose,Whole Blood 110 mg/dL (70-110)
[2024-07-13] MEDS: guaiFENesin-DM 600/30MG 1 EACH TAB.ER.12H PO PRN (17:48)
[2024-07-13 19:59] LABS: Glucose,Whole Blood 151 mg/dL (70-110)
[2024-07-14 05:55] LABS: Glucose,Whole Blood 117 mg/dL (70-110)
[2024-07-14 07:14] LABS: Anisocytosis Slight; HCT 44.4 % (39.0-53.0); HGB 13.8 gm/dL (13.0-17.5); Hypochromasia Slight; MCH 29.3 pg (25.0-35.0); MCV 94.5 fL (80.0-100.0); Mean Platelet Volume 8.2; Platelet Count 411 k/uL (150-450); RDW 16.7 % (11.5-15.5); WBC 13.3 k/uL (3.8-10.6)
[2024-07-14 07:21] LABS: INR 1.1 (<1.2)
[2024-07-14 07:30] LABS: African American GFR (CKD) >90 (>60 ml/min/1.73 sqM); Anion Gap 8 mmol/L; Blood Urea Nitrogen 50 mg/dL (9-20); Calcium 9.3 mg/dL (8.4-10.2); Carbon Dioxide 19 mmol/L (22-30); Chloride 102 mmol/L (98-107); Glucose 99 mg/dL (74-99); Non-African American GFR(CKD) 88 (>60 ml/min/1.73 sqM); Potassium 4.7 mmol/L (3.5-5.1); Sodium 129 mmol/L (137-145)
[2024-07-14] MEDS: BENZOCAINE/MENTHOL LOZENG 1 EACH LOZENGE MUCOUS MEM PRN (11:05)
[2024-07-14] MEDS ORDERED: SENNOSIDES 8.6 MG TAB PO PRN (11:18)
[2024-07-14] MEDS ORDERED: MELOXICAM 7.5 MG TAB PO PRN (11:19)
[2024-07-14 11:21] LABS: Glucose,Whole Blood 109 mg/dL (70-110)
--- NOTE | 2024-07-14 11:36 | P.DS ---
Providers Date of admission: 07/11/24 17:55 Expected date of discharge: 07/14/24 Attending physician: Catherine Roca Consults: 07/12/24 08:09 Consult Physician Routine Consulting Provider: Juan Carlos Garcia Consult Reason/Comments: Dyspnea Do you want consulting provider notified?: Yes Primary care physician: Rowan Coronel Hospital Course: Discharge diagnosis: Pulmonary embolism History of DVT on warfarin on outpatient basis, subtherapeutic INR Recurrent pleural effusion S/p VATS on 06/14/24 Active history of Non small cell lung cancer Pneumonia Generalized weakness possibly secondary to PE and pneumonia Hyponatremia, possibly SIADH Reactive Leukocytosis Hyperkalemia, resolved Metabolic acidosis, resolved Hyperlipidemia Diabetes mellitus Hx of aortobifem bypass with Dr 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 Patient complains of pressure in right lateral side of the chest at the site of previous Plerux catheter. He states that analgesics help with it temporarily. He reports a productive cough but denies shortness of breath and hemoptysis. He also endorses generalized weakness. Patient was admitted to the hospital recently and underwent VATS procedure on 06/14/2024 for recurrent right pleural effusion with mediastinal shift. At the time he also had a right-sided Pleurx catheter for 2 days. Pleural fluid was found to be positive for non-small cell lung carcinoma on 06/08/2024. Echocardiogram done in 2022 shows EF 60 to 65%, normal lv. Patient mentions not being adherent with home medications. Patient denies following up with oncology after being discharged. Today patient had an episode of hypoglycemia with blood sugar 31. He was fed and repeat blood sugar was 74. Denies fever, chills, shortness of breath, chest pain, palpitations, abdominal pain, nausea, vomiting, hematuria, dysuria, hematochezia, melena, headache, slurred speech, numbness, tingling, dizziness, lightheadedness, blurred vision, double vision. ED documentation reviewed. In the ED patient was treated with acetaminophen, atorvastatin, 0.9 normal saline, dexamethasone, azithromycin, ceftriaxone, metformin. Vitals on admission T 97.8 F, MD 89 bpm, RR 18, BP 96/68, oxygen saturation 95% on room air. EKG independently interpreted as sinus rhythm, rate 92 bpm, UDC 386 ms. Chest x-ray shows increased new right lower opacification correlate for atelectasis versus pneumonia, small right pleural effusion with associated atelectasis. Labs on admission show WBC 10.9, hemoglobin 14.9, RDW 16.7, platelet count 455, PT 10.8, INR 1.0 sodium 130, potassium 5.6, bicarb 15, BUN 53, creatinine 1.03, magnesium 2.2, troponin I <0.012, NT proBNP 1050, D-dimer 3.76. Respiratory panel is negative 07/13/24: Patient seen and examined at bedside today. BP today is 97/60 and he is saturating at 95% on room air. Labs today show WBC 12.9, platelet count 16.4, APTT 32.8, sodium 129, potassium 4.7, bicarb 22, BUN 48. UA shows specific gravity>1.050, trace protein, trace glucose. Chest CT done yesterday shows left lower lobe nonconclusive subsegmental pulmonary embolism, no evidence for heart strain. Trace right pnedumothorax with loculated moderate-sized right pleural effusion with regions of atelectasis, superimposed infectious process is not excluded. Right hilar soft tissue fullness which may represent adenopathy. Secretions identified within the carinal region extending to the right mainstem bronchus and bronchus intermedius concerning for aspiration. Small to moderate size pericardial effusion. Abdominal ascites. 07/14/24: Patient evaluated at bedside. BP today is 96/56 and he is saturating at 92% on room air. Labs today WBC 13.3, RDW 16.7, Na 129, bicarb 19, BUN 50. Troponin <0.012. Echocardiogram shows EF 45 to 50%, no obvious regional wall motion abnormalities, mild right ventricular dilatation, mildly reduced right ventricular global function, mild AR, mild TR. Patient seen at bedside today and is feeling good and excited about discharge. Patient will be discharged today and is given a script for [place], Celebrex, Senokot, Miralax, Eliquis. Patient is advised to be compliant with medications. Patient is advised to follow-up with PCP in 1-2 days and oncology in 1 week. Vital signs are reviewed and stable General: nontoxic, no distress, appears at stated age Derm: warm, dry, intact Head: atraumatic, normocephalic, symmetric Eyes: EOMI, anicteric sclera Mouth: no lip lesion, mucus membranes moist Cardiovascular: S1 S2 reg, no murmur Lungs: tender to palpation on right lateral side of the chest Abdominal: soft, non-tender to palpation Extremities: right foot is bandaged Neuro: Alert, Oriented, Gross neurological examination did not reveal any focal deficits. Psych: well appearing, appropriate affect A total of 30 minutes of time were spent preparing this complex discharge summary. Patient was discharged on 07/14/24 at 1200. Patient Condition at Discharge: Stable Plan - Discharge Summary Discharge Rx Participant: No New Discharge Prescriptions: No Action tiZANidine HCL 4 mg PO TID PRN PRN Reason: Pain metFORMIN HCL [Glucophage] 500 mg PO W/BRKFST Ergocalciferol (Vitamin D2) [Drisdol (50,000 Iu)] 1,250 mcg PO QMONTHLY Warfarin [Coumadin] 5 mg PO BID Tamsulosin HCl [Flomax] 0.4 mg PO DAILY Atorvastatin [Lipitor] 40 mg PO Q48H Acetaminophen Tab [Tylenol] 500 mg PO Q6H PRN PRN Reason: Fever And/ Or Pain Nicotine 14Mg/24Hr Patch [Habitrol] 1 patch TRANSDERM DAILY #30 patch Discharge Medication List Acetaminophen Tab [Tylenol] 500 mg PO Q6H PRN 06/05/24 [History] Atorvastatin [Lipitor] 40 mg PO Q48H 06/05/24 [History] Ergocalciferol (Vitamin D2) [Drisdol (50,000 Iu)] 1,250 mcg PO QMONTHLY 06/05/24 [History] Tamsulosin HCl [Flomax] 0.4 mg PO DAILY 06/05/24 [History] Warfarin [Coumadin] 5 mg PO BID 06/05/24 [History] metFORMIN HCL [Glucophage] 500 mg PO W/BRKFST 06/05/24 [History] tiZANidine HCL 4 mg PO TID PRN 06/05/24 [History] Nicotine 14Mg/24Hr Patch [Habitrol] 1 patch TRANSDERM DAILY #30 patch 06/16/24 [Rx] Follow up Appointment(s)/Referral(s): Salvatore,Declan [STAFF PHYSICIAN] - 1 Week Rowan Coronel MD [Primary Care Provider] - 1-2 days
--- NOTE | 2024-07-14 12:15 | P.CNPUL ---
History of Present Illness Consult date: 07/14/24 Reason for consult: dyspnea, pleural effusion, lung mass Chief complaint: Shortness of breath and chest pain History of present illness: 59-year-old male with extensive history of smoking and nicotine use over [id number] Patient was hospitalized on June 03 and May 24 for shortness of breath and massive large size of pleural effusion. Patient has right-sided thoracentesis and 1.8 L of pleural fluid removed cytology and cultures were negative biochemistry consistent with exudative effusion. Patient was disc harged with recommended to follow-up with thoracic surgery. Patient came back again on June 03 with increasing shortness of breath at this time he had about 7 L removed with similar finding a result has still have residual pleural effusion on the right side. Patient transferred from [facility] to [facility] for advanced level of care with consultation with thoracic surgery for possible right VATS and diagnostic pleural biopsy. VATS biopsy was performed June 14, 2024 and was positive for non-small cell cancer patient underwent mechanical pleurodesis as well subsequently was discharged to follow-up with oncology for chemotherapy. However patient was readmitted on July 11 with generalized weakness. Patient complaining of pain along the VATS procedure site and lung malignancy site, CT scan of the chest positive for peripheral small pulmonary embolism, patient had a trace right pneumothorax with loculated small right- sided pleural effusion likely residual of chemical pleurodesis some right hilar tissue seen likely neoplasm review of the CT scan does not show significant pleural effusion to be drained Patient takes Coumadin for deep venous thrombosis history and peripheral a rterial disease. Patient has extensive history of smoking and nicotine use, smoked about [id number]. Past medical history significant for hypertension hypertensive cardiovascular disease dyslipidemia, distal deep venous thrombosis, peripheral vascular disease, type 2 diabetes mellitus hyperglycemia recurrent right-sided pleural effusion exudative with negative cytology and culture, recent femoropopliteal bilateral bypass surgery at [facility] June 08, 2024 Review of Systems All systems: negative Past Medical History Past Medical History: COPD, Diabetes Mellitus, Deep Vein Thrombosis (DVT), GERD /Reflux, Hyperlipidemia, Hypertension, Prostate Disorder, Pulmonary Embolus (PE), Vascular Disorder Additional Past Medical History / Comment(s): DVT December 2022, on Coumadin as an outpatient for anticoagulation, 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, femoral artery bypass Mar 2024 History of Any Multi-Drug Resistant Organisms: None Reported Past Surgical History: Tonsillectomy Additional Past Surgical History / Comment(s): vascular Bx 2023 Past Anesthesia/Blood Transfusion Reactions: No Reported Reaction Additional Past Anesthesia/Blood Transfusion Reaction / Comment(s): NO BLOOD TRANSFUSIONS BEFORE Past Psychological History: No Psychological Hx Reported Smoking Status: Former smoker Past Alcohol Use History: Rare Past Drug Use History: Marijuana - Past Family History Mother Family Medical History: Cancer Additional Family Medical History / Comment(s): MOTHER HAD CANCER, uterine cancer Father Family Medical History: COPD, CVA/TIA Medications and Allergies Home Medications Medication Instructions Recorded Confirmed Type Acetaminophen Tab [Tylenol] 500 mg PO Q6H PRN 06/05/24 07/11/24 History Atorvastatin [Lipitor] 40 mg PO Q48H 06/05/24 07/11/24 History Ergocalciferol (Vitamin D2) 1,250 mcg PO QMONTHLY 06/05/24 07/11/24 History [Drisdol (50,000 Iu)] Tamsulosin HCl [Flomax] 0.4 mg PO DAILY 06/05/24 07/11/24 History metFORMIN HCL [Glucophage] 500 mg PO W/BRKFST 06/05/24 07/11/24 History tiZANidine HCL 4 mg PO TID PRN 06/05/24 07/11/24 History Nicotine 14Mg/24Hr Patch [Habitrol] 1 patch TRANSDERM DAILY #30 patch 06/16/24 07/11/24 Rx Apixaban [Eliquis] 5 mg PO BID 7 Days #14 tab 07/14/24 Rx Apixaban [Eliquis] 10 mg PO BID 5 Days #10 tablet 07/14/24 Rx Celecoxib [CeleBREX] 200 mg PO BID 7 Days #14 cap 07/14/24 Rx Pantoprazole [Protonix] 40 mg PO DAILY PRN 7 Days #7 tab 07/14/24 Rx Sennosides [Senokot] 8.6 mg PO BID PRN 7 Days #14 tab 07/14/24 Rx oxyCODONE-APAP 10-325MG [Percocet 1 each PO Q6HR PRN 7 Days #28 tab 07/14/24 Rx 10-325 mg] polyethylene glycoL 3350 [Miralax] 17 gm PO DAILY 7 Days #7 packet 07/14/24 Rx Allergies Allergy/AdvReac Type Severity Reaction Status Date / Time bee venom protein (honey bee) Allergy Swelling Verified 07/11/24 16:01 Penicillins Allergy Unknown Verified 07/11/24 16:01 Physical Exam Vitals: Vital Signs Temp Pulse Resp BP BP Pulse Ox 07/14/24 11:09 104 H 16 87/57 91 L 07/14/24 08:00 97.6 F 100 16 81/53 92 L 07/14/24 03:57 98.6 F 96 18 96/56 92 L 07/14/24 00:00 100 18 101/58 92 L 07/13/24 20:00 98.3 F 92 18 95/61 93 L 07/13/24 16:10 98.5 F 104 H 18 88/59 90 L 07/13/24 14:00 94 17 Intake and Output 07/13/24 07/14/24 07/14/24 22:59 06:59 14:59 Intake Total 222 Output Total 0 Balance 0 222 Intake: Oral 222 Output: Urine 0 Other: Voiding Method Urinal Urinal Urinal # Voids 2 1 # Bowel Movements 1 Weight 77.1 kg - Constitutional General appearance: average body habitus, cooperative, disheveled, mild distress - EENT Eyes: EOMI, PERRLA - Neck Carotids: bilateral: upstroke normal Thyroid: bilateral: normal size - Respiratory Respiratory: right: diminished, dullness - Cardiovascular Rhythm: regular Heart sounds: normal: S1, S2 - Gastrointestinal General gastrointestinal: soft - Integumentary Integumentary: normal turgor - Neurologic Neurologic: CNII-XII intact - Musculoskeletal Musculoskeletal: gait normal, generalized weakness, strength equal bilaterally - Psychiatric Psychiatric: A&O x's 3, appropriate affect, intact judgment & insight Results - Laboratory Findings CBC and BMP: 07/14/24 06:57 07/14/24 06:57 PT/INR, D-dimer PT 12.0 sec (10.0-12.5) 07/14/24 06:57 INR 1.1 (<1.2) 07/14/24 06:57 D-Dimer 3.76 mg/L FEU (<0.60) H 07/12/24 09:55 Abnormal lab findings: Abnormal Labs 07/11/24 07/11/24 07/12/24 14:25 14:25 09:55 WBC 10.9 H MCHC RDW 16.7 H Plt Count 455 H Neutrophils # Neutrophils # (Manual) 9.16 H Lymphocytes # Lymphocytes # (Manual) 0.98 L PT INR APTT D-Dimer 3.76 H Sodium 130 L Potassium 5.6 H Carbon Dioxide 15 L BUN 53 H Glucose POC Glucose (mg/dL) Total Protein 6.2 L Albumin 3.0 L Ur Specific [place] Urine Protein Urine Glucose (UA) 07/12/24 07/12/24 07/12/24 12:43 12:59 14:01 WBC MCHC RDW Plt Count Neutrophils # Neutrophils # (Manual) Lymphocytes # Lymphocytes # (Manual) PT INR APTT D-Dimer Sodium Potassium Carbon Dioxide BUN Glucose POC Glucose (mg/dL) 31 L* 64 L 67 L Total Protein Albumin Ur Specific [place] Urine Protein Urine Glucose (UA) 07/12/24 07/12/24 07/12/24 18:18 18:29 18:29 WBC 13.0 H MCHC 29.7 L RDW 16.7 H Plt Count 463 H Neutrophils # 11.5 H Neutrophils # (Manual) Lymphocytes # 0.9 L Lymphocytes # (Manual) PT 13.1 H INR 1.2 H APTT 105.4 H* D-Dimer Sodium Potassium Carbon Dioxide BUN Glucose POC Glucose (mg/dL) Total Protein Albumin Ur Specific [place] >1.050 H Urine Protein Trace H Urine Glucose (UA) Trace H 07/12/24 07/13/24 07/13/24 23:32 05:58 05:58 WBC 12.9 H MCHC 30.9 L RDW 16.4 H Plt Count Neutrophils # Neutrophils # (Manual) Lymphocytes # Lymphocytes # (Manual) PT INR APTT 30.7 H 32.8 H D-Dimer Sodium Potassium Carbon Dioxide BUN Glucose POC Glucose (mg/dL) Total Protein Albumin Ur Specific [place] Urine Protein Urine Glucose (UA) 07/13/24 07/13/24 07/13/24 05:58 06:12 11:49 WBC MCHC RDW Plt Count Neutrophils # Neutrophils # (Manual) Lymphocytes # Lymphocytes # (Manual) PT INR APTT D-Dimer Sodium 129 L Potassium Carbon Dioxide BUN 48 H Glucose 102 H POC Glucose (mg/dL) 117 H 132 H Total Protein Albumin Ur Specific [place] Urine Protein Urine Glucose (UA) 07/13/24 07/14/24 07/14/24 19:58 05:54 06:57 WBC 13.3 H MCHC RDW 16.7 H Plt Count Neutrophils # Neutrophils # (Manual) Lymphocytes # Lymphocytes # (Manual) PT INR APTT D-Dimer Sodium Potassium Carbon Dioxide BUN Glucose POC Glucose (mg/dL) 151 H 117 H Total Protein Albumin Ur Specific [place] Urine Protein Urine Glucose (UA) 07/14/24 06:57 WBC MCHC RDW Plt Count Neutrophils # Neutrophils # (Manual) Lymphocytes # Lymphocytes # (Manual) PT INR APTT D-Dimer Sodium 129 L Potassium Carbon Dioxide 19 L BUN 50 H Glucose POC Glucose (mg/dL) Total Protein Albumin Ur Specific [place] Urine Protein Urine Glucose (UA) - Diagnostic Findings Chest x-ray: report reviewed, image reviewed CT scan - chest: report reviewed, image reviewed (Finding as noted above) Assessment and Plan Assessment: COPD not in exacerbation Stage IV metastatic adenocarcinoma likely, not on chemotherapy currently Right-sided pleural effusion s/p VATS procedure and chemical and mechanical pleurodesis Peripheral arterial disease Small peripheral pulmonary embolism with history of DVT PE in the past Low oxygen saturation borderline likely will need home oxygen Plan: Evaluate for home oxygen Recommend consultation with oncology so patient can be initiated on appropriate chemotherapy Patient has a small loculated pleural effusion which cannot be drained Continue deep breathing exercise incentive spirometry Adequate pain management Will follow Time with Patient: Greater than 30
--- NOTE | 2024-07-14 14:00 | P.PN ---
Subjective Progress Note Date: 07/14/24 Principal diagnosis: Hospital course: Patient is a 59 year old male with past medical history of COPD, diabetes mellitus, GERD, hyperlipidemia, hypertension, PE presents to the ED with generalized weakness. Patient complains of pressure in right lateral side of the chest at the site of previous Plerux catheter. He states that analgesics help with it temporarily. He reports a productive cough but denies shortness of breath and hemoptysis. He also endorses generalized weakness. Patient was admitted to the hospital recently and underwent VATS procedure on 06/14/2024 for recurrent right pleural effusion with mediastinal shift. At the time he also had a right-sided Pleurx catheter for 2 days. Pleural fluid was found to be positive for non-small cell lung carcinoma on 06/08/2024. Echocardiogram done in 2022 shows EF 60 to 65%, normal lv. Patient mentions not being adherent with home medications. Patient denies following up with oncology after being discharged. Today patient had an episode of hypoglycemia with blood sugar 31. He was fed and repeat blood sugar was 74. Denies fever, chills, shortness of breath, chest pain, palpitations, abdominal pain, nausea, vomiting, hematuria, dysuria, hematochezia, melena, headache, slurred speech, numbness, tingling, dizziness, lightheadedness, blurred vision, double vision. ED documentation reviewed. In the ED patient was treated with acetaminophen, atorvastatin, 0.9 normal saline, dexamethasone, azithromycin, ceftriaxone, metformin. Vitals on admission T 97.8 F, W[place] 89 bpm, RR 18, BP 96/68, oxygen saturation 95% on room air. EKG independently interpreted as sinus rhythm, rate 92 bpm, UDC 386 ms. Chest x-ray shows increased new right lower opacification correlate for atelectasis versus pneumonia, small right pleural effusion with associated atelectasis. Labs on admission show WBC 10.9, hemoglobin 14.9, RDW 16.7, platelet count 455, PT 10.8, INR 1.0 sodium 130, potassium 5.6, bicarb 15, BUN 53, creatinine 1.03, magnesium 2.2, troponin I <0.012, NT proBNP 1050, D-dimer 3.76. Respiratory panel is negative 07/13/24: Patient seen and examined at bedside today. BP today is 97/60 and he is saturating at 95% on room air. Labs today show WBC 12.9, platelet count 16.4, APTT 32.8, sodium 129, potassium 4.7, bicarb 22, BUN 48. UA shows specific gravity>1.050, trace protein, trace glucose. Chest CT done yesterday shows left lower lobe nonconclusive subsegmental pulmonary embolism, no evidence for heart strain. Trace right pnedumothorax with loculated moderate-sized right pleural effusion with regions of atelectasis, superimposed infectious process is not excluded. Right hilar soft tissue fullness which may represent adenopathy. Secretions identified within the carinal region extending to the right mainstem bronchus and bronchus intermedius concerning for aspiration. Small to moderate size pericardial effusion. Abdominal ascites. 07/14/24: Patient evaluated at bedside. BP today is 96/56 and he is saturating at 92% on room air. Labs today WBC 13.3, RDW 16.7, Na 129, bicarb 19, BUN 50. Troponin <0.012. Echocardiogram shows EF 45 to 50%, no obvious regional wall motion abnormalities, mild right ventricular dilatation, mildly reduced right ventricular global function, mild AR, mild TR. Review of systems: Pertinent positives and negatives as discussed in HPI, a complete review of systems was performed and all other systems are negative. Vitals: Signs Reviewed Physical examination: General: nontoxic, no distress, appears at stated age Derm: warm, dry, intact Head: atraumatic, normocephalic, symmetric Eyes: EOMI, anicteric sclera Mouth: no lip lesion, mucus membranes moist Cardiovascular: S1 S2 reg, no murmur Lungs: tender to palpation on right lateral side of the chest Abdominal: soft, non-tender to palpation Extremities: right foot is bandaged Neuro: Alert, Oriented, Gross neurological examination did not reveal any focal deficits. Psych: well appearing, appropriate affect Assessment/Plan: Patient is a 59 year old male with past medical history of COPD, diabetes mellitus, GERD, hyperlipidemia, hypertension, PE presents to the ED with generalized weakness. Active: #. Pulmonary embolism #. History of DVT on warfarin on outpatient basis, subtherapeutic INR #. Recurrent pleural effusion S/p VATS on 06/14/24 #. Active history of Non small cell lung cancer Chest CT done yesterday shows left lower lobe nonconclusive subsegmental pulmonary embolism, no evidence for heart strain. Trace right pnedumothorax with loculated moderate-sized right pleural effusion with regions of atelect asis, superimposed infectious process is not excluded. Right hilar soft tissue fullness which may represent adenopathy. Secretions identified within the carinal region extending to the right mainstem bronchus and bronchus intermedius concerning for aspiration. Small to moderate size pericardial effusion. Abdominal ascites. D-dimer 3.76 Continue Eliquis Consult pulmonology Percocet and Mobic for pain #. Pneumonia #. Generalized weakness possibly secondary to PE and pneumonia Chest x-ray shows increased new right lower opacification correlate for atelectasis versus pneumonia, small right pleural effusion with associated atelectasis Procalcitonin is 0.44 S/p Ceftriaxone 1000 mg IVP once and Azithromycin 500 mg IVPB once Continue Guaifenesin-DM PO Q12HR PRN, Levofloxacin 500 mg IVPB Q24HR Pulmonology consulted Continue #. Hyponatremia Sodium 130 on admission 0.9 normal saline at 75 ml/hr Monitor BMP #. Reactive Leukocytosis WBC 10.9 on admission Monitor CBC #. Hyperkalemia, resolved #. Metabolic acidosis, resolved Discontinue sodium bicarbonate Chronic: #. Hyperlipidemia #. Diabetes mellitus #. 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 BPH #. Tobacco dependence #. Vitamin D deficiency Continue atorvastatin 40 mg p.o. every 48 hours, insulin sliding scale and ACHS blood glucose monitoring, tamsulosin 0.4 mg p.o. daily, nicotine 14 mg/24-hour patch transdermal daily, ergocalciferol 125 0 mcg p.o. q. monthly, tizanidine 4 mg p.o. 3 times daily as needed F: None E: Replete asnrequired N: Regular diet DVT prophylaxis: Eliquis and SCD GI prophylaxis: Pantoprazole 40 mg PO daily Objective - Vital Signs Vital signs: Vital Signs Temp 97.6 F 07/14/24 08:00 Pulse 104 H 07/14/24 11:09 Resp 16 07/14/24 11:09 BP 87/57 07/14/24 11:09 Pulse Ox 91 L 07/14/24 11:09 FiO2 Intake & Output 07/13/24 07/14/24 07/14/24 18:59 06:59 18:59 Intake Total 222 Output Total 0 Balance 0 222 Weight 77.1 kg Intake: Oral 222 Output: Urine 0 Other: Voiding Method Urinal Urinal Urinal # Voids 3 2 1 # Bowel Movements 2 1 - Labs CBC & Chem 7: 07/14/24 06:57 07/14/24 06:57 Labs: Abnormal Lab Results - Last 24 Hours (Table) 07/13/24 07/14/24 07/14/24 Range/Units 19:58 05:54 06:57 WBC 13.3 H (3.8-10.6) k/uL RDW 16.7 H (11.5-15.5) % Sodium (137-145) mmol/L Carbon Dioxide (22-30) mmol/L BUN (9-20) mg/dL POC Glucose (mg/dL) 151 H 117 H (70-110) mg/dL 07/14/24 Range/Units 06:57 WBC (3.8-10.6) k/uL RDW (11.5-15.5) % Sodium 129 L (137-145) mmol/L Carbon Dioxide 19 L (22-30) mmol/L BUN 50 H (9-20) mg/dL POC Glucose (mg/dL) (70-110) mg/dL
[2024-07-14] MEDS: polyethylene glycoL 3350 17 GM POWD.PACK PO SCH (14:07)
[2024-07-14 16:53] LABS: Glucose,Whole Blood 124 mg/dL (70-110)
[2024-07-14 20:33] LABS: Glucose,Whole Blood 111 mg/dL (70-110)
[2024-07-15] MEDS: oxyCODONE-APAP 10-325MG 1 EACH TAB PO PRN (04:33)
[2024-07-15 05:55] LABS: Glucose,Whole Blood 98 mg/dL (70-110)
[2024-07-15 06:28] LABS: INR 1.2 (<1.2); Prothrombin Time 13.1 sec (10.0-12.5)
--- NOTE | 2024-07-15 08:40 | XR ---
EXAMINATION TYPE: XR chest 1V portable DATE OF EXAM: 07/15/2024 6:50 AM COMPARISON: 07/11/2024 CLINICAL INDICATION: Male, 59 years old with history of shortness of breath, TECHNIQUE: XR chest 1V portable view(s) obtained. FINDINGS: The heart size is normal. The pulmonary vasculature is normal. There is a small right pleural effusion tracking along the lateral aspect of the thoracic margin. Lar ge right lower lobe opacity is present. Pleural effusion is increasing from comparison IMPRESSION: 1. Persistent right lung base opacity. Underlying mass should be considered. 2. Increasing moderate right side pleural effusion [facility], , 07/15/2024 8:38 AM
[2024-07-15 11:09] LABS: Glucose,Whole Blood 100 mg/dL (70-110)
--- NOTE | 2024-07-15 12:59 | P.PN ---
Subjective Progress Note Date: 07/15/24 Principal diagnosis: Hospital course: Patient is a 59 year old male with past medical history of COPD, diabetes mellitus, GERD, hyperlipidemia, hypertension, PE presents to the ED with generalized weakness. Patient complains of pressure in right lateral side of the chest at the site of previous Plerux catheter. He states that analgesics help with it temporarily. He reports a productive cough but denies shortness of breath and hemoptysis. He also endorses generalized weakness. Patient was admitted to the hospital recently and underwent VATS procedure on 06/14/2024 for recurrent right pleural effusion with mediastinal shift. At the time he also had a right-sided Pleurx catheter for 2 days. Pleural fluid was found to be positive for non-small cell lung carcinoma on 06/08/2024. Echocardiogram done in 2022 shows EF 60 to 65%, normal lv. Patient mentions not being adherent with home medications. Patient denies following up with oncology after being discharged. Today patient had an episode of hypoglycemia with blood sugar 31. He was fed and repeat blood sugar was 74. Denies fever, chills, shortness of breath, chest pain, palpitations, abdominal pain, nausea, vomiting, hematuria, dysuria, hematochezia, melena, headache, slurred speech, numbness, tingling, dizziness, lightheadedness, blurred vision, double vision. ED documentation reviewed. In the ED patient was treated with acetaminophen, atorvastatin, 0.9 normal saline, dexamethasone, azithromycin, ceftriaxone, metformin. Vitals on admission T 97.8 F, [place] 89 bpm, RR 18, BP 96/68, oxygen saturation 95% on room air. EKG independently interpreted as sinus rhythm, rate 92 bpm, UDC 386 ms. Chest x-ray shows increased new right lower opacification correlate for atelectasis versus pneumonia, small right pleural effusion with associated atelectasis. Labs on admission show WBC 10.9, hemoglobin 14.9, RDW 16.7, platelet count 455, PT 10.8, INR 1.0 sodium 130, potassium 5.6, bicarb 15, BUN 53, creatinine 1.03, magnesium 2.2, troponin I <0.012, NT proBNP 1050, D-dimer 3.76. Respiratory panel is negative 07/13/24: Patient seen and examined at bedside today. BP today is 97/60 and he is saturating at 95% on room air. Labs today show WBC 12.9, platelet count 16.4, APTT 32.8, sodium 129, potassium 4.7, bicarb 22, BUN 48. UA shows specific gravity>1.050, trace protein, trace glucose. Chest CT done yesterday shows left lower lobe nonconclusive subsegmental pulmonary embolism, no evidence for heart strain. Trace right pnedumothorax with loculated moderate-sized right pleural effusion with regions of atelectasis, superimposed infectious process is not excluded. Right hilar soft tissue fullness which may represent adenopathy. Secretions identified within the carinal region extending to the right mainstem bronchus and bronchus intermedius concerning for aspiration. Small to moderate size pericardial effusion. Abdominal ascites. 07/14/24: Patient evaluated at bedside. BP today is 96/56 and he is saturating at 92% on room air. Labs today WBC 13.3, RDW 16.7, Na 129, bicarb 19, BUN 50. Troponin <0.012. Echocardiogram shows EF 45 to 50%, no obvious regional wall motion abnormalities, mild right ventricular dilatation, mildly reduced right ventricular global function, mild AR, mild TR. 07/15/24: Patient examined today. Patient was discharged but wasn't able to go as patient's mother contacted CM and stated that she feels the need for rehab for her son. OT recommends return home with GF and home care. Patient awaiting placement and prior auth. Review of systems: Pertinent positives and negatives as discussed in HPI, a complete review of systems was performed and all other systems are negative. Vitals: Signs Reviewed Physical examination: General: nontoxic, no distress, appears at stated age Derm: warm, dry, intact Head: atraumatic, normocephalic, symmetric Eyes: EOMI, anicteric sclera Mouth: no lip lesion, mucus membranes moist Cardiovascular: S1 S2 reg, no murmur Lungs: tender to palpation on right lateral side of the chest Abdominal: soft, non-tender to palpation Extremities: right foot is bandaged Neuro: Alert, Oriented, Gross neurological examination did not reveal any focal deficits. Psych: well appearing, appropriate affect Assessment/Plan: Patient is a 59 year old male with past medical history of COPD, diabetes mellitus, GERD, hyperlipidemia, hypertension, PE presents to the ED with generalized weakness. Active: #. Pulmonary embolism #. History of DVT on warfarin on outpatient basis, subtherapeutic INR #. Recurrent pleural effusion S/p VATS on 06/14/24 #. Active history of Non small cell lung cancer Chest CT done yesterday shows left lower lobe nonconclusive subsegmental pulmonary embolism, no evidence for heart strain. Trace right pnedumothorax with loculated moderate-sized right pleural effusion with regions of atelec tasis, superimposed infectious process is not excluded. Right hilar soft tissue fullness which may represent adenopathy. Secretions identified within the carinal region extending to the right mainstem bronchus and bronchus intermedius concerning for aspiration. Small to moderate size pericardial effusion. Abdominal ascites. D-dimer 3.76 Continue Eliquis Pulmnology is following Percocet and Mobic for pain #. Pneumonia #. Generalized weakness possibly secondary to PE and pneumonia Chest x-ray shows increased new right lower opacification correlate for atelectasis versus pneumonia, small right pleural effusion with associated atelectasis Procalcitonin is 0.44 S/p Ceftriaxone 1000 mg IVP once and Azithromycin 500 mg IVPB once Continue Guaifenesin-DM PO Q12HR PRN, Levofloxacin 500 mg IVPB Q24HR Pulmonology is following Continue #. Hyponatremia Sodium 130 on admission 0.9 normal saline at 75 ml/hr Monitor BMP #. Reactive Leukocytosis WBC 10.9 on admission Monitor CBC #. Hyperkalemia, resolved #. Metabolic acidosis, resolved Discontinue sodium bicarbonate Chronic: #. Hyperlipidemia #. Diabetes mellitus #. 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 BPH #. Tobacco dependence #. Vitamin D deficiency Continue atorvastatin 40 mg p.o. every 48 hours, insulin sliding scale and ACHS blood glucose monitoring, tamsulosin 0.4 mg p.o. daily, nicotine 14 mg/24-hour patch transdermal daily, ergocalciferol 125 0 mcg p.o. q. monthly, tizanidine 4 mg p.o. 3 times daily as needed F: None E: Replete asnrequired N: Regular diet DVT prophylaxis: Eliquis and SCD GI prophylaxis: Pantoprazole 40 mg PO daily Objective - Vital Signs Vital signs: Vital Signs Temp 97.3 F L 07/15/24 12:36 Pulse 101 H 07/15/24 12:36 Resp 16 07/15/24 12:36 BP 87/62 07/15/24 12:36 Pulse Ox 96 07/15/24 12:36 FiO2 Intake & Output 07/14/24 07/15/24 07/15/24 18:59 06:59 18:59 Intake Total 222 240 160 Output Total 725 Balance 222 -485 160 Weight 77.2 kg Intake: IV 10 Invasive Line 1 10 Invasive Line 2 0 Oral 222 240 150 Output: Urine 725 Other: Voiding Method Urinal Urinal Urinal # Voids 1 # Bowel Movements 1 - Labs CBC & Chem 7: 07/14/24 06:57 07/14/24 06:57 Labs: Abnormal Lab Results - Last 24 Hours (Table) 07/14/24 07/14/24 07/15/24 Range/Units 16:51 20:28 05:54 PT 13.1 H (10.0-12.5) sec INR 1.2 H (<1.2) POC Glucose (mg/dL) 124 H 111 H (70-110) mg/dL
[2024-07-15 16:48] LABS: Glucose,Whole Blood 78 mg/dL (70-110)
[2024-07-15 20:40] LABS: Glucose,Whole Blood 240 mg/dL (70-110)
[2024-07-16 05:56] LABS: Glucose,Whole Blood 88 mg/dL (70-110)
[2024-07-16 11:05] LABS: Glucose,Whole Blood 113 mg/dL (70-110)
[2024-07-16 12:07] VITALS: BMI 25.1
[2024-07-16 17:09] LABS: Glucose,Whole Blood 106 mg/dL (70-110)
[2024-07-16 20:51] LABS: Glucose,Whole Blood 90 mg/dL (70-110)
--- NOTE | 2024-07-16 22:24 | P.CONS ---
History of Present Illness - Reason for Consult Consult date: 07/16/24 Metastatic NSCLC - Chief Complaint Dyspnea - History of Present Illness Mr. Almanza is a 59-year-old gentleman with a past medical history significant for recently diagnosed stage IV adenocarcinoma of the lung who was admitted for pneumonia. Initially presented in May 2024 to [facility] with increased dyspnea or CT of the chest on 06/06/2024 noted large right pleural effusion with leftward shift of the mediastinum due to mass effect. He had placement of a right thoracostomy tube on 06/10/2024 and underwent VATS with pleural biopsy on 06/14/2024. Pathology from pleural biopsy and pleural fluid cytology after placement of right thoracostomy tube was consistent with poorly differentiated adenocarcinoma. He was discharged on 06/16/2024. Following discharge, he was arranged to have staging imaging with PET/CT on 07/01/2024 followed by follow-up in our clinic, but this was canceled by Mr. Almanza due to concern for eviction from his current dwelling. He presented to [facility] 07/12/2023 with increased shortness of breath and was treated for pneumonia with symptomatic improvement. Currently, he is feeling well with no dyspnea. He states he would like to proceed with hospice. 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, femoral artery bypass Mar 2024 History of Any Multi-Drug Resistant Organisms: None Reported Past Surgical History: Tonsillectomy Additional Past Surgical History / Comment(s): vascular Bx 2023 Past Anesthesia/Blood Transfusion Reactions: No Reported Reaction Additional Past Anesthesia/Blood Transfusion Reaction / Comm: NO BLOOD TRANSFUSIONS BEFORE Past Psychological History: No Psychological Hx Reported Smoking Status: Former smoker Past Alcohol Use History: Rare Past Drug Use History: Marijuana - Past Family History Mother Family Medical History: Cancer Additional Family Medical History / Comment(s): MOTHER HAD CANCER, uterine cancer Father Family Medical History: COPD, CVA/TIA Medications and Allergies Home Medications Medication Instructions Recorded Confirmed Type Acetaminophen Tab [Tylenol] 500 mg PO Q6H PRN 06/05/24 07/11/24 History Atorvastatin [Lipitor] 40 mg PO Q48H 06/05/24 07/11/24 History Ergocalciferol (Vitamin D2) 1,250 mcg PO QMONTHLY 06/05/24 07/11/24 History [Drisdol (50,000 Iu)] Tamsulosin HCl [Flomax] 0.4 mg PO DAILY 06/05/24 07/11/24 History metFORMIN HCL [Glucophage] 500 mg PO W/BRKFST 06/05/24 07/11/24 History tiZANidine HCL 4 mg PO TID PRN 06/05/24 07/11/24 History Nicotine 14Mg/24Hr Patch [Habitrol] 1 patch TRANSDERM DAILY #30 patch 06/16/24 07/11/24 Rx Apixaban [Eliquis] 5 mg PO BID 7 Days #14 tab 07/14/24 Rx Apixaban [Eliquis] 10 mg PO BID 5 Days #10 tablet 07/14/24 Rx Celecoxib [CeleBREX] 200 mg PO BID 7 Days #14 cap 07/14/24 Rx Pantoprazole [Protonix] 40 mg PO DAILY PRN 7 Days #7 tab 07/14/24 Rx Sennosides [Senokot] 8.6 mg PO BID PRN 7 Days #14 tab 07/14/24 Rx oxyCODONE-APAP 10-325MG [Percocet 1 each PO Q6HR PRN 7 Days #28 tab 07/14/24 Rx 10-325 mg] polyethylene glycoL 3350 [Miralax] 17 gm PO DAILY 7 Days #7 packet 07/14/24 Rx Allergies Allergy/AdvReac Type Severity Reaction Status Date / Time bee venom protein (honey bee) Allergy Swelling Verified 07/11/24 16:01 Penicillins Allergy Unknown Verified 07/11/24 16:01 Physical Exam Vitals: Vital Signs Temp Pulse Resp BP BP Pulse Ox 07/16/24 19:54 97.8 F 88 18 85/57 90 L 07/16/24 16:00 96.8 F L 93 18 88/61 92 L 07/16/24 12:34 86/57 07/16/24 12:22 79/50 07/16/24 12:17 97.5 F L 96 16 75/53 73/43 95 07/16/24 09:05 97.4 F L 93 16 92/63 93 L 07/16/24 03:55 97.8 F 91 18 86/60 91 L 07/16/24 01:19 89 18 07/16/24 00:49 97.7 F 89 18 87/59 94 L Intake and Output 07/16/24 07/16/24 07/16/24 06:59 14:59 22:59 Intake Total 10 250 Output Total 300 200 Balance -290 250 -200 Intake: IV 10 10 Invasive Line 1 10 10 Oral 240 Output: Urine 300 200 Other: Voiding Method Urinal Urinal Urinal # Voids 1 1 Weight 77.1 kg 77.1 kg - Constitutional General appearance: no acute distress - EENT Eyes: EOMI - Respiratory Nonlabored breathing - Cardiovascular Warm and well-perfused - Gastrointestinal General gastrointestinal: distended - Integumentary Integumentary: pale, no rash - Neurologic Neurologic: CNII-XII intact Results CBC & Chem 7: 07/14/24 06:57 07/14/24 06:57 Labs: Abnormal Lab Results - Last 24 Hours (Table) 07/16/24 Range/Units 11:04 POC Glucose (mg/dL) 113 H (70-110) mg/dL Assessment and Plan (1) Metastatic non-small cell lung cancer Current Visit: Yes Status: Acute Code(s): C34.90 - MALIGNANT NEOPLASM OF UNSP PART OF UNSP BRONCHUS OR LUNG SNOMED Code(s): 015381248 Plan: #Metastatic adenocarcinoma of the lung -Presented to [facility] in May 2024 with dyspnea -CT of the chest on 06/06/2024 noted large right pleural effusion -Right thoracostomy tube was placed on 06/09/2024 followed by VATS with pleurodesis on 06/14/2024 -Pleural fluid cytology and pleural biopsy both consistent with adenocarcinoma -He was arranged to have PET/CT and follow-up in clinic, which he canceled due to concerns for eviction from his current dwelling -He was readmitted to [facility] on 07/12/2024 with increased dyspnea and was treated for pneumonia with symptomatic improvement -We did discuss findings from fluid cytology and pleural biopsy and that this would be consistent with stage IV non-small cell lung cancer -We did discuss that any treatment in this situation would not be curative, but could provide significant relief and improvement in quality of life -We also discussed that any treatment could also have potential side effects -He does express understanding regarding the current stage of his malignancy and is not interested in undergoing treatment and would like to proceed with hosp ice -We remain available if anything changes in the future Dylon Dow MD
[2024-07-17 05:22] VITALS: TEMP 97.5
[2024-07-17 06:00] LABS: Glucose,Whole Blood 105 mg/dL (70-110)
--- NOTE | 2024-07-17 08:52 | P.PN ---
Subjective Progress Note Date: 07/16/24 Principal diagnosis: Hospital course: Patient is a 59 year old male with past medical history of COPD, diabetes mellitus, GERD, hyperlipidemia, hypertension, PE presents to the ED with generalized weakness. Patient complains of pressure in right lateral side of the chest at the site of previous Plerux catheter. He states that analgesics help with it temporarily. He reports a productive cough but denies shortness of breath and hemoptysis. He also endorses generalized weakness. Patient was admitted to the hospital recently and underwent VATS procedure on 06/14/2024 for recurrent right pleural effusion with mediastinal shift. At the time he also had a right-sided Pleurx catheter for 2 days. Pleural fluid was found to be positive for non-small cell lung carcinoma on 06/08/2024. Echocardiogram done in 2022 shows EF 60 to 65%, normal lv. Patient mentions not being adherent with home medications. Patient denies following up with oncology after being discharged. Today patient had an episode of hypoglycemia with blood sugar 31. He was fed and repeat blood sugar was 74. Denies fever, chills, shortness of breath, chest pain, palpitations, abdominal pain, nausea, vomiting, hematuria, dysuria, hematochezia, melena, headache, slurred speech, numbness, tingling, dizziness, lightheadedness, blurred vision, double vision. ED documentation reviewed. In the ED patient was treated with acetaminophen, atorvastatin, 0.9 normal saline, dexamethasone, azithromycin, ceftriaxone, metformin. Vitals on admission T 97.8 F, [place] 89 bpm, RR 18, BP 96/68, oxygen saturation 95% on room air. EKG independently interpreted as sinus rhythm, rate 92 bpm, UDC 386 ms. Chest x-ray shows increased new right lower opacification correlate for atelectasis versus pneumonia, small right pleural effusion with associated atelectasis. Labs on admission show WBC 10.9, hemoglobin 14.9, RDW 16.7, platelet count 455, PT 10.8, INR 1.0 sodium 130, potassium 5.6, bicarb 15, BUN 53, creatinine 1.03, magnesium 2.2, troponin I <0.012, NT proBNP 1050, D-dimer 3.76. Respiratory panel is negative 07/13/24: Patient seen and examined at bedside today. BP today is 97/60 and he is saturating at 95% on room air. Labs today show WBC 12.9, platelet count 16.4, APTT 32.8, sodium 129, potassium 4.7, bicarb 22, BUN 48. UA shows specific gravity>1.050, trace protein, trace glucose. Chest CT done yesterday shows left lower lobe nonconclusive subsegmental pulmonary embolism, no evidence for heart strain. Trace right pnedumothorax with loculated moderate-sized right pleural effusion with regions of atelectasis, superimposed infectious process is not excluded. Right hilar soft tissue fullness which may represent adenopathy. Secretions identified within the carinal region extending to the right mainstem bronchus and bronchus intermedius concerning for aspiration. Small to moderate size pericardial effusion. Abdominal ascites. 07/14/24: Patient evaluated at bedside. BP today is 96/56 and he is saturating at 92% on room air. Labs today WBC 13.3, RDW 16.7, Na 129, bicarb 19, BUN 50. Troponin <0.012. Echocardiogram shows EF 45 to 50%, no obvious regional wall motion abnormalities, mild right ventricular dilatation, mildly reduced right ventricular global function, mild AR, mild TR. 07/15/24: Patient examined today. Patient was discharged but wasn't able to go as patient's mother contacted CM and stated that she feels the need for rehab for her son. OT recommends return home with GF and home care. Patient awaiting placement and prior auth. 07/16/24: Patient evaluated at bedside. Patient was denied subacute rehab by insurance. Patient's mother wanted the patient to be hospice and she is unable to take him home with her. Patient requesting to go to the hospice home in [place]. Review of systems: Pertinent positives and negatives as discussed in HPI, a complete review of systems was performed and all other systems are negative. Vitals: Signs Reviewed Physical examination: General: nontoxic, no distress, appears at stated age Derm: warm, dry, intact Head: atraumatic, normocephalic, symmetric Eyes: EOMI, anicteric sclera Mouth: no lip lesion, mucus membranes moist Cardiovascular: S1 S2 reg, no murmur Lungs: tender to palpation on right lateral side of the chest Abdominal: soft, non-tender to palpation Extremities: right foot is bandaged Neuro: Alert, Oriented, Gross neurological examination did not reveal any focal deficits. Psych: well appearing, appropriate affect Assessment/Plan: Patient is a 59 year old male with past medical history of COPD, diabetes mellitus, GERD, hyperlipidemia, hypertension, PE presents to the ED with gene ralized weakness. Active: #. Pulmonary embolism #. History of DVT on warfarin on outpatient basis, subtherapeutic INR #. Recurrent pleural effusion S/p VATS on 06/14/24 #. Active history of Non small cell lung cancer Chest CT done yesterday shows left lower lobe nonconclusive subsegmental pulmonary embolism, no evidence for heart strain. Trace right pnedumothorax with loculated moderate-sized right pleural effusion with regions of atelectasis, superimposed infectious process is not excluded. Right hilar soft tissue fullness which may represent adenopathy. Secretions identified within the carinal region extending to the right mainstem bronchus and bronchus intermedius concerning for aspiration. Small to moderate size pericardial effusion. Abdominal ascites. D-dimer 3.76 Continue Eliquis Pulmnology is following Percsreedhar and Vanessa for pain Consult oncology, so patient can make informed decision on hospice vs treatment Consult hospice #. Pneumonia #. Generalized weakness possibly secondary to PE and pneumonia Chest x-ray shows increased new right lower opacification correlate for atelectasis versus pneumonia, small right pleural effusion with associated atelectasis Procalcitonin is 0.44 S/p Ceftriaxone 1000 mg IVP once and Azithromycin 500 mg IVPB once Continue Guaifenesin-DM PO Q12HR PRN, Levofloxacin 500 mg IVPB Q24HR Pulmonology is following Continue #. Hyponatremia Sodium 130 on admission 0.9 normal saline at 75 ml/hr Monitor BMP #. Reactive Leukocytosis WBC 10.9 on admission Monitor CBC #. Hyperkalemia, resolved #. Metabolic acidosis, resolved Discontinue sodium bicarbonate Chronic: #. Hyperlipidemia #. Diabetes mellitus #. 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 BPH #. Tobacco dependence #. Vitamin D deficiency Continue atorvastatin 40 mg p.o. every 48 hours, insulin sliding scale and ACHS blood glucose monitoring, tamsulosin 0.4 mg p.o. daily, nicotine 14 mg/24-hour patch transdermal daily, ergocalciferol 125 0 mcg p.o. q. monthly, tizanidine 4 mg p.o. 3 times daily as needed F: None E: Replete asnrequired N: Regular diet DVT prophylaxis: Eliquis and SCD GI prophylaxis: Pantoprazole 40 mg PO daily Objective - Vital Signs Vital signs: Vital Signs Temp 97.5 F L 07/17/24 04:08 Pulse 85 07/17/24 04:08 Resp 16 07/17/24 04:08 BP 96/65 07/17/24 04:08 Pulse Ox 93 L 07/17/24 04:08 FiO2 Intake & Output 07/16/24 07/17/24 07/17/24 18:59 06:59 18:59 Intake Total 250 240 Output Total 500 Balance 250 -500 240 Weight 77.1 kg 77 kg Intake: IV 10 Invasive Line 1 10 Oral 240 240 Output: Urine 500 Other: Voiding Method Urinal Urinal # Voids 1 - Labs CBC & Chem 7: 07/14/24 06:57 07/14/24 06:57 Labs: Abnormal Lab Results - Last 24 Hours (Table) 07/16/24 Range/Units 11:04 POC Glucose (mg/dL) 113 H (70-110) mg/dL
[2024-07-17 08:54] VITALS: BP 78/56; PULSE 97; RESP 17
[2024-07-17] MEDS: ERGOCALCIFEROL 1,250 MCG (50,000 IU) CAPSULE PO SCH (08:55)
== END 2024-07-17 10:52 | disposition hospice, inpatient (51) | DRG 175 ==
LOC: EC 13:38 → OBSVTOIN 17:55 → 6NMEDSUR 17:55 → 3SCARD 07-12 18:53
PROVIDERS: ADMIT Internal Medicine; ATTEND Internal Medicine
PROC: 05H933Z Insertion of Infusion Device into Right Brachial Vein, Percutaneous Approach (ICD-10-PCS; principal; 2024-07-13 17:45)
DX: I26.93 Single subsegmental thrombotic pulmonary embolism without acute cor pulmonale (principal); J18.9 Pneumonia, unspecified organism; C78.2 Secondary malignant neoplasm of pleura; J91.0 Malignant pleural effusion; I31.39 Other pericardial effusion (noninflammatory); E87.1 Hypo-osmolality and hyponatremia; E87.20 Acidosis, unspecified; Z51.5 Encounter for palliative care; C34.90 Malignant neoplasm of unspecified part of unspecified bronchus or lung; J44.0 Chronic obstructive pulmonary disease with (acute) lower respiratory infection; E11.51 Type 2 diabetes mellitus with diabetic peripheral angiopathy without gangrene; I10 Essential (primary) hypertension; R18.8 Other ascites; J98.11 Atelectasis; E11.649 Type 2 diabetes mellitus with hypoglycemia without coma; R79.1 Abnormal coagulation profile; K21.9 Gastro-esophageal reflux disease without esophagitis; N40.0 Benign prostatic hyperplasia without lower urinary tract symptoms; F17.200 Nicotine dependence, unspecified, uncomplicated; D49.9 Neoplasm of unspecified behavior of unspecified site; E55.9 Vitamin D deficiency, unspecified; E78.5 Hyperlipidemia, unspecified; E87.5 Hyperkalemia; Z66 Do not resuscitate; Z79.01 Long term (current) use of anticoagulants; Z79.1 Long term (current) use of non-steroidal anti-inflammatories (NSAID); Z79.84 Long term (current) use of oral hypoglycemic drugs; Z79.899 Other long term (current) drug therapy; Z86.711 Personal history of pulmonary embolism; Z86.718 Personal history of other venous thrombosis and embolism
CPT/HCPCS: 36410; 36415; 71045; 71046; 71275; 76937; 80048; 80053; 81003; 83036; 83735; 83880; 84145; 84484; 85025; 85027; 85379; 85610; 85730; 87636; 93005; 93306; 96361; 96365; 96375; 99285